=== PATIENT | male | born 1955 | race African-American/Black ===

== ENCOUNTER 2019-03-25 01:07 | Emergency (ER) | payer MEDICAID ==
[~2019-03-25] VITALS: Ht 172.7 cm; Wt 77.4 kg
[2019-03-25] MEDS ORDERED: VANCOMYCIN HCL 1 GM/D5% WATER 200 ML IV ONE (01:30)
[2019-03-25] MEDS ORDERED: SODIUM CHLORIDE 0.9% 1,000 ML IV ONE (01:30)
[2019-03-25 02:33] LABS: APPEARANCE,URINE CLEAR (CLEAR); BILIRUBIN,URINE NEGATIVE (NEGATIVE); GLUCOSE, URINE (UA) >=1000 mg/dL (NEGATIVE); KETONES,URINE NEGATIVE (NEGATIVE); LEUKOCYTE ESTERASE ,URINE NEGATIVE (NEGATIVE); NITRATE,URINE NEGATIVE (NEGATIVE); OCCULT BLOOD,URINE NEGATIVE (NEGATIVE); PROTEIN,URINE NEGATIVE (NEGATIVE); UROBILINOGEN,URINE 0.2 mg/dL (<=1.0)
[2019-03-25 02:40] LABS: AMPHET/METH SCREEN,URINE NEGATIVE (NEGATIVE); BARBITURATE SCREEN, URINE NEGATIVE (NEGATIVE); BENZODIAZEPINES SCREEN,URINE NEGATIVE (NEGATIVE); CANNABINOID SCREEN,URINE NEGATIVE (NEGATIVE); COCAINE SCREEN,URINE NEGATIVE (NEGATIVE); METHADONE SCREEN, URINE NEGATIVE (NEGATIVE); OPIATE SCREEN,URINE NEGATIVE (NEGATIVE)
[2019-03-25 02:41] LABS: BACTERIA,URINE None Seen /HPF (None Seen); RBC,URINE None Seen /HPF (0-2); SQUAMOUS EPITHELIAL CELL,UR Rare /LPF (None Seen); WBC,URINE 0-2 /HPF (0-5)
[2019-03-25 02:43] LABS: PHENCYCLIDINE SCREEN,URINE NEGATIVE (NEGATIVE)
[2019-03-25 03:01] LABS: BASOPHILS % (AUTO) 1.4 % (0.0-2.0); EOSINOPHILS % (AUTO) 0.2 % (1.0-6.0); HEMATOCRIT 36.4 % (41-53); LYMPHOCYTES # (AUTO) 2.4 K/uL (1.0-4.8); LYMPHOCYTES % (AUTO) 24.4 % (22.0-44.0); MEAN CORPUSCULAR HEMOGLOBIN 30.2 pg (26.0-34.0); MEAN CORPUSCULAR VOLUME 91 fL (80-100); MONOCYTES # (AUTO) 0.9 K/uL (0.1-1.0); MONOCYTES % (AUTO) 8.7 % (2.0-9.0); NEUTROPHILS # (AUTO) 6.4 K/uL (1.8-7.7); NEUTROPHILS % (AUTO) 65.3 % (40.0-70.0); PLATELET COUNT (AUTO) 352 K/uL (150-450); RED BLOOD CELL COUNT(AUTO) 3.98 MIL/uL (4.50-5.90); RED CELL DISTRIBUTION WIDTH 14.7 % (11.5-14.5)
[2019-03-25 03:18] LABS: LACTIC ACID 1.7 mmol/L (0.4-2.0)
[2019-03-25 03:24] LABS: ALANINE AMINOTRANSFERASE 22 U/L (12-78); ALBUMIN 3.1 g/dL (3.4-5.0); ALKALINE PHOSPHATASE 121 U/L (46-116); ANION GAP 7 mmol/L (8-16); ASPARTATE AMINOTRANSFERASE 15 U/L (15-37); BILIRUBIN,TOTAL 0.7 mg/dL (0.1-1.0); CALCIUM, TOTAL 9.7 mg/dL (8.8-10.5); CARBON DIOXIDE 28 mmol/L (22-29); CHLORIDE 90 mmol/L (98-107); CREATININE 1.23 mg/dL (0.60-1.30); GLOMERULAR FILTR. RATE CALC > 60 mL/min (>60); POTASSIUM 4.3 mmol/L (3.5-5.1); SODIUM SERUM 125 mmol/L (136-145); TOTAL PROTEIN, SERUM 8.2 g/dL (6.4-8.2)
[2019-03-25 03:27] LABS: GLUCOSE,RANDOM 595 mg/dL (70-110)
[2019-03-25 03:32] LABS: UREA NITROGEN, BLOOD 11 mg/dL (7-18)
[2019-03-25 03:45] LABS: GLUCOSE,POINT OF CARE 542 MG/DL (70-110)
[2019-03-25] MEDS ORDERED: INSULIN REGULAR, HUMAN 100 UNITS/ML SQ ONE (03:45)
[2019-03-25] MEDS ORDERED: PIPERACILLIN/TAZO 3.375 GM/D5W 50 ML IV ONE (04:30)
[2019-03-25] MEDS ORDERED: CEFEPIME HCL 2 GM in DEXTROSE 5%-WATER 50 ML IV ONE (04:45)
[2019-03-25 05:23] VITALS: BP 134/71
[2019-03-25 05:31] LABS: GLUCOSE,POINT OF CARE 401 MG/DL (70-110)
== END 2019-03-25 06:16 | disposition short-term general hospital (02) ==
LOC: EMS 01:07
DX: T81.40XA Infection following a procedure, unspecified, initial encounter (principal); L03.031 Cellulitis of right toe; I10 Essential (primary) hypertension; E11.9 Type 2 diabetes mellitus without complications
CPT/HCPCS: 36415; 70450; 71045; 73630; 80053; 80307; 81001; 82550; 82962; 83605; 83880; 84484; 85025; 87040; 93005; 96365; 96366; 96372; 96375; 99285; G0480; J0692; J1815; J3370; J7060

== ENCOUNTER 2019-03-28 17:30 | Emergency (ER) | payer MEDICAID ==
[2019-03-28 19:16] LABS: GLUCOSE,POINT OF CARE 341 MG/DL (70-110)
== END 2019-03-28 20:30 | disposition left against medical advice (07) ==
LOC: EMS 17:31
DX: R45.851 Suicidal ideations (principal); Z53.21 Procedure and treatment not carried out due to patient leaving prior to being seen by health care provider

== ENCOUNTER 2019-09-22 18:42 | Emergency (ER) | payer MEDICAID ==
[~2019-09-22] VITALS: Ht 170.2 cm; Wt 81.8 kg
[2019-09-22 20:04] LABS: GLUCOSE,POINT OF CARE 435 MG/DL (70-110)
[2019-09-22] MEDS ORDERED: LISI-660 PO (20:04)
[2019-09-22] MEDS ORDERED: LORA-999 PO (20:04)
[2019-09-22 20:44] VITALS: BP 138/73
== END 2019-09-22 22:35 | disposition home or self-care (01) ==
LOC: EMS 18:43
DX: E11.65 Type 2 diabetes mellitus with hyperglycemia (principal); E78.00 Pure hypercholesterolemia, unspecified; I10 Essential (primary) hypertension; F20.9 Schizophrenia, unspecified; Z98.890 Other specified postprocedural states; Z89.431 Acquired absence of right foot; Z88.8 Allergy status to other drugs, medicaments and biological substances

== ENCOUNTER 2019-09-27 17:40 | Inpatient (IN) | payer MEDICAID ==
[~2019-09-27] VITALS: Ht 170.2 cm; Wt 83.6 kg
[~2019-09-27 17:40] MED LIST: LISI-660 PO; LORA-999 PO
[2019-09-27] MEDS ORDERED: INSU100V SQ (17:46)
[2019-09-27] MEDS ORDERED: INSULIN REGULAR, HUMAN 100 UNITS/ML IVP ONE (18:00)
[2019-09-27] MEDS ORDERED: SODIUM CHLORIDE 0.9% 1,000 ML IV ONE (18:00)
[2019-09-27] MEDS ORDERED: ACETAMINOPHEN 500 MG TABLET PO ONE (18:00)
[2019-09-27] MEDS ORDERED: BENZONATATE 100 MG CAPSULE PO ONE (18:00)
[2019-09-27 18:25] LABS: AMPHET/METH SCREEN,URINE NEGATIVE (NEGATIVE); BARBITURATE SCREEN, URINE NEGATIVE (NEGATIVE); BENZODIAZEPINES SCREEN,URINE NEGATIVE (NEGATIVE); CANNABINOID SCREEN,URINE POSITIVE (NEGATIVE); COCAINE SCREEN,URINE NEGATIVE (NEGATIVE); METHADONE SCREEN, URINE NEGATIVE (NEGATIVE); OPIATE SCREEN,URINE NEGATIVE (NEGATIVE)
[2019-09-27 18:33] LABS: PHENCYCLIDINE SCREEN,URINE NEGATIVE (NEGATIVE)
[2019-09-27 18:46] LABS: BASOPHILS % (AUTO) 1.8 % (0.0-2.0); EOSINOPHILS % (AUTO) 1.5 % (1.0-6.0); HEMOGLOBIN 12.7 g/dL (13.5-17.5); LYMPHOCYTES # (AUTO) 2.9 K/uL (1.0-4.8); LYMPHOCYTES % (AUTO) 29.1 % (22.0-44.0); MEAN CORPUSCULAR HEMOGLOBIN 30.1 pg (26.0-34.0); MEAN CORPUSCULAR HGB CONC 33.5 G/dL (31.0-37.0); MEAN CORPUSCULAR VOLUME 90 fL (80-100); MONOCYTES # (AUTO) 0.9 K/uL (0.1-1.0); MONOCYTES % (AUTO) 8.7 % (2.0-9.0); NEUTROPHILS # (AUTO) 5.8 K/uL (1.8-7.7); NEUTROPHILS % (AUTO) 58.9 % (40.0-70.0); PLATELET COUNT (AUTO) 286 K/uL (150-450); RED BLOOD CELL COUNT(AUTO) 4.22 MIL/uL (4.50-5.90); RED CELL DISTRIBUTION WIDTH 14.3 % (11.5-14.5)
[2019-09-27 19:11] LABS: ALANINE AMINOTRANSFERASE 38 U/L (12-78); ALBUMIN 3.2 g/dL (3.4-5.0); ALKALINE PHOSPHATASE 168 U/L (46-116); ANION GAP 6 mmol/L (8-16); ASPARTATE AMINOTRANSFERASE 21 U/L (15-37); BILIRUBIN,TOTAL 0.4 mg/dL (0.1-1.0); CALCIUM, TOTAL 9.7 mg/dL (8.8-10.5); CARBON DIOXIDE 27 mmol/L (22-29); CHLORIDE 95 mmol/L (98-107); CREATININE 0.88 mg/dL (0.60-1.30); GLOMERULAR FILTR. RATE CALC > 60 mL/min (>60); POTASSIUM 5.2 mmol/L (3.5-5.1); SODIUM SERUM 128 mmol/L (136-145); TOTAL PROTEIN, SERUM 7.7 g/dL (6.4-8.2); UREA NITROGEN, BLOOD 14 mg/dL (7-18)
[2019-09-27 19:20] LABS: GLUCOSE,RANDOM 492 mg/dL (70-110)
[2019-09-27] MEDS ORDERED: LORazepam 2 MG/ML VIAL IVP ONE (19:30)
[2019-09-27 21:02] LABS: GLUCOSE,POINT OF CARE 118 MG/DL (70-110)
[2019-09-27] MEDS ORDERED: ZOLPIDEM TARTRATE 10 MG TABLET PO PRN (21:45)
[2019-09-27] MEDS ORDERED: HALOPERIDOL 5 MG TABLET PO PRN (21:45)
[2019-09-28 01:04] VITALS: BP 136/85
[2019-09-28] MEDS ORDERED: DEXTROSE 50%-WATER 25 GM/50 ML SYRINGE IVP PRN (06:45)
[2019-09-28] MEDS: MetFORMIN HCL 500 MG TABLET PO SCH ×3 (07:19→16:48)
[2019-09-28] MEDS: INSULIN LISPRO 100 UNITS/ML SQ PRN ×3 (07:20→20:22)
[2019-09-28 07:25] LABS: GLUCOMETER DEV NAME(LOC) 3E.I 2; GLUCOSE,POINT OF CARE 309 MG/DL (70-110)
[2019-09-28] MEDS ORDERED: ONDANSETRON HCL 4 MG TABLET PO PRN (08:00)
[2019-09-28] MEDS ORDERED: OMEPRAZOLE 20 MG CAPSULE PO PRN (08:00)
[2019-09-28] MEDS ORDERED: MAGNESIUM HYDROXIDE SUSPENSION 30 ML UDCUP PO PRN (08:00)
[2019-09-28] MEDS ORDERED: ALBUTEROL SULFATE HFA 90 MCG/PUFF 8 GM INHALER IH PRN (08:00)
[2019-09-28] MEDS ORDERED: CloNIDine HCL 0.1 MG TABLET PO PRN (08:00)
[2019-09-28] MEDS ORDERED: MAG HYDROX/AL HYDROX/SIMETH ES 30 ML SUSPENSION UDCUP PO PRN (08:00)
[2019-09-28] MEDS ORDERED: DOCUSATE SODIUM 100 MG CAPSULE PO PRN (08:00)
[2019-09-28] MEDS ORDERED: ACETAMINOPHEN 325 MG TABLET PO PRN (08:00)
[2019-09-28] MEDS ORDERED: BACITRACIN 28.4 GM OINTMENT TP PRN (08:00)
[2019-09-28] MEDS ORDERED: IBUPROFEN 600 MG TABLET PO PRN (08:00)
[2019-09-28] MEDS ORDERED: LOPERAMIDE HCL 2 MG CAPSULE PO PRN (08:00)
[2019-09-28] MEDS ORDERED: PETROLATUM,WHITE 28 GM JELLY TP PRN (08:00)
[2019-09-28] MEDS ORDERED: HALOPERIDOL 5 MG TABLET PO PRN (08:30)
[2019-09-28] MEDS: LISINOPRIL 10 MG TABLET PO SCH ×2 (08:53→08:57)
[2019-09-28 09:43] VITALS: BP 138/77
[2019-09-28] MEDS: LORazepam 2 MG TABLET PO PRN ×2 (12:20→19:45)
[2019-09-28 13:09] LABS: GLUCOMETER DEV NAME(LOC) 3EX.; GLUCOSE,POINT OF CARE 358 MG/DL (70-110)
[2019-09-28 17:12] LABS: GLUCOMETER DEV NAME(LOC) 3E.I 2; GLUCOSE,POINT OF CARE 547 MG/DL (70-110)
[2019-09-28] MEDS ORDERED: INSULIN LISPRO 100 UNITS/ML SQ ONE (18:00)
[2019-09-28 19:04] VITALS: BP 135/81
[2019-09-28] MEDS ORDERED: OLANZapine 10 MG TABLET PO SCH (21:00)
[2019-09-29 06:03] LABS: GLUCOMETER DEV NAME(LOC) 3E.I 2; GLUCOSE,POINT OF CARE 339 MG/DL (70-110)
[2019-09-29] MEDS: MetFORMIN HCL 500 MG TABLET PO SCH ×2 (06:47→16:46)
[2019-09-29] MEDS: INSULIN LISPRO 100 UNITS/ML SQ PRN ×3 (06:51→21:18)
[2019-09-29] MEDS: LORazepam 2 MG TABLET PO PRN ×3 (06:51→19:14)
[2019-09-29 08:07] LABS: CHOL/HDL RATIO 2.7 (4.2-7.3)
[2019-09-29 08:14] VITALS: BP 122/83
[2019-09-29] MEDS: LISINOPRIL 10 MG TABLET PO SCH (09:00)
[2019-09-29] MEDS: RisperiDONE 1 MG TABLET PO SCH (09:13)
[2019-09-29] MEDS: BENZOCAINE/MENTHOL LOZENGE MM PRN ×2 (10:50→19:17)
[2019-09-29 11:35] LABS: GLUCOMETER DEV NAME(LOC) 3E.I 2; GLUCOSE,POINT OF CARE 400 MG/DL (70-110)
[2019-09-29 16:25] VITALS: BP 139/90
[2019-09-29 17:24] LABS: GLUCOMETER DEV NAME(LOC) 3E.C; GLUCOSE,POINT OF CARE 580 MG/DL (70-110)
[2019-09-29] MEDS ORDERED: DEXTROSE 50%-WATER 25 GM/50 ML SYRINGE IVP PRN (17:30)
[2019-09-29] MEDS ORDERED: INSULIN LISPRO 100 UNITS/ML SQ ONE (17:45)
[2019-09-29 19:26] LABS: GLUCOMETER DEV NAME(LOC) 3E.C; GLUCOSE,POINT OF CARE 276 MG/DL (70-110)
[2019-09-29] MEDS ORDERED: INSULIN GLARGINE,HUM.REC.ANLOG 100 UNITS/ML SQ SCH (21:00)
[2019-09-29 21:15] LABS: GLUCOMETER DEV NAME(LOC) 3E.C; GLUCOSE,POINT OF CARE 288 MG/DL (70-110)
[2019-09-30] MEDS: LORazepam 2 MG TABLET PO PRN ×2 (03:40→16:14)
[2019-09-30 06:35] LABS: GLUCOMETER DEV NAME(LOC) 3E.C; GLUCOSE,POINT OF CARE 256 MG/DL (70-110)
[2019-09-30] MEDS: MetFORMIN HCL 500 MG TABLET PO SCH ×2 (07:00→17:30)
[2019-09-30] MEDS: INSULIN LISPRO 100 UNITS/ML SQ PRN ×4 (07:02→21:07)
[2019-09-30] MEDS: RisperiDONE 1 MG TABLET PO SCH (07:52)
[2019-09-30] MEDS: LISINOPRIL 10 MG TABLET PO SCH (08:03)
[2019-09-30 08:33] VITALS: BP 140/73
[2019-09-30 11:16] LABS: GLUCOMETER DEV NAME(LOC) 3E.C; GLUCOSE,POINT OF CARE 390 MG/DL (70-110)
[2019-09-30] MEDS: BENZOCAINE/MENTHOL LOZENGE MM PRN (15:19)
[2019-09-30 17:37] LABS: GLUCOMETER DEV NAME(LOC) 3E.C; GLUCOSE,POINT OF CARE 239 MG/DL (70-110)
[2019-09-30] MEDS: INSULIN GLARGINE,HUM.REC.ANLOG 100 UNITS/ML SQ SCH (21:07)
[2019-09-30 21:13] LABS: GLUCOMETER DEV NAME(LOC) 3E.C; GLUCOSE,POINT OF CARE 369 MG/DL (70-110)
[2019-10-01 01:20] VITALS: BP 104/64
[2019-10-01 01:41] LABS: GLUCOMETER DEV NAME(LOC) 3E.C; GLUCOSE,POINT OF CARE 82 MG/DL (70-110)
[2019-10-01] MEDS: LORazepam 2 MG TABLET PO PRN ×3 (02:07→17:12)
[2019-10-01] MEDS: BENZOCAINE/MENTHOL LOZENGE MM PRN ×3 (03:45→17:12)
[2019-10-01 06:51] LABS: GLUCOMETER DEV NAME(LOC) 3E.C; GLUCOSE,POINT OF CARE 258 MG/DL (70-110)
[2019-10-01] MEDS: MetFORMIN HCL 500 MG TABLET PO SCH ×2 (06:53→17:04)
[2019-10-01] MEDS: INSULIN LISPRO 100 UNITS/ML SQ PRN ×4 (06:56→21:08)
[2019-10-01] MEDS: RisperiDONE 1 MG TABLET PO SCH (08:11)
[2019-10-01] MEDS: LISINOPRIL 10 MG TABLET PO SCH (08:17)
[2019-10-01 08:29] VITALS: BP 138/78
[2019-10-01 11:33] LABS: GLUCOMETER DEV NAME(LOC) 3E.I 2; GLUCOSE,POINT OF CARE 366 MG/DL (70-110)
[2019-10-01 17:00] VITALS: BP 127/77
[2019-10-01 17:19] LABS: GLUCOMETER DEV NAME(LOC) 3E.C; GLUCOSE,POINT OF CARE 408 MG/DL (70-110)
[2019-10-01 20:35] LABS: GLUCOMETER DEV NAME(LOC) 3E.C; GLUCOSE,POINT OF CARE 159 MG/DL (70-110)
[2019-10-01] MEDS: INSULIN GLARGINE,HUM.REC.ANLOG 100 UNITS/ML SQ SCH (21:07)
[2019-10-01] MEDS ORDERED: RISP1 PO (21:12)
[2019-10-02 06:44] LABS: GLUCOMETER DEV NAME(LOC) 3E.C; GLUCOSE,POINT OF CARE 255 MG/DL (70-110)
[2019-10-02] MEDS: MetFORMIN HCL 500 MG TABLET PO SCH (06:49)
[2019-10-02] MEDS: INSULIN LISPRO 100 UNITS/ML SQ PRN (06:49)
[2019-10-02] MEDS: LORazepam 2 MG TABLET PO PRN (06:54)
[2019-10-02] MEDS: RisperiDONE 1 MG TABLET PO SCH (07:38)
[2019-10-02] MEDS: LISINOPRIL 10 MG TABLET PO SCH (07:38)
[2019-10-02] MEDS: BENZOCAINE/MENTHOL LOZENGE MM PRN (08:38)
[2019-10-02] MEDS ORDERED: INSULIN GLARGINE,HUM.REC.ANLOG 100 UNITS/ML SQ SCH (09:00)
[2019-10-02 09:11] VITALS: BP 123/76
[2019-10-02] MEDS ORDERED: LISI-661 PO (09:36)
[2019-10-02] MEDS ORDERED: METF-960 PO (09:37)
[2019-10-02] MEDS ORDERED: INSLAN SQ (09:38)
== END 2019-10-02 11:00 | disposition home or self-care (01) | DRG 885 ==
LOC: EMS 17:42 → 3EI 22:00 → 3EC 09-29 14:58
PROVIDERS: ADMIT Psychiatry & Neurology Psychiatry; ATTEND Psychiatry & Neurology Psychiatry
DX: F20.0 Paranoid schizophrenia (principal); E11.65 Type 2 diabetes mellitus with hyperglycemia; R45.851 Suicidal ideations; E78.00 Pure hypercholesterolemia, unspecified; F32.9 Major depressive disorder, single episode, unspecified; G47.00 Insomnia, unspecified; G89.29 Other chronic pain; I10 Essential (primary) hypertension; K59.00 Constipation, unspecified; Z79.4 Long term (current) use of insulin; Z91.14 Patient's other noncompliance with medication regimen; Z88.1 Allergy status to other antibiotic agents; Z88.8 Allergy status to other drugs, medicaments and biological substances; Z56.0 Unemployment, unspecified
CPT/HCPCS: 82948; G0480; J1815; J2060; J7030

== ENCOUNTER 2019-10-19 01:28 | Emergency (ER) | payer MEDICAID ==
[~2019-10-19] VITALS: Ht 170.2 cm; Wt 79.1 kg
[~2019-10-19 01:28] MED LIST changes: +INSLAN SQ; -LISI-660 PO; +LISI-661 PO; -LORA-999 PO; +METF-960 PO; +RISP1 PO
[2019-10-19 01:46] LABS: GLUCOSE,POINT OF CARE 557 MG/DL (70-110)
[2019-10-19] MEDS ORDERED: RisperiDONE 1 MG TABLET PO ONE (03:00)
[2019-10-19] MEDS ORDERED: LISINOPRIL 10 MG TABLET PO ONE (03:00)
[2019-10-19] MEDS ORDERED: MetFORMIN HCL 500 MG TABLET PO ONE (03:00)
[2019-10-19] MEDS ORDERED: SODIUM CHLORIDE 0.9% 1,000 ML IV ONE (03:30)
[2019-10-19 03:31] LABS: GLUCOSE,POINT OF CARE 497 MG/DL (70-110)
[2019-10-19 04:15] LABS: BASOPHILS % (AUTO) 1.8 % (0.0-2.0); EOSINOPHILS % (AUTO) 0.8 % (1.0-6.0); HEMATOCRIT 38.9 % (41-53); HEMOGLOBIN 12.9 g/dL (13.5-17.5); LYMPHOCYTES # (AUTO) 2.8 K/uL (1.0-4.8); LYMPHOCYTES % (AUTO) 30.9 % (22.0-44.0); MEAN CORPUSCULAR HGB CONC 33.3 G/dL (31.0-37.0); MEAN CORPUSCULAR VOLUME 90 fL (80-100); MONOCYTES # (AUTO) 0.7 K/uL (0.1-1.0); MONOCYTES % (AUTO) 7.9 % (2.0-9.0); NEUTROPHILS # (AUTO) 5.3 K/uL (1.8-7.7); NEUTROPHILS % (AUTO) 58.6 % (40.0-70.0); PLATELET COUNT (AUTO) 245 K/uL (150-450); RED BLOOD CELL COUNT(AUTO) 4.32 MIL/uL (4.50-5.90); RED CELL DISTRIBUTION WIDTH 13.8 % (11.5-14.5)
[2019-10-19 04:35] LABS: ALANINE AMINOTRANSFERASE 31 U/L (12-78); ALBUMIN 2.9 g/dL (3.4-5.0); ALKALINE PHOSPHATASE 145 U/L (46-116); ANION GAP 3 mmol/L (8-16); ASPARTATE AMINOTRANSFERASE 14 U/L (15-37); BILIRUBIN,TOTAL 0.3 mg/dL (0.1-1.0); CALCIUM, TOTAL 9.1 mg/dL (8.8-10.5); CARBON DIOXIDE 29 mmol/L (22-29); CHLORIDE 96 mmol/L (98-107); CREATININE 1.01 mg/dL (0.60-1.30); GLOMERULAR FILTR. RATE CALC > 60 mL/min (>60); POTASSIUM 4.9 mmol/L (3.5-5.1); SODIUM SERUM 128 mmol/L (136-145); TOTAL PROTEIN, SERUM 7.1 g/dL (6.4-8.2); UREA NITROGEN, BLOOD 14 mg/dL (7-18)
[2019-10-19 04:37] LABS: GLUCOSE,RANDOM 433 mg/dL (70-110)
[2019-10-19] MEDS ORDERED: INSULIN REGULAR, HUMAN 100 UNITS/ML SQ ONE (04:45)
[2019-10-19] MEDS ORDERED: INSULIN GLARGINE,HUM.REC.ANLOG 100 UNITS/ML SQ ONE (05:45)
[2019-10-19 06:14] VITALS: BP 137/73
== END 2019-10-19 06:16 | disposition home or self-care (01) ==
LOC: EMS 01:29
DX: F22 Delusional disorders (principal); E11.65 Type 2 diabetes mellitus with hyperglycemia; E78.00 Pure hypercholesterolemia, unspecified; I10 Essential (primary) hypertension; Z79.4 Long term (current) use of insulin; Z79.84 Long term (current) use of oral hypoglycemic drugs; Z79.899 Other long term (current) drug therapy; Z88.8 Allergy status to other drugs, medicaments and biological substances
CPT/HCPCS: 36415; 80053; 82948; 82962; 85025; 96372; 99283; J1815 ×2

== ENCOUNTER 2020-05-31 16:39 | Emergency (ER) | payer MEDICAID ==
[~2020-05-31] VITALS: Ht 170.2 cm; Wt 82.7 kg
[~2020-05-31 16:39] MED LIST changes: -RISP1 PO; +RISP1TAB27 PO
[2020-05-31 16:41] VITALS: BP 160/127
== END 2020-05-31 17:48 | disposition left against medical advice (07) ==
LOC: EMS 16:39
DX: E11.65 Type 2 diabetes mellitus with hyperglycemia (principal); I10 Essential (primary) hypertension; F17.210 Nicotine dependence, cigarettes, uncomplicated; Z88.8 Allergy status to other drugs, medicaments and biological substances; Z79.4 Long term (current) use of insulin

== ENCOUNTER 2021-11-12 10:42 | Inpatient (IN) | payer MEDICARE, MEDICAID ==
[~2021-11-12] VITALS: Ht 170.2 cm; Wt 96.2 kg
[~2021-11-12 10:42] MED LIST changes: -LISI-661 PO; +LISI-893 PO; +METF-1211 PO; -METF-960 PO; -RISP1TAB27 PO; +RISP1TAB48 PO
[2021-11-12] MEDS ORDERED: ZOLPIDEM TARTRATE 10 MG TABLET PO PRN (12:00)
[2021-11-12] MEDS ORDERED: PNEUMOCOCCAL VACCINE POLYVALENT 0.5 ML VIAL [PPSV23] IM. ONE (13:15)
[2021-11-12 13:56] LABS: GLUCOMETER DEV NAME(LOC) BV3N.; GLUCOSE,POINT OF CARE 330 MG/DL (70-110)
[2021-11-12] MEDS: LORazepam 2 MG TABLET PO PRN ×2 (14:52→21:15)
[2021-11-12 15:55] VITALS: BP 154/97
[2021-11-12 16:17] VITALS: BP 132/75
[2021-11-12] MEDS ORDERED: MetFORMIN HCL 500 MG TABLET PO SCH (17:00)
[2021-11-12] MEDS ORDERED: GLUCAGON,HUMAN RECOMBINANT 1 MG VIAL IM PRN (17:15)
[2021-11-12] MEDS: QUEtiapine FUMARATE 100 MG TABLET PO PRN (17:20)
[2021-11-12] MEDS: INSULIN GLARGINE,HUM.REC.ANLOG 100 UNITS/ML SQ SCH (17:23)
[2021-11-12] MEDS: INSULIN LISPRO 100 UNITS/ML SQ PRN ×2 (17:23→21:23)
[2021-11-12 17:52] LABS: GLUCOMETER DEV NAME(LOC) BV3N.; GLUCOSE,POINT OF CARE 347 MG/DL (70-110)
[2021-11-12] MEDS: GuaiFENesin [SUGAR-FREE] 200 MG/10 ML SOLUTION UDCUP PO PRN (21:15)
[2021-11-12 21:37] LABS: GLUCOMETER DEV NAME(LOC) BV3N.; GLUCOSE,POINT OF CARE 316 MG/DL (70-110)
[2021-11-13 04:11] VITALS: BP 144/80
[2021-11-13] MEDS: GuaiFENesin [SUGAR-FREE] 200 MG/10 ML SOLUTION UDCUP PO PRN (05:38)
[2021-11-13] MEDS ORDERED: NICOTINE 14 MG/24 HOUR PATCH TD PRN (06:00)
[2021-11-13] MEDS ORDERED: LOPERAMIDE HCL 2 MG CAPSULE PO PRN (06:00)
[2021-11-13] MEDS ORDERED: ALBUTEROL SULFATE HFA 90 MCG/PUFF 8 GM INHALER IH PRN (06:00)
[2021-11-13] MEDS ORDERED: ACETAMINOPHEN 325 MG TABLET PO PRN (06:00)
[2021-11-13] MEDS ORDERED: PETROLATUM,WHITE 28 GM JELLY TP PRN (06:00)
[2021-11-13] MEDS ORDERED: ONDANSETRON HCL 4 MG TABLET PO PRN (06:00)
[2021-11-13] MEDS ORDERED: MAG HYDROX/AL HYDROX/SIMETH ES 30 ML SUSPENSION UDCUP PO PRN (06:00)
[2021-11-13] MEDS ORDERED: MAGNESIUM HYDROXIDE SUSPENSION 30 ML UDCUP PO PRN (06:00)
[2021-11-13] MEDS ORDERED: CloNIDine HCL 0.1 MG TABLET PO PRN (06:00)
[2021-11-13] MEDS ORDERED: IBUPROFEN 400 MG TABLET PO PRN (06:00)
[2021-11-13 06:06] LABS: GLUCOMETER DEV NAME(LOC) BV3N.; GLUCOSE,POINT OF CARE 293 MG/DL (70-110)
[2021-11-13] MEDS: DENTURE ADHESIVE 68 GM CREAM DT PRN (06:27)
[2021-11-13] MEDS: INSULIN LISPRO 100 UNITS/ML SQ PRN ×4 (06:49→21:10)
[2021-11-13 06:57] LABS: BASOPHILS % (AUTO) 1.2 % (0.0-2.0); EOSINOPHILS % (AUTO) 3.5 % (1.0-6.0); HEMATOCRIT 39.8 % (41-53); HEMOGLOBIN 13.8 g/dL (13.5-17.5); LYMPHOCYTES # (AUTO) 2.6 K/uL (1.0-4.8); LYMPHOCYTES % (AUTO) 36.2 % (22.0-44.0); MEAN CORPUSCULAR HEMOGLOBIN 30.3 pg (26.0-34.0); MEAN CORPUSCULAR HGB CONC 34.6 G/dL (31.0-37.0); MEAN CORPUSCULAR VOLUME 88 fL (80-100); MONOCYTES # (AUTO) 0.6 K/uL (0.1-1.0); NEUTROPHILS # (AUTO) 3.6 K/uL (1.8-7.7); NEUTROPHILS % (AUTO) 50.1 % (40.0-70.0); PLATELET COUNT (AUTO) 283 K/uL (150-450); RED BLOOD CELL COUNT(AUTO) 4.54 MIL/uL (4.50-5.90); RED CELL DISTRIBUTION WIDTH 13.9 % (11.5-14.5)
[2021-11-13 07:00] LABS: APPEARANCE,URINE CLEAR (CLEAR); BILIRUBIN,URINE NEGATIVE (NEGATIVE); GLUCOSE, URINE (UA) >=1000 mg/dL (NEGATIVE); KETONES,URINE NEGATIVE (NEGATIVE); LEUKOCYTE ESTERASE ,URINE NEGATIVE (NEGATIVE); NITRATE,URINE NEGATIVE (NEGATIVE); OCCULT BLOOD,URINE NEGATIVE (NEGATIVE); PH,URINE 5.5 (5.0-8.0); PROTEIN,URINE NEGATIVE (NEGATIVE); SPECIFIC GRAVITIY, URINE 1.031 (1.003-1.030); UROBILINOGEN,URINE <=1.0 mg/dL (<=1.0)
[2021-11-13 07:01] LABS: AMPHET/METH SCREEN,URINE NEGATIVE (NEGATIVE); BARBITURATE SCREEN, URINE NEGATIVE (NEGATIVE); BENZODIAZEPINES SCREEN,URINE NEGATIVE (NEGATIVE); CANNABINOID SCREEN,URINE NEGATIVE (NEGATIVE); COCAINE SCREEN,URINE NEGATIVE (NEGATIVE); METHADONE SCREEN, URINE NEGATIVE (NEGATIVE); OPIATE SCREEN,URINE NEGATIVE (NEGATIVE)
[2021-11-13 07:03] LABS: PHENCYCLIDINE SCREEN,URINE NEGATIVE (NEGATIVE)
[2021-11-13 07:16] LABS: BACTERIA,URINE None Seen /HPF (None Seen); RBC,URINE None Seen /HPF (0-2); SQUAMOUS EPITHELIAL CELL,UR Rare /LPF (None Seen); WBC,URINE None Seen /HPF (0-5)
[2021-11-13 07:47] LABS: ALANINE AMINOTRANSFERASE 49 U/L (12-78); ALBUMIN 3.5 g/dL (3.4-5.0); ALKALINE PHOSPHATASE 149 U/L (46-116); ANION GAP 4 mmol/L (8-16); ASPARTATE AMINOTRANSFERASE 53 U/L (15-37); BILIRUBIN,TOTAL 0.3 mg/dL (0.1-1.0); CALCIUM, TOTAL 9.5 mg/dL (8.8-10.5); CARBON DIOXIDE 29 mmol/L (22-29); CHLORIDE 101 mmol/L (98-107); CHOL/HDL RATIO 4.1 (4.2-7.3); CHOLESTEROL 209 mg/dL (131-200); CREATININE 0.85 mg/dL (0.60-1.30); FREE T4 (FREE THYROXINE) 1.34 ng/dL (0.76-1.46); GLOMERULAR FILTR. RATE CALC > 60 mL/min (>60); GLUCOSE,RANDOM 325 mg/dL (70-110); HDL CHOLESTEROL 51 mg/dL (40-60); LDL CHOL (CALC.) 135 mg/dL (0-130); POTASSIUM 4.6 mmol/L (3.5-5.1); SODIUM SERUM 134 mmol/L (136-145); THYROID STIMULATING HORMONE 1.86 uIU/mL (0.36-3.74); TOTAL PROTEIN, SERUM 8.1 g/dL (6.4-8.2); TRIGLYCERIDES 113 mg/dL (15-150); UREA NITROGEN, BLOOD 17 mg/dL (7-18)
[2021-11-13] MEDS: LORazepam 2 MG TABLET PO PRN ×3 (07:56→16:50)
[2021-11-13] MEDS ORDERED: LISINOPRIL 10 MG TABLET PO SCH (09:00)
[2021-11-13 09:07] VITALS: BP 138/79
[2021-11-13] MEDS: AmLODIPine BESYLATE 5 MG TABLET PO SCH (09:07)
[2021-11-13] MEDS: INSULIN GLARGINE,HUM.REC.ANLOG 100 UNITS/ML SQ SCH ×2 (09:12→16:51)
[2021-11-13 11:31] LABS: GLUCOMETER DEV NAME(LOC) BV3N.; GLUCOSE,POINT OF CARE 353 MG/DL (70-110)
[2021-11-13] MEDS: OLANZapine 10 MG TABLET PO SCH ×2 (12:22→21:06)
[2021-11-13 16:11] VITALS: BP 124/64
[2021-11-13] MEDS: RisperiDONE 3 MG TABLET PO SCH (16:50)
[2021-11-13] MEDS: TRIHEXYPHENIDYL HCL 5 MG TABLET PO SCH (16:50)
[2021-11-13] MEDS: QUEtiapine FUMARATE 100 MG TABLET PO PRN (16:50)
[2021-11-13 17:11] LABS: GLUCOMETER DEV NAME(LOC) BV3N.; GLUCOSE,POINT OF CARE 254 MG/DL (70-110)
[2021-11-13] MEDS: QUEtiapine FUMARATE 200 MG TABLET PO SCH (21:06)
[2021-11-13 21:26] LABS: GLUCOMETER DEV NAME(LOC) BV3N.; GLUCOSE,POINT OF CARE 355 MG/DL (70-110)
[2021-11-14] MEDS: INSULIN LISPRO 100 UNITS/ML SQ PRN ×4 (06:25→20:29)
[2021-11-14 06:31] LABS: GLUCOMETER DEV NAME(LOC) BV3N.; GLUCOSE,POINT OF CARE 221 MG/DL (70-110)
[2021-11-14 06:49] VITALS: BP 110/78
[2021-11-14] MEDS: INSULIN GLARGINE,HUM.REC.ANLOG 100 UNITS/ML SQ SCH ×2 (08:09→17:12)
[2021-11-14 08:16] LABS: GLUCOMETER DEV NAME(LOC) BV3N.; GLUCOSE,POINT OF CARE 287 MG/DL (70-110)
[2021-11-14] MEDS: QUEtiapine FUMARATE 100 MG TABLET PO PRN (08:19)
[2021-11-14] MEDS: TRIHEXYPHENIDYL HCL 5 MG TABLET PO SCH ×2 (08:19→16:51)
[2021-11-14] MEDS: RisperiDONE 3 MG TABLET PO SCH ×2 (08:19→16:51)
[2021-11-14] MEDS: OLANZapine 10 MG TABLET PO SCH ×2 (08:20→20:24)
[2021-11-14] MEDS: AmLODIPine BESYLATE 5 MG TABLET PO SCH (08:20)
[2021-11-14 08:36] VITALS: BP 160/84
[2021-11-14 11:31] LABS: GLUCOMETER DEV NAME(LOC) BV3N.; GLUCOSE,POINT OF CARE 362 MG/DL (70-110)
[2021-11-14] MEDS: LORazepam 2 MG TABLET PO PRN ×2 (13:55→20:23)
[2021-11-14 16:16] VITALS: BP 129/68
[2021-11-14 16:51] LABS: GLUCOMETER DEV NAME(LOC) BV3N.; GLUCOSE,POINT OF CARE 244 MG/DL (70-110)
[2021-11-14] MEDS: DOCUSATE SODIUM 100 MG CAPSULE PO PRN (16:51)
[2021-11-14] MEDS: QUEtiapine FUMARATE 200 MG TABLET PO SCH (20:24)
[2021-11-14 20:31] LABS: GLUCOMETER DEV NAME(LOC) BV3N.; GLUCOSE,POINT OF CARE 291 MG/DL (70-110)
[2021-11-15 05:29] VITALS: BP 167/93
[2021-11-15 06:31] LABS: GLUCOMETER DEV NAME(LOC) BV3N.; GLUCOSE,POINT OF CARE 256 MG/DL (70-110)
[2021-11-15] MEDS: INSULIN LISPRO 100 UNITS/ML SQ PRN ×4 (06:33→20:37)
[2021-11-15] MEDS: DENTURE ADHESIVE 68 GM CREAM DT PRN (06:39)
[2021-11-15] MEDS: OLANZapine 10 MG TABLET PO SCH ×2 (08:41→20:32)
[2021-11-15] MEDS: LORazepam 2 MG TABLET PO PRN ×3 (08:41→21:13)
[2021-11-15] MEDS: AmLODIPine BESYLATE 5 MG TABLET PO SCH (08:41)
[2021-11-15] MEDS: TRIHEXYPHENIDYL HCL 5 MG TABLET PO SCH ×2 (08:41→16:50)
[2021-11-15] MEDS: RisperiDONE 3 MG TABLET PO SCH ×2 (08:41→16:50)
[2021-11-15 09:15] VITALS: BP 148/86
[2021-11-15] MEDS: INSULIN GLARGINE,HUM.REC.ANLOG 100 UNITS/ML SQ SCH ×2 (09:21→17:34)
[2021-11-15 12:11] LABS: GLUCOMETER DEV NAME(LOC) BV3N.; GLUCOSE,POINT OF CARE 357 MG/DL (70-110)
[2021-11-15 16:12] VITALS: BP 151/90
[2021-11-15] MEDS: ERYTHROMYCIN 0.5% 3.5 GM TUBE OPHTHALMIC OINTMENT OS SCH (16:50)
[2021-11-15] MEDS: GuaiFENesin/D-METHORPHAN [SUGAR-FREE] 200-20MG/10 ML SYRUP UDCUP PO PRN (16:50)
[2021-11-15 17:22] LABS: GLUCOMETER DEV NAME(LOC) BV3N.; GLUCOSE,POINT OF CARE 314 MG/DL (70-110)
[2021-11-15] MEDS: QUEtiapine FUMARATE 200 MG TABLET PO SCH (20:32)
[2021-11-15 20:46] LABS: GLUCOMETER DEV NAME(LOC) BV3N.; GLUCOSE,POINT OF CARE 250 MG/DL (70-110)
[2021-11-16] MEDS: GuaiFENesin/D-METHORPHAN [SUGAR-FREE] 200-20MG/10 ML SYRUP UDCUP PO PRN ×3 (00:42→16:36)
[2021-11-16] MEDS: DENTURE ADHESIVE 68 GM CREAM DT PRN ×2 (00:43→16:35)
[2021-11-16 05:21] VITALS: BP 155/87
[2021-11-16 06:10] LABS: GLUCOMETER DEV NAME(LOC) BV3N.; GLUCOSE,POINT OF CARE 322 MG/DL (70-110)
[2021-11-16] MEDS: INSULIN LISPRO 100 UNITS/ML SQ PRN ×4 (06:15→21:12)
[2021-11-16 08:22] VITALS: BP 164/84
[2021-11-16] MEDS: ERYTHROMYCIN 0.5% 3.5 GM TUBE OPHTHALMIC OINTMENT OS SCH ×2 (09:07→16:35)
[2021-11-16] MEDS: AmLODIPine BESYLATE 5 MG TABLET PO SCH (09:08)
[2021-11-16] MEDS: RisperiDONE 3 MG TABLET PO SCH ×2 (09:08→16:35)
[2021-11-16] MEDS: TRIHEXYPHENIDYL HCL 5 MG TABLET PO SCH ×2 (09:08→16:35)
[2021-11-16] MEDS: LORazepam 2 MG TABLET PO PRN ×2 (09:08→16:36)
[2021-11-16] MEDS: OLANZapine 10 MG TABLET PO SCH ×2 (09:08→21:10)
[2021-11-16] MEDS: INSULIN GLARGINE,HUM.REC.ANLOG 100 UNITS/ML SQ SCH ×2 (09:12→16:39)
[2021-11-16 11:41] LABS: GLUCOMETER DEV NAME(LOC) BV3N.; GLUCOSE,POINT OF CARE 302 MG/DL (70-110)
[2021-11-16 16:37] VITALS: BP 157/80
[2021-11-16 17:22] LABS: GLUCOMETER DEV NAME(LOC) BV3N.; GLUCOSE,POINT OF CARE 248 MG/DL (70-110)
[2021-11-16] MEDS: QUEtiapine FUMARATE 200 MG TABLET PO SCH (21:10)
[2021-11-16 21:51] LABS: GLUCOMETER DEV NAME(LOC) BV3N.; GLUCOSE,POINT OF CARE 310 MG/DL (70-110)
[2021-11-17] MEDS: GuaiFENesin/D-METHORPHAN [SUGAR-FREE] 200-20MG/10 ML SYRUP UDCUP PO PRN ×2 (04:43→17:02)
[2021-11-17 05:00] VITALS: BP 172/89
[2021-11-17 05:45] VITALS: BP 148/76
[2021-11-17 06:01] LABS: GLUCOMETER DEV NAME(LOC) BV3N.; GLUCOSE,POINT OF CARE 177 MG/DL (70-110)
[2021-11-17] MEDS: INSULIN LISPRO 100 UNITS/ML SQ PRN ×4 (06:39→20:56)
[2021-11-17 08:21] VITALS: BP 158/83
[2021-11-17] MEDS: TRIHEXYPHENIDYL HCL 5 MG TABLET PO SCH ×2 (08:53→17:01)
[2021-11-17] MEDS: OLANZapine 10 MG TABLET PO SCH ×2 (08:53→20:53)
[2021-11-17] MEDS: RisperiDONE 3 MG TABLET PO SCH ×2 (08:53→17:01)
[2021-11-17] MEDS: AmLODIPine BESYLATE 5 MG TABLET PO SCH (08:53)
[2021-11-17] MEDS: LORazepam 2 MG TABLET PO PRN ×2 (08:54→17:02)
[2021-11-17] MEDS: ERYTHROMYCIN 0.5% 3.5 GM TUBE OPHTHALMIC OINTMENT OS SCH ×2 (08:55→17:01)
[2021-11-17] MEDS: INSULIN GLARGINE,HUM.REC.ANLOG 100 UNITS/ML SQ SCH ×2 (09:03→17:03)
[2021-11-17 09:16] LABS: GLUCOMETER DEV NAME(LOC) BV3N.; GLUCOSE,POINT OF CARE 343 MG/DL (70-110)
[2021-11-17 12:02] LABS: GLUCOMETER DEV NAME(LOC) BV3N.; GLUCOSE,POINT OF CARE 320 MG/DL (70-110)
[2021-11-17 16:13] VITALS: BP 140/75
[2021-11-17] MEDS: QUEtiapine FUMARATE 100 MG TABLET PO PRN (17:01)
[2021-11-17 17:51] LABS: GLUCOMETER DEV NAME(LOC) BV3N.; GLUCOSE,POINT OF CARE 301 MG/DL (70-110)
[2021-11-17] MEDS: QUEtiapine FUMARATE 200 MG TABLET PO SCH (20:53)
[2021-11-17 21:16] LABS: GLUCOMETER DEV NAME(LOC) BV3N.; GLUCOSE,POINT OF CARE 181 MG/DL (70-110)
[2021-11-18] MEDS: LORazepam 2 MG TABLET PO PRN ×2 (04:28→12:52)
[2021-11-18] MEDS: GuaiFENesin/D-METHORPHAN [SUGAR-FREE] 200-20MG/10 ML SYRUP UDCUP PO PRN ×2 (04:29→17:06)
[2021-11-18 04:40] VITALS: BP 136/69
[2021-11-18] MEDS: DENTURE ADHESIVE 68 GM CREAM DT PRN (05:19)
[2021-11-18 06:21] LABS: GLUCOMETER DEV NAME(LOC) BV3N.; GLUCOSE,POINT OF CARE 119 MG/DL (70-110)
[2021-11-18 08:21] VITALS: BP 124/70
[2021-11-18] MEDS: ERYTHROMYCIN 0.5% 3.5 GM TUBE OPHTHALMIC OINTMENT OS SCH ×2 (08:30→16:18)
[2021-11-18] MEDS: AmLODIPine BESYLATE 5 MG TABLET PO SCH (08:31)
[2021-11-18] MEDS: TRIHEXYPHENIDYL HCL 5 MG TABLET PO SCH ×2 (08:31→16:17)
[2021-11-18] MEDS: OLANZapine 10 MG TABLET PO SCH ×2 (08:31→20:13)
[2021-11-18] MEDS: RisperiDONE 3 MG TABLET PO SCH ×2 (08:31→16:17)
[2021-11-18] MEDS: INSULIN GLARGINE,HUM.REC.ANLOG 100 UNITS/ML SQ SCH ×2 (09:08→16:53)
[2021-11-18 11:10] LABS: GLUCOMETER DEV NAME(LOC) BV3N.; GLUCOSE,POINT OF CARE 246 MG/DL (70-110)
[2021-11-18] MEDS: INSULIN LISPRO 100 UNITS/ML SQ PRN ×2 (11:22→16:53)
[2021-11-18 16:41] LABS: GLUCOMETER DEV NAME(LOC) BV3N.; GLUCOSE,POINT OF CARE 284 MG/DL (70-110)
[2021-11-18 16:44] VITALS: BP 140/76
[2021-11-18] MEDS: QUEtiapine FUMARATE 200 MG TABLET PO SCH (20:14)
[2021-11-18 21:26] LABS: GLUCOMETER DEV NAME(LOC) BV3N.; GLUCOSE,POINT OF CARE 105 MG/DL (70-110)
[2021-11-18 21:26] LABS: GLUCOMETER DEV NAME(LOC) BV3N.; GLUCOSE,POINT OF CARE 50 MG/DL (70-110)
[2021-11-19 05:49] VITALS: BP 150/79
[2021-11-19 06:45] LABS: GLUCOMETER DEV NAME(LOC) BV3N.; GLUCOSE,POINT OF CARE 86 MG/DL (70-110)
[2021-11-19] MEDS: GuaiFENesin/D-METHORPHAN [SUGAR-FREE] 200-20MG/10 ML SYRUP UDCUP PO PRN ×2 (06:49→16:51)
[2021-11-19] MEDS: DENTURE ADHESIVE 68 GM CREAM DT PRN (06:56)
[2021-11-19 08:11] LABS: GLUCOMETER DEV NAME(LOC) POC.BV
[2021-11-19 08:46] VITALS: BP 144/79
[2021-11-19] MEDS: AmLODIPine BESYLATE 5 MG TABLET PO SCH (08:55)
[2021-11-19] MEDS: TRIHEXYPHENIDYL HCL 5 MG TABLET PO SCH ×2 (08:55→16:51)
[2021-11-19] MEDS: RisperiDONE 3 MG TABLET PO SCH ×2 (08:55→16:51)
[2021-11-19] MEDS: OLANZapine 10 MG TABLET PO SCH ×2 (08:55→21:29)
[2021-11-19] MEDS: DOCUSATE SODIUM 100 MG CAPSULE PO PRN (09:00)
[2021-11-19] MEDS: LORazepam 2 MG TABLET PO PRN ×2 (09:00→13:08)
[2021-11-19] MEDS: ERYTHROMYCIN 0.5% 3.5 GM TUBE OPHTHALMIC OINTMENT OS SCH ×2 (09:07→16:51)
[2021-11-19] MEDS: INSULIN GLARGINE,HUM.REC.ANLOG 100 UNITS/ML SQ SCH ×2 (09:08→17:13)
[2021-11-19 09:21] LABS: GLUCOMETER DEV NAME(LOC) BV3N.; GLUCOSE,POINT OF CARE 316 MG/DL (70-110)
[2021-11-19] MEDS: INSULIN LISPRO 100 UNITS/ML SQ PRN ×3 (11:36→21:33)
[2021-11-19 11:56] LABS: GLUCOMETER DEV NAME(LOC) BV3N.; GLUCOSE,POINT OF CARE 280 MG/DL (70-110)
[2021-11-19 16:16] VITALS: BP 130/90
[2021-11-19] MEDS: QUEtiapine FUMARATE 100 MG TABLET PO PRN (16:51)
[2021-11-19 17:36] LABS: GLUCOMETER DEV NAME(LOC) BV3N.; GLUCOSE,POINT OF CARE 166 MG/DL (70-110)
[2021-11-19] MEDS: QUEtiapine FUMARATE 200 MG TABLET PO SCH (21:29)
[2021-11-19 21:31] LABS: GLUCOMETER DEV NAME(LOC) BV3N.; GLUCOSE,POINT OF CARE 208 MG/DL (70-110)
[2021-11-20] VITALS: BP 149/88
[2021-11-20] MEDS: GuaiFENesin/D-METHORPHAN [SUGAR-FREE] 200-20MG/10 ML SYRUP UDCUP PO PRN ×3 (01:01→16:45)
[2021-11-20] MEDS: LORazepam 2 MG TABLET PO PRN ×4 (01:01→20:50)
[2021-11-20] MEDS: INSULIN LISPRO 100 UNITS/ML SQ PRN ×4 (07:04→20:52)
[2021-11-20 07:15] LABS: GLUCOMETER DEV NAME(LOC) BV3N.; GLUCOSE,POINT OF CARE 174 MG/DL (70-110)
[2021-11-20 08:11] VITALS: BP 151/86
[2021-11-20] MEDS: AmLODIPine BESYLATE 5 MG TABLET PO SCH (08:47)
[2021-11-20] MEDS: OLANZapine 10 MG TABLET PO SCH ×2 (08:47→20:50)
[2021-11-20] MEDS: RisperiDONE 3 MG TABLET PO SCH ×2 (08:47→16:44)
[2021-11-20] MEDS: TRIHEXYPHENIDYL HCL 5 MG TABLET PO SCH ×2 (08:47→16:44)
[2021-11-20] MEDS: ERYTHROMYCIN 0.5% 3.5 GM TUBE OPHTHALMIC OINTMENT OS SCH ×2 (08:48→16:44)
[2021-11-20] MEDS: INSULIN GLARGINE,HUM.REC.ANLOG 100 UNITS/ML SQ SCH ×2 (08:54→16:48)
[2021-11-20 09:56] LABS: GLUCOMETER DEV NAME(LOC) BV3N.; GLUCOSE,POINT OF CARE 173 MG/DL (70-110)
[2021-11-20 11:44] LABS: GLUCOMETER DEV NAME(LOC) BV3N.; GLUCOSE,POINT OF CARE 231 MG/DL (70-110)
[2021-11-20 16:11] VITALS: BP 129/67
[2021-11-20] MEDS: QUEtiapine FUMARATE 100 MG TABLET PO PRN (16:44)
[2021-11-20 17:21] LABS: GLUCOMETER DEV NAME(LOC) BV3N.; GLUCOSE,POINT OF CARE 185 MG/DL (70-110)
[2021-11-20 20:50] LABS: GLUCOMETER DEV NAME(LOC) BV3N.; GLUCOSE,POINT OF CARE 271 MG/DL (70-110)
[2021-11-20] MEDS: QUEtiapine FUMARATE 200 MG TABLET PO SCH (20:50)
[2021-11-21 06:26] LABS: GLUCOMETER DEV NAME(LOC) BV3N.; GLUCOSE,POINT OF CARE 110 MG/DL (70-110)
[2021-11-21] MEDS: RisperiDONE 3 MG TABLET PO SCH ×2 (08:16→16:54)
[2021-11-21] MEDS: AmLODIPine BESYLATE 5 MG TABLET PO SCH (08:16)
[2021-11-21] MEDS: ERYTHROMYCIN 0.5% 3.5 GM TUBE OPHTHALMIC OINTMENT OS SCH ×2 (08:16→16:54)
[2021-11-21] MEDS: OLANZapine 10 MG TABLET PO SCH ×2 (08:16→21:04)
[2021-11-21] MEDS: TRIHEXYPHENIDYL HCL 5 MG TABLET PO SCH ×2 (08:16→16:54)
[2021-11-21 08:23] VITALS: BP 152/76
[2021-11-21] MEDS: GuaiFENesin/D-METHORPHAN [SUGAR-FREE] 200-20MG/10 ML SYRUP UDCUP PO PRN ×2 (08:39→17:01)
[2021-11-21] MEDS: INSULIN GLARGINE,HUM.REC.ANLOG 100 UNITS/ML SQ SCH ×2 (08:52→16:57)
[2021-11-21] MEDS: LORazepam 2 MG TABLET PO PRN ×2 (09:50→16:54)
[2021-11-21] MEDS: DOCUSATE SODIUM 100 MG CAPSULE PO PRN (09:50)
[2021-11-21 12:06] LABS: GLUCOMETER DEV NAME(LOC) BV3N.; GLUCOSE,POINT OF CARE 127 MG/DL (70-110)
[2021-11-21 16:23] VITALS: BP 140/75
[2021-11-21] MEDS: QUEtiapine FUMARATE 100 MG TABLET PO PRN (16:54)
[2021-11-21] MEDS: INSULIN LISPRO 100 UNITS/ML SQ PRN ×2 (16:57→21:15)
[2021-11-21 17:01] LABS: GLUCOMETER DEV NAME(LOC) BV3N.; GLUCOSE,POINT OF CARE 278 MG/DL (70-110)
[2021-11-21] MEDS: QUEtiapine FUMARATE 200 MG TABLET PO SCH (21:04)
[2021-11-21 21:21] LABS: GLUCOMETER DEV NAME(LOC) BV3N.; GLUCOSE,POINT OF CARE 163 MG/DL (70-110)
[2021-11-22 05:04] VITALS: BP 142/83
[2021-11-22] MEDS: DENTURE ADHESIVE 68 GM CREAM DT PRN (05:57)
[2021-11-22] MEDS: DOCUSATE SODIUM 100 MG CAPSULE PO PRN (05:57)
[2021-11-22] MEDS: GuaiFENesin/D-METHORPHAN [SUGAR-FREE] 200-20MG/10 ML SYRUP UDCUP PO PRN ×2 (06:04→22:02)
[2021-11-22 06:11] LABS: GLUCOMETER DEV NAME(LOC) BV3N.; GLUCOSE,POINT OF CARE 147 MG/DL (70-110)
[2021-11-22] MEDS: INSULIN LISPRO 100 UNITS/ML SQ PRN ×4 (06:33→21:38)
[2021-11-22 08:25] VITALS: BP 163/89
[2021-11-22] MEDS: AmLODIPine BESYLATE 5 MG TABLET PO SCH (08:44)
[2021-11-22] MEDS: TRIHEXYPHENIDYL HCL 5 MG TABLET PO SCH ×2 (08:44→16:57)
[2021-11-22] MEDS: OLANZapine 10 MG TABLET PO SCH ×2 (08:44→21:35)
[2021-11-22] MEDS: RisperiDONE 3 MG TABLET PO SCH ×2 (08:44→16:57)
[2021-11-22] MEDS: ERYTHROMYCIN 0.5% 3.5 GM TUBE OPHTHALMIC OINTMENT OS SCH (08:44)
[2021-11-22] MEDS: INSULIN GLARGINE,HUM.REC.ANLOG 100 UNITS/ML SQ SCH ×2 (08:50→17:08)
[2021-11-22 10:17] VITALS: BP 154/77
[2021-11-22 11:26] LABS: GLUCOMETER DEV NAME(LOC) BV3N.; GLUCOSE,POINT OF CARE 180 MG/DL (70-110)
[2021-11-22] MEDS: QUEtiapine FUMARATE 100 MG TABLET PO PRN (13:58)
[2021-11-22 16:14] VITALS: BP 136/80
[2021-11-22 16:21] LABS: GLUCOMETER DEV NAME(LOC) BV3N.; GLUCOSE,POINT OF CARE 200 MG/DL (70-110)
[2021-11-22 20:21] LABS: GLUCOMETER DEV NAME(LOC) BV3N.; GLUCOSE,POINT OF CARE 337 MG/DL (70-110)
[2021-11-22] MEDS: QUEtiapine FUMARATE 200 MG TABLET PO SCH (21:35)
[2021-11-23 01:30] VITALS: BP 132/78
[2021-11-23] MEDS: GuaiFENesin/D-METHORPHAN [SUGAR-FREE] 200-20MG/10 ML SYRUP UDCUP PO PRN ×2 (06:01→18:48)
[2021-11-23 06:21] LABS: GLUCOMETER DEV NAME(LOC) BV3N.; GLUCOSE,POINT OF CARE 116 MG/DL (70-110)
[2021-11-23 08:32] VITALS: BP 148/80
[2021-11-23] MEDS: TRIHEXYPHENIDYL HCL 5 MG TABLET PO SCH ×2 (08:51→16:40)
[2021-11-23] MEDS: AmLODIPine BESYLATE 5 MG TABLET PO SCH (08:51)
[2021-11-23] MEDS: OLANZapine 10 MG TABLET PO SCH ×2 (08:51→20:00)
[2021-11-23] MEDS: RisperiDONE 3 MG TABLET PO SCH ×2 (08:51→16:40)
[2021-11-23] MEDS: INSULIN GLARGINE,HUM.REC.ANLOG 100 UNITS/ML SQ SCH ×2 (10:36→16:44)
[2021-11-23] MEDS: INSULIN LISPRO 100 UNITS/ML SQ PRN ×2 (10:37→19:59)
[2021-11-23 10:46] LABS: GLUCOMETER DEV NAME(LOC) BV3N.; GLUCOSE,POINT OF CARE 267 MG/DL (70-110)
[2021-11-23] MEDS ORDERED: ZOLPIDEM TARTRATE 10 MG TABLET PO PRN (12:15)
[2021-11-23] MEDS: LORazepam 2 MG TABLET PO PRN (15:51)
[2021-11-23 16:15] VITALS: BP 136/79
[2021-11-23 16:56] LABS: GLUCOMETER DEV NAME(LOC) BV3N.; GLUCOSE,POINT OF CARE 142 MG/DL (70-110)
[2021-11-23] MEDS: QUEtiapine FUMARATE 200 MG TABLET PO SCH (20:00)
[2021-11-23 21:01] LABS: GLUCOMETER DEV NAME(LOC) BV3N.; GLUCOSE,POINT OF CARE 289 MG/DL (70-110)
[2021-11-24] MEDS: GuaiFENesin/D-METHORPHAN [SUGAR-FREE] 200-20MG/10 ML SYRUP UDCUP PO PRN ×2 (04:15→10:12)
[2021-11-24 04:38] VITALS: BP 139/74
[2021-11-24] MEDS: DENTURE ADHESIVE 68 GM CREAM DT PRN (05:45)
[2021-11-24] MEDS: INSULIN LISPRO 100 UNITS/ML SQ PRN ×4 (06:35→21:00)
[2021-11-24 06:36] LABS: GLUCOMETER DEV NAME(LOC) BV3N.; GLUCOSE,POINT OF CARE 239 MG/DL (70-110)
[2021-11-24 08:09] VITALS: BP 148/83
[2021-11-24 09:21] LABS: GLUCOMETER DEV NAME(LOC) BV3N.; GLUCOSE,POINT OF CARE 307 MG/DL (70-110)
[2021-11-24] MEDS: OLANZapine 10 MG TABLET PO SCH ×2 (09:34→21:01)
[2021-11-24] MEDS: TRIHEXYPHENIDYL HCL 5 MG TABLET PO SCH ×2 (09:34→16:32)
[2021-11-24] MEDS: AmLODIPine BESYLATE 5 MG TABLET PO SCH (09:34)
[2021-11-24] MEDS: LORazepam 2 MG TABLET PO PRN ×2 (09:34→16:57)
[2021-11-24] MEDS: RisperiDONE 3 MG TABLET PO SCH ×2 (09:34→16:32)
[2021-11-24] MEDS: INSULIN GLARGINE,HUM.REC.ANLOG 100 UNITS/ML SQ SCH ×2 (09:39→16:41)
[2021-11-24 14:11] LABS: GLUCOMETER DEV NAME(LOC) BV3N.; GLUCOSE,POINT OF CARE 301 MG/DL (70-110)
[2021-11-24 16:14] VITALS: BP 127/83
[2021-11-24 16:50] LABS: GLUCOMETER DEV NAME(LOC) BV3N.; GLUCOSE,POINT OF CARE 225 MG/DL (70-110)
[2021-11-24] MEDS ORDERED: DiphenhydrAMINE HCL 50 MG/ML VIAL IM ONE (17:15)
[2021-11-24] MEDS ORDERED: LORazepam 2 MG/ML VIAL IM ONE (17:15)
[2021-11-24] MEDS ORDERED: HALOPERIDOL LACTATE 5 MG/ML VIAL IM ONE (17:15)
[2021-11-24] MEDS: QUEtiapine FUMARATE 200 MG TABLET PO SCH (21:01)
[2021-11-24 21:31] LABS: GLUCOMETER DEV NAME(LOC) BV3N.; GLUCOSE,POINT OF CARE 226 MG/DL (70-110)
[2021-11-25] MEDS: LORazepam 2 MG TABLET PO PRN ×3 (01:05→21:46)
[2021-11-25] MEDS: GuaiFENesin/D-METHORPHAN [SUGAR-FREE] 200-20MG/10 ML SYRUP UDCUP PO PRN ×4 (01:07→20:28)
[2021-11-25 06:21] LABS: GLUCOMETER DEV NAME(LOC) BV3N.; GLUCOSE,POINT OF CARE 110 MG/DL (70-110)
[2021-11-25 07:15] VITALS: BP 126/89
[2021-11-25] MEDS: RisperiDONE 3 MG TABLET PO SCH ×2 (08:07→16:22)
[2021-11-25] MEDS: TRIHEXYPHENIDYL HCL 5 MG TABLET PO SCH ×2 (08:07→16:22)
[2021-11-25] MEDS: AmLODIPine BESYLATE 5 MG TABLET PO SCH (08:08)
[2021-11-25] MEDS: OLANZapine 10 MG TABLET PO SCH ×2 (08:08→20:04)
[2021-11-25 08:14] VITALS: BP 143/81
[2021-11-25] MEDS: INSULIN GLARGINE,HUM.REC.ANLOG 100 UNITS/ML SQ SCH ×2 (09:01→16:31)
[2021-11-25 11:36] LABS: GLUCOMETER DEV NAME(LOC) BV3N.; GLUCOSE,POINT OF CARE 351 MG/DL (70-110)
[2021-11-25 16:12] VITALS: BP 131/70
[2021-11-25] MEDS: ERYTHROMYCIN 0.5% 3.5 GM TUBE OPHTHALMIC OINTMENT OS SCH (16:22)
[2021-11-25 16:46] LABS: GLUCOMETER DEV NAME(LOC) BV3N.; GLUCOSE,POINT OF CARE 135 MG/DL (70-110)
[2021-11-25] MEDS: QUEtiapine FUMARATE 200 MG TABLET PO SCH (20:04)
[2021-11-25] MEDS: INSULIN LISPRO 100 UNITS/ML SQ PRN (20:26)
[2021-11-25 21:26] LABS: GLUCOMETER DEV NAME(LOC) BV3N.; GLUCOSE,POINT OF CARE 387 MG/DL (70-110)
[2021-11-26 04:08] VITALS: BP 158/94
[2021-11-26] MEDS: DENTURE ADHESIVE 68 GM CREAM DT PRN (04:35)
[2021-11-26] MEDS: GuaiFENesin/D-METHORPHAN [SUGAR-FREE] 200-20MG/10 ML SYRUP UDCUP PO PRN ×2 (04:52→11:47)
[2021-11-26 06:32] LABS: GLUCOMETER DEV NAME(LOC) BV3N.; GLUCOSE,POINT OF CARE 255 MG/DL (70-110)
[2021-11-26] MEDS: INSULIN LISPRO 100 UNITS/ML SQ PRN ×4 (06:56→20:57)
[2021-11-26 08:19] VITALS: BP 141/92
[2021-11-26] MEDS: ERYTHROMYCIN 0.5% 3.5 GM TUBE OPHTHALMIC OINTMENT OS SCH ×3 (08:26→17:41)
[2021-11-26] MEDS: RisperiDONE 3 MG TABLET PO SCH ×2 (08:27→17:42)
[2021-11-26] MEDS: OLANZapine 10 MG TABLET PO SCH ×2 (08:27→20:46)
[2021-11-26] MEDS: AmLODIPine BESYLATE 5 MG TABLET PO SCH (08:27)
[2021-11-26] MEDS: TRIHEXYPHENIDYL HCL 5 MG TABLET PO SCH ×2 (08:27→17:42)
[2021-11-26] MEDS: INSULIN GLARGINE,HUM.REC.ANLOG 100 UNITS/ML SQ SCH ×2 (08:33→17:46)
[2021-11-26 11:35] LABS: GLUCOMETER DEV NAME(LOC) BV3N.; GLUCOSE,POINT OF CARE 175 MG/DL (70-110)
[2021-11-26] MEDS: DOCUSATE SODIUM 100 MG CAPSULE PO PRN (14:45)
[2021-11-26 16:17] VITALS: BP 113/72
[2021-11-26] MEDS: QUEtiapine FUMARATE 100 MG TABLET PO PRN (17:42)
[2021-11-26] MEDS: LORazepam 2 MG TABLET PO PRN (17:42)
[2021-11-26 17:46] LABS: GLUCOMETER DEV NAME(LOC) BV3N.; GLUCOSE,POINT OF CARE 350 MG/DL (70-110)
[2021-11-26] MEDS: QUEtiapine FUMARATE 200 MG TABLET PO SCH (20:46)
[2021-11-26 20:56] LABS: GLUCOMETER DEV NAME(LOC) BV3N.; GLUCOSE,POINT OF CARE 341 MG/DL (70-110)
[2021-11-27] MEDS: DENTURE ADHESIVE 68 GM CREAM DT PRN (04:55)
[2021-11-27] MEDS: GuaiFENesin/D-METHORPHAN [SUGAR-FREE] 200-20MG/10 ML SYRUP UDCUP PO PRN (04:55)
[2021-11-27 05:14] VITALS: BP 180/100
[2021-11-27] MEDS: INSULIN LISPRO 100 UNITS/ML SQ PRN ×4 (06:35→20:38)
[2021-11-27 06:41] LABS: GLUCOMETER DEV NAME(LOC) BV3N.; GLUCOSE,POINT OF CARE 182 MG/DL (70-110)
[2021-11-27] MEDS: RisperiDONE 3 MG TABLET PO SCH ×2 (08:21→16:47)
[2021-11-27] MEDS: ERYTHROMYCIN 0.5% 3.5 GM TUBE OPHTHALMIC OINTMENT OS SCH ×3 (08:21→16:47)
[2021-11-27] MEDS: OLANZapine 10 MG TABLET PO SCH ×2 (08:21→20:34)
[2021-11-27] MEDS: AmLODIPine BESYLATE 5 MG TABLET PO SCH (08:21)
[2021-11-27] MEDS: TRIHEXYPHENIDYL HCL 5 MG TABLET PO SCH ×2 (08:21→16:47)
[2021-11-27 08:23] VITALS: BP 148/73
[2021-11-27] MEDS: INSULIN GLARGINE,HUM.REC.ANLOG 100 UNITS/ML SQ SCH ×2 (08:25→16:51)
[2021-11-27 11:36] LABS: GLUCOMETER DEV NAME(LOC) BV3N.; GLUCOSE,POINT OF CARE 155 MG/DL (70-110)
[2021-11-27] MEDS: LORazepam 2 MG TABLET PO PRN (14:52)
[2021-11-27 16:10] VITALS: BP 140/75
[2021-11-27] MEDS: QUEtiapine FUMARATE 100 MG TABLET PO PRN (16:47)
[2021-11-27 17:06] LABS: GLUCOMETER DEV NAME(LOC) BV3N.; GLUCOSE,POINT OF CARE 288 MG/DL (70-110)
[2021-11-27] MEDS: QUEtiapine FUMARATE 200 MG TABLET PO SCH (20:34)
[2021-11-27 21:36] LABS: GLUCOMETER DEV NAME(LOC) BV3N.; GLUCOSE,POINT OF CARE 333 MG/DL (70-110)
[2021-11-28] MEDS: GuaiFENesin/D-METHORPHAN [SUGAR-FREE] 200-20MG/10 ML SYRUP UDCUP PO PRN ×2 (05:28→13:46)
[2021-11-28] MEDS: DENTURE ADHESIVE 68 GM CREAM DT PRN (05:29)
[2021-11-28 05:30] VITALS: BP 136/82
[2021-11-28 06:31] LABS: GLUCOMETER DEV NAME(LOC) BV3N.; GLUCOSE,POINT OF CARE 203 MG/DL (70-110)
[2021-11-28] MEDS: INSULIN LISPRO 100 UNITS/ML SQ PRN ×4 (06:35→20:36)
[2021-11-28] MEDS: AmLODIPine BESYLATE 5 MG TABLET PO SCH (08:11)
[2021-11-28] MEDS: RisperiDONE 3 MG TABLET PO SCH ×2 (08:12→16:21)
[2021-11-28] MEDS: TRIHEXYPHENIDYL HCL 5 MG TABLET PO SCH ×2 (08:12→16:21)
[2021-11-28] MEDS: OLANZapine 10 MG TABLET PO SCH ×2 (08:12→20:33)
[2021-11-28] MEDS: ERYTHROMYCIN 0.5% 3.5 GM TUBE OPHTHALMIC OINTMENT OS SCH ×3 (08:13→16:20)
[2021-11-28 08:14] VITALS: BP 149/83
[2021-11-28] MEDS: INSULIN GLARGINE,HUM.REC.ANLOG 100 UNITS/ML SQ SCH ×2 (09:08→16:37)
[2021-11-28 11:26] LABS: GLUCOMETER DEV NAME(LOC) BV3N.; GLUCOSE,POINT OF CARE 281 MG/DL (70-110)
[2021-11-28 16:00] VITALS: BP 140/75
[2021-11-28 16:31] LABS: GLUCOMETER DEV NAME(LOC) BV3N.; GLUCOSE,POINT OF CARE 187 MG/DL (70-110)
[2021-11-28] MEDS: QUEtiapine FUMARATE 200 MG TABLET PO SCH (20:33)
[2021-11-28 20:46] LABS: GLUCOMETER DEV NAME(LOC) BV3N.; GLUCOSE,POINT OF CARE 370 MG/DL (70-110)
[2021-11-29] MEDS: LORazepam 2 MG TABLET PO PRN ×3 (01:48→17:09)
[2021-11-29 02:53] VITALS: BP 144/85
[2021-11-29 06:47] LABS: GLUCOMETER DEV NAME(LOC) BV3N.; GLUCOSE,POINT OF CARE 81 MG/DL (70-110)
[2021-11-29] MEDS: GuaiFENesin/D-METHORPHAN [SUGAR-FREE] 200-20MG/10 ML SYRUP UDCUP PO PRN ×3 (06:47→20:51)
[2021-11-29] MEDS: DENTURE ADHESIVE 68 GM CREAM DT PRN (07:03)
[2021-11-29 08:03] VITALS: BP 148/84
[2021-11-29] MEDS: RisperiDONE 3 MG TABLET PO SCH ×2 (08:45→17:09)
[2021-11-29] MEDS: OLANZapine 10 MG TABLET PO SCH ×2 (08:45→20:51)
[2021-11-29] MEDS: QUEtiapine FUMARATE 100 MG TABLET PO PRN ×2 (08:45→17:09)
[2021-11-29] MEDS: TRIHEXYPHENIDYL HCL 5 MG TABLET PO SCH ×2 (08:45→17:09)
[2021-11-29] MEDS: AmLODIPine BESYLATE 5 MG TABLET PO SCH (08:45)
[2021-11-29] MEDS: ERYTHROMYCIN 0.5% 3.5 GM TUBE OPHTHALMIC OINTMENT OS SCH ×3 (08:45→17:09)
[2021-11-29] MEDS: INSULIN GLARGINE,HUM.REC.ANLOG 100 UNITS/ML SQ SCH ×2 (09:09→17:21)
[2021-11-29] MEDS: INSULIN LISPRO 100 UNITS/ML SQ PRN ×3 (11:45→20:52)
[2021-11-29 12:31] LABS: GLUCOMETER DEV NAME(LOC) BV3N.; GLUCOSE,POINT OF CARE 337 MG/DL (70-110)
[2021-11-29 16:01] VITALS: BP 134/74
[2021-11-29 17:56] LABS: GLUCOMETER DEV NAME(LOC) BV3N.; GLUCOSE,POINT OF CARE 260 MG/DL (70-110)
[2021-11-29] MEDS: QUEtiapine FUMARATE 200 MG TABLET PO SCH (20:51)
[2021-11-29 21:16] LABS: GLUCOMETER DEV NAME(LOC) BV3N.; GLUCOSE,POINT OF CARE 328 MG/DL (70-110)
[2021-11-30 04:32] VITALS: BP 112/69
[2021-11-30] MEDS: DENTURE ADHESIVE 68 GM CREAM DT PRN (06:27)
[2021-11-30] MEDS: GuaiFENesin/D-METHORPHAN [SUGAR-FREE] 200-20MG/10 ML SYRUP UDCUP PO PRN ×2 (06:28→15:10)
[2021-11-30 06:41] LABS: GLUCOMETER DEV NAME(LOC) BV3N.; GLUCOSE,POINT OF CARE 257 MG/DL (70-110)
[2021-11-30] MEDS: INSULIN LISPRO 100 UNITS/ML SQ PRN ×4 (06:50→20:34)
[2021-11-30 07:55] VITALS: BP 134/76
[2021-11-30] MEDS: INSULIN GLARGINE,HUM.REC.ANLOG 100 UNITS/ML SQ SCH ×2 (08:02→16:49)
[2021-11-30] MEDS: AmLODIPine BESYLATE 5 MG TABLET PO SCH (08:05)
[2021-11-30] MEDS: OLANZapine 10 MG TABLET PO SCH ×2 (08:05→20:15)
[2021-11-30] MEDS: TRIHEXYPHENIDYL HCL 5 MG TABLET PO SCH ×2 (08:05→16:33)
[2021-11-30] MEDS: RisperiDONE 3 MG TABLET PO SCH ×2 (08:05→16:33)
[2021-11-30] MEDS: ERYTHROMYCIN 0.5% 3.5 GM TUBE OPHTHALMIC OINTMENT OS SCH ×3 (08:06→16:34)
[2021-11-30 10:21] LABS: GLUCOMETER DEV NAME(LOC) POC.BV
[2021-11-30 11:31] LABS: GLUCOMETER DEV NAME(LOC) BV3N.; GLUCOSE,POINT OF CARE 266 MG/DL (70-110)
[2021-11-30 16:33] VITALS: BP 146/66
[2021-11-30 17:36] LABS: GLUCOMETER DEV NAME(LOC) BV2S.; GLUCOSE,POINT OF CARE 295 MG/DL (70-110)
[2021-11-30] MEDS: QUEtiapine FUMARATE 200 MG TABLET PO SCH (20:15)
[2021-11-30 22:06] LABS: GLUCOMETER DEV NAME(LOC) BV2S.; GLUCOSE,POINT OF CARE 380 MG/DL (70-110)
[2021-12-01 01:05] VITALS: BP 132/78
[2021-12-01 06:31] LABS: GLUCOMETER DEV NAME(LOC) BV2S.; GLUCOSE,POINT OF CARE 148 MG/DL (70-110)
[2021-12-01] MEDS: GuaiFENesin/D-METHORPHAN [SUGAR-FREE] 200-20MG/10 ML SYRUP UDCUP PO PRN ×2 (06:44→18:05)
[2021-12-01] MEDS: INSULIN LISPRO 100 UNITS/ML SQ PRN ×4 (06:53→20:53)
[2021-12-01 08:19] VITALS: BP 135/65
[2021-12-01] MEDS: ERYTHROMYCIN 0.5% 3.5 GM TUBE OPHTHALMIC OINTMENT OS SCH ×3 (09:00→16:49)
[2021-12-01] MEDS: OLANZapine 10 MG TABLET PO SCH ×2 (09:12→20:33)
[2021-12-01] MEDS: AmLODIPine BESYLATE 5 MG TABLET PO SCH (09:12)
[2021-12-01] MEDS: RisperiDONE 3 MG TABLET PO SCH ×2 (09:12→16:48)
[2021-12-01] MEDS: TRIHEXYPHENIDYL HCL 5 MG TABLET PO SCH ×2 (09:12→16:48)
[2021-12-01] MEDS: INSULIN GLARGINE,HUM.REC.ANLOG 100 UNITS/ML SQ SCH ×2 (09:23→17:07)
[2021-12-01 09:51] LABS: GLUCOMETER DEV NAME(LOC) BV2S.; GLUCOSE,POINT OF CARE 277 MG/DL (70-110)
[2021-12-01 13:31] LABS: GLUCOMETER DEV NAME(LOC) BV2S.; GLUCOSE,POINT OF CARE 379 MG/DL (70-110)
[2021-12-01 16:37] VITALS: BP 145/82
[2021-12-01 16:46] LABS: GLUCOMETER DEV NAME(LOC) BV2S.; GLUCOSE,POINT OF CARE 319 MG/DL (70-110)
[2021-12-01] MEDS: QUEtiapine FUMARATE 200 MG TABLET PO SCH (20:33)
[2021-12-01 20:41] LABS: GLUCOMETER DEV NAME(LOC) BV2S.; GLUCOSE,POINT OF CARE 322 MG/DL (70-110)
[2021-12-02 00:31] VITALS: BP 142/84
[2021-12-02 06:36] LABS: GLUCOMETER DEV NAME(LOC) BV2S.; GLUCOSE,POINT OF CARE 220 MG/DL (70-110)
[2021-12-02] MEDS: INSULIN LISPRO 100 UNITS/ML SQ PRN ×4 (06:59→20:44)
[2021-12-02 08:42] VITALS: BP 154/93
[2021-12-02] MEDS: INSULIN GLARGINE,HUM.REC.ANLOG 100 UNITS/ML SQ SCH ×2 (09:00→16:25)
[2021-12-02] MEDS: OLANZapine 10 MG TABLET PO SCH ×2 (09:04→20:31)
[2021-12-02] MEDS: AmLODIPine BESYLATE 5 MG TABLET PO SCH (09:04)
[2021-12-02] MEDS: TRIHEXYPHENIDYL HCL 5 MG TABLET PO SCH ×2 (09:04→16:42)
[2021-12-02] MEDS: RisperiDONE 3 MG TABLET PO SCH ×2 (09:04→16:42)
[2021-12-02] MEDS: ERYTHROMYCIN 0.5% 3.5 GM TUBE OPHTHALMIC OINTMENT OS SCH ×2 (10:04→14:00)
[2021-12-02 11:36] LABS: GLUCOMETER DEV NAME(LOC) BV2X.2; GLUCOSE,POINT OF CARE 294 MG/DL (70-110)
[2021-12-02 16:29] VITALS: BP 130/74
[2021-12-02] MEDS: GuaiFENesin/D-METHORPHAN [SUGAR-FREE] 200-20MG/10 ML SYRUP UDCUP PO PRN (16:33)
[2021-12-02] MEDS: QUEtiapine FUMARATE 200 MG TABLET PO SCH (20:31)
[2021-12-02 20:36] LABS: GLUCOMETER DEV NAME(LOC) BV2S.; GLUCOSE,POINT OF CARE 265 MG/DL (70-110)
[2021-12-03 00:53] VITALS: BP 131/72
[2021-12-03 06:11] LABS: GLUCOMETER DEV NAME(LOC) BV2S.; GLUCOSE,POINT OF CARE 110 MG/DL (70-110)
[2021-12-03 08:22] VITALS: BP 165/89
[2021-12-03] MEDS: INSULIN GLARGINE,HUM.REC.ANLOG 100 UNITS/ML SQ SCH ×2 (08:51→16:13)
[2021-12-03 08:56] LABS: GLUCOMETER DEV NAME(LOC) BV2S.; GLUCOSE,POINT OF CARE 199 MG/DL (70-110)
[2021-12-03] MEDS: AmLODIPine BESYLATE 5 MG TABLET PO SCH (09:17)
[2021-12-03] MEDS: TRIHEXYPHENIDYL HCL 5 MG TABLET PO SCH ×2 (09:17→16:06)
[2021-12-03] MEDS: RisperiDONE 3 MG TABLET PO SCH ×2 (09:17→16:06)
[2021-12-03] MEDS: OLANZapine 10 MG TABLET PO SCH ×2 (09:17→20:12)
[2021-12-03] MEDS: INSULIN LISPRO 100 UNITS/ML SQ PRN ×3 (11:41→20:23)
[2021-12-03 11:46] LABS: GLUCOMETER DEV NAME(LOC) BV2S.; GLUCOSE,POINT OF CARE 299 MG/DL (70-110)
[2021-12-03 16:07] VITALS: BP 147/77
[2021-12-03 16:26] LABS: GLUCOMETER DEV NAME(LOC) BV2S.; GLUCOSE,POINT OF CARE 328 MG/DL (70-110)
[2021-12-03] MEDS: QUEtiapine FUMARATE 200 MG TABLET PO SCH (20:12)
[2021-12-03 20:36] LABS: GLUCOMETER DEV NAME(LOC) BV2S.; GLUCOSE,POINT OF CARE 301 MG/DL (70-110)
[2021-12-04 00:55] VITALS: BP 138/80
[2021-12-04 06:26] LABS: GLUCOMETER DEV NAME(LOC) BV2S.; GLUCOSE,POINT OF CARE 100 MG/DL (70-110)
[2021-12-04] MEDS: OLANZapine 10 MG TABLET PO SCH ×2 (09:44→20:12)
[2021-12-04] MEDS: RisperiDONE 3 MG TABLET PO SCH ×2 (09:44→16:08)
[2021-12-04] MEDS: AmLODIPine BESYLATE 5 MG TABLET PO SCH (09:44)
[2021-12-04] MEDS: INSULIN GLARGINE,HUM.REC.ANLOG 100 UNITS/ML SQ SCH ×2 (09:46→16:13)
[2021-12-04] MEDS: TRIHEXYPHENIDYL HCL 5 MG TABLET PO SCH ×2 (09:57→16:08)
[2021-12-04 10:28] VITALS: BP 122/68
[2021-12-04 10:57] VITALS: BP 122/68
[2021-12-04] MEDS: INSULIN LISPRO 100 UNITS/ML SQ PRN ×3 (11:28→20:21)
[2021-12-04 11:32] LABS: GLUCOMETER DEV NAME(LOC) BV2S.; GLUCOSE,POINT OF CARE 385 MG/DL (70-110)
[2021-12-04 16:23] VITALS: BP 124/73
[2021-12-04 16:26] LABS: GLUCOMETER DEV NAME(LOC) BV2S.; GLUCOSE,POINT OF CARE 241 MG/DL (70-110)
[2021-12-04] MEDS: GuaiFENesin/D-METHORPHAN [SUGAR-FREE] 200-20MG/10 ML SYRUP UDCUP PO PRN (17:50)
[2021-12-04] MEDS: LORazepam 2 MG TABLET PO PRN (20:11)
[2021-12-04] MEDS: QUEtiapine FUMARATE 200 MG TABLET PO SCH (20:12)
[2021-12-04 20:36] LABS: GLUCOMETER DEV NAME(LOC) BV2S.; GLUCOSE,POINT OF CARE 376 MG/DL (70-110)
[2021-12-05 06:31] LABS: GLUCOMETER DEV NAME(LOC) BV2S.; GLUCOSE,POINT OF CARE 90 MG/DL (70-110)
[2021-12-05] MEDS: OLANZapine 10 MG TABLET PO SCH ×2 (08:32→20:59)
[2021-12-05] MEDS: RisperiDONE 3 MG TABLET PO SCH ×2 (08:32→16:18)
[2021-12-05] MEDS: AmLODIPine BESYLATE 5 MG TABLET PO SCH (08:32)
[2021-12-05] MEDS: TRIHEXYPHENIDYL HCL 5 MG TABLET PO SCH ×2 (08:32→16:18)
[2021-12-05 08:51] LABS: GLUCOMETER DEV NAME(LOC) BV2S.; GLUCOSE,POINT OF CARE 356 MG/DL (70-110)
[2021-12-05] MEDS: INSULIN GLARGINE,HUM.REC.ANLOG 100 UNITS/ML SQ SCH ×2 (08:53→16:33)
[2021-12-05 09:10] VITALS: BP 122/67
[2021-12-05 11:26] LABS: GLUCOMETER DEV NAME(LOC) BV2S.; GLUCOSE,POINT OF CARE 366 MG/DL (70-110)
[2021-12-05] MEDS: GuaiFENesin/D-METHORPHAN [SUGAR-FREE] 200-20MG/10 ML SYRUP UDCUP PO PRN (11:34)
[2021-12-05] MEDS: INSULIN LISPRO 100 UNITS/ML SQ PRN ×3 (11:39→21:06)
[2021-12-05 16:18] VITALS: BP 129/74
[2021-12-05 16:21] LABS: GLUCOMETER DEV NAME(LOC) BV2S.; GLUCOSE,POINT OF CARE 249 MG/DL (70-110)
[2021-12-05 20:26] LABS: GLUCOMETER DEV NAME(LOC) BV2S.; GLUCOSE,POINT OF CARE 311 MG/DL (70-110)
[2021-12-05] MEDS: QUEtiapine FUMARATE 200 MG TABLET PO SCH (20:59)
[2021-12-06 01:24] VITALS: BP 127/69
[2021-12-06 06:40] LABS: GLUCOMETER DEV NAME(LOC) BV2S.; GLUCOSE,POINT OF CARE 85 MG/DL (70-110)
[2021-12-06] MEDS: OLANZapine 10 MG TABLET PO SCH ×2 (08:14→21:11)
[2021-12-06] MEDS: TRIHEXYPHENIDYL HCL 5 MG TABLET PO SCH ×2 (08:14→16:54)
[2021-12-06] MEDS: AmLODIPine BESYLATE 5 MG TABLET PO SCH (08:14)
[2021-12-06] MEDS: RisperiDONE 3 MG TABLET PO SCH ×2 (08:14→16:54)
[2021-12-06 08:20] VITALS: BP 119/70
[2021-12-06] MEDS: INSULIN GLARGINE,HUM.REC.ANLOG 100 UNITS/ML SQ SCH ×2 (08:32→16:59)
[2021-12-06 08:46] LABS: GLUCOMETER DEV NAME(LOC) BV2S.; GLUCOSE,POINT OF CARE 302 MG/DL (70-110)
[2021-12-06] MEDS ORDERED: INSULIN LISPRO 100 UNITS/ML SQ ONE (11:00)
[2021-12-06] MEDS: GuaiFENesin/D-METHORPHAN [SUGAR-FREE] 200-20MG/10 ML SYRUP UDCUP PO PRN (11:05)
[2021-12-06 11:22] LABS: GLUCOMETER DEV NAME(LOC) BV2S.; GLUCOSE,POINT OF CARE 420 MG/DL (70-110)
[2021-12-06 12:01] LABS: GLUCOMETER DEV NAME(LOC) BV2S.; GLUCOSE,POINT OF CARE 375 MG/DL (70-110)
[2021-12-06 16:13] VITALS: BP 128/69
[2021-12-06 17:16] LABS: GLUCOMETER DEV NAME(LOC) BV2S.; GLUCOSE,POINT OF CARE 138 MG/DL (70-110)
[2021-12-06 21:00] LABS: GLUCOMETER DEV NAME(LOC) BV2S.; GLUCOSE,POINT OF CARE 373 MG/DL (70-110)
[2021-12-06] MEDS: QUEtiapine FUMARATE 200 MG TABLET PO SCH (21:11)
[2021-12-06] MEDS: INSULIN LISPRO 100 UNITS/ML SQ PRN (21:13)
[2021-12-07 06:09] VITALS: BP 141/76
[2021-12-07 06:45] LABS: GLUCOMETER DEV NAME(LOC) BV2X.2; GLUCOSE,POINT OF CARE 118 MG/DL (70-110)
[2021-12-07] MEDS: OLANZapine 10 MG TABLET PO SCH ×2 (08:02→20:36)
[2021-12-07] MEDS: RisperiDONE 3 MG TABLET PO SCH ×2 (08:02→16:45)
[2021-12-07] MEDS: TRIHEXYPHENIDYL HCL 5 MG TABLET PO SCH ×2 (08:02→16:45)
[2021-12-07] MEDS: AmLODIPine BESYLATE 5 MG TABLET PO SCH (08:02)
[2021-12-07] MEDS: INSULIN GLARGINE,HUM.REC.ANLOG 100 UNITS/ML SQ SCH ×2 (08:06→16:54)
[2021-12-07 08:12] VITALS: BP 133/79
[2021-12-07 08:15] VITALS: BP 133/79
[2021-12-07 08:36] LABS: GLUCOMETER DEV NAME(LOC) POC.BV
[2021-12-07] MEDS: INSULIN LISPRO 100 UNITS/ML SQ PRN ×2 (11:15→16:54)
[2021-12-07 11:41] LABS: GLUCOMETER DEV NAME(LOC) BV2S.; GLUCOSE,POINT OF CARE 256 MG/DL (70-110)
[2021-12-07 16:15] VITALS: BP 116/63
[2021-12-07 16:51] LABS: GLUCOMETER DEV NAME(LOC) BV2S.; GLUCOSE,POINT OF CARE 277 MG/DL (70-110)
[2021-12-07] MEDS: QUEtiapine FUMARATE 200 MG TABLET PO SCH (20:36)
[2021-12-07] MEDS ORDERED: INSULIN LISPRO 100 UNITS/ML SQ ONE (20:45)
[2021-12-07 21:56] LABS: GLUCOMETER DEV NAME(LOC) BV2S.; GLUCOSE,POINT OF CARE 524 MG/DL (70-110)
[2021-12-07 21:56] LABS: GLUCOMETER DEV NAME(LOC) BV2S.; GLUCOSE,POINT OF CARE 369 MG/DL (70-110)
[2021-12-08 06:18] VITALS: BP 125/68
[2021-12-08 06:36] LABS: GLUCOMETER DEV NAME(LOC) BV2S.; GLUCOSE,POINT OF CARE 81 MG/DL (70-110)
[2021-12-08 08:49] VITALS: BP 137/72
[2021-12-08] MEDS: AmLODIPine BESYLATE 5 MG TABLET PO SCH (08:54)
[2021-12-08] MEDS: RisperiDONE 3 MG TABLET PO SCH ×2 (08:54→16:01)
[2021-12-08] MEDS: OLANZapine 10 MG TABLET PO SCH ×2 (08:54→20:16)
[2021-12-08] MEDS: TRIHEXYPHENIDYL HCL 5 MG TABLET PO SCH ×2 (08:54→16:01)
[2021-12-08] MEDS: INSULIN GLARGINE,HUM.REC.ANLOG 100 UNITS/ML SQ SCH ×2 (08:57→16:19)
[2021-12-08 09:06] LABS: GLUCOMETER DEV NAME(LOC) BV2S.; GLUCOSE,POINT OF CARE 229 MG/DL (70-110)
[2021-12-08 11:31] LABS: GLUCOMETER DEV NAME(LOC) BV2S.; GLUCOSE,POINT OF CARE 209 MG/DL (70-110)
[2021-12-08] MEDS: INSULIN LISPRO 100 UNITS/ML SQ PRN ×3 (11:38→20:38)
[2021-12-08 16:31] LABS: GLUCOMETER DEV NAME(LOC) BV2S.; GLUCOSE,POINT OF CARE 293 MG/DL (70-110)
[2021-12-08 16:40] VITALS: BP 131/70
[2021-12-08] MEDS: QUEtiapine FUMARATE 200 MG TABLET PO SCH (20:16)
[2021-12-08 20:51] LABS: GLUCOMETER DEV NAME(LOC) BV2S.; GLUCOSE,POINT OF CARE 298 MG/DL (70-110)
[2021-12-09 01:40] VITALS: BP 126/78
[2021-12-09 06:17] LABS: GLUCOMETER DEV NAME(LOC) BV2X.2; GLUCOSE,POINT OF CARE 111 MG/DL (70-110)
[2021-12-09] MEDS: RisperiDONE 3 MG TABLET PO SCH ×2 (09:06→16:01)
[2021-12-09] MEDS: OLANZapine 10 MG TABLET PO SCH ×2 (09:06→20:03)
[2021-12-09] MEDS: TRIHEXYPHENIDYL HCL 5 MG TABLET PO SCH ×2 (09:07→16:01)
[2021-12-09] MEDS: AmLODIPine BESYLATE 5 MG TABLET PO SCH (09:07)
[2021-12-09] MEDS: INSULIN GLARGINE,HUM.REC.ANLOG 100 UNITS/ML SQ SCH ×2 (09:08→16:27)
[2021-12-09 09:21] LABS: GLUCOMETER DEV NAME(LOC) BV2S.; GLUCOSE,POINT OF CARE 253 MG/DL (70-110)
[2021-12-09 10:28] VITALS: BP 120/72
[2021-12-09] MEDS: INSULIN LISPRO 100 UNITS/ML SQ PRN ×3 (11:35→20:17)
[2021-12-09 11:46] LABS: GLUCOMETER DEV NAME(LOC) BV2S.; GLUCOSE,POINT OF CARE 257 MG/DL (70-110)
[2021-12-09 16:36] LABS: GLUCOMETER DEV NAME(LOC) BV2S.; GLUCOSE,POINT OF CARE 207 MG/DL (70-110)
[2021-12-09 18:00] VITALS: BP 142/73
[2021-12-09] MEDS: QUEtiapine FUMARATE 200 MG TABLET PO SCH (20:03)
[2021-12-09 20:41] LABS: GLUCOMETER DEV NAME(LOC) BV2S.; GLUCOSE,POINT OF CARE 379 MG/DL (70-110)
[2021-12-10 06:21] LABS: GLUCOMETER DEV NAME(LOC) BV2S.; GLUCOSE,POINT OF CARE 138 MG/DL (70-110)
[2021-12-10 06:27] VITALS: BP 134/77
[2021-12-10] MEDS: INSULIN LISPRO 100 UNITS/ML SQ PRN ×4 (06:33→20:40)
[2021-12-10 08:47] VITALS: BP 140/62
[2021-12-10 08:56] LABS: GLUCOMETER DEV NAME(LOC) BV2S.; GLUCOSE,POINT OF CARE 214 MG/DL (70-110)
[2021-12-10] MEDS: AmLODIPine BESYLATE 5 MG TABLET PO SCH (09:12)
[2021-12-10] MEDS: RisperiDONE 3 MG TABLET PO SCH ×2 (09:12→17:04)
[2021-12-10] MEDS: TRIHEXYPHENIDYL HCL 5 MG TABLET PO SCH ×2 (09:12→17:04)
[2021-12-10] MEDS: OLANZapine 10 MG TABLET PO SCH ×2 (09:12→20:11)
[2021-12-10] MEDS: INSULIN GLARGINE,HUM.REC.ANLOG 100 UNITS/ML SQ SCH ×2 (09:16→16:39)
[2021-12-10 11:47] LABS: GLUCOMETER DEV NAME(LOC) BV2S.; GLUCOSE,POINT OF CARE 264 MG/DL (70-110)
[2021-12-10 16:23] VITALS: BP 128/68
[2021-12-10 16:26] LABS: GLUCOMETER DEV NAME(LOC) BV2S.; GLUCOSE,POINT OF CARE 261 MG/DL (70-110)
[2021-12-10] MEDS: QUEtiapine FUMARATE 200 MG TABLET PO SCH (20:11)
[2021-12-10 20:51] LABS: GLUCOMETER DEV NAME(LOC) BV2S.; GLUCOSE,POINT OF CARE 261 MG/DL (70-110)
[2021-12-11 01:37] VITALS: BP 122/65
[2021-12-11] MEDS: INSULIN LISPRO 100 UNITS/ML SQ PRN ×4 (06:20→20:56)
[2021-12-11 06:26] LABS: GLUCOMETER DEV NAME(LOC) BV2S.; GLUCOSE,POINT OF CARE 142 MG/DL (70-110)
[2021-12-11 08:41] VITALS: BP 143/62
[2021-12-11] MEDS: OLANZapine 10 MG TABLET PO SCH ×2 (09:03→20:34)
[2021-12-11] MEDS: TRIHEXYPHENIDYL HCL 5 MG TABLET PO SCH ×2 (09:03→16:28)
[2021-12-11] MEDS: AmLODIPine BESYLATE 5 MG TABLET PO SCH (09:03)
[2021-12-11] MEDS: RisperiDONE 3 MG TABLET PO SCH ×2 (09:03→16:28)
[2021-12-11] MEDS: INSULIN GLARGINE,HUM.REC.ANLOG 100 UNITS/ML SQ SCH ×2 (10:03→16:41)
[2021-12-11 11:06] LABS: GLUCOMETER DEV NAME(LOC) BV2S.; GLUCOSE,POINT OF CARE 235 MG/DL (70-110)
[2021-12-11 16:41] LABS: GLUCOMETER DEV NAME(LOC) BV2S.; GLUCOSE,POINT OF CARE 266 MG/DL (70-110)
[2021-12-11 16:42] VITALS: BP 118/70
[2021-12-11] MEDS: QUEtiapine FUMARATE 200 MG TABLET PO SCH (20:34)
[2021-12-11 20:41] LABS: GLUCOMETER DEV NAME(LOC) BV2S.; GLUCOSE,POINT OF CARE 294 MG/DL (70-110)
[2021-12-12 06:11] VITALS: BP 126/61
[2021-12-12 06:31] LABS: GLUCOMETER DEV NAME(LOC) BV2S.; GLUCOSE,POINT OF CARE 104 MG/DL (70-110)
[2021-12-12 08:24] VITALS: BP 113/61
[2021-12-12] MEDS: RisperiDONE 3 MG TABLET PO SCH ×2 (08:39→16:47)
[2021-12-12] MEDS: TRIHEXYPHENIDYL HCL 5 MG TABLET PO SCH ×2 (08:39→16:47)
[2021-12-12] MEDS: OLANZapine 10 MG TABLET PO SCH ×2 (08:39→20:09)
[2021-12-12] MEDS: AmLODIPine BESYLATE 5 MG TABLET PO SCH (08:39)
[2021-12-12] MEDS: INSULIN GLARGINE,HUM.REC.ANLOG 100 UNITS/ML SQ SCH ×2 (08:47→16:56)
[2021-12-12] MEDS: INSULIN LISPRO 100 UNITS/ML SQ PRN ×3 (11:16→20:17)
[2021-12-12 11:31] LABS: GLUCOMETER DEV NAME(LOC) BV2S.; GLUCOSE,POINT OF CARE 345 MG/DL (70-110)
[2021-12-12 16:30] VITALS: BP 127/72
[2021-12-12 17:16] LABS: GLUCOMETER DEV NAME(LOC) BV2S.; GLUCOSE,POINT OF CARE 329 MG/DL (70-110)
[2021-12-12] MEDS: QUEtiapine FUMARATE 200 MG TABLET PO SCH (20:09)
[2021-12-12 21:01] LABS: GLUCOMETER DEV NAME(LOC) BV2S.; GLUCOSE,POINT OF CARE 323 MG/DL (70-110)
[2021-12-13 06:16] LABS: GLUCOMETER DEV NAME(LOC) BV2S.; GLUCOSE,POINT OF CARE 114 MG/DL (70-110)
[2021-12-13 06:23] VITALS: BP 110/7
[2021-12-13 08:21] VITALS: BP 101/62
[2021-12-13 08:30] VITALS: BP 118/64
[2021-12-13] MEDS: AmLODIPine BESYLATE 5 MG TABLET PO SCH (08:30)
[2021-12-13] MEDS: RisperiDONE 3 MG TABLET PO SCH ×2 (08:30→16:38)
[2021-12-13] MEDS: TRIHEXYPHENIDYL HCL 5 MG TABLET PO SCH ×2 (08:30→16:38)
[2021-12-13] MEDS: OLANZapine 10 MG TABLET PO SCH ×2 (08:30→20:02)
[2021-12-13] MEDS: INSULIN GLARGINE,HUM.REC.ANLOG 100 UNITS/ML SQ SCH ×2 (08:46→16:47)
[2021-12-13] MEDS: INSULIN LISPRO 100 UNITS/ML SQ PRN ×3 (11:21→20:07)
[2021-12-13 11:51] LABS: GLUCOMETER DEV NAME(LOC) BV2S.; GLUCOSE,POINT OF CARE 317 MG/DL (70-110)
[2021-12-13 16:07] VITALS: BP 144/78
[2021-12-13 17:16] LABS: GLUCOMETER DEV NAME(LOC) BV2S.; GLUCOSE,POINT OF CARE 247 MG/DL (70-110)
[2021-12-13] MEDS: QUEtiapine FUMARATE 200 MG TABLET PO SCH (20:02)
[2021-12-13 20:51] LABS: GLUCOMETER DEV NAME(LOC) BV2S.; GLUCOSE,POINT OF CARE 280 MG/DL (70-110)
[2021-12-14 00:55] VITALS: BP 128/76
[2021-12-14 06:21] LABS: GLUCOMETER DEV NAME(LOC) BV2S.; GLUCOSE,POINT OF CARE 140 MG/DL (70-110)
[2021-12-14] MEDS: INSULIN LISPRO 100 UNITS/ML SQ PRN ×4 (06:23→20:29)
[2021-12-14 08:38] VITALS: BP 146/71
[2021-12-14] MEDS: RisperiDONE 3 MG TABLET PO SCH ×2 (08:39→16:29)
[2021-12-14] MEDS: OLANZapine 10 MG TABLET PO SCH ×2 (08:39→20:19)
[2021-12-14] MEDS: TRIHEXYPHENIDYL HCL 5 MG TABLET PO SCH ×2 (08:39→16:30)
[2021-12-14] MEDS: AmLODIPine BESYLATE 5 MG TABLET PO SCH (08:39)
[2021-12-14] MEDS: INSULIN GLARGINE,HUM.REC.ANLOG 100 UNITS/ML SQ SCH ×2 (08:49→16:38)
[2021-12-14 09:56] LABS: GLUCOMETER DEV NAME(LOC) POC.BV
[2021-12-14 11:31] LABS: GLUCOMETER DEV NAME(LOC) BV2S.; GLUCOSE,POINT OF CARE 311 MG/DL (70-110)
[2021-12-14 16:17] VITALS: BP 132/71
[2021-12-14 16:31] LABS: GLUCOMETER DEV NAME(LOC) POC.BV
[2021-12-14 17:01] LABS: GLUCOMETER DEV NAME(LOC) BV2S.; GLUCOSE,POINT OF CARE 188 MG/DL (70-110)
[2021-12-14] MEDS: QUEtiapine FUMARATE 200 MG TABLET PO SCH (20:19)
[2021-12-14] MEDS: LORazepam 2 MG TABLET PO PRN (21:26)
[2021-12-14 21:46] LABS: GLUCOMETER DEV NAME(LOC) BV2S.; GLUCOSE,POINT OF CARE 335 MG/DL (70-110)
[2021-12-15 00:58] VITALS: BP 130/73
[2021-12-15 06:26] LABS: GLUCOMETER DEV NAME(LOC) BV2S.; GLUCOSE,POINT OF CARE 123 MG/DL (70-110)
[2021-12-15] MEDS: INSULIN LISPRO 100 UNITS/ML SQ PRN ×4 (06:31→20:48)
[2021-12-15 08:16] VITALS: BP 125/68
[2021-12-15 08:46] LABS: GLUCOMETER DEV NAME(LOC) BV2S.; GLUCOSE,POINT OF CARE 254 MG/DL (70-110)
[2021-12-15] MEDS: TRIHEXYPHENIDYL HCL 5 MG TABLET PO SCH ×2 (09:09→16:32)
[2021-12-15] MEDS: RisperiDONE 3 MG TABLET PO SCH ×2 (09:10→16:32)
[2021-12-15] MEDS: OLANZapine 10 MG TABLET PO SCH ×2 (09:10→20:38)
[2021-12-15] MEDS: AmLODIPine BESYLATE 5 MG TABLET PO SCH (09:10)
[2021-12-15] MEDS: INSULIN GLARGINE,HUM.REC.ANLOG 100 UNITS/ML SQ SCH ×2 (09:12→16:38)
[2021-12-15 11:31] LABS: GLUCOMETER DEV NAME(LOC) BV2S.; GLUCOSE,POINT OF CARE 344 MG/DL (70-110)
[2021-12-15] MEDS: LORazepam 2 MG TABLET PO PRN (13:34)
[2021-12-15] MEDS: QUEtiapine FUMARATE 100 MG TABLET PO PRN (13:41)
[2021-12-15 16:31] VITALS: BP 131/74
[2021-12-15 16:31] LABS: GLUCOMETER DEV NAME(LOC) BV2S.; GLUCOSE,POINT OF CARE 267 MG/DL (70-110)
[2021-12-15 20:26] LABS: GLUCOMETER DEV NAME(LOC) BV2S.; GLUCOSE,POINT OF CARE 355 MG/DL (70-110)
[2021-12-15] MEDS: QUEtiapine FUMARATE 200 MG TABLET PO SCH (20:38)
[2021-12-16 00:31] VITALS: BP 128/75
[2021-12-16 06:56] LABS: GLUCOMETER DEV NAME(LOC) BV2S.; GLUCOSE,POINT OF CARE 104 MG/DL (70-110)
[2021-12-16 08:36] VITALS: BP 126/63
[2021-12-16] MEDS: OLANZapine 10 MG TABLET PO SCH ×2 (08:49→20:29)
[2021-12-16] MEDS: RisperiDONE 3 MG TABLET PO SCH ×2 (08:49→16:33)
[2021-12-16] MEDS: TRIHEXYPHENIDYL HCL 5 MG TABLET PO SCH ×2 (08:49→16:33)
[2021-12-16] MEDS: AmLODIPine BESYLATE 5 MG TABLET PO SCH (08:49)
[2021-12-16] MEDS: INSULIN GLARGINE,HUM.REC.ANLOG 100 UNITS/ML SQ SCH ×2 (08:52→16:40)
[2021-12-16 11:01] LABS: GLUCOMETER DEV NAME(LOC) BV2S.; GLUCOSE,POINT OF CARE 237 MG/DL (70-110)
[2021-12-16] MEDS: LORazepam 2 MG TABLET PO PRN (11:45)
[2021-12-16] MEDS: INSULIN LISPRO 100 UNITS/ML SQ PRN ×3 (11:52→20:41)
[2021-12-16 16:31] LABS: GLUCOMETER DEV NAME(LOC) BV2S.; GLUCOSE,POINT OF CARE 336 MG/DL (70-110)
[2021-12-16 16:33] VITALS: BP 145/85
[2021-12-16] MEDS: QUEtiapine FUMARATE 200 MG TABLET PO SCH (20:29)
[2021-12-16 20:31] LABS: GLUCOMETER DEV NAME(LOC) BV2S.; GLUCOSE,POINT OF CARE 311 MG/DL (70-110)
[2021-12-17 06:17] LABS: GLUCOMETER DEV NAME(LOC) BV2S.; GLUCOSE,POINT OF CARE 199 MG/DL (70-110)
[2021-12-17] MEDS: INSULIN LISPRO 100 UNITS/ML SQ PRN ×4 (06:29→20:38)
[2021-12-17 08:14] VITALS: BP 128/76
[2021-12-17] MEDS: TRIHEXYPHENIDYL HCL 5 MG TABLET PO SCH ×2 (08:45→16:30)
[2021-12-17] MEDS: RisperiDONE 3 MG TABLET PO SCH ×2 (08:45→16:30)
[2021-12-17] MEDS: OLANZapine 10 MG TABLET PO SCH ×2 (08:45→20:33)
[2021-12-17] MEDS: AmLODIPine BESYLATE 5 MG TABLET PO SCH (08:45)
[2021-12-17] MEDS: INSULIN GLARGINE,HUM.REC.ANLOG 100 UNITS/ML SQ SCH ×2 (08:47→16:38)
[2021-12-17 11:26] LABS: GLUCOMETER DEV NAME(LOC) BV2S.; GLUCOSE,POINT OF CARE 296 MG/DL (70-110)
[2021-12-17 16:09] VITALS: BP 110/60
[2021-12-17] MEDS: QUEtiapine FUMARATE 200 MG TABLET PO SCH (20:33)
[2021-12-18 00:55] VITALS: BP 112/63
[2021-12-18] MEDS: INSULIN LISPRO 100 UNITS/ML SQ PRN ×4 (06:28→20:04)
[2021-12-18 08:10] VITALS: BP 111/68
[2021-12-18] MEDS: OLANZapine 10 MG TABLET PO SCH ×2 (08:38→20:02)
[2021-12-18] MEDS: TRIHEXYPHENIDYL HCL 5 MG TABLET PO SCH ×2 (08:38→16:20)
[2021-12-18] MEDS: AmLODIPine BESYLATE 5 MG TABLET PO SCH (08:39)
[2021-12-18] MEDS: RisperiDONE 3 MG TABLET PO SCH ×2 (08:39→16:20)
[2021-12-18] MEDS: INSULIN GLARGINE,HUM.REC.ANLOG 100 UNITS/ML SQ SCH ×2 (08:55→16:29)
[2021-12-18 16:19] VITALS: BP 122/77
[2021-12-18 16:32] LABS: GLUCOMETER DEV NAME(LOC) BV2S.; GLUCOSE,POINT OF CARE 300 MG/DL (70-110)
[2021-12-18 16:32] LABS: GLUCOMETER DEV NAME(LOC) BV2S.; GLUCOSE,POINT OF CARE 137 MG/DL (70-110)
[2021-12-18 16:37] LABS: GLUCOMETER DEV NAME(LOC) BV2S.; GLUCOSE,POINT OF CARE 308 MG/DL (70-110)
[2021-12-18 16:38] LABS: GLUCOMETER DEV NAME(LOC) BV2S.; GLUCOSE,POINT OF CARE 377 MG/DL (70-110)
[2021-12-18 16:39] LABS: GLUCOMETER DEV NAME(LOC) BV2S.; GLUCOSE,POINT OF CARE 300 MG/DL (70-110)
[2021-12-18 16:39] LABS: GLUCOMETER DEV NAME(LOC) BV2S.; GLUCOSE,POINT OF CARE 137 MG/DL (70-110)
[2021-12-18 18:46] LABS: GLUCOMETER DEV NAME(LOC) BV2S.; GLUCOSE,POINT OF CARE 237 MG/DL (70-110)
[2021-12-18] MEDS: QUEtiapine FUMARATE 200 MG TABLET PO SCH (20:02)
[2021-12-18 20:21] LABS: GLUCOMETER DEV NAME(LOC) BV2S.; GLUCOSE,POINT OF CARE 353 MG/DL (70-110)
[2021-12-19 00:57] VITALS: BP 115/66
[2021-12-19 06:26] LABS: GLUCOMETER DEV NAME(LOC) BV2S.; GLUCOSE,POINT OF CARE 154 MG/DL (70-110)
[2021-12-19] MEDS: INSULIN LISPRO 100 UNITS/ML SQ PRN ×3 (06:47→20:05)
[2021-12-19 08:12] VITALS: BP 110/68
[2021-12-19] MEDS: AmLODIPine BESYLATE 5 MG TABLET PO SCH (08:44)
[2021-12-19] MEDS: OLANZapine 10 MG TABLET PO SCH ×2 (08:44→20:02)
[2021-12-19] MEDS: RisperiDONE 3 MG TABLET PO SCH ×2 (08:44→16:07)
[2021-12-19] MEDS: TRIHEXYPHENIDYL HCL 5 MG TABLET PO SCH ×2 (08:44→16:07)
[2021-12-19] MEDS: INSULIN GLARGINE,HUM.REC.ANLOG 100 UNITS/ML SQ SCH ×2 (09:00→16:18)
[2021-12-19 09:17] LABS: GLUCOMETER DEV NAME(LOC) BV2S.; GLUCOSE,POINT OF CARE 279 MG/DL (70-110)
[2021-12-19 12:16] LABS: GLUCOMETER DEV NAME(LOC) BV2S.; GLUCOSE,POINT OF CARE 347 MG/DL (70-110)
[2021-12-19 16:13] VITALS: BP 114/70
[2021-12-19] MEDS: QUEtiapine FUMARATE 200 MG TABLET PO SCH (20:02)
[2021-12-19 20:41] LABS: GLUCOMETER DEV NAME(LOC) BV2S.; GLUCOSE,POINT OF CARE 293 MG/DL (70-110)
[2021-12-19 20:41] LABS: GLUCOMETER DEV NAME(LOC) BV2S.; GLUCOSE,POINT OF CARE 204 MG/DL (70-110)
[2021-12-20 01:10] VITALS: BP 117/69
[2021-12-20] MEDS: INSULIN LISPRO 100 UNITS/ML SQ PRN ×4 (06:51→20:28)
[2021-12-20 07:00] LABS: GLUCOMETER DEV NAME(LOC) BV2S.; GLUCOSE,POINT OF CARE 133 MG/DL (70-110)
[2021-12-20 08:19] VITALS: BP 110/66
[2021-12-20] MEDS: OLANZapine 10 MG TABLET PO SCH ×2 (08:38→20:20)
[2021-12-20] MEDS: RisperiDONE 3 MG TABLET PO SCH ×2 (08:38→16:39)
[2021-12-20] MEDS: TRIHEXYPHENIDYL HCL 5 MG TABLET PO SCH ×2 (08:38→16:39)
[2021-12-20] MEDS: AmLODIPine BESYLATE 5 MG TABLET PO SCH (08:38)
[2021-12-20] MEDS: INSULIN GLARGINE,HUM.REC.ANLOG 100 UNITS/ML SQ SCH ×2 (08:56→16:58)
[2021-12-20 11:21] LABS: GLUCOMETER DEV NAME(LOC) BV2S.; GLUCOSE,POINT OF CARE 331 MG/DL (70-110)
[2021-12-20 16:11] VITALS: BP 126/74
[2021-12-20 17:32] LABS: GLUCOMETER DEV NAME(LOC) BV2S.; GLUCOSE,POINT OF CARE 281 MG/DL (70-110)
[2021-12-20] MEDS: QUEtiapine FUMARATE 200 MG TABLET PO SCH (20:20)
[2021-12-20 22:31] LABS: GLUCOMETER DEV NAME(LOC) BV2S.; GLUCOSE,POINT OF CARE 238 MG/DL (70-110)
[2021-12-21 05:57] VITALS: BP 132/77
[2021-12-21 06:31] LABS: GLUCOMETER DEV NAME(LOC) BV2S.; GLUCOSE,POINT OF CARE 79 MG/DL (70-110)
[2021-12-21 08:20] VITALS: BP 118/67
[2021-12-21] MEDS: RisperiDONE 3 MG TABLET PO SCH ×2 (08:24→16:39)
[2021-12-21] MEDS: AmLODIPine BESYLATE 5 MG TABLET PO SCH (08:24)
[2021-12-21] MEDS: TRIHEXYPHENIDYL HCL 5 MG TABLET PO SCH ×2 (08:24→16:39)
[2021-12-21] MEDS: OLANZapine 10 MG TABLET PO SCH ×2 (08:24→20:19)
[2021-12-21] MEDS: INSULIN GLARGINE,HUM.REC.ANLOG 100 UNITS/ML SQ SCH ×2 (08:37→16:45)
[2021-12-21 08:46] LABS: GLUCOMETER DEV NAME(LOC) BV2S.; GLUCOSE,POINT OF CARE 254 MG/DL (70-110)
[2021-12-21] MEDS: INSULIN LISPRO 100 UNITS/ML SQ PRN ×3 (11:04→20:27)
[2021-12-21 11:16] LABS: GLUCOMETER DEV NAME(LOC) BV2S.; GLUCOSE,POINT OF CARE 266 MG/DL (70-110)
[2021-12-21 16:34] VITALS: BP 112/66
[2021-12-21 17:06] LABS: GLUCOMETER DEV NAME(LOC) BV2S.; GLUCOSE,POINT OF CARE 200 MG/DL (70-110)
[2021-12-21] MEDS: QUEtiapine FUMARATE 200 MG TABLET PO SCH (20:19)
[2021-12-21 21:00] LABS: GLUCOMETER DEV NAME(LOC) BV2S.; GLUCOSE,POINT OF CARE 360 MG/DL (70-110)
[2021-12-22 05:56] VITALS: BP 128/69
[2021-12-22 06:26] LABS: GLUCOMETER DEV NAME(LOC) BV2S.; GLUCOSE,POINT OF CARE 118 MG/DL (70-110)
[2021-12-22] MEDS: INSULIN GLARGINE,HUM.REC.ANLOG 100 UNITS/ML SQ SCH ×2 (08:16→16:20)
[2021-12-22] MEDS: OLANZapine 10 MG TABLET PO SCH ×2 (08:17→20:06)
[2021-12-22] MEDS: AmLODIPine BESYLATE 5 MG TABLET PO SCH (08:17)
[2021-12-22] MEDS: RisperiDONE 3 MG TABLET PO SCH ×2 (08:17→16:04)
[2021-12-22] MEDS: TRIHEXYPHENIDYL HCL 5 MG TABLET PO SCH ×2 (08:17→16:04)
[2021-12-22 09:05] VITALS: BP 132/74
[2021-12-22 09:12] LABS: GLUCOMETER DEV NAME(LOC) POC.BV
[2021-12-22 11:31] LABS: GLUCOMETER DEV NAME(LOC) BV2S.; GLUCOSE,POINT OF CARE 241 MG/DL (70-110)
[2021-12-22] MEDS: INSULIN LISPRO 100 UNITS/ML SQ PRN ×3 (12:05→20:17)
[2021-12-22 16:13] VITALS: BP 116/78
[2021-12-22 16:36] LABS: GLUCOMETER DEV NAME(LOC) BV2S.; GLUCOSE,POINT OF CARE 280 MG/DL (70-110)
[2021-12-22] MEDS: QUEtiapine FUMARATE 200 MG TABLET PO SCH (20:06)
[2021-12-22 20:32] LABS: GLUCOMETER DEV NAME(LOC) BV2S.; GLUCOSE,POINT OF CARE 324 MG/DL (70-110)
[2021-12-23 00:37] VITALS: BP 110/72
[2021-12-23] MEDS: INSULIN LISPRO 100 UNITS/ML SQ PRN ×4 (06:15→20:12)
[2021-12-23 06:22] LABS: GLUCOMETER DEV NAME(LOC) BV2S.; GLUCOSE,POINT OF CARE 157 MG/DL (70-110)
[2021-12-23 08:21] VITALS: BP 119/79
[2021-12-23] MEDS: TRIHEXYPHENIDYL HCL 5 MG TABLET PO SCH ×2 (08:35→16:05)
[2021-12-23] MEDS: AmLODIPine BESYLATE 5 MG TABLET PO SCH (08:35)
[2021-12-23] MEDS: OLANZapine 10 MG TABLET PO SCH ×2 (08:35→20:06)
[2021-12-23] MEDS: RisperiDONE 3 MG TABLET PO SCH ×2 (08:35→16:05)
[2021-12-23] MEDS: INSULIN GLARGINE,HUM.REC.ANLOG 100 UNITS/ML SQ SCH ×2 (08:40→16:17)
[2021-12-23 10:56] LABS: GLUCOMETER DEV NAME(LOC) BV2S.; GLUCOSE,POINT OF CARE 238 MG/DL (70-110)
[2021-12-23] MEDS ORDERED: INSULIN LISPRO 100 UNITS/ML SQ ONE (16:15)
[2021-12-23 16:21] VITALS: BP_SYST 115
[2021-12-23 16:36] LABS: GLUCOMETER DEV NAME(LOC) BV2S.; GLUCOSE,POINT OF CARE 473 MG/DL (70-110)
[2021-12-23 17:52] LABS: GLUCOMETER DEV NAME(LOC) BV2S.; GLUCOSE,POINT OF CARE 218 MG/DL (70-110)
[2021-12-23] MEDS: QUEtiapine FUMARATE 200 MG TABLET PO SCH (20:06)
[2021-12-23 20:41] LABS: GLUCOMETER DEV NAME(LOC) BV2S.; GLUCOSE,POINT OF CARE 265 MG/DL (70-110)
[2021-12-24 05:36] VITALS: BP 117/63
[2021-12-24 08:09] VITALS: BP 123/66
[2021-12-24] MEDS: TRIHEXYPHENIDYL HCL 5 MG TABLET PO SCH ×2 (08:53→16:13)
[2021-12-24] MEDS: OLANZapine 10 MG TABLET PO SCH ×2 (08:53→20:13)
[2021-12-24] MEDS: RisperiDONE 3 MG TABLET PO SCH ×2 (08:53→16:13)
[2021-12-24] MEDS: AmLODIPine BESYLATE 5 MG TABLET PO SCH (08:54)
[2021-12-24] MEDS: INSULIN GLARGINE,HUM.REC.ANLOG 100 UNITS/ML SQ SCH ×2 (08:59→16:31)
[2021-12-24] MEDS: INSULIN LISPRO 100 UNITS/ML SQ PRN ×3 (11:20→20:30)
[2021-12-24 11:33] LABS: GLUCOMETER DEV NAME(LOC) BV2S.; GLUCOSE,POINT OF CARE 119 MG/DL (70-110)
[2021-12-24 11:33] LABS: GLUCOMETER DEV NAME(LOC) BV2S.; GLUCOSE,POINT OF CARE 286 MG/DL (70-110)
[2021-12-24 16:36] VITALS: BP 128/75
[2021-12-24 16:47] LABS: GLUCOMETER DEV NAME(LOC) BV2S.; GLUCOSE,POINT OF CARE 339 MG/DL (70-110)
[2021-12-24] MEDS: QUEtiapine FUMARATE 200 MG TABLET PO SCH (20:13)
[2021-12-24 20:51] LABS: GLUCOMETER DEV NAME(LOC) BV2S.; GLUCOSE,POINT OF CARE 342 MG/DL (70-110)
[2021-12-25 00:43] VITALS: BP 121/72
[2021-12-25 06:41] LABS: GLUCOMETER DEV NAME(LOC) BV2S.; GLUCOSE,POINT OF CARE 98 MG/DL (70-110)
[2021-12-25 08:11] VITALS: BP 109/66
[2021-12-25] MEDS: INSULIN GLARGINE,HUM.REC.ANLOG 100 UNITS/ML SQ SCH ×2 (08:27→16:41)
[2021-12-25] MEDS: TRIHEXYPHENIDYL HCL 5 MG TABLET PO SCH ×2 (08:28→16:38)
[2021-12-25] MEDS: AmLODIPine BESYLATE 5 MG TABLET PO SCH (08:29)
[2021-12-25] MEDS: RisperiDONE 3 MG TABLET PO SCH ×2 (08:30→16:38)
[2021-12-25] MEDS: OLANZapine 10 MG TABLET PO SCH ×2 (08:30→20:38)
[2021-12-25] MEDS: INSULIN LISPRO 100 UNITS/ML SQ PRN ×3 (11:25→20:41)
[2021-12-25 11:36] LABS: GLUCOMETER DEV NAME(LOC) BV2S.; GLUCOSE,POINT OF CARE 278 MG/DL (70-110)
[2021-12-25 16:51] LABS: GLUCOMETER DEV NAME(LOC) BV2S.; GLUCOSE,POINT OF CARE 279 MG/DL (70-110)
[2021-12-25 17:28] VITALS: BP 135/72
[2021-12-25 20:26] LABS: GLUCOMETER DEV NAME(LOC) BV2S.; GLUCOSE,POINT OF CARE 384 MG/DL (70-110)
[2021-12-25] MEDS: QUEtiapine FUMARATE 200 MG TABLET PO SCH (20:38)
[2021-12-26 06:10] VITALS: BP 132/75
[2021-12-26 06:21] LABS: GLUCOMETER DEV NAME(LOC) BV2S.; GLUCOSE,POINT OF CARE 113 MG/DL (70-110)
[2021-12-26 08:27] VITALS: BP 112/62
[2021-12-26] MEDS: TRIHEXYPHENIDYL HCL 5 MG TABLET PO SCH ×2 (08:57→16:48)
[2021-12-26] MEDS: OLANZapine 10 MG TABLET PO SCH ×2 (08:57→20:07)
[2021-12-26] MEDS: AmLODIPine BESYLATE 5 MG TABLET PO SCH (08:57)
[2021-12-26] MEDS: RisperiDONE 3 MG TABLET PO SCH ×2 (08:57→16:48)
[2021-12-26] MEDS: INSULIN GLARGINE,HUM.REC.ANLOG 100 UNITS/ML SQ SCH ×2 (09:03→17:02)
[2021-12-26] MEDS: INSULIN LISPRO 100 UNITS/ML SQ PRN ×3 (11:03→20:12)
[2021-12-26 11:57] LABS: GLUCOMETER DEV NAME(LOC) BV2S.; GLUCOSE,POINT OF CARE 243 MG/DL (70-110)
[2021-12-26 17:26] LABS: GLUCOMETER DEV NAME(LOC) BV2S.; GLUCOSE,POINT OF CARE 253 MG/DL (70-110)
[2021-12-26 18:09] VITALS: BP 131/83
[2021-12-26] MEDS: QUEtiapine FUMARATE 200 MG TABLET PO SCH (20:07)
[2021-12-26 20:46] LABS: GLUCOMETER DEV NAME(LOC) BV2S.; GLUCOSE,POINT OF CARE 320 MG/DL (70-110)
[2021-12-27 06:21] LABS: GLUCOMETER DEV NAME(LOC) BV2S.; GLUCOSE,POINT OF CARE 158 MG/DL (70-110)
[2021-12-27] MEDS: INSULIN LISPRO 100 UNITS/ML SQ PRN ×4 (06:37→20:22)
[2021-12-27 06:42] VITALS: BP 121/61
[2021-12-27 08:05] VITALS: BP 110/60
[2021-12-27] MEDS: RisperiDONE 3 MG TABLET PO SCH ×2 (09:07→16:44)
[2021-12-27] MEDS: TRIHEXYPHENIDYL HCL 5 MG TABLET PO SCH ×2 (09:07→16:44)
[2021-12-27] MEDS: OLANZapine 10 MG TABLET PO SCH ×2 (09:07→20:06)
[2021-12-27] MEDS: AmLODIPine BESYLATE 5 MG TABLET PO SCH (09:07)
[2021-12-27] MEDS: INSULIN GLARGINE,HUM.REC.ANLOG 100 UNITS/ML SQ SCH ×2 (09:10→16:55)
[2021-12-27 12:31] LABS: GLUCOMETER DEV NAME(LOC) BV2S.; GLUCOSE,POINT OF CARE 293 MG/DL (70-110)
[2021-12-27 16:22] VITALS: BP 115/53
[2021-12-27 17:21] LABS: GLUCOMETER DEV NAME(LOC) BV2S.; GLUCOSE,POINT OF CARE 221 MG/DL (70-110)
[2021-12-27] MEDS: QUEtiapine FUMARATE 200 MG TABLET PO SCH (20:06)
[2021-12-27 20:46] LABS: GLUCOMETER DEV NAME(LOC) BV2S.; GLUCOSE,POINT OF CARE 356 MG/DL (70-110)
[2021-12-28 00:35] VITALS: BP 112/62
[2021-12-28] MEDS: INSULIN LISPRO 100 UNITS/ML SQ PRN ×4 (06:11→20:21)
[2021-12-28 06:20] LABS: GLUCOMETER DEV NAME(LOC) BV2S.; GLUCOSE,POINT OF CARE 176 MG/DL (70-110)
[2021-12-28 09:00] VITALS: BP 114/70
[2021-12-28] MEDS: OLANZapine 10 MG TABLET PO SCH ×2 (09:24→20:03)
[2021-12-28] MEDS: TRIHEXYPHENIDYL HCL 5 MG TABLET PO SCH ×2 (09:24→16:43)
[2021-12-28] MEDS: RisperiDONE 3 MG TABLET PO SCH ×2 (09:24→16:43)
[2021-12-28] MEDS: AmLODIPine BESYLATE 5 MG TABLET PO SCH (09:24)
[2021-12-28] MEDS: INSULIN GLARGINE,HUM.REC.ANLOG 100 UNITS/ML SQ SCH ×2 (09:30→16:50)
[2021-12-28 10:21] LABS: GLUCOMETER DEV NAME(LOC) POC.BV
[2021-12-28 11:26] LABS: GLUCOMETER DEV NAME(LOC) BV2S.; GLUCOSE,POINT OF CARE 252 MG/DL (70-110)
[2021-12-28 16:11] VITALS: BP 102/60
[2021-12-28 16:56] LABS: GLUCOMETER DEV NAME(LOC) BV2S.; GLUCOSE,POINT OF CARE 234 MG/DL (70-110)
[2021-12-28] MEDS: QUEtiapine FUMARATE 200 MG TABLET PO SCH (20:03)
[2021-12-28 21:26] LABS: GLUCOMETER DEV NAME(LOC) BV2S.; GLUCOSE,POINT OF CARE 313 MG/DL (70-110)
[2021-12-29 01:17] VITALS: BP 104/62
[2021-12-29 06:21] LABS: GLUCOMETER DEV NAME(LOC) BV2S.; GLUCOSE,POINT OF CARE 199 MG/DL (70-110)
[2021-12-29] MEDS: INSULIN LISPRO 100 UNITS/ML SQ PRN ×3 (06:26→16:19)
[2021-12-29 08:13] VITALS: BP 104/66
[2021-12-29] MEDS: INSULIN GLARGINE,HUM.REC.ANLOG 100 UNITS/ML SQ SCH ×2 (08:54→16:14)
[2021-12-29] MEDS: RisperiDONE 3 MG TABLET PO SCH ×2 (08:55→16:09)
[2021-12-29] MEDS: TRIHEXYPHENIDYL HCL 5 MG TABLET PO SCH ×2 (08:55→16:09)
[2021-12-29] MEDS: AmLODIPine BESYLATE 5 MG TABLET PO SCH (08:56)
[2021-12-29] MEDS: OLANZapine 10 MG TABLET PO SCH ×2 (08:56→20:51)
[2021-12-29 11:21] LABS: GLUCOMETER DEV NAME(LOC) BV2S.; GLUCOSE,POINT OF CARE 321 MG/DL (70-110)
[2021-12-29 16:29] VITALS: BP 106/71
[2021-12-29 17:26] LABS: GLUCOMETER DEV NAME(LOC) BV2S.; GLUCOSE,POINT OF CARE 347 MG/DL (70-110)
[2021-12-29] MEDS ORDERED: INSULIN LISPRO 100 UNITS/ML SQ ONE (20:15)
[2021-12-29] MEDS: QUEtiapine FUMARATE 200 MG TABLET PO SCH (20:51)
[2021-12-29 22:16] LABS: GLUCOMETER DEV NAME(LOC) BV2S.; GLUCOSE,POINT OF CARE 425 MG/DL (70-110)
[2021-12-30 00:33] VITALS: BP 133/72
[2021-12-30 06:16] LABS: GLUCOMETER DEV NAME(LOC) BV2S.; GLUCOSE,POINT OF CARE 120 MG/DL (70-110)
[2021-12-30 08:55] VITALS: BP 128/72
[2021-12-30] MEDS: AmLODIPine BESYLATE 5 MG TABLET PO SCH (08:56)
[2021-12-30] MEDS: OLANZapine 10 MG TABLET PO SCH ×2 (08:56→20:36)
[2021-12-30] MEDS: RisperiDONE 3 MG TABLET PO SCH ×2 (08:56→16:35)
[2021-12-30] MEDS: INSULIN GLARGINE,HUM.REC.ANLOG 100 UNITS/ML SQ SCH ×2 (08:56→16:36)
[2021-12-30] MEDS: TRIHEXYPHENIDYL HCL 5 MG TABLET PO SCH ×2 (08:56→16:35)
[2021-12-30 11:01] LABS: GLUCOMETER DEV NAME(LOC) BV2S.; GLUCOSE,POINT OF CARE 263 MG/DL (70-110)
[2021-12-30] MEDS: INSULIN LISPRO 100 UNITS/ML SQ PRN ×3 (12:08→20:37)
[2021-12-30 16:16] VITALS: BP 114/69
[2021-12-30 16:26] LABS: GLUCOMETER DEV NAME(LOC) BV2S.; GLUCOSE,POINT OF CARE 277 MG/DL (70-110)
[2021-12-30 20:30] LABS: GLUCOMETER DEV NAME(LOC) BV2S.; GLUCOSE,POINT OF CARE 233 MG/DL (70-110)
[2021-12-30] MEDS: QUEtiapine FUMARATE 200 MG TABLET PO SCH (20:36)
[2021-12-31 00:35] VITALS: BP 109/71
[2021-12-31] MEDS: INSULIN LISPRO 100 UNITS/ML SQ PRN ×4 (06:28→20:38)
[2021-12-31 06:31] LABS: GLUCOMETER DEV NAME(LOC) BV2S.; GLUCOSE,POINT OF CARE 145 MG/DL (70-110)
[2021-12-31 08:16] VITALS: BP 119/62
[2021-12-31] MEDS: AmLODIPine BESYLATE 5 MG TABLET PO SCH (08:35)
[2021-12-31] MEDS: RisperiDONE 3 MG TABLET PO SCH ×2 (08:35→16:37)
[2021-12-31] MEDS: TRIHEXYPHENIDYL HCL 5 MG TABLET PO SCH ×2 (08:35→16:36)
[2021-12-31] MEDS: OLANZapine 10 MG TABLET PO SCH ×2 (08:35→20:30)
[2021-12-31] MEDS: INSULIN GLARGINE,HUM.REC.ANLOG 100 UNITS/ML SQ SCH ×2 (08:37→16:45)
[2021-12-31 11:21] LABS: GLUCOMETER DEV NAME(LOC) BV2S.; GLUCOSE,POINT OF CARE 236 MG/DL (70-110)
[2021-12-31 16:21] LABS: GLUCOMETER DEV NAME(LOC) BV2S.; GLUCOSE,POINT OF CARE 272 MG/DL (70-110)
[2021-12-31 16:26] VITALS: BP 114/68
[2021-12-31 16:47] LABS: GLUCOMETER DEV NAME(LOC) POC.BV
[2021-12-31] MEDS: QUEtiapine FUMARATE 200 MG TABLET PO SCH (20:30)
[2021-12-31 20:31] LABS: GLUCOMETER DEV NAME(LOC) BV2S.; GLUCOSE,POINT OF CARE 323 MG/DL (70-110)
[2022-01-01 00:52] VITALS: BP 116/75
[2022-01-01 06:31] LABS: GLUCOMETER DEV NAME(LOC) BV2S.; GLUCOSE,POINT OF CARE 94 MG/DL (70-110)
[2022-01-01 08:22] VITALS: BP 124/77
[2022-01-01] MEDS: AmLODIPine BESYLATE 5 MG TABLET PO SCH (08:53)
[2022-01-01] MEDS: TRIHEXYPHENIDYL HCL 5 MG TABLET PO SCH ×2 (08:53→16:18)
[2022-01-01] MEDS: OLANZapine 10 MG TABLET PO SCH ×2 (08:53→20:20)
[2022-01-01] MEDS: RisperiDONE 3 MG TABLET PO SCH ×2 (08:53→16:18)
[2022-01-01] MEDS: INSULIN GLARGINE,HUM.REC.ANLOG 100 UNITS/ML SQ SCH ×2 (08:56→16:32)
[2022-01-01 11:26] LABS: GLUCOMETER DEV NAME(LOC) BV2S.; GLUCOSE,POINT OF CARE 243 MG/DL (70-110)
[2022-01-01] MEDS: INSULIN LISPRO 100 UNITS/ML SQ PRN ×3 (11:55→20:58)
[2022-01-01 16:16] VITALS: BP 129/73
[2022-01-01 16:16] LABS: GLUCOMETER DEV NAME(LOC) BV2S.; GLUCOSE,POINT OF CARE 233 MG/DL (70-110)
[2022-01-01] MEDS: QUEtiapine FUMARATE 200 MG TABLET PO SCH (20:20)
[2022-01-01 20:41] LABS: GLUCOMETER DEV NAME(LOC) BV2S.; GLUCOSE,POINT OF CARE 319 MG/DL (70-110)
[2022-01-02 00:38] VITALS: BP 119/69
[2022-01-02 06:30] LABS: GLUCOMETER DEV NAME(LOC) BV2S.; GLUCOSE,POINT OF CARE 110 MG/DL (70-110)
[2022-01-02 08:23] VITALS: BP 115/62
[2022-01-02] MEDS: OLANZapine 10 MG TABLET PO SCH ×2 (08:36→20:17)
[2022-01-02] MEDS: RisperiDONE 3 MG TABLET PO SCH ×2 (08:36→16:35)
[2022-01-02] MEDS: AmLODIPine BESYLATE 5 MG TABLET PO SCH (08:37)
[2022-01-02] MEDS: TRIHEXYPHENIDYL HCL 5 MG TABLET PO SCH ×2 (08:37→16:35)
[2022-01-02] MEDS: INSULIN GLARGINE,HUM.REC.ANLOG 100 UNITS/ML SQ SCH ×2 (08:45→16:46)
[2022-01-02] MEDS: INSULIN LISPRO 100 UNITS/ML SQ PRN ×3 (11:09→20:22)
[2022-01-02 11:56] LABS: GLUCOMETER DEV NAME(LOC) BV2S.; GLUCOSE,POINT OF CARE 290 MG/DL (70-110)
[2022-01-02 16:16] VITALS: BP 130/82
[2022-01-02 16:50] LABS: GLUCOMETER DEV NAME(LOC) BV2S.; GLUCOSE,POINT OF CARE 249 MG/DL (70-110)
[2022-01-02] MEDS: QUEtiapine FUMARATE 200 MG TABLET PO SCH (20:17)
[2022-01-02 21:01] LABS: GLUCOMETER DEV NAME(LOC) BV2S.; GLUCOSE,POINT OF CARE 369 MG/DL (70-110)
[2022-01-03 00:15] VITALS: BP 126/80
[2022-01-03 06:21] LABS: GLUCOMETER DEV NAME(LOC) BV2S.; GLUCOSE,POINT OF CARE 119 MG/DL (70-110)
[2022-01-03] MEDS: AmLODIPine BESYLATE 5 MG TABLET PO SCH (08:06)
[2022-01-03] MEDS: TRIHEXYPHENIDYL HCL 5 MG TABLET PO SCH ×2 (08:06→16:40)
[2022-01-03] MEDS: OLANZapine 10 MG TABLET PO SCH ×2 (08:06→20:14)
[2022-01-03] MEDS: RisperiDONE 3 MG TABLET PO SCH ×2 (08:06→16:40)
[2022-01-03] MEDS: INSULIN GLARGINE,HUM.REC.ANLOG 100 UNITS/ML SQ SCH ×2 (08:09→16:52)
[2022-01-03 08:20] VITALS: BP 123/64
[2022-01-03] MEDS: INSULIN LISPRO 100 UNITS/ML SQ PRN ×3 (10:58→20:16)
[2022-01-03 11:16] LABS: GLUCOMETER DEV NAME(LOC) BV2S.; GLUCOSE,POINT OF CARE 361 MG/DL (70-110)
[2022-01-03 16:15] VITALS: BP 135/71
[2022-01-03 16:52] LABS: GLUCOMETER DEV NAME(LOC) BV2S.; GLUCOSE,POINT OF CARE 156 MG/DL (70-110)
[2022-01-03] MEDS: QUEtiapine FUMARATE 200 MG TABLET PO SCH (20:14)
[2022-01-03 20:46] LABS: GLUCOMETER DEV NAME(LOC) BV2S.; GLUCOSE,POINT OF CARE 303 MG/DL (70-110)
[2022-01-04 00:41] VITALS: BP 134/67
[2022-01-04 06:36] LABS: GLUCOMETER DEV NAME(LOC) BV2S.; GLUCOSE,POINT OF CARE 151 MG/DL (70-110)
[2022-01-04] MEDS: INSULIN LISPRO 100 UNITS/ML SQ PRN ×4 (06:44→20:30)
[2022-01-04] MEDS: TRIHEXYPHENIDYL HCL 5 MG TABLET PO SCH ×2 (08:03→16:30)
[2022-01-04] MEDS: AmLODIPine BESYLATE 5 MG TABLET PO SCH (08:03)
[2022-01-04] MEDS: RisperiDONE 3 MG TABLET PO SCH ×2 (08:03→16:30)
[2022-01-04] MEDS: OLANZapine 10 MG TABLET PO SCH ×2 (08:03→20:36)
[2022-01-04] MEDS: INSULIN GLARGINE,HUM.REC.ANLOG 100 UNITS/ML SQ SCH ×2 (08:05→16:42)
[2022-01-04 08:10] VITALS: BP 122/73
[2022-01-04 11:16] LABS: GLUCOMETER DEV NAME(LOC) BV2S.; GLUCOSE,POINT OF CARE 290 MG/DL (70-110)
[2022-01-04 16:19] VITALS: BP 129/79
[2022-01-04 16:45] LABS: GLUCOMETER DEV NAME(LOC) BV2S.; GLUCOSE,POINT OF CARE 267 MG/DL (70-110)
[2022-01-04 20:25] LABS: GLUCOMETER DEV NAME(LOC) BV2S.; GLUCOSE,POINT OF CARE 340 MG/DL (70-110)
[2022-01-04] MEDS: QUEtiapine FUMARATE 200 MG TABLET PO SCH (20:36)
[2022-01-05 00:35] VITALS: BP 121/79
[2022-01-05 06:26] LABS: GLUCOMETER DEV NAME(LOC) BV2S.; GLUCOSE,POINT OF CARE 111 MG/DL (70-110)
[2022-01-05 08:45] VITALS: BP 154/71
[2022-01-05] MEDS: OLANZapine 10 MG TABLET PO SCH ×2 (08:47→20:29)
[2022-01-05] MEDS: TRIHEXYPHENIDYL HCL 5 MG TABLET PO SCH ×2 (08:47→16:06)
[2022-01-05] MEDS: AmLODIPine BESYLATE 5 MG TABLET PO SCH (08:47)
[2022-01-05] MEDS: RisperiDONE 3 MG TABLET PO SCH ×2 (08:47→16:06)
[2022-01-05] MEDS: INSULIN GLARGINE,HUM.REC.ANLOG 100 UNITS/ML SQ SCH ×2 (08:51→16:28)
[2022-01-05] MEDS: INSULIN LISPRO 100 UNITS/ML SQ PRN ×3 (11:30→20:59)
[2022-01-05 11:41] LABS: GLUCOMETER DEV NAME(LOC) BV2S.; GLUCOSE,POINT OF CARE 234 MG/DL (70-110)
[2022-01-05 16:13] VITALS: BP 138/70
[2022-01-05 16:16] LABS: GLUCOMETER DEV NAME(LOC) BV2S.; GLUCOSE,POINT OF CARE 262 MG/DL (70-110)
[2022-01-05] MEDS: QUEtiapine FUMARATE 200 MG TABLET PO SCH (20:29)
[2022-01-05 21:06] LABS: GLUCOMETER DEV NAME(LOC) BV2S.; GLUCOSE,POINT OF CARE 275 MG/DL (70-110)
[2022-01-06 06:24] VITALS: BP 132/68
[2022-01-06 06:26] LABS: GLUCOMETER DEV NAME(LOC) BV2S.; GLUCOSE,POINT OF CARE 74 MG/DL (70-110)
[2022-01-06] MEDS: TRIHEXYPHENIDYL HCL 5 MG TABLET PO SCH (09:14)
[2022-01-06] MEDS: AmLODIPine BESYLATE 5 MG TABLET PO SCH (09:14)
[2022-01-06] MEDS: OLANZapine 10 MG TABLET PO SCH (09:14)
[2022-01-06] MEDS: RisperiDONE 3 MG TABLET PO SCH (09:14)
[2022-01-06] MEDS: INSULIN GLARGINE,HUM.REC.ANLOG 100 UNITS/ML SQ SCH (09:21)
[2022-01-06 09:41] LABS: GLUCOMETER DEV NAME(LOC) BV2X.2; GLUCOSE,POINT OF CARE 330 MG/DL (70-110)
[2022-01-06] MEDS: INSULIN LISPRO 100 UNITS/ML SQ PRN (11:05)
[2022-01-06 11:16] LABS: GLUCOMETER DEV NAME(LOC) BV2S.; GLUCOSE,POINT OF CARE 339 MG/DL (70-110)
[2022-01-06] MEDS ORDERED: RISP3TAB63 PO (11:17)
[2022-01-06] MEDS ORDERED: QUET200T30 PO (11:17)
[2022-01-06] MEDS ORDERED: OLAN10 PO (11:17)
[2022-01-06] MEDS ORDERED: TRIH5TAB3 PO (11:17)
[2022-01-06] MEDS ORDERED: INSLAN SQ (11:42)
[2022-01-06] MEDS ORDERED: AMLO-257 PO (12:12)
[2022-01-06] MEDS ORDERED: INSU100V SQ (12:59)
[2022-01-06] MEDS ORDERED: BLOO-4 IH (13:03)
[2022-01-06] MEDS ORDERED: SYRI-590 SQ (13:05)
[2022-01-06] MEDS ORDERED: LANC-893 TP (13:05)
[2022-01-06] MEDS ORDERED: LANC-493 TP (13:21)
[2022-01-06] MEDS ORDERED: BLOO-140 (13:25)
== END 2022-01-06 13:15 | disposition home or self-care (01) | DRG 750 ==
LOC: B3A 12:14 → B2S 11-30 12:47
PROVIDERS: ADMIT Psychiatry & Neurology Child & Adolescent Psychiatry; ATTEND Psychiatry & Neurology Child & Adolescent Psychiatry
DX: F25.0 Schizoaffective disorder, bipolar type (principal); E87.1 Hypo-osmolality and hyponatremia; E11.9 Type 2 diabetes mellitus without complications; F22 Delusional disorders; E66.3 Overweight; F10.10 Alcohol abuse, uncomplicated; F41.9 Anxiety disorder, unspecified; Z20.822 Contact with and (suspected) exposure to COVID-19; I10 Essential (primary) hypertension; M19.90 Unspecified osteoarthritis, unspecified site; Z59.00 Homelessness unspecified; Z79.899 Other long term (current) drug therapy; Z88.8 Allergy status to other drugs, medicaments and biological substances
CPT/HCPCS: 80053; 80061; 80307; 81001; 82962; 84439; 84443; 85025; 87081; 90732; J1200; J1630; J1815; J2060

== ENCOUNTER 2022-09-07 22:08 | Emergency (ER) | payer MEDICARE, MEDICAID ==
[~2022-09-07] VITALS: Ht 167.6 cm; Wt 84.1 kg
[~2022-09-07 22:08] MED LIST changes: +AMLO-257 PO; +BLOO-140; +BLOO-4 IH; +INSU100V SQ; +LANC-493 TP; +LANC-893 TP; -LISI-893 PO; -METF-1211 PO; +OLAN10 PO; +QUET200T30 PO; -RISP1TAB48 PO; +RISP3TAB63 PO; +SYRI-590 SQ; +TRIH5TAB3 PO
[2022-09-08 08:00] VITALS: BP 132/72
== END 2022-09-08 08:30 | disposition home or self-care (01) ==
LOC: EMS 22:11
DX: F41.9 Anxiety disorder, unspecified (principal); F25.9 Schizoaffective disorder, unspecified; E11.9 Type 2 diabetes mellitus without complications; E78.00 Pure hypercholesterolemia, unspecified; I10 Essential (primary) hypertension; F17.210 Nicotine dependence, cigarettes, uncomplicated; Z89.421 Acquired absence of other right toe(s); Z88.8 Allergy status to other drugs, medicaments and biological substances
CPT/HCPCS: 82962; 99285

== ENCOUNTER 2022-10-29 02:38 | Emergency (ER) | payer MEDICARE, MEDICAID ==
[~2022-10-29] VITALS: Ht 170.2 cm; Wt 100.0 kg
[2022-10-29 03:18] LABS: APPEARANCE,URINE CLEAR (CLEAR); BILIRUBIN,URINE NEGATIVE (NEGATIVE); GLUCOSE, URINE (UA) >=1000 mg/dL (NEGATIVE); KETONES,URINE NEGATIVE (NEGATIVE); LEUKOCYTE ESTERASE ,URINE NEGATIVE (NEGATIVE); NITRATE,URINE NEGATIVE (NEGATIVE); OCCULT BLOOD,URINE NEGATIVE (NEGATIVE); PROTEIN,URINE NEGATIVE (NEGATIVE); SPECIFIC GRAVITIY, URINE 1.027 (1.003-1.030); UROBILINOGEN,URINE <=1.0 mg/dL (<=1.0)
[2022-10-29 03:20] LABS: BASOPHILS % (AUTO) 1.1 % (0.0-2.0); EOSINOPHILS % (AUTO) 1.3 % (1.0-6.0); HEMATOCRIT 37.7 % (41-53); HEMOGLOBIN 12.8 g/dL (13.5-17.5); LYMPHOCYTES % (AUTO) 38.9 % (22.0-44.0); MEAN CORPUSCULAR HEMOGLOBIN 30.1 pg (26.0-34.0); MEAN CORPUSCULAR HGB CONC 33.9 G/dL (31.0-37.0); MEAN CORPUSCULAR VOLUME 89 fL (80-100); MONOCYTES # (AUTO) 0.7 K/uL (0.1-1.0); MONOCYTES % (AUTO) 9.1 % (2.0-9.0); NEUTROPHILS # (AUTO) 3.8 K/uL (1.8-7.7); NEUTROPHILS % (AUTO) 49.6 % (40.0-70.0); PLATELET COUNT (AUTO) 295 K/uL (150-450); RED BLOOD CELL COUNT(AUTO) 4.25 MIL/uL (4.50-5.90); RED CELL DISTRIBUTION WIDTH 14.6 % (11.5-14.5)
[2022-10-29 03:27] LABS: BACTERIA,URINE None Seen /HPF (None Seen); RBC,URINE None Seen /HPF (0-2); SQUAMOUS EPITHELIAL CELL,UR None Seen /LPF (None Seen); WBC,URINE None Seen /HPF (0-5)
[2022-10-29 03:28] LABS: ANION GAP 6 mmol/L (8-16); CALCIUM, TOTAL 9.4 mg/dL (8.8-10.5); CARBON DIOXIDE 30 mmol/L (22-29); CHLORIDE 100 mmol/L (98-107); GLOMERULAR FILTR. RATE CALC > 60 mL/min (>60); GLUCOSE,RANDOM 314 mg/dL (70-110); POTASSIUM 4.1 mmol/L (3.5-5.1); SODIUM SERUM 136 mmol/L (136-145); UREA NITROGEN, BLOOD 15 mg/dL (7-18)
[2022-10-29 03:35] LABS: ALANINE AMINOTRANSFERASE 38 U/L (12-78); ALBUMIN 3.3 g/dL (3.4-5.0); ALKALINE PHOSPHATASE 134 U/L (46-116); ASPARTATE AMINOTRANSFERASE 21 U/L (15-37); BILIRUBIN,TOTAL 0.3 mg/dL (0.1-1.0); LIPASE 84 U/L (73-393); TOTAL PROTEIN, SERUM 7.6 g/dL (6.4-8.2)
[2022-10-29 07:54] VITALS: BP 105/72
[2022-10-29 08:11] LABS: GLUCOSE,POINT OF CARE 221 MG/DL (70-110)
== END 2022-10-29 07:55 | disposition home or self-care (01) ==
LOC: EMS 02:39
DX: K29.70 Gastritis, unspecified, without bleeding (principal); E11.9 Type 2 diabetes mellitus without complications; I10 Essential (primary) hypertension; F17.210 Nicotine dependence, cigarettes, uncomplicated; Z89.431 Acquired absence of right foot; Z89.421 Acquired absence of other right toe(s); Z88.8 Allergy status to other drugs, medicaments and biological substances
CPT/HCPCS: 80053; 81001; 82962; 83690; 84484; 85025; 93005; 99284

== ENCOUNTER 2023-03-04 00:48 | Inpatient (IN) | payer MEDICARE, MEDICAID ==
[~2023-03-04] VITALS: Ht 172.7 cm; Wt 94.9 kg
[~2023-03-04 00:48] MED LIST changes: -BLOO-4 IH; +BLOO-4 MISC
[2023-03-04 12:30] VITALS: BP 140/63; PULSE 62; RESP 18; TEMP 98.2; O2SAT 98
[2023-03-04] MEDS: RisperiDONE 1 MG TABLET PO SCH (16:47)
[2023-03-04] MEDS ORDERED: INSULIN LISPRO 100 UNITS/ML SQ PRN (17:15)
[2023-03-04] MEDS ORDERED: GLUCAGON,HUMAN RECOMBINANT 1 MG VIAL IM PRN (17:15)
[2023-03-04] MEDS ORDERED: DEXTROSE 50%-WATER 25 GM/50 ML SYRINGE IVP PRN (17:15)
[2023-03-04] MEDS: INSULIN LISPRO 100 UNITS/ML SQ PRN ×3 (17:42→21:08)
[2023-03-04] MEDS ORDERED: DEXTROSE 50%-WATER 25 GM/50 ML SYG IVP PRN (17:45)
[2023-03-04] MEDS: ATORVASTATIN CALCIUM 10 MG TABLET PO SCH ×2 (18:00→18:30)
[2023-03-04 18:02] LABS: GLUCOMETER DEV NAME(LOC) 3EX.2; GLUCOSE,POINT OF CARE 411 MG/DL (70-110)
[2023-03-04] MEDS ORDERED: BACITRACIN 28 GM OINTMENT TP PRN (18:15)
[2023-03-04] MEDS ORDERED: LOPERAMIDE HCL 2 MG CAPSULE PO PRN (18:15)
[2023-03-04] MEDS ORDERED: OMEPRAZOLE 20 MG CAPSULE PO PRN (18:15)
[2023-03-04] MEDS ORDERED: MAGNESIUM HYDROXIDE SUSPENSION 30 ML UDCUP PO PRN (18:15)
[2023-03-04] MEDS ORDERED: ONDANSETRON HCL 4 MG TABLET PO PRN (18:15)
[2023-03-04] MEDS ORDERED: CloNIDine HCL 0.1 MG TABLET PO PRN (18:15)
[2023-03-04] MEDS ORDERED: DOCUSATE SODIUM 100 MG CAPSULE PO PRN (18:15)
[2023-03-04] MEDS ORDERED: MAG HYDROX/ALUMINUM HYD/SIMETH ES 30 ML SUSPENSION UDCUP PO PRN (18:15)
[2023-03-04] MEDS: OMEGA-3/DHA/EPA/FISH OIL 1,000 MG CAPSULE PO SCH (18:31)
[2023-03-04 20:46] LABS: GLUCOMETER DEV NAME(LOC) 3EX.2; GLUCOSE,POINT OF CARE 338 MG/DL (70-110)
[2023-03-04] MEDS: -LIDODERM PATCH NOTE- MISC SCH (21:00)
[2023-03-04] MEDS: INSULIN GLARGINE,HUM.REC.ANLOG 100 UNITS/ML SQ SCH (21:04)
[2023-03-05 05:01] LABS: GLUCOMETER DEV NAME(LOC) 3EX.2; GLUCOSE,POINT OF CARE 123 MG/DL (70-110)
[2023-03-05] MEDS: ALBUTEROL SULFATE HFA 90 MCG/PUFF 8 GM INHALER IH PRN (05:15)
[2023-03-05] MEDS: GlipiZIDE 10 MG TABLET PO SCH (06:39)
[2023-03-05] MEDS: INSULIN LISPRO 100 UNITS/ML SQ PRN ×4 (06:42→21:06)
[2023-03-05 06:45] VITALS: BP 108/63; PULSE 99; RESP 17; TEMP 97.4; O2SAT 98
[2023-03-05] MEDS: IBUPROFEN 600 MG TABLET PO PRN (06:50)
[2023-03-05 08:13] VITALS: BP 121/60; PULSE 79; RESP 17; TEMP 98; O2SAT 98
[2023-03-05] MEDS: EMPAGLIFLOZIN 10 MG TABLET PO SCH ×2 (08:26→09:00)
[2023-03-05] MEDS: MULTIVITAMINS, THERAPEUTIC TABLET PO SCH (08:26)
[2023-03-05] MEDS: OMEGA-3/DHA/EPA/FISH OIL 1,000 MG CAPSULE PO SCH (08:26)
[2023-03-05] MEDS: ATENOLOL 25 MG TABLET PO SCH ×2 (08:28→09:00)
[2023-03-05] MEDS: ATORVASTATIN CALCIUM 10 MG TABLET PO SCH (08:28)
[2023-03-05] MEDS: RisperiDONE 1 MG TABLET PO SCH ×2 (08:28→17:13)
[2023-03-05] MEDS: LIDOCAINE 5% TRANSDERMAL PATCH TD SCH (08:37)
[2023-03-05] MEDS ORDERED: ATORVASTATIN CALCIUM 10 MG TABLET PO SCH (09:00)
[2023-03-05] MEDS ORDERED: OMEGA-3/DHA/EPA/FISH OIL 1,000 MG CAPSULE PO SCH (09:00)
[2023-03-05 09:19] LABS: BASOPHILS % (AUTO) 1.1 % (0.0-2.0); EOSINOPHILS % (AUTO) 1.2 % (1.0-6.0); HEMATOCRIT 38.8 % (41-53); LYMPHOCYTES # (AUTO) 2.2 K/uL (1.0-4.8); LYMPHOCYTES % (AUTO) 36.8 % (22.0-44.0); MEAN CORPUSCULAR HEMOGLOBIN 30.3 pg (26.0-34.0); MEAN CORPUSCULAR HGB CONC 33.5 G/dL (31.0-37.0); MEAN CORPUSCULAR VOLUME 91 fL (80-100); MONOCYTES # (AUTO) 0.6 K/uL (0.1-1.0); MONOCYTES % (AUTO) 9.4 % (2.0-9.0); NEUTROPHILS # (AUTO) 3.1 K/uL (1.8-7.7); NEUTROPHILS % (AUTO) 51.5 % (40.0-70.0); PLATELET COUNT (AUTO) 232 K/uL (150-450); RED BLOOD CELL COUNT(AUTO) 4.29 MIL/uL (4.50-5.90); RED CELL DISTRIBUTION WIDTH 14.9 % (11.5-14.5)
[2023-03-05] MEDS: BENZOCAINE/MENTHOL LOZENGE PO PRN ×3 (09:25→18:34)
[2023-03-05 09:43] LABS: ALANINE AMINOTRANSFERASE 46 U/L (12-78); ALBUMIN 3.1 g/dL (3.4-5.0); ALKALINE PHOSPHATASE 133 U/L (46-116); ANION GAP 9 mmol/L (8-16); ASPARTATE AMINOTRANSFERASE 16 U/L (15-37); BILIRUBIN,TOTAL 0.4 mg/dL (0.1-1.0); CARBON DIOXIDE 28 mmol/L (22-29); CHLORIDE 98 mmol/L (98-107); CREATININE 0.84 mg/dL (0.60-1.30); GLOMERULAR FILTR. RATE CALC > 60 mL/min (>60); GLUCOSE,RANDOM 241 mg/dL (70-110); PHOSPHORUS 3.8 mg/dL (2.5-4.9); POTASSIUM 4.7 mmol/L (3.5-5.1); SODIUM SERUM 135 mmol/L (136-145); THYROID STIMULATING HORMONE 2.26 uIU/mL (0.36-3.74); TOTAL PROTEIN, SERUM 7.2 g/dL (6.4-8.2); UREA NITROGEN, BLOOD 23 mg/dL (7-18)
[2023-03-05 09:45] LABS: HEMOGLOBIN A1C 9.3 % (3.8-5.6)
[2023-03-05 11:41] LABS: GLUCOMETER DEV NAME(LOC) 3EX.2; GLUCOSE,POINT OF CARE 212 MG/DL (70-110)
[2023-03-05 17:05] LABS: GLUCOMETER DEV NAME(LOC) 3EX.2; GLUCOSE,POINT OF CARE 304 MG/DL (70-110)
[2023-03-05] MEDS: -LIDODERM PATCH NOTE- MISC SCH (20:15)
[2023-03-05 20:31] LABS: GLUCOMETER DEV NAME(LOC) 3EX.2; GLUCOSE,POINT OF CARE 288 MG/DL (70-110)
[2023-03-05] MEDS: INSULIN GLARGINE,HUM.REC.ANLOG 100 UNITS/ML SQ SCH (21:05)
[2023-03-05 22:07] VITALS: BP 118/62; PULSE 76; RESP 16; TEMP 97.6
[2023-03-06 05:47] LABS: APPEARANCE,URINE CLEAR (CLEAR); BILIRUBIN,URINE NEGATIVE (NEGATIVE); COLOR,URINE LIGHT YELLOW (YELLOW); GLUCOSE, URINE (UA) NEGATIVE (NEGATIVE); KETONES,URINE NEGATIVE (NEGATIVE); LEUKOCYTE ESTERASE ,URINE NEGATIVE (NEGATIVE); NITRATE,URINE NEGATIVE (NEGATIVE); OCCULT BLOOD,URINE NEGATIVE (NEGATIVE); PH,URINE 5.5 (5.0-8.0); PH,URINE DRUG SCREEN 5.5 (5.0-8.0); PROTEIN,URINE NEGATIVE (NEGATIVE); SPECIFIC GRAVITIY, URINE 1.011 (1.003-1.030); UROBILINOGEN,URINE <=1.0 mg/dL (<=1.0)
[2023-03-06 05:54] LABS: AMPHET/METH SCREEN,URINE NEGATIVE (NEGATIVE); BARBITURATE SCREEN, URINE NEGATIVE (NEGATIVE); BENZODIAZEPINES SCREEN,URINE NEGATIVE (NEGATIVE); CANNABINOID SCREEN,URINE NEGATIVE (NEGATIVE); COCAINE SCREEN,URINE NEGATIVE (NEGATIVE); METHADONE SCREEN, URINE NEGATIVE (NEGATIVE); OPIATE SCREEN,URINE NEGATIVE (NEGATIVE); PHENCYCLIDINE SCREEN,URINE NEGATIVE (NEGATIVE)
[2023-03-06 05:55] LABS: ALCOHOL, URINE DRUG SCREEN NEGATIVE (NEGATIVE)
[2023-03-06] MEDS: GlipiZIDE 10 MG TABLET PO SCH (06:23)
[2023-03-06 06:31] LABS: GLUCOMETER DEV NAME(LOC) 3EX.2; GLUCOSE,POINT OF CARE 174 MG/DL (70-110)
[2023-03-06] MEDS: INSULIN LISPRO 100 UNITS/ML SQ PRN ×4 (06:46→21:11)
[2023-03-06 08:40] LABS: CHOL/HDL RATIO 2.7 (4.2-7.3)
[2023-03-06 09:00] VITALS: BP 133/55; PULSE 70; RESP 18; TEMP 97.9
[2023-03-06] MEDS: ATENOLOL 25 MG TABLET PO SCH (09:00)
[2023-03-06] MEDS: LIDOCAINE 5% TRANSDERMAL PATCH TD SCH (09:00)
[2023-03-06] MEDS: EMPAGLIFLOZIN 10 MG TABLET PO SCH (09:00)
[2023-03-06] MEDS: RisperiDONE 1 MG TABLET PO SCH ×2 (09:34→17:53)
[2023-03-06] MEDS: MULTIVITAMINS, THERAPEUTIC TABLET PO SCH (09:34)
[2023-03-06] MEDS: OMEGA-3/DHA/EPA/FISH OIL 1,000 MG CAPSULE PO SCH (09:34)
[2023-03-06] MEDS: ATORVASTATIN CALCIUM 10 MG TABLET PO SCH (09:35)
[2023-03-06] MEDS: BENZOCAINE/MENTHOL LOZENGE PO PRN ×2 (09:35→18:01)
[2023-03-06 12:01] LABS: GLUCOMETER DEV NAME(LOC) 3EX.2; GLUCOSE,POINT OF CARE 243 MG/DL (70-110)
[2023-03-06 17:06] LABS: GLUCOMETER DEV NAME(LOC) 3EX.2; GLUCOSE,POINT OF CARE 181 MG/DL (70-110)
[2023-03-06 20:30] VITALS: BP 131/66; PULSE 74; RESP 18; TEMP 97.7; O2SAT 97
[2023-03-06] MEDS: -LIDODERM PATCH NOTE- MISC SCH (20:45)
[2023-03-06] MEDS: INSULIN GLARGINE,HUM.REC.ANLOG 100 UNITS/ML SQ SCH (21:10)
[2023-03-06 21:21] LABS: GLUCOMETER DEV NAME(LOC) 3EX.2; GLUCOSE,POINT OF CARE 256 MG/DL (70-110)
[2023-03-07 04:41] LABS: GLUCOMETER DEV NAME(LOC) 3EX.2; GLUCOSE,POINT OF CARE 150 MG/DL (70-110)
[2023-03-07] MEDS: GlipiZIDE 10 MG TABLET PO SCH (06:39)
[2023-03-07] MEDS: OMEGA-3/DHA/EPA/FISH OIL 1,000 MG CAPSULE PO SCH (08:59)
[2023-03-07] MEDS: RisperiDONE 1 MG TABLET PO SCH ×2 (08:59→17:18)
[2023-03-07] MEDS: MULTIVITAMINS, THERAPEUTIC TABLET PO SCH (09:00)
[2023-03-07] MEDS: ATENOLOL 25 MG TABLET PO SCH (09:00)
[2023-03-07] MEDS: ATORVASTATIN CALCIUM 10 MG TABLET PO SCH (09:00)
[2023-03-07] MEDS: EMPAGLIFLOZIN 10 MG TABLET PO SCH (09:00)
[2023-03-07] MEDS: LIDOCAINE 5% TRANSDERMAL PATCH TD SCH (09:00)
[2023-03-07] MEDS: BENZOCAINE/MENTHOL LOZENGE PO PRN ×2 (09:04→13:31)
[2023-03-07 10:14] VITALS: BP 138/54; PULSE 80; RESP 18; TEMP 97.2; O2SAT 97
[2023-03-07] MEDS: INSULIN LISPRO 100 UNITS/ML SQ PRN ×3 (12:17→21:08)
[2023-03-07 12:26] LABS: GLUCOMETER DEV NAME(LOC) 3EX.2; GLUCOSE,POINT OF CARE 244 MG/DL (70-110)
[2023-03-07 17:41] LABS: GLUCOMETER DEV NAME(LOC) 3EX.2; GLUCOSE,POINT OF CARE 299 MG/DL (70-110)
[2023-03-07] MEDS: -LIDODERM PATCH NOTE- MISC SCH (20:20)
[2023-03-07 20:26] LABS: GLUCOMETER DEV NAME(LOC) 3EX.2; GLUCOSE,POINT OF CARE 224 MG/DL (70-110)
[2023-03-07 20:43] VITALS: RESP 18
[2023-03-07] MEDS: INSULIN GLARGINE,HUM.REC.ANLOG 100 UNITS/ML SQ SCH (21:08)
[2023-03-08] MEDS: BENZOCAINE/MENTHOL LOZENGE PO PRN ×3 (02:28→16:34)
[2023-03-08 06:26] LABS: GLUCOMETER DEV NAME(LOC) 3EX.2; GLUCOSE,POINT OF CARE 165 MG/DL (70-110)
[2023-03-08] MEDS: GlipiZIDE 10 MG TABLET PO SCH (06:35)
[2023-03-08] MEDS: INSULIN LISPRO 100 UNITS/ML SQ PRN ×4 (06:35→20:41)
[2023-03-08 08:15] VITALS: BP 99/61; PULSE 80; RESP 18; TEMP 98; O2SAT 97
[2023-03-08] MEDS: RisperiDONE 1 MG TABLET PO SCH ×2 (08:32→16:34)
[2023-03-08] MEDS: OMEGA-3/DHA/EPA/FISH OIL 1,000 MG CAPSULE PO SCH (08:32)
[2023-03-08] MEDS: MULTIVITAMINS, THERAPEUTIC TABLET PO SCH (09:00)
[2023-03-08] MEDS: ATORVASTATIN CALCIUM 10 MG TABLET PO SCH (09:00)
[2023-03-08] MEDS: ATENOLOL 25 MG TABLET PO SCH (09:00)
[2023-03-08] MEDS: LIDOCAINE 5% TRANSDERMAL PATCH TD SCH (09:00)
[2023-03-08] MEDS: EMPAGLIFLOZIN 10 MG TABLET PO SCH (09:00)
[2023-03-08 16:21] LABS: GLUCOMETER DEV NAME(LOC) 3EX.2; GLUCOSE,POINT OF CARE 331 MG/DL (70-110)
[2023-03-08 16:37] LABS: GLUCOMETER DEV NAME(LOC) 3EX.2; GLUCOSE,POINT OF CARE 191 MG/DL (70-110)
[2023-03-08 20:11] VITALS: BP 121/77; PULSE 85; RESP 18; TEMP 97.3; O2SAT 98
[2023-03-08] MEDS: -LIDODERM PATCH NOTE- MISC SCH (20:20)
[2023-03-08 20:21] LABS: GLUCOMETER DEV NAME(LOC) 3EX.2; GLUCOSE,POINT OF CARE 391 MG/DL (70-110)
[2023-03-08] MEDS: INSULIN GLARGINE,HUM.REC.ANLOG 100 UNITS/ML SQ SCH (20:42)
[2023-03-09] MEDS: BENZOCAINE/MENTHOL LOZENGE PO PRN ×3 (05:29→17:18)
[2023-03-09 06:01] LABS: GLUCOMETER DEV NAME(LOC) 3EX.2; GLUCOSE,POINT OF CARE 77 MG/DL (70-110)
[2023-03-09] MEDS: GlipiZIDE 10 MG TABLET PO SCH (06:22)
[2023-03-09 08:24] VITALS: BP 121/60; PULSE 72; RESP 18; TEMP 97.6; O2SAT 98
[2023-03-09] MEDS: ATENOLOL 25 MG TABLET PO SCH (09:00)
[2023-03-09] MEDS: LIDOCAINE 5% TRANSDERMAL PATCH TD SCH (09:00)
[2023-03-09] MEDS: ATORVASTATIN CALCIUM 10 MG TABLET PO SCH (09:00)
[2023-03-09] MEDS: EMPAGLIFLOZIN 10 MG TABLET PO SCH (09:00)
[2023-03-09] MEDS: MULTIVITAMINS, THERAPEUTIC TABLET PO SCH (09:00)
[2023-03-09] MEDS: RisperiDONE 2 MG TABLET PO SCH ×2 (10:05→16:59)
[2023-03-09] MEDS: OMEGA-3/DHA/EPA/FISH OIL 1,000 MG CAPSULE PO SCH (10:06)
[2023-03-09 11:26] LABS: GLUCOMETER DEV NAME(LOC) 3EX.2; GLUCOSE,POINT OF CARE 184 MG/DL (70-110)
[2023-03-09] MEDS: INSULIN LISPRO 100 UNITS/ML SQ PRN ×3 (11:58→21:19)
[2023-03-09 16:37] LABS: GLUCOMETER DEV NAME(LOC) 3EX.2; GLUCOSE,POINT OF CARE 299 MG/DL (70-110)
[2023-03-09 20:26] LABS: GLUCOMETER DEV NAME(LOC) 3EX.2; GLUCOSE,POINT OF CARE 325 MG/DL (70-110)
[2023-03-09] MEDS: -LIDODERM PATCH NOTE- MISC SCH (20:34)
[2023-03-09 20:36] VITALS: BP 118/64; PULSE 89; RESP 18; TEMP 97.8; O2SAT 97
[2023-03-09] MEDS: INSULIN GLARGINE,HUM.REC.ANLOG 100 UNITS/ML SQ SCH (21:19)
[2023-03-10] MEDS: BENZOCAINE/MENTHOL LOZENGE PO PRN ×2 (03:04→08:09)
[2023-03-10 06:21] LABS: GLUCOMETER DEV NAME(LOC) 3EX.2; GLUCOSE,POINT OF CARE 196 MG/DL (70-110)
[2023-03-10] MEDS: GlipiZIDE 10 MG TABLET PO SCH (06:36)
[2023-03-10] MEDS: INSULIN LISPRO 100 UNITS/ML SQ PRN ×4 (06:42→21:01)
[2023-03-10] MEDS: ATORVASTATIN CALCIUM 10 MG TABLET PO SCH (08:02)
[2023-03-10] MEDS: OMEGA-3/DHA/EPA/FISH OIL 1,000 MG CAPSULE PO SCH (08:03)
[2023-03-10] MEDS: MULTIVITAMINS, THERAPEUTIC TABLET PO SCH (08:03)
[2023-03-10] MEDS: RisperiDONE 2 MG TABLET PO SCH ×2 (08:03→16:10)
[2023-03-10] MEDS: EMPAGLIFLOZIN 10 MG TABLET PO SCH (08:04)
[2023-03-10] MEDS: ATENOLOL 25 MG TABLET PO SCH (08:04)
[2023-03-10] MEDS: LIDOCAINE 5% TRANSDERMAL PATCH TD SCH (08:05)
[2023-03-10 08:10] VITALS: BP 128/51; PULSE 67; RESP 18; TEMP 97.2; O2SAT 98
[2023-03-10 16:36] LABS: GLUCOMETER DEV NAME(LOC) 3EX.2; GLUCOSE,POINT OF CARE 311 MG/DL (70-110)
[2023-03-10 16:41] LABS: GLUCOMETER DEV NAME(LOC) 3EX.2; GLUCOSE,POINT OF CARE 208 MG/DL (70-110)
[2023-03-10 20:31] LABS: GLUCOMETER DEV NAME(LOC) 3EX.2; GLUCOSE,POINT OF CARE 341 MG/DL (70-110)
[2023-03-10] MEDS: -LIDODERM PATCH NOTE- MISC SCH (20:34)
[2023-03-10] MEDS: INSULIN GLARGINE,HUM.REC.ANLOG 100 UNITS/ML SQ SCH (21:00)
[2023-03-10 21:06] VITALS: BP 141/60; PULSE 73; RESP 18; TEMP 98.6; O2SAT 98
[2023-03-11] MEDS: ALBUTEROL SULFATE HFA 90 MCG/PUFF 8 GM INHALER IH PRN (05:04)
[2023-03-11] MEDS: BENZOCAINE/MENTHOL LOZENGE PO PRN ×2 (05:04→11:38)
[2023-03-11 06:16] LABS: GLUCOMETER DEV NAME(LOC) 3EX.2; GLUCOSE,POINT OF CARE 154 MG/DL (70-110)
[2023-03-11] MEDS: GlipiZIDE 10 MG TABLET PO SCH (06:34)
[2023-03-11] MEDS: INSULIN LISPRO 100 UNITS/ML SQ PRN ×4 (06:36→21:01)
[2023-03-11] MEDS: LIDOCAINE 5% TRANSDERMAL PATCH TD SCH (08:11)
[2023-03-11] MEDS: ATORVASTATIN CALCIUM 10 MG TABLET PO SCH (08:12)
[2023-03-11] MEDS: OMEGA-3/DHA/EPA/FISH OIL 1,000 MG CAPSULE PO SCH (08:12)
[2023-03-11] MEDS: RisperiDONE 2 MG TABLET PO SCH ×2 (08:12→16:18)
[2023-03-11] MEDS: ATENOLOL 25 MG TABLET PO SCH (08:12)
[2023-03-11] MEDS: MULTIVITAMINS, THERAPEUTIC TABLET PO SCH (08:13)
[2023-03-11] MEDS: EMPAGLIFLOZIN 10 MG TABLET PO SCH (08:16)
[2023-03-11 08:42] VITALS: BP 123/60; PULSE 93; RESP 18; TEMP 97.6; O2SAT 98
[2023-03-11 11:41] LABS: GLUCOMETER DEV NAME(LOC) 3EX.2; GLUCOSE,POINT OF CARE 269 MG/DL (70-110)
[2023-03-11 17:06] LABS: GLUCOMETER DEV NAME(LOC) 3EX.2; GLUCOSE,POINT OF CARE 267 MG/DL (70-110)
[2023-03-11 20:01] LABS: GLUCOMETER DEV NAME(LOC) 3EX.2; GLUCOSE,POINT OF CARE 297 MG/DL (70-110)
[2023-03-11 20:30] VITALS: BP 131/64; PULSE 89; RESP 18; TEMP 97.7; O2SAT 97
[2023-03-11] MEDS: INSULIN GLARGINE,HUM.REC.ANLOG 100 UNITS/ML SQ SCH (21:01)
[2023-03-11] MEDS: -LIDODERM PATCH NOTE- MISC SCH (21:01)
[2023-03-12 05:41] LABS: GLUCOMETER DEV NAME(LOC) 3EX.2; GLUCOSE,POINT OF CARE 198 MG/DL (70-110)
[2023-03-12] MEDS: GlipiZIDE 10 MG TABLET PO SCH (06:37)
[2023-03-12] MEDS: RisperiDONE 2 MG TABLET PO SCH ×2 (08:23→16:18)
[2023-03-12] MEDS: OMEGA-3/DHA/EPA/FISH OIL 1,000 MG CAPSULE PO SCH (08:23)
[2023-03-12] MEDS: ATORVASTATIN CALCIUM 10 MG TABLET PO SCH (08:23)
[2023-03-12] MEDS: MULTIVITAMINS, THERAPEUTIC TABLET PO SCH (08:24)
[2023-03-12 08:30] VITALS: BP 117/60; PULSE 71; RESP 18; TEMP 97.6; O2SAT 98
[2023-03-12] MEDS: EMPAGLIFLOZIN 10 MG TABLET PO SCH (08:41)
[2023-03-12] MEDS: LIDOCAINE 5% TRANSDERMAL PATCH TD SCH (08:41)
[2023-03-12] MEDS: ATENOLOL 25 MG TABLET PO SCH (08:41)
[2023-03-12] MEDS: BENZOCAINE/MENTHOL LOZENGE PO PRN (10:12)
[2023-03-12 11:46] LABS: GLUCOMETER DEV NAME(LOC) 3EX.2; GLUCOSE,POINT OF CARE 261 MG/DL (70-110)
[2023-03-12] MEDS: INSULIN LISPRO 100 UNITS/ML SQ PRN ×3 (12:10→21:09)
[2023-03-12 16:31] LABS: GLUCOMETER DEV NAME(LOC) 3EX.2; GLUCOSE,POINT OF CARE 352 MG/DL (70-110)
[2023-03-12] MEDS: -LIDODERM PATCH NOTE- MISC SCH (20:30)
[2023-03-12] MEDS: INSULIN GLARGINE,HUM.REC.ANLOG 100 UNITS/ML SQ SCH (20:30)
[2023-03-12 20:33] VITALS: BP 112/61; PULSE 84; RESP 18; TEMP 97.6; O2SAT 96
[2023-03-12 20:56] LABS: GLUCOMETER DEV NAME(LOC) 3EX.2; GLUCOSE,POINT OF CARE 265 MG/DL (70-110)
[2023-03-13 05:16] LABS: GLUCOMETER DEV NAME(LOC) 3EX.2; GLUCOSE,POINT OF CARE 87 MG/DL (70-110)
[2023-03-13] MEDS: BENZOCAINE/MENTHOL LOZENGE PO PRN ×2 (05:20→09:23)
[2023-03-13] MEDS: GlipiZIDE 10 MG TABLET PO SCH (06:38)
[2023-03-13] MEDS: OMEGA-3/DHA/EPA/FISH OIL 1,000 MG CAPSULE PO SCH (08:58)
[2023-03-13] MEDS: LIDOCAINE 5% TRANSDERMAL PATCH TD SCH (08:58)
[2023-03-13] MEDS: EMPAGLIFLOZIN 10 MG TABLET PO SCH (08:59)
[2023-03-13] MEDS: ATORVASTATIN CALCIUM 10 MG TABLET PO SCH (08:59)
[2023-03-13] MEDS: MULTIVITAMINS, THERAPEUTIC TABLET PO SCH (09:00)
[2023-03-13] MEDS: RisperiDONE 2 MG TABLET PO SCH ×2 (09:00→17:13)
[2023-03-13] MEDS: ATENOLOL 25 MG TABLET PO SCH (09:00)
[2023-03-13 09:53] VITALS: BP 118/69; PULSE 75; RESP 18; TEMP 98.1; O2SAT 97
[2023-03-13] MEDS: ALBUTEROL SULFATE HFA 90 MCG/PUFF 8 GM INHALER IH PRN (11:19)
[2023-03-13 11:56] LABS: GLUCOMETER DEV NAME(LOC) 3EX.2; GLUCOSE,POINT OF CARE 279 MG/DL (70-110)
[2023-03-13] MEDS: INSULIN LISPRO 100 UNITS/ML SQ PRN ×3 (12:24→21:13)
[2023-03-13 16:41] LABS: GLUCOMETER DEV NAME(LOC) 3EX.2; GLUCOSE,POINT OF CARE 340 MG/DL (70-110)
[2023-03-13 21:00] VITALS: RESP 20
[2023-03-13] MEDS: -LIDODERM PATCH NOTE- MISC SCH (21:00)
[2023-03-13] MEDS: INSULIN GLARGINE,HUM.REC.ANLOG 100 UNITS/ML SQ SCH (21:11)
[2023-03-13 21:40] LABS: GLUCOMETER DEV NAME(LOC) 3EX.2; GLUCOSE,POINT OF CARE 316 MG/DL (70-110)
[2023-03-14 06:16] LABS: GLUCOMETER DEV NAME(LOC) 3EX.2; GLUCOSE,POINT OF CARE 138 MG/DL (70-110)
[2023-03-14] MEDS: GlipiZIDE 10 MG TABLET PO SCH (06:46)
[2023-03-14] MEDS: INSULIN LISPRO 100 UNITS/ML SQ PRN ×4 (06:49→21:21)
[2023-03-14] MEDS: EMPAGLIFLOZIN 10 MG TABLET PO SCH (09:00)
[2023-03-14] MEDS: ATORVASTATIN CALCIUM 10 MG TABLET PO SCH (09:00)
[2023-03-14] MEDS: ATENOLOL 25 MG TABLET PO SCH (09:00)
[2023-03-14] MEDS: LIDOCAINE 5% TRANSDERMAL PATCH TD SCH (09:00)
[2023-03-14] MEDS: OMEGA-3/DHA/EPA/FISH OIL 1,000 MG CAPSULE PO SCH (09:17)
[2023-03-14] MEDS: RisperiDONE 2 MG TABLET PO SCH ×2 (09:17→17:13)
[2023-03-14] MEDS: MULTIVITAMINS, THERAPEUTIC TABLET PO SCH (09:23)
[2023-03-14 09:30] VITALS: BP 119/60; PULSE 78; RESP 18; TEMP 97.8; O2SAT 98
[2023-03-14] MEDS: BENZOCAINE/MENTHOL LOZENGE PO PRN ×2 (09:35→17:13)
[2023-03-14 11:32] LABS: GLUCOMETER DEV NAME(LOC) 3EX.2; GLUCOSE,POINT OF CARE 229 MG/DL (70-110)
[2023-03-14 17:06] LABS: GLUCOMETER DEV NAME(LOC) 3EX.2; GLUCOSE,POINT OF CARE 206 MG/DL (70-110)
[2023-03-14 21:18] VITALS: RESP 18
[2023-03-14] MEDS: INSULIN GLARGINE,HUM.REC.ANLOG 100 UNITS/ML SQ SCH (21:19)
[2023-03-14] MEDS: -LIDODERM PATCH NOTE- MISC SCH (21:30)
[2023-03-14 21:46] LABS: GLUCOMETER DEV NAME(LOC) 3EX.2; GLUCOSE,POINT OF CARE 354 MG/DL (70-110)
[2023-03-15] MEDS: GlipiZIDE 10 MG TABLET PO SCH (06:12)
[2023-03-15] MEDS: INSULIN LISPRO 100 UNITS/ML SQ PRN ×4 (06:43→20:54)
[2023-03-15 07:06] LABS: GLUCOMETER DEV NAME(LOC) 3EX.2; GLUCOSE,POINT OF CARE 163 MG/DL (70-110)
[2023-03-15 08:59] VITALS: BP 120/57; PULSE 79; RESP 18; TEMP 97.8; O2SAT 98
[2023-03-15] MEDS: ATENOLOL 25 MG TABLET PO SCH (09:00)
[2023-03-15] MEDS: ATORVASTATIN CALCIUM 10 MG TABLET PO SCH (09:00)
[2023-03-15] MEDS: LIDOCAINE 5% TRANSDERMAL PATCH TD SCH (09:00)
[2023-03-15] MEDS: EMPAGLIFLOZIN 10 MG TABLET PO SCH (09:00)
[2023-03-15] MEDS: RisperiDONE 2 MG TABLET PO SCH ×2 (09:20→17:14)
[2023-03-15] MEDS: OMEGA-3/DHA/EPA/FISH OIL 1,000 MG CAPSULE PO SCH (09:20)
[2023-03-15] MEDS: MULTIVITAMINS, THERAPEUTIC TABLET PO SCH (10:22)
[2023-03-15 11:46] LABS: GLUCOMETER DEV NAME(LOC) 3EX.2; GLUCOSE,POINT OF CARE 273 MG/DL (70-110)
[2023-03-15] MEDS: BENZOCAINE/MENTHOL LOZENGE PO PRN (15:56)
[2023-03-15 16:36] LABS: GLUCOMETER DEV NAME(LOC) 3EX.2; GLUCOSE,POINT OF CARE 292 MG/DL (70-110)
[2023-03-15 20:36] VITALS: BP 132/86; PULSE 78; RESP 18; TEMP 98.1; O2SAT 98
[2023-03-15] MEDS: -LIDODERM PATCH NOTE- MISC SCH (20:50)
[2023-03-15] MEDS: INSULIN GLARGINE,HUM.REC.ANLOG 100 UNITS/ML SQ SCH (20:53)
[2023-03-15 21:31] LABS: GLUCOMETER DEV NAME(LOC) 3EX.2; GLUCOSE,POINT OF CARE 337 MG/DL (70-110)
[2023-03-16] MEDS: GlipiZIDE 10 MG TABLET PO SCH (06:29)
[2023-03-16] MEDS: INSULIN LISPRO 100 UNITS/ML SQ PRN ×4 (06:34→21:13)
[2023-03-16 07:21] LABS: GLUCOMETER DEV NAME(LOC) 3EX.2; GLUCOSE,POINT OF CARE 136 MG/DL (70-110)
[2023-03-16 08:00] VITALS: BP 101/70; PULSE 81; RESP 17; TEMP 97.7; O2SAT 97
[2023-03-16] MEDS: ATENOLOL 25 MG TABLET PO SCH (09:00)
[2023-03-16] MEDS: ATORVASTATIN CALCIUM 10 MG TABLET PO SCH (09:00)
[2023-03-16] MEDS: LIDOCAINE 5% TRANSDERMAL PATCH TD SCH (09:00)
[2023-03-16] MEDS: EMPAGLIFLOZIN 10 MG TABLET PO SCH (09:00)
[2023-03-16] MEDS: OMEGA-3/DHA/EPA/FISH OIL 1,000 MG CAPSULE PO SCH (09:18)
[2023-03-16] MEDS: RisperiDONE 2 MG TABLET PO SCH ×2 (09:18→17:35)
[2023-03-16] MEDS: BENZOCAINE/MENTHOL LOZENGE PO PRN (09:19)
[2023-03-16] MEDS: MULTIVITAMINS, THERAPEUTIC TABLET PO SCH (09:19)
[2023-03-16 11:16] LABS: GLUCOMETER DEV NAME(LOC) 3EX.2; GLUCOSE,POINT OF CARE 299 MG/DL (70-110)
[2023-03-16 16:41] LABS: GLUCOMETER DEV NAME(LOC) 3EX.2; GLUCOSE,POINT OF CARE 260 MG/DL (70-110)
[2023-03-16 20:56] LABS: GLUCOMETER DEV NAME(LOC) 3EX.2; GLUCOSE,POINT OF CARE 243 MG/DL (70-110)
[2023-03-16] MEDS: -LIDODERM PATCH NOTE- MISC SCH (21:00)
[2023-03-16] MEDS: INSULIN GLARGINE,HUM.REC.ANLOG 100 UNITS/ML SQ SCH (21:12)
[2023-03-16 21:23] VITALS: BP 119/60; PULSE 82; PULSE 92; RESP 17; RESP 18; TEMP 97.4; O2SAT 98
[2023-03-17 06:21] LABS: GLUCOMETER DEV NAME(LOC) 3EX.2; GLUCOSE,POINT OF CARE 134 MG/DL (70-110)
[2023-03-17] MEDS: GlipiZIDE 10 MG TABLET PO SCH (07:00)
[2023-03-17] MEDS: INSULIN LISPRO 100 UNITS/ML SQ PRN ×4 (07:07→21:05)
[2023-03-17 08:37] VITALS: BP 117/59; PULSE 80; RESP 18; TEMP 97.6; O2SAT 99
[2023-03-17] MEDS: EMPAGLIFLOZIN 10 MG TABLET PO SCH ×2 (08:41→09:00)
[2023-03-17] MEDS: MULTIVITAMINS, THERAPEUTIC TABLET PO SCH (08:41)
[2023-03-17] MEDS: RisperiDONE 2 MG TABLET PO SCH ×2 (08:41→16:28)
[2023-03-17] MEDS: ATORVASTATIN CALCIUM 10 MG TABLET PO SCH (08:41)
[2023-03-17] MEDS: OMEGA-3/DHA/EPA/FISH OIL 1,000 MG CAPSULE PO SCH (08:41)
[2023-03-17] MEDS: ATENOLOL 25 MG TABLET PO SCH (08:42)
[2023-03-17] MEDS: LIDOCAINE 5% TRANSDERMAL PATCH TD SCH (08:42)
[2023-03-17] MEDS: BENZOCAINE/MENTHOL LOZENGE PO PRN (09:25)
[2023-03-17 12:01] LABS: GLUCOMETER DEV NAME(LOC) 3EX.2; GLUCOSE,POINT OF CARE 345 MG/DL (70-110)
[2023-03-17 17:11] LABS: GLUCOMETER DEV NAME(LOC) 3EX.2; GLUCOSE,POINT OF CARE 254 MG/DL (70-110)
[2023-03-17 20:51] LABS: GLUCOMETER DEV NAME(LOC) 3EX.2; GLUCOSE,POINT OF CARE 216 MG/DL (70-110)
[2023-03-17 20:53] VITALS: BP 112/46; PULSE 80; RESP 18; TEMP 98.2; O2SAT 98
[2023-03-17] MEDS: -LIDODERM PATCH NOTE- MISC SCH (21:00)
[2023-03-17] MEDS: INSULIN GLARGINE,HUM.REC.ANLOG 100 UNITS/ML SQ SCH (21:04)
[2023-03-18] MEDS: GlipiZIDE 10 MG TABLET PO SCH (06:56)
[2023-03-18 07:01] LABS: GLUCOMETER DEV NAME(LOC) 3EX.2; GLUCOSE,POINT OF CARE 126 MG/DL (70-110)
[2023-03-18] MEDS: INSULIN LISPRO 100 UNITS/ML SQ PRN ×4 (07:32→21:02)
[2023-03-18] MEDS: ATORVASTATIN CALCIUM 10 MG TABLET PO SCH (08:33)
[2023-03-18] MEDS: RisperiDONE 2 MG TABLET PO SCH ×2 (08:34→16:11)
[2023-03-18] MEDS: ATENOLOL 25 MG TABLET PO SCH (08:34)
[2023-03-18] MEDS: MULTIVITAMINS, THERAPEUTIC TABLET PO SCH (08:34)
[2023-03-18] MEDS: LIDOCAINE 5% TRANSDERMAL PATCH TD SCH (08:34)
[2023-03-18] MEDS: EMPAGLIFLOZIN 10 MG TABLET PO SCH (08:35)
[2023-03-18] MEDS: OMEGA-3/DHA/EPA/FISH OIL 1,000 MG CAPSULE PO SCH (08:35)
[2023-03-18 08:52] VITALS: BP 105/53; PULSE 69; RESP 17; TEMP 97.9; O2SAT 98
[2023-03-18 11:31] LABS: GLUCOMETER DEV NAME(LOC) 3EX.2; GLUCOSE,POINT OF CARE 207 MG/DL (70-110)
[2023-03-18 16:36] LABS: GLUCOMETER DEV NAME(LOC) 3EX.2; GLUCOSE,POINT OF CARE 254 MG/DL (70-110)
[2023-03-18] MEDS: BENZOCAINE/MENTHOL LOZENGE PO PRN (18:11)
[2023-03-18 20:31] LABS: GLUCOMETER DEV NAME(LOC) 3EX.2; GLUCOSE,POINT OF CARE 309 MG/DL (70-110)
[2023-03-18] MEDS: -LIDODERM PATCH NOTE- MISC SCH (20:50)
[2023-03-18] MEDS: INSULIN GLARGINE,HUM.REC.ANLOG 100 UNITS/ML SQ SCH (21:01)
[2023-03-19 06:16] LABS: GLUCOMETER DEV NAME(LOC) 3EX.2; GLUCOSE,POINT OF CARE 144 MG/DL (70-110)
[2023-03-19] MEDS: GlipiZIDE 10 MG TABLET PO SCH (06:26)
[2023-03-19] MEDS: INSULIN LISPRO 100 UNITS/ML SQ PRN ×5 (06:41→21:14)
[2023-03-19] MEDS: MULTIVITAMINS, THERAPEUTIC TABLET PO SCH (08:46)
[2023-03-19] MEDS: ATENOLOL 25 MG TABLET PO SCH (08:46)
[2023-03-19] MEDS: RisperiDONE 2 MG TABLET PO SCH ×2 (08:46→16:35)
[2023-03-19] MEDS: ATORVASTATIN CALCIUM 10 MG TABLET PO SCH (08:47)
[2023-03-19] MEDS: EMPAGLIFLOZIN 10 MG TABLET PO SCH (08:50)
[2023-03-19] MEDS: OMEGA-3/DHA/EPA/FISH OIL 1,000 MG CAPSULE PO SCH (08:50)
[2023-03-19] MEDS: BENZOCAINE/MENTHOL LOZENGE PO PRN (08:54)
[2023-03-19] MEDS: LIDOCAINE 5% TRANSDERMAL PATCH TD SCH (08:55)
[2023-03-19 09:04] VITALS: BP 150/62; PULSE 81; RESP 17; TEMP 98.1; O2SAT 97
[2023-03-19 11:12] LABS: GLUCOMETER DEV NAME(LOC) 3EX.2; GLUCOSE,POINT OF CARE 215 MG/DL (70-110)
[2023-03-19 16:41] LABS: GLUCOMETER DEV NAME(LOC) 3EX.2; GLUCOSE,POINT OF CARE 254 MG/DL (70-110)
[2023-03-19 20:51] LABS: GLUCOMETER DEV NAME(LOC) 3EX.2; GLUCOSE,POINT OF CARE 394 MG/DL (70-110)
[2023-03-19] MEDS: -LIDODERM PATCH NOTE- MISC SCH (21:00)
[2023-03-19] MEDS: INSULIN GLARGINE,HUM.REC.ANLOG 100 UNITS/ML SQ SCH (21:09)
[2023-03-19 21:53] VITALS: RESP 18
[2023-03-20 06:16] LABS: GLUCOMETER DEV NAME(LOC) 3EX.2; GLUCOSE,POINT OF CARE 144 MG/DL (70-110)
[2023-03-20] MEDS: GlipiZIDE 10 MG TABLET PO SCH (07:00)
[2023-03-20] MEDS: INSULIN LISPRO 100 UNITS/ML SQ PRN ×4 (07:18→20:52)
[2023-03-20 08:29] VITALS: BP 138/74; PULSE 69; RESP 18; TEMP 97.3; O2SAT 98
[2023-03-20] MEDS: ATORVASTATIN CALCIUM 10 MG TABLET PO SCH (08:33)
[2023-03-20] MEDS: EMPAGLIFLOZIN 10 MG TABLET PO SCH (08:33)
[2023-03-20] MEDS: LIDOCAINE 5% TRANSDERMAL PATCH TD SCH (08:34)
[2023-03-20] MEDS: MULTIVITAMINS, THERAPEUTIC TABLET PO SCH (08:35)
[2023-03-20] MEDS: RisperiDONE 2 MG TABLET PO SCH ×2 (08:35→16:13)
[2023-03-20] MEDS: OMEGA-3/DHA/EPA/FISH OIL 1,000 MG CAPSULE PO SCH (08:35)
[2023-03-20] MEDS: ATENOLOL 25 MG TABLET PO SCH (08:39)
[2023-03-20 11:26] LABS: GLUCOMETER DEV NAME(LOC) 3EX.2; GLUCOSE,POINT OF CARE 208 MG/DL (70-110)
[2023-03-20 16:11] LABS: GLUCOMETER DEV NAME(LOC) 3EX.2; GLUCOSE,POINT OF CARE 310 MG/DL (70-110)
[2023-03-20] MEDS: -LIDODERM PATCH NOTE- MISC SCH (20:48)
[2023-03-20] MEDS: INSULIN GLARGINE,HUM.REC.ANLOG 100 UNITS/ML SQ SCH (20:51)
[2023-03-20 21:11] LABS: GLUCOMETER DEV NAME(LOC) 3EX.2; GLUCOSE,POINT OF CARE 243 MG/DL (70-110)
[2023-03-20 21:19] VITALS: BP 118/64; PULSE 70; RESP 18; TEMP 97.7; O2SAT 95
[2023-03-21] MEDS: INSULIN LISPRO 100 UNITS/ML SQ PRN ×4 (06:32→21:11)
[2023-03-21] MEDS: GlipiZIDE 10 MG TABLET PO SCH (06:42)
[2023-03-21 07:16] LABS: GLUCOMETER DEV NAME(LOC) 3EX.2; GLUCOSE,POINT OF CARE 168 MG/DL (70-110)
[2023-03-21] MEDS: EMPAGLIFLOZIN 10 MG TABLET PO SCH (08:33)
[2023-03-21] MEDS: ATENOLOL 25 MG TABLET PO SCH (08:35)
[2023-03-21] MEDS: RisperiDONE 2 MG TABLET PO SCH ×2 (08:35→16:21)
[2023-03-21] MEDS: ATORVASTATIN CALCIUM 10 MG TABLET PO SCH (08:35)
[2023-03-21] MEDS: OMEGA-3/DHA/EPA/FISH OIL 1,000 MG CAPSULE PO SCH (08:35)
[2023-03-21] MEDS: LIDOCAINE 5% TRANSDERMAL PATCH TD SCH (08:35)
[2023-03-21] MEDS: MULTIVITAMINS, THERAPEUTIC TABLET PO SCH (08:35)
[2023-03-21 08:41] VITALS: BP 112/56; PULSE 69; RESP 18; TEMP 97.5; O2SAT 98
[2023-03-21 11:26] LABS: GLUCOMETER DEV NAME(LOC) 3EX.2; GLUCOSE,POINT OF CARE 324 MG/DL (70-110)
[2023-03-21 16:36] LABS: GLUCOMETER DEV NAME(LOC) 3EX.2; GLUCOSE,POINT OF CARE 255 MG/DL (70-110)
[2023-03-21] MEDS: -LIDODERM PATCH NOTE- MISC SCH (20:21)
[2023-03-21 20:26] LABS: GLUCOMETER DEV NAME(LOC) 3EX.2; GLUCOSE,POINT OF CARE 316 MG/DL (70-110)
[2023-03-21] MEDS: INSULIN GLARGINE,HUM.REC.ANLOG 100 UNITS/ML SQ SCH (21:12)
[2023-03-21 22:24] VITALS: BP 121/57; PULSE 79; RESP 18; TEMP 97.8
[2023-03-22] MEDS: GlipiZIDE 10 MG TABLET PO SCH (06:31)
[2023-03-22] MEDS: INSULIN LISPRO 100 UNITS/ML SQ PRN ×4 (06:35→21:24)
[2023-03-22 06:36] LABS: GLUCOMETER DEV NAME(LOC) 3EX.2; GLUCOSE,POINT OF CARE 171 MG/DL (70-110)
[2023-03-22 08:42] VITALS: BP 118/57; PULSE 68; RESP 18; TEMP 97.6; O2SAT 97
[2023-03-22] MEDS: MULTIVITAMINS, THERAPEUTIC TABLET PO SCH (08:45)
[2023-03-22] MEDS: OMEGA-3/DHA/EPA/FISH OIL 1,000 MG CAPSULE PO SCH (08:45)
[2023-03-22] MEDS: RisperiDONE 2 MG TABLET PO SCH ×2 (08:45→17:27)
[2023-03-22] MEDS: ATENOLOL 25 MG TABLET PO SCH ×2 (08:45→09:00)
[2023-03-22] MEDS: ATORVASTATIN CALCIUM 10 MG TABLET PO SCH (08:47)
[2023-03-22] MEDS: LIDOCAINE 5% TRANSDERMAL PATCH TD SCH (09:00)
[2023-03-22] MEDS: EMPAGLIFLOZIN 10 MG TABLET PO SCH (09:00)
[2023-03-22 11:51] LABS: GLUCOMETER DEV NAME(LOC) 3EX.2; GLUCOSE,POINT OF CARE 184 MG/DL (70-110)
[2023-03-22] MEDS ORDERED: TUBERCULIN, PURIFIED PROTEIN DERIVATIVE 5 TU/0.1 ML SYRINGE ID ONE (16:15)
[2023-03-22 17:11] LABS: GLUCOMETER DEV NAME(LOC) 3EX.2; GLUCOSE,POINT OF CARE 406 MG/DL (70-110)
[2023-03-22 20:31] LABS: GLUCOMETER DEV NAME(LOC) 3EX.2; GLUCOSE,POINT OF CARE 218 MG/DL (70-110)
[2023-03-22] MEDS: -LIDODERM PATCH NOTE- MISC SCH (20:47)
[2023-03-22] MEDS: BENZOCAINE/MENTHOL LOZENGE PO PRN (20:47)
[2023-03-22] MEDS: INSULIN GLARGINE,HUM.REC.ANLOG 100 UNITS/ML SQ SCH (21:25)
[2023-03-22 22:14] VITALS: BP 120/60; PULSE 69; RESP 18; TEMP 97.8; O2SAT 98
[2023-03-23 06:31] LABS: GLUCOMETER DEV NAME(LOC) 3EX.2; GLUCOSE,POINT OF CARE 121 MG/DL (70-110)
[2023-03-23] MEDS: GlipiZIDE 10 MG TABLET PO SCH (06:31)
[2023-03-23] MEDS: INSULIN LISPRO 100 UNITS/ML SQ PRN ×4 (06:38→20:52)
[2023-03-23] MEDS: ATORVASTATIN CALCIUM 10 MG TABLET PO SCH (08:34)
[2023-03-23] MEDS: EMPAGLIFLOZIN 10 MG TABLET PO SCH (08:35)
[2023-03-23] MEDS: MULTIVITAMINS, THERAPEUTIC TABLET PO SCH (08:36)
[2023-03-23] MEDS: RisperiDONE 2 MG TABLET PO SCH ×2 (08:37→17:00)
[2023-03-23] MEDS: OMEGA-3/DHA/EPA/FISH OIL 1,000 MG CAPSULE PO SCH (08:37)
[2023-03-23] MEDS: LIDOCAINE 5% TRANSDERMAL PATCH TD SCH (08:42)
[2023-03-23] MEDS: ATENOLOL 25 MG TABLET PO SCH (08:42)
[2023-03-23 08:49] VITALS: BP 116/67; PULSE 98; RESP 16; TEMP 98.1; O2SAT 97
[2023-03-23 12:17] LABS: GLUCOMETER DEV NAME(LOC) 3EX.2; GLUCOSE,POINT OF CARE 334 MG/DL (70-110)
[2023-03-23 17:26] LABS: GLUCOMETER DEV NAME(LOC) 3EX.2; GLUCOSE,POINT OF CARE 299 MG/DL (70-110)
[2023-03-23] MEDS: -LIDODERM PATCH NOTE- MISC SCH (20:33)
[2023-03-23 20:36] LABS: GLUCOMETER DEV NAME(LOC) 3EX.2; GLUCOSE,POINT OF CARE 338 MG/DL (70-110)
[2023-03-23] MEDS: INSULIN GLARGINE,HUM.REC.ANLOG 100 UNITS/ML SQ SCH (20:51)
[2023-03-23 21:49] VITALS: BP 114/58; PULSE 68; RESP 18; TEMP 97.8
[2023-03-24 06:31] LABS: GLUCOMETER DEV NAME(LOC) 3EX.2; GLUCOSE,POINT OF CARE 119 MG/DL (70-110)
[2023-03-24] MEDS: GlipiZIDE 10 MG TABLET PO SCH (06:33)
[2023-03-24] MEDS: ATENOLOL 25 MG TABLET PO SCH (09:00)
[2023-03-24] MEDS: EMPAGLIFLOZIN 10 MG TABLET PO SCH (09:00)
[2023-03-24] MEDS: LIDOCAINE 5% TRANSDERMAL PATCH TD SCH (09:00)
[2023-03-24] MEDS: OMEGA-3/DHA/EPA/FISH OIL 1,000 MG CAPSULE PO SCH (09:35)
[2023-03-24] MEDS: RisperiDONE 2 MG TABLET PO SCH ×2 (09:35→17:00)
[2023-03-24] MEDS: MULTIVITAMINS, THERAPEUTIC TABLET PO SCH (09:35)
[2023-03-24] MEDS: ATORVASTATIN CALCIUM 10 MG TABLET PO SCH (09:36)
[2023-03-24 10:42] VITALS: BP 124/67; PULSE 70; RESP 18; TEMP 97.2
[2023-03-24 11:56] LABS: GLUCOMETER DEV NAME(LOC) 3EX.2; GLUCOSE,POINT OF CARE 293 MG/DL (70-110)
[2023-03-24] MEDS: INSULIN LISPRO 100 UNITS/ML SQ PRN ×3 (12:09→21:38)
[2023-03-24 17:00] VITALS: BP 126/68; PULSE 74; RESP 18; TEMP 97.5
[2023-03-24] MEDS: IBUPROFEN 600 MG TABLET PO PRN (17:00)
[2023-03-24] MEDS: BENZOCAINE/MENTHOL LOZENGE PO PRN (17:03)
[2023-03-24 17:21] LABS: GLUCOMETER DEV NAME(LOC) 3EX.2; GLUCOSE,POINT OF CARE 253 MG/DL (70-110)
[2023-03-24 18:00] VITALS: BP 118/72; PULSE 70; RESP 18; TEMP 97.3
[2023-03-24 20:13] VITALS: BP 135/72; PULSE 87; RESP 18; TEMP 98.1; O2SAT 98
[2023-03-24] MEDS: -LIDODERM PATCH NOTE- MISC SCH (20:40)
[2023-03-24 20:51] LABS: GLUCOMETER DEV NAME(LOC) 3EX.2; GLUCOSE,POINT OF CARE 329 MG/DL (70-110)
[2023-03-24] MEDS: INSULIN GLARGINE,HUM.REC.ANLOG 100 UNITS/ML SQ SCH (21:37)
[2023-03-25] MEDS: GlipiZIDE 10 MG TABLET PO SCH (06:31)
[2023-03-25] MEDS: INSULIN LISPRO 100 UNITS/ML SQ PRN ×4 (06:31→21:03)
[2023-03-25 06:41] LABS: GLUCOMETER DEV NAME(LOC) 3EX.2; GLUCOSE,POINT OF CARE 88 MG/DL (70-110)
[2023-03-25] MEDS: ATORVASTATIN CALCIUM 10 MG TABLET PO SCH (08:45)
[2023-03-25] MEDS: OMEGA-3/DHA/EPA/FISH OIL 1,000 MG CAPSULE PO SCH (08:45)
[2023-03-25] MEDS: EMPAGLIFLOZIN 10 MG TABLET PO SCH (08:46)
[2023-03-25] MEDS: ATENOLOL 25 MG TABLET PO SCH (08:46)
[2023-03-25] MEDS: MULTIVITAMINS, THERAPEUTIC TABLET PO SCH (08:46)
[2023-03-25] MEDS: RisperiDONE 2 MG TABLET PO SCH ×2 (08:46→17:15)
[2023-03-25 08:47] VITALS: BP 111/70; PULSE 81; RESP 18; TEMP 97.7; O2SAT 95
[2023-03-25] MEDS: IBUPROFEN 600 MG TABLET PO PRN (08:47)
[2023-03-25] MEDS: LIDOCAINE 5% TRANSDERMAL PATCH TD SCH (08:53)
[2023-03-25 09:47] VITALS: BP 116/72; PULSE 78; RESP 18; TEMP 97.4
[2023-03-25 11:36] LABS: GLUCOMETER DEV NAME(LOC) 3EX.2; GLUCOSE,POINT OF CARE 317 MG/DL (70-110)
[2023-03-25] MEDS: BENZOCAINE/MENTHOL LOZENGE PO PRN (17:16)
[2023-03-25 17:26] LABS: GLUCOMETER DEV NAME(LOC) 3EX.2; GLUCOSE,POINT OF CARE 227 MG/DL (70-110)
[2023-03-25] MEDS: -LIDODERM PATCH NOTE- MISC SCH (20:30)
[2023-03-25 20:40] LABS: GLUCOMETER DEV NAME(LOC) 3EX.2; GLUCOSE,POINT OF CARE 435 MG/DL (70-110)
[2023-03-25] MEDS: INSULIN GLARGINE,HUM.REC.ANLOG 100 UNITS/ML SQ SCH (21:02)
[2023-03-25 22:57] VITALS: BP 118/70; PULSE 82; RESP 18; TEMP 97.6
[2023-03-26 06:01] LABS: GLUCOMETER DEV NAME(LOC) 3EX.2; GLUCOSE,POINT OF CARE 95 MG/DL (70-110)
[2023-03-26] MEDS: INSULIN LISPRO 100 UNITS/ML SQ PRN ×4 (06:36→21:03)
[2023-03-26] MEDS: GlipiZIDE 10 MG TABLET PO SCH (06:37)
[2023-03-26] MEDS: ATORVASTATIN CALCIUM 10 MG TABLET PO SCH (08:38)
[2023-03-26] MEDS: ATENOLOL 25 MG TABLET PO SCH (08:39)
[2023-03-26] MEDS: LIDOCAINE 5% TRANSDERMAL PATCH TD SCH (08:39)
[2023-03-26] MEDS: EMPAGLIFLOZIN 10 MG TABLET PO SCH (08:40)
[2023-03-26] MEDS: RisperiDONE 2 MG TABLET PO SCH ×2 (08:43→16:55)
[2023-03-26] MEDS: MULTIVITAMINS, THERAPEUTIC TABLET PO SCH (08:43)
[2023-03-26] MEDS: OMEGA-3/DHA/EPA/FISH OIL 1,000 MG CAPSULE PO SCH (08:43)
[2023-03-26 10:12] VITALS: BP 103/56; PULSE 72; RESP 18; TEMP 97.8; O2SAT 98
[2023-03-26 11:16] LABS: GLUCOMETER DEV NAME(LOC) 3EX.2; GLUCOSE,POINT OF CARE 207 MG/DL (70-110)
[2023-03-26 16:41] LABS: GLUCOMETER DEV NAME(LOC) 3EX.2; GLUCOSE,POINT OF CARE 341 MG/DL (70-110)
[2023-03-26 21:01] LABS: GLUCOMETER DEV NAME(LOC) 3EX.2; GLUCOSE,POINT OF CARE 324 MG/DL (70-110)
[2023-03-26] MEDS: INSULIN GLARGINE,HUM.REC.ANLOG 100 UNITS/ML SQ SCH (21:01)
[2023-03-26] MEDS: -LIDODERM PATCH NOTE- MISC SCH (21:05)
[2023-03-26 22:02] VITALS: RESP 18
[2023-03-27 06:07] LABS: GLUCOMETER DEV NAME(LOC) 3EX.2; GLUCOSE,POINT OF CARE 73 MG/DL (70-110)
[2023-03-27] MEDS: GlipiZIDE 10 MG TABLET PO SCH (06:41)
[2023-03-27] MEDS: RisperiDONE 2 MG TABLET PO SCH ×2 (08:49→17:05)
[2023-03-27] MEDS: MULTIVITAMINS, THERAPEUTIC TABLET PO SCH (08:49)
[2023-03-27] MEDS: OMEGA-3/DHA/EPA/FISH OIL 1,000 MG CAPSULE PO SCH (08:49)
[2023-03-27] MEDS: LIDOCAINE 5% TRANSDERMAL PATCH TD SCH (09:00)
[2023-03-27] MEDS: ATENOLOL 25 MG TABLET PO SCH (09:00)
[2023-03-27] MEDS: EMPAGLIFLOZIN 10 MG TABLET PO SCH (09:00)
[2023-03-27] MEDS: ATORVASTATIN CALCIUM 10 MG TABLET PO SCH (09:10)
[2023-03-27 11:51] LABS: GLUCOMETER DEV NAME(LOC) 3EX.2; GLUCOSE,POINT OF CARE 175 MG/DL (70-110)
[2023-03-27] MEDS: INSULIN LISPRO 100 UNITS/ML SQ PRN ×3 (12:20→21:09)
[2023-03-27 13:09] VITALS: BP 105/55; PULSE 73; RESP 18; TEMP 97.7; O2SAT 97
[2023-03-27 16:40] LABS: GLUCOMETER DEV NAME(LOC) 3EX.2; GLUCOSE,POINT OF CARE 144 MG/DL (70-110)
[2023-03-27] MEDS: -LIDODERM PATCH NOTE- MISC SCH (20:45)
[2023-03-27 20:56] LABS: GLUCOMETER DEV NAME(LOC) 3EX.2; GLUCOSE,POINT OF CARE 356 MG/DL (70-110)
[2023-03-27] MEDS: INSULIN GLARGINE,HUM.REC.ANLOG 100 UNITS/ML SQ SCH (21:09)
[2023-03-28 04:31] LABS: GLUCOMETER DEV NAME(LOC) 3EX.2; GLUCOSE,POINT OF CARE 197 MG/DL (70-110)
[2023-03-28] MEDS: GlipiZIDE 10 MG TABLET PO SCH (06:38)
[2023-03-28] MEDS: INSULIN LISPRO 100 UNITS/ML SQ PRN ×4 (06:39→21:14)
[2023-03-28 08:30] VITALS: BP 121/60; PULSE 71; RESP 18; TEMP 97.9; O2SAT 98
[2023-03-28] MEDS: RisperiDONE 2 MG TABLET PO SCH ×2 (08:56→17:08)
[2023-03-28] MEDS: MULTIVITAMINS, THERAPEUTIC TABLET PO SCH (08:56)
[2023-03-28] MEDS: OMEGA-3/DHA/EPA/FISH OIL 1,000 MG CAPSULE PO SCH (08:56)
[2023-03-28] MEDS: ATENOLOL 25 MG TABLET PO SCH (08:58)
[2023-03-28] MEDS: EMPAGLIFLOZIN 10 MG TABLET PO SCH (08:58)
[2023-03-28] MEDS: LIDOCAINE 5% TRANSDERMAL PATCH TD SCH (09:00)
[2023-03-28] MEDS: ATORVASTATIN CALCIUM 10 MG TABLET PO SCH (09:01)
[2023-03-28] MEDS: BENZOCAINE/MENTHOL LOZENGE PO PRN (11:37)
[2023-03-28] MEDS: ALBUTEROL SULFATE HFA 90 MCG/PUFF 8 GM INHALER IH PRN (11:38)
[2023-03-28 11:51] LABS: GLUCOMETER DEV NAME(LOC) 3EX.2; GLUCOSE,POINT OF CARE 273 MG/DL (70-110)
[2023-03-28 17:01] LABS: GLUCOMETER DEV NAME(LOC) 3EX.2; GLUCOSE,POINT OF CARE 301 MG/DL (70-110)
[2023-03-28 20:31] LABS: GLUCOMETER DEV NAME(LOC) 3EX.2; GLUCOSE,POINT OF CARE 276 MG/DL (70-110)
[2023-03-28] MEDS: -LIDODERM PATCH NOTE- MISC SCH (20:31)
[2023-03-28] MEDS: INSULIN GLARGINE,HUM.REC.ANLOG 100 UNITS/ML SQ SCH (21:15)
[2023-03-29 06:27] LABS: GLUCOMETER DEV NAME(LOC) 3EX.2; GLUCOSE,POINT OF CARE 135 MG/DL (70-110)
[2023-03-29] MEDS: INSULIN LISPRO 100 UNITS/ML SQ PRN ×4 (06:39→20:52)
[2023-03-29] MEDS: GlipiZIDE 10 MG TABLET PO SCH (06:40)
[2023-03-29 08:14] VITALS: BP 96/57; PULSE 79; RESP 18; TEMP 97.7; O2SAT 98
[2023-03-29] MEDS: ATORVASTATIN CALCIUM 10 MG TABLET PO SCH (09:00)
[2023-03-29] MEDS: ATENOLOL 25 MG TABLET PO SCH (09:00)
[2023-03-29] MEDS: EMPAGLIFLOZIN 10 MG TABLET PO SCH (09:00)
[2023-03-29] MEDS: LIDOCAINE 5% TRANSDERMAL PATCH TD SCH (09:00)
[2023-03-29] MEDS: OMEGA-3/DHA/EPA/FISH OIL 1,000 MG CAPSULE PO SCH (10:48)
[2023-03-29] MEDS: MULTIVITAMINS, THERAPEUTIC TABLET PO SCH (10:48)
[2023-03-29] MEDS: RisperiDONE 2 MG TABLET PO SCH ×2 (10:48→16:16)
[2023-03-29 16:20] LABS: GLUCOMETER DEV NAME(LOC) 3EX.2; GLUCOSE,POINT OF CARE 300 MG/DL (70-110)
[2023-03-29 19:51] LABS: GLUCOMETER DEV NAME(LOC) 3EX.2; GLUCOSE,POINT OF CARE 221 MG/DL (70-110)
[2023-03-29] MEDS: INSULIN GLARGINE,HUM.REC.ANLOG 100 UNITS/ML SQ SCH (20:51)
[2023-03-29] MEDS: -LIDODERM PATCH NOTE- MISC SCH (21:00)
[2023-03-29 21:35] VITALS: BP 107/60; PULSE 96; RESP 18; TEMP 97.1; O2SAT 95
[2023-03-30] MEDS: GlipiZIDE 10 MG TABLET PO SCH (06:15)
[2023-03-30 06:46] LABS: GLUCOMETER DEV NAME(LOC) 3EX.2; GLUCOSE,POINT OF CARE 114 MG/DL (70-110)
[2023-03-30 08:17] VITALS: BP 125/55; PULSE 71; RESP 18; TEMP 97.6; O2SAT 98
[2023-03-30] MEDS: ATORVASTATIN CALCIUM 10 MG TABLET PO SCH (08:43)
[2023-03-30] MEDS: OMEGA-3/DHA/EPA/FISH OIL 1,000 MG CAPSULE PO SCH (08:43)
[2023-03-30] MEDS: MULTIVITAMINS, THERAPEUTIC TABLET PO SCH (08:43)
[2023-03-30] MEDS: RisperiDONE 2 MG TABLET PO SCH ×2 (08:44→16:31)
[2023-03-30] MEDS: EMPAGLIFLOZIN 10 MG TABLET PO SCH (08:44)
[2023-03-30] MEDS: ATENOLOL 25 MG TABLET PO SCH (08:44)
[2023-03-30] MEDS: LIDOCAINE 5% TRANSDERMAL PATCH TD SCH (08:47)
[2023-03-30 11:11] LABS: GLUCOMETER DEV NAME(LOC) 3EX.2; GLUCOSE,POINT OF CARE 270 MG/DL (70-110)
[2023-03-30] MEDS: INSULIN LISPRO 100 UNITS/ML SQ PRN ×3 (11:57→21:37)
[2023-03-30] MEDS: ALBUTEROL SULFATE HFA 90 MCG/PUFF 8 GM INHALER IH PRN (16:33)
[2023-03-30] MEDS: BENZOCAINE/MENTHOL LOZENGE PO PRN (16:34)
[2023-03-30 16:56] LABS: GLUCOMETER DEV NAME(LOC) 3EX.2; GLUCOSE,POINT OF CARE 295 MG/DL (70-110)
[2023-03-30 20:31] LABS: GLUCOMETER DEV NAME(LOC) 3EX.2; GLUCOSE,POINT OF CARE 288 MG/DL (70-110)
[2023-03-30] MEDS: -LIDODERM PATCH NOTE- MISC SCH (20:45)
[2023-03-30 21:19] VITALS: BP 112/54; PULSE 67; RESP 19; TEMP 97.9; O2SAT 99
[2023-03-30] MEDS: INSULIN GLARGINE,HUM.REC.ANLOG 100 UNITS/ML SQ SCH (21:38)
[2023-03-31] MEDS: GlipiZIDE 10 MG TABLET PO SCH (06:35)
[2023-03-31] MEDS: INSULIN LISPRO 100 UNITS/ML SQ PRN ×4 (06:36→21:04)
[2023-03-31 06:41] LABS: GLUCOMETER DEV NAME(LOC) 3EX.2; GLUCOSE,POINT OF CARE 130 MG/DL (70-110)
[2023-03-31] MEDS: LIDOCAINE 5% TRANSDERMAL PATCH TD SCH (09:00)
[2023-03-31] MEDS: EMPAGLIFLOZIN 10 MG TABLET PO SCH (09:35)
[2023-03-31] MEDS: ATORVASTATIN CALCIUM 10 MG TABLET PO SCH (09:36)
[2023-03-31] MEDS: RisperiDONE 2 MG TABLET PO SCH ×2 (09:37→16:55)
[2023-03-31] MEDS: ATENOLOL 25 MG TABLET PO SCH (09:37)
[2023-03-31] MEDS: MULTIVITAMINS, THERAPEUTIC TABLET PO SCH (09:38)
[2023-03-31] MEDS: OMEGA-3/DHA/EPA/FISH OIL 1,000 MG CAPSULE PO SCH (09:38)
[2023-03-31 09:50] VITALS: BP 112/58; PULSE 68; RESP 18; TEMP 97.1; O2SAT 96
[2023-03-31 11:21] LABS: GLUCOMETER DEV NAME(LOC) 3EX.2; GLUCOSE,POINT OF CARE 190 MG/DL (70-110)
[2023-03-31 16:51] LABS: GLUCOMETER DEV NAME(LOC) 3EX.2; GLUCOSE,POINT OF CARE 336 MG/DL (70-110)
[2023-03-31 20:07] VITALS: BP 115/60; PULSE 75; RESP 18; TEMP 97.6; O2SAT 98
[2023-03-31] MEDS: -LIDODERM PATCH NOTE- MISC SCH (20:10)
[2023-03-31] MEDS: INSULIN GLARGINE,HUM.REC.ANLOG 100 UNITS/ML SQ SCH (21:11)
[2023-03-31 21:21] LABS: GLUCOMETER DEV NAME(LOC) 3EX.2; GLUCOSE,POINT OF CARE 216 MG/DL (70-110)
[2023-04-01 05:26] LABS: GLUCOMETER DEV NAME(LOC) 3EX.2; GLUCOSE,POINT OF CARE 135 MG/DL (70-110)
[2023-04-01] MEDS: GlipiZIDE 10 MG TABLET PO SCH (06:13)
[2023-04-01] MEDS: MULTIVITAMINS, THERAPEUTIC TABLET PO SCH (07:49)
[2023-04-01] MEDS: OMEGA-3/DHA/EPA/FISH OIL 1,000 MG CAPSULE PO SCH (07:49)
[2023-04-01] MEDS: ATENOLOL 25 MG TABLET PO SCH ×2 (07:49→08:00)
[2023-04-01] MEDS: RisperiDONE 2 MG TABLET PO SCH ×2 (07:49→17:18)
[2023-04-01] MEDS: EMPAGLIFLOZIN 10 MG TABLET PO SCH ×2 (07:50→07:58)
[2023-04-01] MEDS: ATORVASTATIN CALCIUM 10 MG TABLET PO SCH ×2 (07:52→07:58)
[2023-04-01] MEDS: LIDOCAINE 5% TRANSDERMAL PATCH TD SCH (07:52)
[2023-04-01 09:16] VITALS: BP 120/55; PULSE 62; RESP 18; TEMP 98.4; O2SAT 94
[2023-04-01 11:11] LABS: GLUCOMETER DEV NAME(LOC) 3EX.2; GLUCOSE,POINT OF CARE 254 MG/DL (70-110)
[2023-04-01] MEDS: INSULIN LISPRO 100 UNITS/ML SQ PRN ×3 (12:36→21:10)
[2023-04-01 17:11] LABS: GLUCOMETER DEV NAME(LOC) 3EX.2; GLUCOSE,POINT OF CARE 247 MG/DL (70-110)
[2023-04-01] MEDS: -LIDODERM PATCH NOTE- MISC SCH (21:00)
[2023-04-01] MEDS: INSULIN GLARGINE,HUM.REC.ANLOG 100 UNITS/ML SQ SCH (21:00)
[2023-04-01 21:02] VITALS: BP 118/60; PULSE 70; RESP 18; TEMP 98; O2SAT 97
[2023-04-01 21:11] LABS: GLUCOMETER DEV NAME(LOC) 3EX.2; GLUCOSE,POINT OF CARE 276 MG/DL (70-110)
[2023-04-02 05:56] LABS: GLUCOMETER DEV NAME(LOC) 3EX.2; GLUCOSE,POINT OF CARE 104 MG/DL (70-110)
[2023-04-02] MEDS: GlipiZIDE 10 MG TABLET PO SCH (06:27)
[2023-04-02] MEDS: ATORVASTATIN CALCIUM 10 MG TABLET PO SCH (08:49)
[2023-04-02] MEDS: EMPAGLIFLOZIN 10 MG TABLET PO SCH (08:50)
[2023-04-02] MEDS: MULTIVITAMINS, THERAPEUTIC TABLET PO SCH (08:52)
[2023-04-02] MEDS: OMEGA-3/DHA/EPA/FISH OIL 1,000 MG CAPSULE PO SCH (08:52)
[2023-04-02] MEDS: RisperiDONE 2 MG TABLET PO SCH ×2 (08:52→16:32)
[2023-04-02] MEDS: LIDOCAINE 5% TRANSDERMAL PATCH TD SCH (08:55)
[2023-04-02] MEDS: ATENOLOL 25 MG TABLET PO SCH (08:55)
[2023-04-02 09:12] VITALS: TEMP 97.5
[2023-04-02] MEDS: INSULIN LISPRO 100 UNITS/ML SQ PRN ×3 (11:27→21:26)
[2023-04-02 11:36] LABS: GLUCOMETER DEV NAME(LOC) 3EX.2; GLUCOSE,POINT OF CARE 263 MG/DL (70-110)
[2023-04-02 16:56] LABS: GLUCOMETER DEV NAME(LOC) 3EX.2; GLUCOSE,POINT OF CARE 368 MG/DL (70-110)
[2023-04-02 20:46] LABS: GLUCOMETER DEV NAME(LOC) 3EX.2; GLUCOSE,POINT OF CARE 344 MG/DL (70-110)
[2023-04-02] MEDS: -LIDODERM PATCH NOTE- MISC SCH (21:00)
[2023-04-02] MEDS: INSULIN GLARGINE,HUM.REC.ANLOG 100 UNITS/ML SQ SCH (21:06)
[2023-04-02 21:39] VITALS: RESP 18
[2023-04-03] MEDS: ALBUTEROL SULFATE HFA 90 MCG/PUFF 8 GM INHALER IH PRN (06:07)
[2023-04-03 06:16] LABS: GLUCOMETER DEV NAME(LOC) 3EX.2; GLUCOSE,POINT OF CARE 170 MG/DL (70-110)
[2023-04-03] MEDS: GlipiZIDE 10 MG TABLET PO SCH (06:37)
[2023-04-03] MEDS: INSULIN LISPRO 100 UNITS/ML SQ PRN ×4 (06:54→21:10)
[2023-04-03] MEDS: EMPAGLIFLOZIN 10 MG TABLET PO SCH (08:11)
[2023-04-03] MEDS: LIDOCAINE 5% TRANSDERMAL PATCH TD SCH (08:11)
[2023-04-03] MEDS: ATORVASTATIN CALCIUM 10 MG TABLET PO SCH (08:11)
[2023-04-03] MEDS: ATENOLOL 25 MG TABLET PO SCH (08:11)
[2023-04-03] MEDS: RisperiDONE 2 MG TABLET PO SCH ×2 (08:13→16:52)
[2023-04-03] MEDS: IBUPROFEN 600 MG TABLET PO PRN (08:13)
[2023-04-03] MEDS: MULTIVITAMINS, THERAPEUTIC TABLET PO SCH (08:13)
[2023-04-03] MEDS: OMEGA-3/DHA/EPA/FISH OIL 1,000 MG CAPSULE PO SCH (08:13)
[2023-04-03 08:21] VITALS: BP 119/64; PULSE 76; RESP 18; TEMP 97.1
[2023-04-03 11:26] LABS: GLUCOMETER DEV NAME(LOC) 3EX.2; GLUCOSE,POINT OF CARE 260 MG/DL (70-110)
[2023-04-03 16:56] LABS: GLUCOMETER DEV NAME(LOC) 3EX.2; GLUCOSE,POINT OF CARE 141 MG/DL (70-110)
[2023-04-03 20:25] LABS: GLUCOMETER DEV NAME(LOC) 3EX.2; GLUCOSE,POINT OF CARE 387 MG/DL (70-110)
[2023-04-03] MEDS: -LIDODERM PATCH NOTE- MISC SCH (20:33)
[2023-04-03 20:47] VITALS: BP 121/67; PULSE 71; RESP 18; TEMP 97.2
[2023-04-03] MEDS: INSULIN GLARGINE,HUM.REC.ANLOG 100 UNITS/ML SQ SCH (21:09)
[2023-04-04] MEDS: GlipiZIDE 10 MG TABLET PO SCH (06:35)
[2023-04-04 06:36] LABS: GLUCOMETER DEV NAME(LOC) 3EX.2; GLUCOSE,POINT OF CARE 85 MG/DL (70-110)
[2023-04-04] MEDS: MULTIVITAMINS, THERAPEUTIC TABLET PO SCH (08:44)
[2023-04-04] MEDS: OMEGA-3/DHA/EPA/FISH OIL 1,000 MG CAPSULE PO SCH (08:44)
[2023-04-04] MEDS: RisperiDONE 2 MG TABLET PO SCH ×2 (08:44→16:42)
[2023-04-04] MEDS: ATENOLOL 25 MG TABLET PO SCH ×2 (08:45→09:00)
[2023-04-04] MEDS: ATORVASTATIN CALCIUM 10 MG TABLET PO SCH (08:45)
[2023-04-04] MEDS: EMPAGLIFLOZIN 10 MG TABLET PO SCH ×2 (08:45→09:00)
[2023-04-04] MEDS: LIDOCAINE 5% TRANSDERMAL PATCH TD SCH (08:46)
[2023-04-04 09:00] VITALS: RESP 18; TEMP 97.9
[2023-04-04] MEDS: ALBUTEROL SULFATE HFA 90 MCG/PUFF 8 GM INHALER IH PRN (11:41)
[2023-04-04 11:46] LABS: GLUCOMETER DEV NAME(LOC) 3EX.2; GLUCOSE,POINT OF CARE 221 MG/DL (70-110)
[2023-04-04] MEDS: INSULIN LISPRO 100 UNITS/ML SQ PRN ×3 (12:32→21:04)
[2023-04-04 17:26] LABS: GLUCOMETER DEV NAME(LOC) 3EX.2; GLUCOSE,POINT OF CARE 164 MG/DL (70-110)
[2023-04-04] MEDS: -LIDODERM PATCH NOTE- MISC SCH (20:23)
[2023-04-04 20:29] VITALS: BP 120/80; PULSE 90; RESP 17; TEMP 97.8; O2SAT 98
[2023-04-04] MEDS: INSULIN GLARGINE,HUM.REC.ANLOG 100 UNITS/ML SQ SCH (21:03)
[2023-04-04 21:26] LABS: GLUCOMETER DEV NAME(LOC) 3EX.2; GLUCOSE,POINT OF CARE 284 MG/DL (70-110)
[2023-04-05] MEDS: GlipiZIDE 10 MG TABLET PO SCH (06:37)
[2023-04-05] MEDS: INSULIN LISPRO 100 UNITS/ML SQ PRN ×4 (06:38→21:04)
[2023-04-05 07:31] LABS: GLUCOMETER DEV NAME(LOC) 3EX.2; GLUCOSE,POINT OF CARE 105 MG/DL (70-110)
[2023-04-05 07:31] LABS: GLUCOMETER DEV NAME(LOC) 3EX.2; GLUCOSE,POINT OF CARE 132 MG/DL (70-110)
[2023-04-05 08:05] VITALS: BP 142/79; PULSE 77; RESP 18; TEMP 97.5; O2SAT 98
[2023-04-05] MEDS: OMEGA-3/DHA/EPA/FISH OIL 1,000 MG CAPSULE PO SCH (08:22)
[2023-04-05] MEDS: RisperiDONE 2 MG TABLET PO SCH ×2 (08:22→17:02)
[2023-04-05] MEDS: ATORVASTATIN CALCIUM 10 MG TABLET PO SCH (08:23)
[2023-04-05] MEDS: EMPAGLIFLOZIN 10 MG TABLET PO SCH (08:27)
[2023-04-05] MEDS: ATENOLOL 25 MG TABLET PO SCH (08:27)
[2023-04-05] MEDS: LIDOCAINE 5% TRANSDERMAL PATCH TD SCH (08:49)
[2023-04-05] MEDS: MULTIVITAMINS, THERAPEUTIC TABLET PO SCH (08:49)
[2023-04-05] MEDS: ALBUTEROL SULFATE HFA 90 MCG/PUFF 8 GM INHALER IH PRN (11:07)
[2023-04-05 11:16] LABS: GLUCOMETER DEV NAME(LOC) 3EX.2; GLUCOSE,POINT OF CARE 198 MG/DL (70-110)
[2023-04-05 17:41] LABS: GLUCOMETER DEV NAME(LOC) 3EX.2; GLUCOSE,POINT OF CARE 333 MG/DL (70-110)
[2023-04-05 20:08] VITALS: BP 139/85; PULSE 87; RESP 18; TEMP 97.9; O2SAT 97
[2023-04-05] MEDS: -LIDODERM PATCH NOTE- MISC SCH (20:41)
[2023-04-05] MEDS: INSULIN GLARGINE,HUM.REC.ANLOG 100 UNITS/ML SQ SCH (21:03)
[2023-04-05 21:40] LABS: GLUCOMETER DEV NAME(LOC) 3EX.2; GLUCOSE,POINT OF CARE 291 MG/DL (70-110)
[2023-04-06] MEDS: GlipiZIDE 10 MG TABLET PO SCH (06:21)
[2023-04-06] MEDS: INSULIN LISPRO 100 UNITS/ML SQ PRN ×4 (06:42→21:03)
[2023-04-06 07:11] LABS: GLUCOMETER DEV NAME(LOC) 3EX.2; GLUCOSE,POINT OF CARE 185 MG/DL (70-110)
[2023-04-06 08:40] VITALS: BP 116/60; PULSE 84; RESP 17; TEMP 97.7; O2SAT 98
[2023-04-06] MEDS: OMEGA-3/DHA/EPA/FISH OIL 1,000 MG CAPSULE PO SCH (08:42)
[2023-04-06] MEDS: ATORVASTATIN CALCIUM 10 MG TABLET PO SCH (08:42)
[2023-04-06] MEDS: RisperiDONE 2 MG TABLET PO SCH ×2 (08:42→16:19)
[2023-04-06] MEDS: ATENOLOL 25 MG TABLET PO SCH (08:42)
[2023-04-06] MEDS: MULTIVITAMINS, THERAPEUTIC TABLET PO SCH (08:43)
[2023-04-06] MEDS: EMPAGLIFLOZIN 10 MG TABLET PO SCH (08:49)
[2023-04-06] MEDS: LIDOCAINE 5% TRANSDERMAL PATCH TD SCH (08:49)
[2023-04-06 11:21] LABS: GLUCOMETER DEV NAME(LOC) 3EX.2; GLUCOSE,POINT OF CARE 242 MG/DL (70-110)
[2023-04-06] MEDS: ALBUTEROL SULFATE HFA 90 MCG/PUFF 8 GM INHALER IH PRN (16:19)
[2023-04-06 17:16] LABS: GLUCOMETER DEV NAME(LOC) 3EX.2; GLUCOSE,POINT OF CARE 228 MG/DL (70-110)
[2023-04-06 20:05] VITALS: BP 120/70; PULSE 80; RESP 18; TEMP 98; O2SAT 97
[2023-04-06 20:46] LABS: GLUCOMETER DEV NAME(LOC) 3EX.2; GLUCOSE,POINT OF CARE 246 MG/DL (70-110)
[2023-04-06] MEDS: -LIDODERM PATCH NOTE- MISC SCH (21:00)
[2023-04-06] MEDS: INSULIN GLARGINE,HUM.REC.ANLOG 100 UNITS/ML SQ SCH (21:02)
[2023-04-07 06:46] LABS: GLUCOMETER DEV NAME(LOC) 3EX.2; GLUCOSE,POINT OF CARE 95 MG/DL (70-110)
[2023-04-07] MEDS: GlipiZIDE 10 MG TABLET PO SCH (06:54)
[2023-04-07] MEDS: INSULIN LISPRO 100 UNITS/ML SQ PRN ×4 (07:02→21:12)
[2023-04-07] MEDS: MULTIVITAMINS, THERAPEUTIC TABLET PO SCH (08:30)
[2023-04-07] MEDS: OMEGA-3/DHA/EPA/FISH OIL 1,000 MG CAPSULE PO SCH (08:30)
[2023-04-07] MEDS: RisperiDONE 2 MG TABLET PO SCH ×2 (08:32→16:42)
[2023-04-07] MEDS: ATORVASTATIN CALCIUM 10 MG TABLET PO SCH (08:32)
[2023-04-07 08:39] VITALS: BP 132/60; PULSE 90; RESP 18; TEMP 97.9; O2SAT 99
[2023-04-07] MEDS: IBUPROFEN 600 MG TABLET PO PRN (08:39)
[2023-04-07] MEDS: LIDOCAINE 5% TRANSDERMAL PATCH TD SCH (08:40)
[2023-04-07] MEDS: EMPAGLIFLOZIN 10 MG TABLET PO SCH (08:40)
[2023-04-07] MEDS: ATENOLOL 25 MG TABLET PO SCH (08:40)
[2023-04-07 09:00] VITALS: BP 132/60; PULSE 90; RESP 18; TEMP 97.8; O2SAT 99
[2023-04-07 11:21] LABS: GLUCOMETER DEV NAME(LOC) 3EX.2; GLUCOSE,POINT OF CARE 211 MG/DL (70-110)
[2023-04-07 16:46] LABS: GLUCOMETER DEV NAME(LOC) 3EX.2; GLUCOSE,POINT OF CARE 275 MG/DL (70-110)
[2023-04-07] MEDS: -LIDODERM PATCH NOTE- MISC SCH (21:00)
[2023-04-07] MEDS: INSULIN GLARGINE,HUM.REC.ANLOG 100 UNITS/ML SQ SCH (21:11)
[2023-04-07 21:36] VITALS: RESP 18
[2023-04-07 21:36] LABS: GLUCOMETER DEV NAME(LOC) 3EX.2; GLUCOSE,POINT OF CARE 300 MG/DL (70-110)
[2023-04-08 06:01] LABS: GLUCOMETER DEV NAME(LOC) 3EX.2; GLUCOSE,POINT OF CARE 81 MG/DL (70-110)
[2023-04-08] MEDS: GlipiZIDE 10 MG TABLET PO SCH (06:52)
[2023-04-08] MEDS: INSULIN LISPRO 100 UNITS/ML SQ PRN ×4 (07:00→21:15)
[2023-04-08] MEDS: RisperiDONE 2 MG TABLET PO SCH ×2 (08:20→16:14)
[2023-04-08] MEDS: ATORVASTATIN CALCIUM 10 MG TABLET PO SCH (08:20)
[2023-04-08] MEDS: OMEGA-3/DHA/EPA/FISH OIL 1,000 MG CAPSULE PO SCH (08:20)
[2023-04-08] MEDS: EMPAGLIFLOZIN 10 MG TABLET PO SCH (08:21)
[2023-04-08] MEDS: MULTIVITAMINS, THERAPEUTIC TABLET PO SCH (08:21)
[2023-04-08] MEDS: ATENOLOL 25 MG TABLET PO SCH (08:21)
[2023-04-08] MEDS: LIDOCAINE 5% TRANSDERMAL PATCH TD SCH (08:21)
[2023-04-08 09:00] VITALS: BP 121/65; PULSE 79; RESP 19; TEMP 97; O2SAT 96
[2023-04-08 11:27] LABS: GLUCOMETER DEV NAME(LOC) 3EX.2; GLUCOSE,POINT OF CARE 209 MG/DL (70-110)
[2023-04-08 17:41] LABS: GLUCOMETER DEV NAME(LOC) 3EX.2; GLUCOSE,POINT OF CARE 285 MG/DL (70-110)
[2023-04-08 20:11] LABS: GLUCOMETER DEV NAME(LOC) 3EX.2; GLUCOSE,POINT OF CARE 153 MG/DL (70-110)
[2023-04-08] MEDS: -LIDODERM PATCH NOTE- MISC SCH (20:47)
[2023-04-08 21:03] VITALS: BP 127/73; PULSE 83; RESP 20; TEMP 97.9; O2SAT 98
[2023-04-08] MEDS: INSULIN GLARGINE,HUM.REC.ANLOG 100 UNITS/ML SQ SCH (21:14)
[2023-04-09] MEDS: GlipiZIDE 10 MG TABLET PO SCH (06:25)
[2023-04-09 06:32] LABS: GLUCOMETER DEV NAME(LOC) 3EX.2; GLUCOSE,POINT OF CARE 169 MG/DL (70-110)
[2023-04-09] MEDS: INSULIN LISPRO 100 UNITS/ML SQ PRN ×4 (06:38→21:20)
[2023-04-09] MEDS: RisperiDONE 2 MG TABLET PO SCH ×2 (08:07→16:20)
[2023-04-09] MEDS: OMEGA-3/DHA/EPA/FISH OIL 1,000 MG CAPSULE PO SCH (08:07)
[2023-04-09] MEDS: MULTIVITAMINS, THERAPEUTIC TABLET PO SCH (08:07)
[2023-04-09] MEDS: ATORVASTATIN CALCIUM 10 MG TABLET PO SCH (08:07)
[2023-04-09] MEDS: EMPAGLIFLOZIN 10 MG TABLET PO SCH (08:09)
[2023-04-09] MEDS: LIDOCAINE 5% TRANSDERMAL PATCH TD SCH (08:10)
[2023-04-09] MEDS: ATENOLOL 25 MG TABLET PO SCH (08:10)
[2023-04-09 08:12] VITALS: BP 109/81; PULSE 73; RESP 17; TEMP 97.8; O2SAT 99
[2023-04-09 11:41] LABS: GLUCOMETER DEV NAME(LOC) 3EX.2; GLUCOSE,POINT OF CARE 226 MG/DL (70-110)
[2023-04-09 16:46] LABS: GLUCOMETER DEV NAME(LOC) 3EX.2; GLUCOSE,POINT OF CARE 284 MG/DL (70-110)
[2023-04-09 20:50] LABS: GLUCOMETER DEV NAME(LOC) 3EX.2; GLUCOSE,POINT OF CARE 359 MG/DL (70-110)
[2023-04-09] MEDS: -LIDODERM PATCH NOTE- MISC SCH (21:00)
[2023-04-09] MEDS: INSULIN GLARGINE,HUM.REC.ANLOG 100 UNITS/ML SQ SCH (21:18)
[2023-04-09 21:31] VITALS: BP 120/70; PULSE 80; RESP 18; TEMP 97.6; O2SAT 99
[2023-04-10 06:26] LABS: GLUCOMETER DEV NAME(LOC) 3EX.2; GLUCOSE,POINT OF CARE 89 MG/DL (70-110)
[2023-04-10] MEDS: GlipiZIDE 10 MG TABLET PO SCH (07:00)
[2023-04-10] MEDS: INSULIN LISPRO 100 UNITS/ML SQ PRN ×4 (07:03→21:27)
[2023-04-10 08:24] VITALS: BP 98/56; PULSE 77; RESP 18; TEMP 98.1; O2SAT 97
[2023-04-10] MEDS: MULTIVITAMINS, THERAPEUTIC TABLET PO SCH (08:38)
[2023-04-10] MEDS: RisperiDONE 2 MG TABLET PO SCH ×2 (08:38→16:07)
[2023-04-10] MEDS: OMEGA-3/DHA/EPA/FISH OIL 1,000 MG CAPSULE PO SCH (08:38)
[2023-04-10] MEDS: ATENOLOL 25 MG TABLET PO SCH (08:39)
[2023-04-10] MEDS: LIDOCAINE 5% TRANSDERMAL PATCH TD SCH (08:39)
[2023-04-10] MEDS: ATORVASTATIN CALCIUM 10 MG TABLET PO SCH (08:39)
[2023-04-10] MEDS: EMPAGLIFLOZIN 10 MG TABLET PO SCH (08:40)
[2023-04-10 11:31] LABS: GLUCOMETER DEV NAME(LOC) 3EX.2; GLUCOSE,POINT OF CARE 236 MG/DL (70-110)
[2023-04-10 16:51] LABS: GLUCOMETER DEV NAME(LOC) 3EX.2; GLUCOSE,POINT OF CARE 237 MG/DL (70-110)
[2023-04-10 20:01] LABS: GLUCOMETER DEV NAME(LOC) 3EX.2; GLUCOSE,POINT OF CARE 311 MG/DL (70-110)
[2023-04-10 20:25] VITALS: BP 118/78; PULSE 81; RESP 19; TEMP 97.9; O2SAT 97
[2023-04-10] MEDS: -LIDODERM PATCH NOTE- MISC SCH (20:43)
[2023-04-10] MEDS: INSULIN GLARGINE,HUM.REC.ANLOG 100 UNITS/ML SQ SCH (21:26)
[2023-04-11 06:36] LABS: GLUCOMETER DEV NAME(LOC) 3EX.2; GLUCOSE,POINT OF CARE 164 MG/DL (70-110)
[2023-04-11] MEDS: INSULIN LISPRO 100 UNITS/ML SQ PRN ×4 (06:39→21:03)
[2023-04-11] MEDS: GlipiZIDE 10 MG TABLET PO SCH (06:52)
[2023-04-11] MEDS: RisperiDONE 2 MG TABLET PO SCH ×2 (08:47→16:30)
[2023-04-11] MEDS: MULTIVITAMINS, THERAPEUTIC TABLET PO SCH (08:47)
[2023-04-11] MEDS: ATORVASTATIN CALCIUM 10 MG TABLET PO SCH (08:47)
[2023-04-11] MEDS: ATENOLOL 25 MG TABLET PO SCH ×2 (08:47→09:00)
[2023-04-11] MEDS: OMEGA-3/DHA/EPA/FISH OIL 1,000 MG CAPSULE PO SCH (08:47)
[2023-04-11] MEDS: LIDOCAINE 5% TRANSDERMAL PATCH TD SCH (09:00)
[2023-04-11] MEDS: EMPAGLIFLOZIN 10 MG TABLET PO SCH (09:00)
[2023-04-11 11:52] LABS: GLUCOMETER DEV NAME(LOC) 3EX.2; GLUCOSE,POINT OF CARE 214 MG/DL (70-110)
[2023-04-11 13:27] VITALS: RESP 17
[2023-04-11 16:31] LABS: GLUCOMETER DEV NAME(LOC) 3EX.2; GLUCOSE,POINT OF CARE 282 MG/DL (70-110)
[2023-04-11] MEDS: -LIDODERM PATCH NOTE- MISC SCH (20:20)
[2023-04-11 20:26] LABS: GLUCOMETER DEV NAME(LOC) 3EX.2; GLUCOSE,POINT OF CARE 276 MG/DL (70-110)
[2023-04-11 20:32] VITALS: BP 121/81; PULSE 78; RESP 18; TEMP 97.7
[2023-04-11] MEDS: INSULIN GLARGINE,HUM.REC.ANLOG 100 UNITS/ML SQ SCH (21:04)
[2023-04-12] MEDS: GlipiZIDE 10 MG TABLET PO SCH (06:33)
[2023-04-12 06:36] LABS: GLUCOMETER DEV NAME(LOC) 3EX.2; GLUCOSE,POINT OF CARE 92 MG/DL (70-110)
[2023-04-12] MEDS: ATENOLOL 25 MG TABLET PO SCH ×2 (09:00→09:30)
[2023-04-12] MEDS: EMPAGLIFLOZIN 10 MG TABLET PO SCH ×2 (09:00→09:30)
[2023-04-12] MEDS: LIDOCAINE 5% TRANSDERMAL PATCH TD SCH (09:00)
[2023-04-12 09:16] VITALS: BP 116/52; PULSE 73; RESP 19; TEMP 97.8; O2SAT 98
[2023-04-12] MEDS: MULTIVITAMINS, THERAPEUTIC TABLET PO SCH (09:30)
[2023-04-12] MEDS: RisperiDONE 2 MG TABLET PO SCH ×2 (09:30→16:23)
[2023-04-12] MEDS: OMEGA-3/DHA/EPA/FISH OIL 1,000 MG CAPSULE PO SCH (09:30)
[2023-04-12] MEDS: ATORVASTATIN CALCIUM 10 MG TABLET PO SCH (09:30)
[2023-04-12 11:06] LABS: GLUCOMETER DEV NAME(LOC) 3EX.2; GLUCOSE,POINT OF CARE 229 MG/DL (70-110)
[2023-04-12] MEDS: INSULIN LISPRO 100 UNITS/ML SQ PRN ×3 (11:44→21:05)
[2023-04-12 17:21] LABS: GLUCOMETER DEV NAME(LOC) 3EX.2; GLUCOSE,POINT OF CARE 271 MG/DL (70-110)
[2023-04-12 20:01] LABS: GLUCOMETER DEV NAME(LOC) 3EX.2; GLUCOSE,POINT OF CARE 301 MG/DL (70-110)
[2023-04-12] MEDS: -LIDODERM PATCH NOTE- MISC SCH (21:00)
[2023-04-12] MEDS: INSULIN GLARGINE,HUM.REC.ANLOG 100 UNITS/ML SQ SCH (21:04)
[2023-04-12 21:11] VITALS: BP 118/60; PULSE 95; RESP 17; TEMP 97.6; O2SAT 97
[2023-04-13 06:20] LABS: GLUCOMETER DEV NAME(LOC) 3EX.2; GLUCOSE,POINT OF CARE 77 MG/DL (70-110)
[2023-04-13] MEDS: INSULIN LISPRO 100 UNITS/ML SQ PRN ×4 (06:35→21:07)
[2023-04-13] MEDS: GlipiZIDE 10 MG TABLET PO SCH (07:00)
[2023-04-13 08:31] VITALS: BP 111/55; PULSE 77; RESP 18; TEMP 97.5
[2023-04-13] MEDS: ATORVASTATIN CALCIUM 10 MG TABLET PO SCH (08:34)
[2023-04-13] MEDS: MULTIVITAMINS, THERAPEUTIC TABLET PO SCH (08:34)
[2023-04-13] MEDS: LIDOCAINE 5% TRANSDERMAL PATCH TD SCH (08:34)
[2023-04-13] MEDS: EMPAGLIFLOZIN 10 MG TABLET PO SCH (08:34)
[2023-04-13] MEDS: OMEGA-3/DHA/EPA/FISH OIL 1,000 MG CAPSULE PO SCH (08:34)
[2023-04-13] MEDS: RisperiDONE 2 MG TABLET PO SCH ×2 (08:34→16:29)
[2023-04-13] MEDS: ATENOLOL 25 MG TABLET PO SCH (08:34)
[2023-04-13 11:51] LABS: GLUCOMETER DEV NAME(LOC) 3EX.2; GLUCOSE,POINT OF CARE 233 MG/DL (70-110)
[2023-04-13] MEDS: ALBUTEROL SULFATE HFA 90 MCG/PUFF 8 GM INHALER IH PRN (12:13)
[2023-04-13 16:56] LABS: GLUCOMETER DEV NAME(LOC) 3EX.2; GLUCOSE,POINT OF CARE 266 MG/DL (70-110)
[2023-04-13 20:06] LABS: GLUCOMETER DEV NAME(LOC) 3EX.2; GLUCOSE,POINT OF CARE 192 MG/DL (70-110)
[2023-04-13 20:21] VITALS: BP 108/69; PULSE 70; RESP 18; TEMP 98; O2SAT 98
[2023-04-13] MEDS: -LIDODERM PATCH NOTE- MISC SCH (20:51)
[2023-04-13] MEDS: INSULIN GLARGINE,HUM.REC.ANLOG 100 UNITS/ML SQ SCH (21:06)
[2023-04-14 06:07] LABS: GLUCOMETER DEV NAME(LOC) 3EX.2; GLUCOSE,POINT OF CARE 135 MG/DL (70-110)
[2023-04-14] MEDS: INSULIN LISPRO 100 UNITS/ML SQ PRN ×4 (06:32→21:02)
[2023-04-14] MEDS: GlipiZIDE 10 MG TABLET PO SCH (07:00)
[2023-04-14 08:24] VITALS: BP 99/62; PULSE 76; RESP 18; TEMP 97.7; O2SAT 96
[2023-04-14] MEDS: OMEGA-3/DHA/EPA/FISH OIL 1,000 MG CAPSULE PO SCH (08:49)
[2023-04-14] MEDS: MULTIVITAMINS, THERAPEUTIC TABLET PO SCH (08:49)
[2023-04-14] MEDS: ATORVASTATIN CALCIUM 10 MG TABLET PO SCH (08:49)
[2023-04-14] MEDS: RisperiDONE 2 MG TABLET PO SCH ×2 (08:49→16:17)
[2023-04-14] MEDS: EMPAGLIFLOZIN 10 MG TABLET PO SCH (08:50)
[2023-04-14] MEDS: LIDOCAINE 5% TRANSDERMAL PATCH TD SCH (08:50)
[2023-04-14] MEDS: ATENOLOL 25 MG TABLET PO SCH (08:50)
[2023-04-14 11:31] LABS: GLUCOMETER DEV NAME(LOC) 3EX.2; GLUCOSE,POINT OF CARE 221 MG/DL (70-110)
[2023-04-14 12:26] VITALS: BP 118/78; PULSE 88; RESP 18; TEMP 97.2
[2023-04-14] MEDS: IBUPROFEN 600 MG TABLET PO PRN (12:28)
[2023-04-14 13:28] VITALS: RESP 18
[2023-04-14] MEDS: LORazepam 2 MG TABLET PO PRN ×2 (14:48→20:26)
[2023-04-14] MEDS: BENZOCAINE/MENTHOL LOZENGE PO PRN (16:19)
[2023-04-14 16:51] LABS: GLUCOMETER DEV NAME(LOC) 3EX.2; GLUCOSE,POINT OF CARE 315 MG/DL (70-110)
[2023-04-14 20:06] LABS: GLUCOMETER DEV NAME(LOC) 3EX.2; GLUCOSE,POINT OF CARE 290 MG/DL (70-110)
[2023-04-14] MEDS: -LIDODERM PATCH NOTE- MISC SCH (21:00)
[2023-04-14] MEDS: INSULIN GLARGINE,HUM.REC.ANLOG 100 UNITS/ML SQ SCH (21:02)
[2023-04-14 21:49] VITALS: BP 144/67; PULSE 87; RESP 18; TEMP 97; O2SAT 98
[2023-04-15 06:27] LABS: GLUCOMETER DEV NAME(LOC) 3EX.2; GLUCOSE,POINT OF CARE 116 MG/DL (70-110)
[2023-04-15] MEDS: GlipiZIDE 10 MG TABLET PO SCH (06:27)
[2023-04-15] MEDS: INSULIN LISPRO 100 UNITS/ML SQ PRN ×4 (06:32→21:09)
[2023-04-15] MEDS: OMEGA-3/DHA/EPA/FISH OIL 1,000 MG CAPSULE PO SCH (08:13)
[2023-04-15] MEDS: RisperiDONE 2 MG TABLET PO SCH ×2 (08:14→16:57)
[2023-04-15] MEDS: MULTIVITAMINS, THERAPEUTIC TABLET PO SCH (08:14)
[2023-04-15] MEDS: ALBUTEROL SULFATE HFA 90 MCG/PUFF 8 GM INHALER IH PRN ×2 (08:15→20:23)
[2023-04-15] MEDS: ATORVASTATIN CALCIUM 10 MG TABLET PO SCH (08:15)
[2023-04-15] MEDS: LIDOCAINE 5% TRANSDERMAL PATCH TD SCH (08:19)
[2023-04-15] MEDS: EMPAGLIFLOZIN 10 MG TABLET PO SCH (08:19)
[2023-04-15] MEDS: ATENOLOL 25 MG TABLET PO SCH (08:19)
[2023-04-15 10:28] VITALS: BP 152/67; PULSE 91; RESP 18; TEMP 97.3; O2SAT 96
[2023-04-15 14:26] LABS: GLUCOMETER DEV NAME(LOC) 3EX.2; GLUCOSE,POINT OF CARE 281 MG/DL (70-110)
[2023-04-15] MEDS ORDERED: NICOTINE 21 MG/24 HOUR PATCH TD SCH (16:15)
[2023-04-15 16:36] LABS: GLUCOMETER DEV NAME(LOC) 3EX.2; GLUCOSE,POINT OF CARE 202 MG/DL (70-110)
[2023-04-15] MEDS: NICOTINE POLACRILEX 4 MG LOZENGE PO PRN (20:20)
[2023-04-15] MEDS: MELATONIN 5 MG TABLET PO SCH (20:20)
[2023-04-15] MEDS: LORazepam 2 MG TABLET PO PRN (20:20)
[2023-04-15 20:46] LABS: GLUCOMETER DEV NAME(LOC) 3EX.2; GLUCOSE,POINT OF CARE 219 MG/DL (70-110)
[2023-04-15] MEDS: -LIDODERM PATCH NOTE- MISC SCH (20:54)
[2023-04-15] MEDS: INSULIN GLARGINE,HUM.REC.ANLOG 100 UNITS/ML SQ SCH (21:08)
[2023-04-15 22:42] VITALS: BP 137/71; PULSE 86; RESP 18; TEMP 97.2; O2SAT 97
[2023-04-16 06:26] LABS: GLUCOMETER DEV NAME(LOC) 3EX.2; GLUCOSE,POINT OF CARE 178 MG/DL (70-110)
[2023-04-16] MEDS: GlipiZIDE 10 MG TABLET PO SCH (06:36)
[2023-04-16] MEDS: INSULIN LISPRO 100 UNITS/ML SQ PRN ×4 (06:38→20:47)
[2023-04-16] MEDS: LIDOCAINE 5% TRANSDERMAL PATCH TD SCH (08:14)
[2023-04-16] MEDS: MULTIVITAMINS, THERAPEUTIC TABLET PO SCH (08:14)
[2023-04-16] MEDS: ATENOLOL 25 MG TABLET PO SCH (08:14)
[2023-04-16] MEDS: RisperiDONE 2 MG TABLET PO SCH ×2 (08:14→16:47)
[2023-04-16] MEDS: OMEGA-3/DHA/EPA/FISH OIL 1,000 MG CAPSULE PO SCH (08:14)
[2023-04-16] MEDS: EMPAGLIFLOZIN 10 MG TABLET PO SCH (08:14)
[2023-04-16] MEDS: ALBUTEROL SULFATE HFA 90 MCG/PUFF 8 GM INHALER IH PRN (08:15)
[2023-04-16] MEDS: BENZOCAINE/MENTHOL LOZENGE PO PRN ×3 (08:15→20:23)
[2023-04-16] MEDS: ATORVASTATIN CALCIUM 10 MG TABLET PO SCH (08:15)
[2023-04-16] MEDS: NICOTINE POLACRILEX 4 MG LOZENGE PO PRN ×3 (08:16→20:23)
[2023-04-16 08:44] VITALS: BP 149/77; PULSE 94; RESP 18; TEMP 97.8; O2SAT 100
[2023-04-16] MEDS ORDERED: OLAN10TA74 PO (11:24)
[2023-04-16 12:01] LABS: GLUCOMETER DEV NAME(LOC) 3EX.2; GLUCOSE,POINT OF CARE 187 MG/DL (70-110)
[2023-04-16 17:01] LABS: GLUCOMETER DEV NAME(LOC) 3EX.2; GLUCOSE,POINT OF CARE 220 MG/DL (70-110)
[2023-04-16] MEDS: LORazepam 2 MG TABLET PO PRN (20:23)
[2023-04-16 20:31] LABS: GLUCOMETER DEV NAME(LOC) 3EX.2; GLUCOSE,POINT OF CARE 264 MG/DL (70-110)
[2023-04-16] MEDS: MELATONIN 5 MG TABLET PO SCH (20:45)
[2023-04-16] MEDS: INSULIN GLARGINE,HUM.REC.ANLOG 100 UNITS/ML SQ SCH (20:46)
[2023-04-16] MEDS: -LIDODERM PATCH NOTE- MISC SCH (20:56)
[2023-04-16 21:52] VITALS: BP 143/62; PULSE 87; RESP 18; TEMP 97.5
[2023-04-17] MEDS: GlipiZIDE 10 MG TABLET PO SCH (06:49)
[2023-04-17] MEDS: INSULIN LISPRO 100 UNITS/ML SQ PRN ×3 (06:49→21:08)
[2023-04-17 07:01] LABS: GLUCOMETER DEV NAME(LOC) 3EX.2; GLUCOSE,POINT OF CARE 101 MG/DL (70-110)
[2023-04-17 08:08] VITALS: BP 145/58; PULSE 100; RESP 18; TEMP 97.6; O2SAT 98
[2023-04-17] MEDS: ATENOLOL 25 MG TABLET PO SCH (09:00)
[2023-04-17] MEDS: LIDOCAINE 5% TRANSDERMAL PATCH TD SCH (09:00)
[2023-04-17] MEDS: MULTIVITAMINS, THERAPEUTIC TABLET PO SCH (09:02)
[2023-04-17] MEDS: OMEGA-3/DHA/EPA/FISH OIL 1,000 MG CAPSULE PO SCH (09:02)
[2023-04-17] MEDS: RisperiDONE 2 MG TABLET PO SCH ×2 (09:02→16:40)
[2023-04-17] MEDS: ATORVASTATIN CALCIUM 10 MG TABLET PO SCH (09:02)
[2023-04-17] MEDS: NICOTINE POLACRILEX 4 MG LOZENGE PO PRN ×3 (09:17→18:03)
[2023-04-17] MEDS: BENZOCAINE/MENTHOL LOZENGE PO PRN ×2 (09:18→14:42)
[2023-04-17 10:36] VITALS: BP 134/62; PULSE 99; RESP 18; TEMP 97.9; O2SAT 99
[2023-04-17] MEDS: IBUPROFEN 600 MG TABLET PO PRN (10:36)
[2023-04-17 11:30] LABS: GLUCOMETER DEV NAME(LOC) 3EX.2; GLUCOSE,POINT OF CARE 193 MG/DL (70-110)
[2023-04-17] MEDS: ALBUTEROL SULFATE HFA 90 MCG/PUFF 8 GM INHALER IH PRN (14:43)
[2023-04-17 16:35] LABS: GLUCOMETER DEV NAME(LOC) 3EX.2; GLUCOSE,POINT OF CARE 115 MG/DL (70-110)
[2023-04-17 20:31] LABS: GLUCOMETER DEV NAME(LOC) 3EX.2; GLUCOSE,POINT OF CARE 280 MG/DL (70-110)
[2023-04-17] MEDS: -LIDODERM PATCH NOTE- MISC SCH (21:00)
[2023-04-17] MEDS: INSULIN GLARGINE,HUM.REC.ANLOG 100 UNITS/ML SQ SCH (21:07)
[2023-04-17] MEDS: MELATONIN 5 MG TABLET PO SCH (21:17)
[2023-04-17] MEDS: LORazepam 2 MG TABLET PO PRN (21:17)
[2023-04-17 21:36] VITALS: BP 129/65; PULSE 94; RESP 19; TEMP 97.2; O2SAT 98
[2023-04-18] MEDS: NICOTINE POLACRILEX 4 MG LOZENGE PO PRN ×4 (06:23→20:01)
[2023-04-18] MEDS: BENZOCAINE/MENTHOL LOZENGE PO PRN ×4 (06:24→20:00)
[2023-04-18 06:31] LABS: GLUCOMETER DEV NAME(LOC) 3EX.2; GLUCOSE,POINT OF CARE 87 MG/DL (70-110)
[2023-04-18] MEDS: INSULIN LISPRO 100 UNITS/ML SQ PRN ×4 (06:41→21:18)
[2023-04-18] MEDS: GlipiZIDE 10 MG TABLET PO SCH (06:53)
[2023-04-18 07:46] LABS: BASOPHILS % (AUTO) 1.6 % (0.0-2.0); EOSINOPHILS % (AUTO) 2.9 % (1.0-6.0); HEMATOCRIT 42.3 % (41-53); HEMOGLOBIN 14.3 g/dL (13.5-17.5); LYMPHOCYTES # (AUTO) 2.3 K/uL (1.0-4.8); LYMPHOCYTES % (AUTO) 40.3 % (22.0-44.0); MEAN CORPUSCULAR HEMOGLOBIN 30.8 pg (26.0-34.0); MEAN CORPUSCULAR HGB CONC 33.9 G/dL (31.0-37.0); MEAN CORPUSCULAR VOLUME 91 fL (80-100); MONOCYTES # (AUTO) 0.6 K/uL (0.1-1.0); MONOCYTES % (AUTO) 11.1 % (2.0-9.0); NEUTROPHILS # (AUTO) 2.5 K/uL (1.8-7.7); NEUTROPHILS % (AUTO) 44.1 % (40.0-70.0); PLATELET COUNT (AUTO) 224 K/uL (150-450); RED BLOOD CELL COUNT(AUTO) 4.66 MIL/uL (4.50-5.90); RED CELL DISTRIBUTION WIDTH 13.6 % (11.5-14.5); WHITE BLOOD COUNT (AUTO) 5.7 K/uL (4.5-11.0)
[2023-04-18 08:00] LABS: HEMOGLOBIN A1C 9.7 % (3.8-5.6)
[2023-04-18 08:09] LABS: ALANINE AMINOTRANSFERASE 29 U/L (12-78); ALBUMIN 3.8 g/dL (3.4-5.0); ALKALINE PHOSPHATASE 121 U/L (46-116); ANION GAP 9 mmol/L (8-16); ASPARTATE AMINOTRANSFERASE 35 U/L (15-37); BILIRUBIN,TOTAL 0.8 mg/dL (0.1-1.0); CALCIUM, TOTAL 9.9 mg/dL (8.8-10.5); CARBON DIOXIDE 28 mmol/L (22-29); CHLORIDE 99 mmol/L (98-107); CHOL/HDL RATIO 2.3 (4.2-7.3); CHOLESTEROL 185 mg/dL (131-200); CREATININE 0.66 mg/dL (0.60-1.30); GLOMERULAR FILTR. RATE CALC > 60 mL/min (>60); GLUCOSE,RANDOM 133 mg/dL (70-110); HDL CHOLESTEROL 79 mg/dL (40-60); LDL CHOL (CALC.) 97 mg/dL (0-130); PHOSPHORUS 4.1 mg/dL (2.5-4.9); POTASSIUM 4.1 mmol/L (3.5-5.1); SODIUM SERUM 136 mmol/L (136-145); THYROID STIMULATING HORMONE 3.02 uIU/mL (0.36-3.74); TOTAL PROTEIN, SERUM 8.1 g/dL (6.4-8.2); TRIGLYCERIDES 44 mg/dL (15-150); UREA NITROGEN, BLOOD 10 mg/dL (7-18)
[2023-04-18 08:30] VITALS: BP 143/78; PULSE 79; RESP 18; TEMP 98; O2SAT 97
[2023-04-18] MEDS: LIDOCAINE 5% TRANSDERMAL PATCH TD SCH (09:00)
[2023-04-18] MEDS: OMEGA-3/DHA/EPA/FISH OIL 1,000 MG CAPSULE PO SCH (09:12)
[2023-04-18] MEDS: MULTIVITAMINS, THERAPEUTIC TABLET PO SCH (09:12)
[2023-04-18] MEDS: ATORVASTATIN CALCIUM 10 MG TABLET PO SCH (09:13)
[2023-04-18] MEDS: RisperiDONE 2 MG TABLET PO SCH ×2 (09:13→16:39)
[2023-04-18 11:26] LABS: GLUCOMETER DEV NAME(LOC) 3EX.2; GLUCOSE,POINT OF CARE 335 MG/DL (70-110)
[2023-04-18] MEDS: IBUPROFEN 600 MG TABLET PO PRN ×2 (15:31→21:47)
[2023-04-18 16:42] LABS: GLUCOMETER DEV NAME(LOC) 3EX.2; GLUCOSE,POINT OF CARE 80 MG/DL (70-110)
[2023-04-18] MEDS: ACETAMINOPHEN 325 MG TABLET PO PRN ×2 (16:44→23:23)
[2023-04-18] MEDS: LORazepam 2 MG TABLET PO PRN (20:00)
[2023-04-18] MEDS: MELATONIN 5 MG TABLET PO SCH (20:37)
[2023-04-18 20:51] LABS: GLUCOMETER DEV NAME(LOC) 3EX.2; GLUCOSE,POINT OF CARE 178 MG/DL (70-110)
[2023-04-18] MEDS: -LIDODERM PATCH NOTE- MISC SCH (21:00)
[2023-04-18] MEDS: INSULIN GLARGINE,HUM.REC.ANLOG 100 UNITS/ML SQ SCH (21:19)
[2023-04-18 21:45] VITALS: BP 138/79; PULSE 89; RESP 18; TEMP 98.1
[2023-04-18 22:02] VITALS: BP_SYST 138; PULSE 89; TEMP 98.1
[2023-04-18 23:23] VITALS: RESP 18
[2023-04-19] VITALS (9 sets, daily range): BP systolic 131–152; BP diastolic 61–79; PULSE 78–109; RESP 16–18; TEMP 97.6–99; O2SAT 97–98
[2023-04-19 06:21] LABS: GLUCOMETER DEV NAME(LOC) 3EX.2; GLUCOSE,POINT OF CARE 112 MG/DL (70-110)
[2023-04-19] MEDS: GlipiZIDE 10 MG TABLET PO SCH (06:34)
[2023-04-19] MEDS: BENZOCAINE/MENTHOL LOZENGE PO PRN ×3 (07:47→20:23)
[2023-04-19] MEDS: OMEGA-3/DHA/EPA/FISH OIL 1,000 MG CAPSULE PO SCH (07:47)
[2023-04-19] MEDS: NICOTINE POLACRILEX 4 MG LOZENGE PO PRN ×3 (07:47→20:24)
[2023-04-19] MEDS: MULTIVITAMINS, THERAPEUTIC TABLET PO SCH (07:47)
[2023-04-19] MEDS: RisperiDONE 2 MG TABLET PO SCH ×2 (07:47→16:25)
[2023-04-19] MEDS: ATORVASTATIN CALCIUM 10 MG TABLET PO SCH (07:49)
[2023-04-19] MEDS: INSULIN GLARGINE,HUM.REC.ANLOG 100 UNITS/ML SQ SCH ×2 (07:50→20:27)
[2023-04-19] MEDS: ALBUTEROL SULFATE HFA 90 MCG/PUFF 8 GM INHALER IH PRN (07:55)
[2023-04-19] MEDS: LIDOCAINE 5% TRANSDERMAL PATCH TD SCH (07:58)
[2023-04-19 11:27] LABS: COVID AG,FIA SOURCE NASAL SWAB
[2023-04-19] MEDS: IBUPROFEN 600 MG TABLET PO PRN (11:50)
[2023-04-19] MEDS: INSULIN LISPRO 100 UNITS/ML SQ PRN ×4 (12:01→20:27)
[2023-04-19 12:06] LABS: GLUCOMETER DEV NAME(LOC) 3EX.2; GLUCOSE,POINT OF CARE 161 MG/DL (70-110)
[2023-04-19 12:23] LABS: SARS-COV2 (COVID) ANTIGEN,FIA Negative (Negative)
[2023-04-19] MEDS: ACETAMINOPHEN 325 MG TABLET PO PRN (14:21)
[2023-04-19 17:31] LABS: GLUCOMETER DEV NAME(LOC) 3EX.2; GLUCOSE,POINT OF CARE 209 MG/DL (70-110)
[2023-04-19] MEDS: LORazepam 2 MG TABLET PO PRN (20:24)
[2023-04-19] MEDS: MELATONIN 5 MG TABLET PO SCH (20:25)
[2023-04-19 20:26] LABS: GLUCOMETER DEV NAME(LOC) 3EX.2; GLUCOSE,POINT OF CARE 230 MG/DL (70-110)
[2023-04-19] MEDS: -LIDODERM PATCH NOTE- MISC SCH (21:00)
[2023-04-20] VITALS (10 sets, daily range): BP systolic 128–148; BP diastolic 61–87; PULSE 68–98; RESP 17–18; TEMP 97.7–98.6; O2SAT 98
[2023-04-20 06:11] LABS: GLUCOMETER DEV NAME(LOC) 3EX.2; GLUCOSE,POINT OF CARE 173 MG/DL (70-110)
[2023-04-20] MEDS: BENZOCAINE/MENTHOL LOZENGE PO PRN ×4 (06:24→20:47)
[2023-04-20] MEDS: NICOTINE POLACRILEX 4 MG LOZENGE PO PRN ×4 (06:24→20:47)
[2023-04-20] MEDS: GlipiZIDE 10 MG TABLET PO SCH (06:32)
[2023-04-20] MEDS: INSULIN LISPRO 100 UNITS/ML SQ PRN ×3 (06:34→21:24)
[2023-04-20] MEDS: IBUPROFEN 600 MG TABLET PO PRN (06:47)
[2023-04-20] MEDS: LIDOCAINE 5% TRANSDERMAL PATCH TD SCH (09:00)
[2023-04-20] MEDS: OMEGA-3/DHA/EPA/FISH OIL 1,000 MG CAPSULE PO SCH (09:30)
[2023-04-20] MEDS: ATORVASTATIN CALCIUM 10 MG TABLET PO SCH (09:30)
[2023-04-20] MEDS: RisperiDONE 2 MG TABLET PO SCH ×2 (09:33→17:20)
[2023-04-20] MEDS: MULTIVITAMINS, THERAPEUTIC TABLET PO SCH (09:33)
[2023-04-20] MEDS: ACETAMINOPHEN 325 MG TABLET PO PRN (09:35)
[2023-04-20] MEDS: ALBUTEROL SULFATE HFA 90 MCG/PUFF 8 GM INHALER IH PRN (09:39)
[2023-04-20 11:51] LABS: GLUCOMETER DEV NAME(LOC) 3EX.2; GLUCOSE,POINT OF CARE 140 MG/DL (70-110)
[2023-04-20 17:26] LABS: GLUCOMETER DEV NAME(LOC) 3EX.2; GLUCOSE,POINT OF CARE 102 MG/DL (70-110)
[2023-04-20 20:06] LABS: GLUCOMETER DEV NAME(LOC) 3EX.2; GLUCOSE,POINT OF CARE 312 MG/DL (70-110)
[2023-04-20] MEDS: MELATONIN 5 MG TABLET PO SCH (20:48)
[2023-04-20] MEDS: -LIDODERM PATCH NOTE- MISC SCH (21:00)
[2023-04-20] MEDS: INSULIN GLARGINE,HUM.REC.ANLOG 100 UNITS/ML SQ SCH (21:23)
[2023-04-21 00:09] VITALS: RESP 18
[2023-04-21] MEDS: NICOTINE POLACRILEX 4 MG LOZENGE PO PRN ×5 (02:55→22:05)
[2023-04-21] MEDS: BENZOCAINE/MENTHOL LOZENGE PO PRN ×5 (02:57→22:05)
[2023-04-21 05:09] VITALS: RESP 18
[2023-04-21 06:16] LABS: GLUCOMETER DEV NAME(LOC) 3EX.2; GLUCOSE,POINT OF CARE 129 MG/DL (70-110)
[2023-04-21] MEDS: INSULIN LISPRO 100 UNITS/ML SQ PRN ×3 (06:43→17:49)
[2023-04-21] MEDS: GlipiZIDE 10 MG TABLET PO SCH (06:49)
[2023-04-21 08:09] VITALS: BP 139/55; PULSE 88; RESP 18; TEMP 97.6; O2SAT 97
[2023-04-21] MEDS: MULTIVITAMINS, THERAPEUTIC TABLET PO SCH (08:09)
[2023-04-21] MEDS: OMEGA-3/DHA/EPA/FISH OIL 1,000 MG CAPSULE PO SCH (08:09)
[2023-04-21] MEDS: RisperiDONE 2 MG TABLET PO SCH ×2 (08:10→16:18)
[2023-04-21] MEDS: ATORVASTATIN CALCIUM 10 MG TABLET PO SCH (08:10)
[2023-04-21] MEDS: LIDOCAINE 5% TRANSDERMAL PATCH TD SCH (08:11)
[2023-04-21] MEDS: ALBUTEROL SULFATE HFA 90 MCG/PUFF 8 GM INHALER IH PRN (11:25)
[2023-04-21 11:57] LABS: GLUCOMETER DEV NAME(LOC) 3EX.2; GLUCOSE,POINT OF CARE 217 MG/DL (70-110)
[2023-04-21 12:34] VITALS: TEMP 97.9
[2023-04-21 16:08] VITALS: RESP 18; TEMP 98
[2023-04-21 16:51] LABS: GLUCOMETER DEV NAME(LOC) 3EX.2; GLUCOSE,POINT OF CARE 179 MG/DL (70-110)
[2023-04-21 20:26] LABS: GLUCOMETER DEV NAME(LOC) 3EX.2; GLUCOSE,POINT OF CARE 206 MG/DL (70-110)
[2023-04-21] MEDS: -LIDODERM PATCH NOTE- MISC SCH (21:00)
[2023-04-21] MEDS: MELATONIN 5 MG TABLET PO SCH (22:05)
[2023-04-21] MEDS: INSULIN GLARGINE,HUM.REC.ANLOG 100 UNITS/ML SQ SCH (22:42)
[2023-04-21] MEDS: LORazepam 2 MG TABLET PO PRN (22:47)
[2023-04-21 22:52] VITALS: BP 141/69; PULSE 98; RESP 20; TEMP 97.9
[2023-04-21] MEDS: ZOLPIDEM TARTRATE 10 MG TABLET PO PRN (23:32)
[2023-04-22] MEDS: ALBUTEROL SULFATE HFA 90 MCG/PUFF 8 GM INHALER IH PRN ×3 (03:52→17:02)
[2023-04-22] MEDS: NICOTINE POLACRILEX 4 MG LOZENGE PO PRN ×4 (03:52→18:21)
[2023-04-22] MEDS: BENZOCAINE/MENTHOL LOZENGE PO PRN ×5 (03:52→22:36)
[2023-04-22] MEDS: LORazepam 2 MG TABLET PO PRN (04:02)
[2023-04-22 04:04] VITALS: RESP 20
[2023-04-22 05:56] LABS: GLUCOMETER DEV NAME(LOC) 3EX.2; GLUCOSE,POINT OF CARE 147 MG/DL (70-110)
[2023-04-22] MEDS: INSULIN LISPRO 100 UNITS/ML SQ PRN ×3 (06:33→21:04)
[2023-04-22] MEDS: GlipiZIDE 10 MG TABLET PO SCH (06:40)
[2023-04-22] MEDS: RisperiDONE 2 MG TABLET PO SCH ×2 (07:56→17:00)
[2023-04-22] MEDS: ATORVASTATIN CALCIUM 10 MG TABLET PO SCH (07:56)
[2023-04-22] MEDS: OMEGA-3/DHA/EPA/FISH OIL 1,000 MG CAPSULE PO SCH (07:56)
[2023-04-22] MEDS: MULTIVITAMINS, THERAPEUTIC TABLET PO SCH (07:56)
[2023-04-22] MEDS: LIDOCAINE 5% TRANSDERMAL PATCH TD SCH (07:57)
[2023-04-22 09:05] VITALS: BP 149/63; PULSE 107; RESP 18; TEMP 97.2; O2SAT 98
[2023-04-22 12:00] VITALS: TEMP 97.9
[2023-04-22 12:26] LABS: GLUCOMETER DEV NAME(LOC) 3EX.2; GLUCOSE,POINT OF CARE 255 MG/DL (70-110)
[2023-04-22 16:20] VITALS: TEMP 98
[2023-04-22 17:11] LABS: GLUCOMETER DEV NAME(LOC) 3EX.2; GLUCOSE,POINT OF CARE 91 MG/DL (70-110)
[2023-04-22 19:06] LABS: COVID AG,FIA SOURCE NASAL SWAB
[2023-04-22 19:21] LABS: SARS-COV2 (COVID) ANTIGEN,FIA Negative (Negative)
[2023-04-22] MEDS: MELATONIN 5 MG TABLET PO SCH (20:14)
[2023-04-22 20:15] VITALS: BP 138/75; PULSE 86; RESP 19; TEMP 97.5; O2SAT 97
[2023-04-22 20:21] LABS: GLUCOMETER DEV NAME(LOC) 3EX.2; GLUCOSE,POINT OF CARE 285 MG/DL (70-110)
[2023-04-22] MEDS: -LIDODERM PATCH NOTE- MISC SCH (21:00)
[2023-04-22] MEDS: INSULIN GLARGINE,HUM.REC.ANLOG 100 UNITS/ML SQ SCH (21:06)
[2023-04-23] VITALS (7 sets, daily range): BP systolic 138–148; BP diastolic 70–80; PULSE 75–94; RESP 17–20; TEMP 97–98.4; O2SAT 97–99
[2023-04-23] MEDS: NICOTINE POLACRILEX 4 MG LOZENGE PO PRN ×5 (00:53→23:00)
[2023-04-23 01:25] LABS: GLUCOMETER DEV NAME(LOC) 3EX.2; GLUCOSE,POINT OF CARE 59 MG/DL (70-110)
[2023-04-23] MEDS: BENZOCAINE/MENTHOL LOZENGE PO PRN ×4 (03:21→22:46)
[2023-04-23 04:11] LABS: GLUCOMETER DEV NAME(LOC) 3EX.2; GLUCOSE,POINT OF CARE 196 MG/DL (70-110)
[2023-04-23] MEDS: GlipiZIDE 10 MG TABLET PO SCH (06:03)
[2023-04-23 06:15] LABS: GLUCOMETER DEV NAME(LOC) 3EX.2; GLUCOSE,POINT OF CARE 130 MG/DL (70-110)
[2023-04-23] MEDS: INSULIN LISPRO 100 UNITS/ML SQ PRN ×4 (06:40→21:35)
[2023-04-23 08:15] LABS: APPEARANCE,URINE CLEAR (CLEAR); BILIRUBIN,URINE NEGATIVE (NEGATIVE); COLOR,URINE COLORLESS (YELLOW); GLUCOSE, URINE (UA) NEGATIVE (NEGATIVE); KETONES,URINE NEGATIVE (NEGATIVE); LEUKOCYTE ESTERASE ,URINE NEGATIVE (NEGATIVE); NITRATE,URINE NEGATIVE (NEGATIVE); OCCULT BLOOD,URINE NEGATIVE (NEGATIVE); PROTEIN,URINE NEGATIVE (NEGATIVE); SPECIFIC GRAVITIY, URINE 1.008 (1.003-1.030); UROBILINOGEN,URINE <=1.0 mg/dL (<=1.0)
[2023-04-23] MEDS: MULTIVITAMINS, THERAPEUTIC TABLET PO SCH (08:38)
[2023-04-23] MEDS: OMEGA-3/DHA/EPA/FISH OIL 1,000 MG CAPSULE PO SCH (08:38)
[2023-04-23] MEDS: LIDOCAINE 5% TRANSDERMAL PATCH TD SCH (08:39)
[2023-04-23] MEDS: ATORVASTATIN CALCIUM 10 MG TABLET PO SCH (08:39)
[2023-04-23] MEDS: RisperiDONE 2 MG TABLET PO SCH ×2 (08:39→16:52)
[2023-04-23 09:11] LABS: BASOPHILS % (AUTO) 1.5 % (0.0-2.0); EOSINOPHILS % (AUTO) 1.8 % (1.0-6.0); HEMATOCRIT 38.9 % (41-53); HEMOGLOBIN 13.1 g/dL (13.5-17.5); LYMPHOCYTES # (AUTO) 2.9 K/uL (1.0-4.8); LYMPHOCYTES % (AUTO) 36.4 % (22.0-44.0); MEAN CORPUSCULAR HEMOGLOBIN 30.5 pg (26.0-34.0); MEAN CORPUSCULAR HGB CONC 33.7 G/dL (31.0-37.0); MEAN CORPUSCULAR VOLUME 90 fL (80-100); NEUTROPHILS # (AUTO) 3.9 K/uL (1.8-7.7); NEUTROPHILS % (AUTO) 48.3 % (40.0-70.0); PLATELET COUNT (AUTO) 252 K/uL (150-450); RED CELL DISTRIBUTION WIDTH 13.6 % (11.5-14.5); WHITE BLOOD COUNT (AUTO) 8.1 K/uL (4.5-11.0)
[2023-04-23 09:33] LABS: HEMOGLOBIN A1C 9.3 % (3.8-5.6)
[2023-04-23 09:43] LABS: ALANINE AMINOTRANSFERASE 43 U/L (12-78); ALBUMIN 3.8 g/dL (3.4-5.0); ALKALINE PHOSPHATASE 110 U/L (46-116); ANION GAP 8 mmol/L (8-16); ASPARTATE AMINOTRANSFERASE 43 U/L (15-37); BILIRUBIN,TOTAL 0.6 mg/dL (0.1-1.0); CALCIUM, TOTAL 10.1 mg/dL (8.8-10.5); CARBON DIOXIDE 29 mmol/L (22-29); CHLORIDE 98 mmol/L (98-107); CHOL/HDL RATIO 1.9 (4.2-7.3); CHOLESTEROL 159 mg/dL (131-200); GLOMERULAR FILTR. RATE CALC > 60 mL/min (>60); GLUCOSE,RANDOM 84 mg/dL (70-110); HDL CHOLESTEROL 82 mg/dL (40-60); LDL CHOL (CALC.) 70 mg/dL (0-130); POTASSIUM 4.2 mmol/L (3.5-5.1); SODIUM SERUM 135 mmol/L (136-145); THYROID STIMULATING HORMONE 2.03 uIU/mL (0.36-3.74); TOTAL PROTEIN, SERUM 8.1 g/dL (6.4-8.2); TRIGLYCERIDES 35 mg/dL (15-150); UREA NITROGEN, BLOOD 12 mg/dL (7-18)
[2023-04-23 11:31] LABS: GLUCOMETER DEV NAME(LOC) 3EX.2; GLUCOSE,POINT OF CARE 273 MG/DL (70-110)
[2023-04-23] MEDS: ALBUTEROL SULFATE HFA 90 MCG/PUFF 8 GM INHALER IH PRN (12:50)
[2023-04-23] MEDS: LORazepam 2 MG TABLET PO PRN (15:30)
[2023-04-23 16:56] LABS: GLUCOMETER DEV NAME(LOC) 3EX.2; GLUCOSE,POINT OF CARE 144 MG/DL (70-110)
[2023-04-23] MEDS: -LIDODERM PATCH NOTE- MISC SCH (21:00)
[2023-04-23 21:21] LABS: GLUCOMETER DEV NAME(LOC) 3EX.2; GLUCOSE,POINT OF CARE 232 MG/DL (70-110)
[2023-04-23] MEDS: MELATONIN 5 MG TABLET PO SCH (21:24)
[2023-04-23] MEDS: INSULIN GLARGINE,HUM.REC.ANLOG 100 UNITS/ML SQ SCH (21:34)
[2023-04-24] VITALS: RESP 18; TEMP 97
[2023-04-24 04:15] VITALS: RESP 16; TEMP 97.6
[2023-04-24] MEDS: BENZOCAINE/MENTHOL LOZENGE PO PRN ×3 (05:01→21:18)
[2023-04-24 06:06] LABS: GLUCOMETER DEV NAME(LOC) 3EX.2; GLUCOSE,POINT OF CARE 87 MG/DL (70-110)
[2023-04-24] MEDS: GlipiZIDE 10 MG TABLET PO SCH (06:30)
[2023-04-24] MEDS: OMEGA-3/DHA/EPA/FISH OIL 1,000 MG CAPSULE PO SCH (08:25)
[2023-04-24] MEDS: MULTIVITAMINS, THERAPEUTIC TABLET PO SCH (08:25)
[2023-04-24] MEDS: ATORVASTATIN CALCIUM 10 MG TABLET PO SCH (08:25)
[2023-04-24] MEDS: RisperiDONE 2 MG TABLET PO SCH ×2 (08:25→16:45)
[2023-04-24] MEDS: ALBUTEROL SULFATE HFA 90 MCG/PUFF 8 GM INHALER IH PRN ×2 (08:29→15:56)
[2023-04-24] MEDS: LIDOCAINE 5% TRANSDERMAL PATCH TD SCH (08:30)
[2023-04-24 09:18] VITALS: BP 143/85; PULSE 75; RESP 18; TEMP 98; O2SAT 97
[2023-04-24 11:26] LABS: GLUCOMETER DEV NAME(LOC) 3EX.2; GLUCOSE,POINT OF CARE 248 MG/DL (70-110)
[2023-04-24] MEDS: INSULIN LISPRO 100 UNITS/ML SQ PRN ×2 (11:45→20:25)
[2023-04-24 12:56] VITALS: TEMP 97.8
[2023-04-24 17:06] LABS: GLUCOMETER DEV NAME(LOC) 3EX.2; GLUCOSE,POINT OF CARE 88 MG/DL (70-110)
[2023-04-24 17:34] VITALS: TEMP 98.8
[2023-04-24] MEDS: -LIDODERM PATCH NOTE- MISC SCH (20:20)
[2023-04-24] MEDS: MELATONIN 5 MG TABLET PO SCH (20:21)
[2023-04-24] MEDS: INSULIN GLARGINE,HUM.REC.ANLOG 100 UNITS/ML SQ SCH (20:24)
[2023-04-24 20:37] VITALS: BP 119/60; PULSE 97; RESP 19; TEMP 97.6; O2SAT 97
[2023-04-24 20:51] LABS: GLUCOMETER DEV NAME(LOC) 3EX.2; GLUCOSE,POINT OF CARE 334 MG/DL (70-110)
[2023-04-25] MEDS: BENZOCAINE/MENTHOL LOZENGE PO PRN ×3 (02:50→21:00)
[2023-04-25] MEDS: LORazepam 2 MG TABLET PO PRN (02:50)
[2023-04-25] MEDS: ALBUTEROL SULFATE HFA 90 MCG/PUFF 8 GM INHALER IH PRN (02:53)
[2023-04-25 06:06] LABS: GLUCOMETER DEV NAME(LOC) 3EX.2; GLUCOSE,POINT OF CARE 142 MG/DL (70-110)
[2023-04-25] MEDS: GlipiZIDE 10 MG TABLET PO SCH (06:43)
[2023-04-25] MEDS: INSULIN LISPRO 100 UNITS/ML SQ PRN ×2 (07:04→21:12)
[2023-04-25] MEDS: ATORVASTATIN CALCIUM 10 MG TABLET PO SCH (08:18)
[2023-04-25] MEDS: OMEGA-3/DHA/EPA/FISH OIL 1,000 MG CAPSULE PO SCH (08:19)
[2023-04-25] MEDS: RisperiDONE 2 MG TABLET PO SCH ×2 (08:19→17:59)
[2023-04-25] MEDS: MULTIVITAMINS, THERAPEUTIC TABLET PO SCH (08:20)
[2023-04-25] MEDS: LIDOCAINE 5% TRANSDERMAL PATCH TD SCH (08:23)
[2023-04-25 08:39] VITALS: BP 121/80; PULSE 79; RESP 18; TEMP 97.8; O2SAT 98
[2023-04-25 12:06] LABS: GLUCOMETER DEV NAME(LOC) 3EX.2; GLUCOSE,POINT OF CARE 104 MG/DL (70-110)
[2023-04-25 12:29] VITALS: RESP 18; TEMP 98.2
[2023-04-25 16:21] VITALS: RESP 18; TEMP 97.7
[2023-04-25 18:17] LABS: GLUCOMETER DEV NAME(LOC) 3EX.2; GLUCOSE,POINT OF CARE 104 MG/DL (70-110)
[2023-04-25] MEDS: MELATONIN 5 MG TABLET PO SCH (20:52)
[2023-04-25] MEDS: -LIDODERM PATCH NOTE- MISC SCH (20:59)
[2023-04-25] MEDS: INSULIN GLARGINE,HUM.REC.ANLOG 100 UNITS/ML SQ SCH (21:12)
[2023-04-25 21:31] LABS: GLUCOMETER DEV NAME(LOC) 3EX.2; GLUCOSE,POINT OF CARE 205 MG/DL (70-110)
[2023-04-25 21:57] VITALS: BP 124/62; PULSE 102; RESP 17; TEMP 98.7; O2SAT 96
[2023-04-26 01:27] VITALS: RESP 18; TEMP 98.9
[2023-04-26] MEDS: BENZOCAINE/MENTHOL LOZENGE PO PRN ×3 (01:32→12:25)
[2023-04-26 05:04] VITALS: RESP 18; TEMP 98.5
[2023-04-26] MEDS: GlipiZIDE 10 MG TABLET PO SCH (06:21)
[2023-04-26 06:31] LABS: GLUCOMETER DEV NAME(LOC) 3EX.2; GLUCOSE,POINT OF CARE 75 MG/DL (70-110)
[2023-04-26] MEDS: INSULIN LISPRO 100 UNITS/ML SQ PRN ×3 (06:32→21:09)
[2023-04-26] MEDS: MULTIVITAMINS, THERAPEUTIC TABLET PO SCH (08:11)
[2023-04-26] MEDS: RisperiDONE 2 MG TABLET PO SCH ×2 (08:11→16:35)
[2023-04-26] MEDS: ATORVASTATIN CALCIUM 10 MG TABLET PO SCH (08:12)
[2023-04-26] MEDS: OMEGA-3/DHA/EPA/FISH OIL 1,000 MG CAPSULE PO SCH (08:13)
[2023-04-26] MEDS: LIDOCAINE 5% TRANSDERMAL PATCH TD SCH (08:13)
[2023-04-26 08:42] VITALS: BP 133/60; PULSE 97; RESP 18; TEMP 98.3; O2SAT 98
[2023-04-26] MEDS: LORazepam 2 MG TABLET PO PRN (08:50)
[2023-04-26 11:22] LABS: GLUCOMETER DEV NAME(LOC) 3EX.2; GLUCOSE,POINT OF CARE 209 MG/DL (70-110)
[2023-04-26 12:21] VITALS: RESP 18; TEMP 97.9
[2023-04-26 16:21] VITALS: RESP 18; TEMP 98
[2023-04-26 16:36] LABS: GLUCOMETER DEV NAME(LOC) 3EX.2; GLUCOSE,POINT OF CARE 67 MG/DL (70-110)
[2023-04-26] MEDS ORDERED: LIDOCAINE 5% TRANSDERMAL PATCH TD PRN (18:45)
[2023-04-26 20:21] LABS: GLUCOMETER DEV NAME(LOC) 3EX.2; GLUCOSE,POINT OF CARE 208 MG/DL (70-110)
[2023-04-26 20:23] VITALS: BP 129/75; PULSE 92; RESP 19; TEMP 97.8; O2SAT 97
[2023-04-26] MEDS: MELATONIN 5 MG TABLET PO SCH (20:51)
[2023-04-26] MEDS: -LIDODERM PATCH NOTE- MISC SCH (21:00)
[2023-04-26] MEDS: INSULIN GLARGINE,HUM.REC.ANLOG 100 UNITS/ML SQ SCH (21:10)
[2023-04-27] MEDS: BENZOCAINE/MENTHOL LOZENGE PO PRN ×4 (00:43→21:12)
[2023-04-27 05:34] VITALS: RESP 18; TEMP 98
[2023-04-27 06:11] LABS: GLUCOMETER DEV NAME(LOC) 3EX.2; GLUCOSE,POINT OF CARE 52 MG/DL (70-110)
[2023-04-27 06:26] LABS: GLUCOMETER DEV NAME(LOC) 3EX.2; GLUCOSE,POINT OF CARE 116 MG/DL (70-110)
[2023-04-27] MEDS: GlipiZIDE 10 MG TABLET PO SCH (06:57)
[2023-04-27] MEDS: INSULIN LISPRO 100 UNITS/ML SQ PRN ×3 (07:09→21:17)
[2023-04-27] MEDS: MULTIVITAMINS, THERAPEUTIC TABLET PO SCH (08:07)
[2023-04-27] MEDS: RisperiDONE 2 MG TABLET PO SCH ×2 (08:07→16:17)
[2023-04-27] MEDS: ATORVASTATIN CALCIUM 10 MG TABLET PO SCH (08:07)
[2023-04-27] MEDS: OMEGA-3/DHA/EPA/FISH OIL 1,000 MG CAPSULE PO SCH (08:07)
[2023-04-27 08:41] VITALS: BP 153/73; PULSE 100; RESP 18; TEMP 98.3; O2SAT 96
[2023-04-27 11:11] LABS: GLUCOMETER DEV NAME(LOC) 3EX.2; GLUCOSE,POINT OF CARE 128 MG/DL (70-110)
[2023-04-27 13:07] VITALS: RESP 18; TEMP 98.1
[2023-04-27] MEDS: HYDROCORTISONE 1% 30 GM OINTMENT TP PRN (13:32)
[2023-04-27 16:33] VITALS: RESP 18; TEMP 98.2
[2023-04-27 17:06] LABS: GLUCOMETER DEV NAME(LOC) 3EX.2; GLUCOSE,POINT OF CARE 95 MG/DL (70-110)
[2023-04-27 20:17] VITALS: BP 142/67; PULSE 78; RESP 18; TEMP 98.8
[2023-04-27 20:21] LABS: GLUCOMETER DEV NAME(LOC) 3EX.2; GLUCOSE,POINT OF CARE 316 MG/DL (70-110)
[2023-04-27] MEDS: -LIDODERM PATCH NOTE- MISC SCH (21:00)
[2023-04-27] MEDS: MELATONIN 5 MG TABLET PO SCH (21:12)
[2023-04-27] MEDS: ALBUTEROL SULFATE HFA 90 MCG/PUFF 8 GM INHALER IH PRN (21:13)
[2023-04-27] MEDS: INSULIN GLARGINE,HUM.REC.ANLOG 100 UNITS/ML SQ SCH (21:16)
[2023-04-27] MEDS: DiphenhydrAMINE HCL 25 MG CAPSULE PO PRN (21:42)
[2023-04-28 00:13] VITALS: RESP 18; TEMP 98.1
[2023-04-28] MEDS: ZOLPIDEM TARTRATE 10 MG TABLET PO PRN (00:45)
[2023-04-28] MEDS: LORazepam 2 MG TABLET PO PRN ×2 (00:45→23:17)
[2023-04-28 01:11] LABS: GLUCOMETER DEV NAME(LOC) 3EX.2; GLUCOSE,POINT OF CARE 81 MG/DL (70-110)
[2023-04-28 05:10] VITALS: RESP 17; TEMP 98
[2023-04-28 06:46] LABS: GLUCOMETER DEV NAME(LOC) 3EX.2; GLUCOSE,POINT OF CARE 90 MG/DL (70-110)
[2023-04-28] MEDS: GlipiZIDE 10 MG TABLET PO SCH (07:04)
[2023-04-28 08:24] VITALS: BP 162/70; PULSE 99; RESP 18; TEMP 98.2; O2SAT 98
[2023-04-28] MEDS: DiphenhydrAMINE HCL 25 MG CAPSULE PO PRN ×2 (08:27→15:42)
[2023-04-28] MEDS: HYDROCORTISONE 1% 30 GM OINTMENT TP PRN (08:28)
[2023-04-28] MEDS: ATORVASTATIN CALCIUM 10 MG TABLET PO SCH (08:29)
[2023-04-28] MEDS: RisperiDONE 2 MG TABLET PO SCH ×2 (08:29→16:07)
[2023-04-28] MEDS: MULTIVITAMINS, THERAPEUTIC TABLET PO SCH (08:29)
[2023-04-28] MEDS: OMEGA-3/DHA/EPA/FISH OIL 1,000 MG CAPSULE PO SCH (08:29)
[2023-04-28 09:32] LABS: COVID AG,FIA SOURCE NASAL SWAB
[2023-04-28 10:24] LABS: SARS-COV2 (COVID) ANTIGEN,FIA Negative (Negative)
[2023-04-28] MEDS: BENZOCAINE/MENTHOL LOZENGE PO PRN ×3 (11:32→20:34)
[2023-04-28] MEDS: ALBUTEROL SULFATE HFA 90 MCG/PUFF 8 GM INHALER IH PRN (11:33)
[2023-04-28] MEDS: INSULIN LISPRO 100 UNITS/ML SQ PRN ×2 (11:42→20:32)
[2023-04-28 11:46] LABS: GLUCOMETER DEV NAME(LOC) 3EX.2; GLUCOSE,POINT OF CARE 220 MG/DL (70-110)
[2023-04-28 12:10] VITALS: RESP 18; TEMP 98.6
[2023-04-28 17:11] LABS: GLUCOMETER DEV NAME(LOC) 3EX.2; GLUCOSE,POINT OF CARE 101 MG/DL (70-110)
[2023-04-28 17:14] VITALS: RESP 18; TEMP 98.5
[2023-04-28] MEDS: -LIDODERM PATCH NOTE- MISC SCH (20:21)
[2023-04-28] MEDS: MELATONIN 5 MG TABLET PO SCH (20:25)
[2023-04-28] MEDS: INSULIN GLARGINE,HUM.REC.ANLOG 100 UNITS/ML SQ SCH (20:39)
[2023-04-28 21:36] LABS: GLUCOMETER DEV NAME(LOC) 3EX.2; GLUCOSE,POINT OF CARE 212 MG/DL (70-110)
[2023-04-28 23:00] VITALS: BP 117/68; PULSE 100; RESP 19; TEMP 98.3
[2023-04-28] MEDS: IBUPROFEN 600 MG TABLET PO PRN (23:17)
[2023-04-29] VITALS: RESP 18
[2023-04-29] MEDS: BENZOCAINE/MENTHOL LOZENGE PO PRN ×3 (01:19→14:50)
[2023-04-29 04:07] VITALS: RESP 18
[2023-04-29] MEDS: DiphenhydrAMINE HCL 25 MG CAPSULE PO PRN (05:18)
[2023-04-29] MEDS: LORazepam 2 MG TABLET PO PRN (05:18)
[2023-04-29 05:21] LABS: GLUCOMETER DEV NAME(LOC) 3EX.2; GLUCOSE,POINT OF CARE 88 MG/DL (70-110)
[2023-04-29] MEDS: GlipiZIDE 10 MG TABLET PO SCH (07:00)
[2023-04-29] MEDS: INSULIN LISPRO 100 UNITS/ML SQ PRN ×4 (07:04→21:29)
[2023-04-29] MEDS: MULTIVITAMINS, THERAPEUTIC TABLET PO SCH (08:16)
[2023-04-29] MEDS: OMEGA-3/DHA/EPA/FISH OIL 1,000 MG CAPSULE PO SCH (08:16)
[2023-04-29] MEDS: RisperiDONE 2 MG TABLET PO SCH ×2 (08:16→16:34)
[2023-04-29] MEDS: ATORVASTATIN CALCIUM 10 MG TABLET PO SCH (08:16)
[2023-04-29] MEDS: HYDROCORTISONE 1% 30 GM OINTMENT TP PRN (08:20)
[2023-04-29] MEDS: ALBUTEROL SULFATE HFA 90 MCG/PUFF 8 GM INHALER IH PRN (08:22)
[2023-04-29] MEDS: ACETAMINOPHEN 325 MG TABLET PO PRN (09:23)
[2023-04-29 09:24] VITALS: BP 110/99; PULSE 76; RESP 18; TEMP 97.8; O2SAT 98
[2023-04-29 11:56] LABS: GLUCOMETER DEV NAME(LOC) 3EX.2; GLUCOSE,POINT OF CARE 183 MG/DL (70-110)
[2023-04-29 12:31] VITALS: TEMP 98.6
[2023-04-29 17:26] LABS: GLUCOMETER DEV NAME(LOC) 3EX.2; GLUCOSE,POINT OF CARE 133 MG/DL (70-110)
[2023-04-29 18:43] VITALS: BP 112/79; PULSE 75; RESP 17; TEMP 97.8; O2SAT 0
[2023-04-29] MEDS: MELATONIN 5 MG TABLET PO SCH (20:52)
[2023-04-29 20:59] VITALS: BP 114/76; PULSE 77; RESP 18; TEMP 97.7
[2023-04-29] MEDS: -LIDODERM PATCH NOTE- MISC SCH (21:00)
[2023-04-29 21:06] LABS: GLUCOMETER DEV NAME(LOC) 3EX.2; GLUCOSE,POINT OF CARE 143 MG/DL (70-110)
[2023-04-29] MEDS: INSULIN GLARGINE,HUM.REC.ANLOG 100 UNITS/ML SQ SCH (21:28)
[2023-04-30 00:16] VITALS: RESP 18
[2023-04-30] MEDS: BENZOCAINE/MENTHOL LOZENGE PO PRN ×4 (00:33→20:54)
[2023-04-30] MEDS: DiphenhydrAMINE HCL 25 MG CAPSULE PO PRN (02:30)
[2023-04-30 04:30] VITALS: RESP 18
[2023-04-30] MEDS: GlipiZIDE 10 MG TABLET PO SCH (06:02)
[2023-04-30] MEDS: INSULIN LISPRO 100 UNITS/ML SQ PRN ×3 (06:07→21:44)
[2023-04-30 06:11] LABS: GLUCOMETER DEV NAME(LOC) 3EX.2; GLUCOSE,POINT OF CARE 148 MG/DL (70-110)
[2023-04-30] MEDS: ATORVASTATIN CALCIUM 10 MG TABLET PO SCH (08:05)
[2023-04-30] MEDS: AmLODIPine BESYLATE 5 MG TABLET PO SCH (08:05)
[2023-04-30] MEDS: RisperiDONE 2 MG TABLET PO SCH ×2 (08:05→16:33)
[2023-04-30] MEDS: OMEGA-3/DHA/EPA/FISH OIL 1,000 MG CAPSULE PO SCH (08:05)
[2023-04-30] MEDS: MULTIVITAMINS, THERAPEUTIC TABLET PO SCH (08:05)
[2023-04-30] MEDS: ALBUTEROL SULFATE HFA 90 MCG/PUFF 8 GM INHALER IH PRN (08:16)
[2023-04-30 08:46] VITALS: BP 144/61; PULSE 102; RESP 17; TEMP 98; O2SAT 99
[2023-04-30 11:41] LABS: GLUCOMETER DEV NAME(LOC) 3EX.2; GLUCOSE,POINT OF CARE 368 MG/DL (70-110)
[2023-04-30] MEDS ORDERED: HALOPERIDOL LACTATE 5 MG/ML VIAL ONE (12:02)
[2023-04-30] MEDS ORDERED: LORazepam 2 MG/ML VIAL ONE (12:02)
[2023-04-30] MEDS ORDERED: DiphenhydrAMINE HCL 50 MG/ML VIAL ONE (12:02)
[2023-04-30] MEDS ORDERED: LORazepam 2 MG/ML VIAL IM ONE (12:15)
[2023-04-30] MEDS ORDERED: HALOPERIDOL LACTATE 5 MG/ML VIAL IM ONE (12:15)
[2023-04-30] MEDS ORDERED: DiphenhydrAMINE HCL 50 MG/ML VIAL IM ONE (12:15)
[2023-04-30 12:29] VITALS: RESP 18; TEMP 97.8
[2023-04-30 17:06] LABS: GLUCOMETER DEV NAME(LOC) 3EX.2; GLUCOSE,POINT OF CARE 89 MG/DL (70-110)
[2023-04-30 17:11] VITALS: RESP 18; TEMP 98.1
[2023-04-30] MEDS: -LIDODERM PATCH NOTE- MISC SCH (20:48)
[2023-04-30] MEDS: MELATONIN 5 MG TABLET PO SCH (20:54)
[2023-04-30 20:56] VITALS: BP 133/64; PULSE 98; RESP 18; TEMP 98.9; O2SAT 95
[2023-04-30] MEDS: INSULIN GLARGINE,HUM.REC.ANLOG 100 UNITS/ML SQ SCH (21:43)
[2023-05-01 00:08] VITALS: RESP 16
[2023-05-01 04:48] VITALS: RESP 16
[2023-05-01] MEDS: GlipiZIDE 10 MG TABLET PO SCH (06:01)
[2023-05-01 06:16] LABS: GLUCOMETER DEV NAME(LOC) 3EX.2; GLUCOSE,POINT OF CARE 112 MG/DL (70-110)
[2023-05-01] MEDS: BENZOCAINE/MENTHOL LOZENGE PO PRN (06:28)
[2023-05-01 07:50] VITALS: BP 157/75; PULSE 98; RESP 20; TEMP 97.8
[2023-05-01] MEDS: OMEGA-3/DHA/EPA/FISH OIL 1,000 MG CAPSULE PO SCH (08:04)
[2023-05-01] MEDS: AmLODIPine BESYLATE 5 MG TABLET PO SCH ×2 (08:04→09:00)
[2023-05-01] MEDS: MULTIVITAMINS, THERAPEUTIC TABLET PO SCH (08:04)
[2023-05-01] MEDS: RisperiDONE 2 MG TABLET PO SCH ×2 (08:05→16:42)
[2023-05-01] MEDS: ATORVASTATIN CALCIUM 10 MG TABLET PO SCH (08:05)
[2023-05-01 11:31] LABS: GLUCOMETER DEV NAME(LOC) 3EX.2; GLUCOSE,POINT OF CARE 157 MG/DL (70-110)
[2023-05-01] MEDS: INSULIN LISPRO 100 UNITS/ML SQ PRN (11:35)
[2023-05-01] MEDS: HYDROCORTISONE 1% 30 GM OINTMENT TP PRN (11:54)
[2023-05-01 12:05] VITALS: RESP 18; TEMP 98.1
[2023-05-01 17:10] LABS: GLUCOMETER DEV NAME(LOC) 3EX.2; GLUCOSE,POINT OF CARE 106 MG/DL (70-110)
[2023-05-01 17:40] VITALS: RESP 20; TEMP 97.7
[2023-05-01 20:21] LABS: GLUCOMETER DEV NAME(LOC) 3EX.2; GLUCOSE,POINT OF CARE 424 MG/DL (70-110)
[2023-05-01] MEDS: MELATONIN 5 MG TABLET PO SCH (20:29)
[2023-05-01] MEDS ORDERED: INSULIN LISPRO 100 UNITS/ML SQ ONE (20:45)
[2023-05-01 20:46] VITALS: BP 150/65; PULSE 74; RESP 19; TEMP 98.4; O2SAT 100
[2023-05-01] MEDS: INSULIN GLARGINE,HUM.REC.ANLOG 100 UNITS/ML SQ SCH (20:50)
[2023-05-01] MEDS: -LIDODERM PATCH NOTE- MISC SCH (20:55)
[2023-05-01] MEDS: DiphenhydrAMINE HCL 25 MG CAPSULE PO PRN (22:44)
[2023-05-02 00:04] VITALS: RESP 18
[2023-05-02 06:01] LABS: GLUCOMETER DEV NAME(LOC) 3EX.2; GLUCOSE,POINT OF CARE 88 MG/DL (70-110)
[2023-05-02] MEDS: GlipiZIDE 10 MG TABLET PO SCH (06:33)
[2023-05-02] MEDS: OMEGA-3/DHA/EPA/FISH OIL 1,000 MG CAPSULE PO SCH (08:01)
[2023-05-02] MEDS: RisperiDONE 2 MG TABLET PO SCH ×2 (08:01→16:18)
[2023-05-02] MEDS: ATORVASTATIN CALCIUM 10 MG TABLET PO SCH (08:01)
[2023-05-02] MEDS: BENZOCAINE/MENTHOL LOZENGE PO PRN ×2 (08:01→14:14)
[2023-05-02] MEDS: MULTIVITAMINS, THERAPEUTIC TABLET PO SCH (08:01)
[2023-05-02] MEDS: DiphenhydrAMINE HCL 25 MG CAPSULE PO PRN (08:03)
[2023-05-02] MEDS: AmLODIPine BESYLATE 5 MG TABLET PO SCH (08:05)
[2023-05-02 08:30] VITALS: BP 125/61; PULSE 84; RESP 18; TEMP 98.4; O2SAT 98
[2023-05-02] MEDS: INSULIN LISPRO 100 UNITS/ML SQ PRN ×3 (11:20→21:19)
[2023-05-02 11:30] LABS: GLUCOMETER DEV NAME(LOC) 3EX.2; GLUCOSE,POINT OF CARE 285 MG/DL (70-110)
[2023-05-02 12:08] VITALS: TEMP 97.9
[2023-05-02] MEDS: ALBUTEROL SULFATE HFA 90 MCG/PUFF 8 GM INHALER IH PRN (16:19)
[2023-05-02 16:38] VITALS: TEMP 97.7
[2023-05-02 17:01] LABS: GLUCOMETER DEV NAME(LOC) 3EX.2; GLUCOSE,POINT OF CARE 158 MG/DL (70-110)
[2023-05-02 20:05] VITALS: BP 120/69; PULSE 79; RESP 18; TEMP 97.9; O2SAT 97
[2023-05-02 20:16] LABS: GLUCOMETER DEV NAME(LOC) 3EX.2; GLUCOSE,POINT OF CARE 190 MG/DL (70-110)
[2023-05-02] MEDS: -LIDODERM PATCH NOTE- MISC SCH (21:00)
[2023-05-02] MEDS: MELATONIN 5 MG TABLET PO SCH (21:03)
[2023-05-02] MEDS: INSULIN GLARGINE,HUM.REC.ANLOG 100 UNITS/ML SQ SCH (21:17)
[2023-05-03 00:40] VITALS: RESP 17; TEMP 97.8
[2023-05-03] MEDS: BENZOCAINE/MENTHOL LOZENGE PO PRN ×2 (03:16→19:52)
[2023-05-03] MEDS: ALBUTEROL SULFATE HFA 90 MCG/PUFF 8 GM INHALER IH PRN (03:16)
[2023-05-03 04:06] VITALS: TEMP 97.8
[2023-05-03 06:26] LABS: GLUCOMETER DEV NAME(LOC) 3EX.2; GLUCOSE,POINT OF CARE 166 MG/DL (70-110)
[2023-05-03] MEDS: INSULIN LISPRO 100 UNITS/ML SQ PRN ×3 (06:40→21:06)
[2023-05-03] MEDS: GlipiZIDE 10 MG TABLET PO SCH (07:00)
[2023-05-03] MEDS: MULTIVITAMINS, THERAPEUTIC TABLET PO SCH (08:25)
[2023-05-03] MEDS: RisperiDONE 2 MG TABLET PO SCH ×2 (08:25→16:48)
[2023-05-03] MEDS: OMEGA-3/DHA/EPA/FISH OIL 1,000 MG CAPSULE PO SCH (08:25)
[2023-05-03] MEDS: ATORVASTATIN CALCIUM 10 MG TABLET PO SCH (08:26)
[2023-05-03] MEDS: AmLODIPine BESYLATE 5 MG TABLET PO SCH (09:00)
[2023-05-03 09:38] VITALS: BP 129/69; PULSE 76; RESP 18; TEMP 98; O2SAT 98
[2023-05-03 11:41] LABS: GLUCOMETER DEV NAME(LOC) 3EX.2; GLUCOSE,POINT OF CARE 200 MG/DL (70-110)
[2023-05-03 12:46] VITALS: RESP 18; TEMP 98
[2023-05-03 13:17] LABS: COVID AG,FIA SOURCE NASAL SWAB
[2023-05-03 13:50] LABS: SARS-COV2 (COVID) ANTIGEN,FIA Negative (Negative)
[2023-05-03 16:18] VITALS: RESP 18; TEMP 97.9
[2023-05-03 17:27] LABS: GLUCOMETER DEV NAME(LOC) 3EX.2; GLUCOSE,POINT OF CARE 279 MG/DL (70-110)
[2023-05-03] MEDS: MELATONIN 5 MG TABLET PO SCH (20:16)
[2023-05-03] MEDS: -LIDODERM PATCH NOTE- MISC SCH (20:18)
[2023-05-03 20:58] VITALS: BP 141/65; PULSE 81; RESP 20; TEMP 97.6; O2SAT 99
[2023-05-03] MEDS: INSULIN GLARGINE,HUM.REC.ANLOG 100 UNITS/ML SQ SCH (21:06)
[2023-05-03 21:20] LABS: GLUCOMETER DEV NAME(LOC) 3EX.2; GLUCOSE,POINT OF CARE 223 MG/DL (70-110)
[2023-05-04] MEDS: BENZOCAINE/MENTHOL LOZENGE PO PRN ×4 (01:12→22:09)
[2023-05-04] MEDS: GlipiZIDE 10 MG TABLET PO SCH (06:27)
[2023-05-04] MEDS: INSULIN LISPRO 100 UNITS/ML SQ PRN ×3 (06:39→21:26)
[2023-05-04 06:41] LABS: GLUCOMETER DEV NAME(LOC) 3EX.2; GLUCOSE,POINT OF CARE 169 MG/DL (70-110)
[2023-05-04] MEDS: OMEGA-3/DHA/EPA/FISH OIL 1,000 MG CAPSULE PO SCH (08:18)
[2023-05-04] MEDS: ATORVASTATIN CALCIUM 10 MG TABLET PO SCH (08:19)
[2023-05-04] MEDS: MULTIVITAMINS, THERAPEUTIC TABLET PO SCH (08:19)
[2023-05-04] MEDS: ASPIRIN 81 MG CHEWABLE TABLET PO SCH (08:19)
[2023-05-04] MEDS: RisperiDONE 2 MG TABLET PO SCH ×2 (08:19→16:42)
[2023-05-04 08:43] VITALS: BP 133/57; PULSE 97; RESP 16; TEMP 97.6; O2SAT 97
[2023-05-04 11:51] LABS: GLUCOMETER DEV NAME(LOC) 3EX.2; GLUCOSE,POINT OF CARE 96 MG/DL (70-110)
[2023-05-04 13:17] VITALS: RESP 18; TEMP 98.3
[2023-05-04 16:12] VITALS: RESP 18; TEMP 98
[2023-05-04 17:01] LABS: GLUCOMETER DEV NAME(LOC) 3EX.2; GLUCOSE,POINT OF CARE 301 MG/DL (70-110)
[2023-05-04 20:06] LABS: GLUCOMETER DEV NAME(LOC) 3EX.2; GLUCOSE,POINT OF CARE 194 MG/DL (70-110)
[2023-05-04] MEDS: MELATONIN 5 MG TABLET PO SCH (20:48)
[2023-05-04] MEDS: -LIDODERM PATCH NOTE- MISC SCH (21:00)
[2023-05-04] MEDS: INSULIN GLARGINE,HUM.REC.ANLOG 100 UNITS/ML SQ SCH (21:26)
[2023-05-05] MEDS: BENZOCAINE/MENTHOL LOZENGE PO PRN ×2 (04:22→17:14)
[2023-05-05 05:40] VITALS: RESP 17; TEMP 97.6
[2023-05-05 06:06] LABS: GLUCOMETER DEV NAME(LOC) 3EX.2; GLUCOSE,POINT OF CARE 135 MG/DL (70-110)
[2023-05-05] MEDS: GlipiZIDE 10 MG TABLET PO SCH (06:29)
[2023-05-05] MEDS: INSULIN LISPRO 100 UNITS/ML SQ PRN ×4 (06:38→21:05)
[2023-05-05 08:03] VITALS: BP 134/56; PULSE 74; RESP 18; TEMP 97.6; O2SAT 98
[2023-05-05] MEDS: ATORVASTATIN CALCIUM 10 MG TABLET PO SCH (08:32)
[2023-05-05] MEDS: ASPIRIN 81 MG CHEWABLE TABLET PO SCH (08:32)
[2023-05-05] MEDS: MULTIVITAMINS, THERAPEUTIC TABLET PO SCH (08:32)
[2023-05-05] MEDS: RisperiDONE 2 MG TABLET PO SCH ×2 (08:32→16:40)
[2023-05-05] MEDS: OMEGA-3/DHA/EPA/FISH OIL 1,000 MG CAPSULE PO SCH (08:32)
[2023-05-05 11:56] LABS: GLUCOMETER DEV NAME(LOC) 3EX.2; GLUCOSE,POINT OF CARE 188 MG/DL (70-110)
[2023-05-05 12:10] VITALS: RESP 18; TEMP 98.2
[2023-05-05 16:16] VITALS: RESP 18; TEMP 97.8
[2023-05-05 17:01] LABS: GLUCOMETER DEV NAME(LOC) 3EX.2; GLUCOSE,POINT OF CARE 367 MG/DL (70-110)
[2023-05-05 20:02] VITALS: BP 130/80; PULSE 71; RESP 18; TEMP 97.8; O2SAT 97
[2023-05-05] MEDS: -LIDODERM PATCH NOTE- MISC SCH (20:37)
[2023-05-05 21:00] LABS: GLUCOMETER DEV NAME(LOC) 3EX.2; GLUCOSE,POINT OF CARE 170 MG/DL (70-110)
[2023-05-05] MEDS: MELATONIN 5 MG TABLET PO SCH (21:02)
[2023-05-05] MEDS: INSULIN GLARGINE,HUM.REC.ANLOG 100 UNITS/ML SQ SCH (21:05)
[2023-05-06 00:44] VITALS: RESP 18; TEMP 97.9
[2023-05-06] MEDS: BENZOCAINE/MENTHOL LOZENGE PO PRN ×2 (02:24→20:18)
[2023-05-06 05:20] VITALS: RESP 17; TEMP 97.8
[2023-05-06 06:11] LABS: GLUCOMETER DEV NAME(LOC) 3EX.2; GLUCOSE,POINT OF CARE 86 MG/DL (70-110)
[2023-05-06] MEDS: GlipiZIDE 10 MG TABLET PO SCH (06:32)
[2023-05-06] MEDS: INSULIN LISPRO 100 UNITS/ML SQ PRN ×4 (06:32→20:44)
[2023-05-06] MEDS: RisperiDONE 2 MG TABLET PO SCH ×2 (08:35→17:01)
[2023-05-06] MEDS: ASPIRIN 81 MG CHEWABLE TABLET PO SCH (08:35)
[2023-05-06] MEDS: OMEGA-3/DHA/EPA/FISH OIL 1,000 MG CAPSULE PO SCH (08:35)
[2023-05-06] MEDS: ATORVASTATIN CALCIUM 10 MG TABLET PO SCH (08:36)
[2023-05-06] MEDS: MULTIVITAMINS, THERAPEUTIC TABLET PO SCH (08:36)
[2023-05-06 09:26] VITALS: BP 121/51; PULSE 88; RESP 18; TEMP 98; O2SAT 98
[2023-05-06 11:31] LABS: GLUCOMETER DEV NAME(LOC) 3EX.2; GLUCOSE,POINT OF CARE 247 MG/DL (70-110)
[2023-05-06 12:42] VITALS: RESP 17; TEMP 97.6; O2SAT 98
[2023-05-06 17:07] VITALS: TEMP 97.9
[2023-05-06] MEDS: PETROLATUM,WHITE 28 GM JELLY TP PRN (17:32)
[2023-05-06 17:41] LABS: GLUCOMETER DEV NAME(LOC) 3EX.2; GLUCOSE,POINT OF CARE 227 MG/DL (70-110)
[2023-05-06 20:21] VITALS: BP 114/61; PULSE 76; RESP 18; TEMP 98.9
[2023-05-06 20:26] LABS: GLUCOMETER DEV NAME(LOC) 3EX.2; GLUCOSE,POINT OF CARE 273 MG/DL (70-110)
[2023-05-06] MEDS: -LIDODERM PATCH NOTE- MISC SCH (20:41)
[2023-05-06] MEDS: MELATONIN 5 MG TABLET PO SCH (20:41)
[2023-05-06] MEDS: INSULIN GLARGINE,HUM.REC.ANLOG 100 UNITS/ML SQ SCH (20:43)
[2023-05-07 00:40] VITALS: RESP 19; TEMP 97.3
[2023-05-07] MEDS: BENZOCAINE/MENTHOL LOZENGE PO PRN ×2 (03:25→14:46)
[2023-05-07 04:21] VITALS: RESP 16
[2023-05-07 06:16] LABS: GLUCOMETER DEV NAME(LOC) 3EX.2; GLUCOSE,POINT OF CARE 84 MG/DL (70-110)
[2023-05-07] MEDS: GlipiZIDE 10 MG TABLET PO SCH (06:30)
[2023-05-07] MEDS: INSULIN LISPRO 100 UNITS/ML SQ PRN ×4 (06:31→21:19)
[2023-05-07] MEDS: ASPIRIN 81 MG CHEWABLE TABLET PO SCH (07:45)
[2023-05-07] MEDS: RisperiDONE 2 MG TABLET PO SCH ×2 (07:45→16:31)
[2023-05-07] MEDS: OMEGA-3/DHA/EPA/FISH OIL 1,000 MG CAPSULE PO SCH (07:45)
[2023-05-07] MEDS: MULTIVITAMINS, THERAPEUTIC TABLET PO SCH (07:45)
[2023-05-07] MEDS: ATORVASTATIN CALCIUM 10 MG TABLET PO SCH (07:46)
[2023-05-07 08:25] VITALS: BP 116/55; PULSE 88; RESP 18; TEMP 97.6; O2SAT 97
[2023-05-07 11:42] LABS: GLUCOMETER DEV NAME(LOC) 3EX.2; GLUCOSE,POINT OF CARE 213 MG/DL (70-110)
[2023-05-07 12:28] LABS: COVID AG,FIA SOURCE NASAL SWAB
[2023-05-07 12:48] VITALS: TEMP 97.8
[2023-05-07 13:00] LABS: SARS-COV2 (COVID) ANTIGEN,FIA Negative (Negative)
[2023-05-07 16:12] VITALS: TEMP 97.5
[2023-05-07 17:26] LABS: GLUCOMETER DEV NAME(LOC) 3EX.2; GLUCOSE,POINT OF CARE 317 MG/DL (70-110)
[2023-05-07] MEDS: LORazepam 2 MG TABLET PO PRN (20:24)
[2023-05-07] MEDS: MELATONIN 5 MG TABLET PO SCH (20:25)
[2023-05-07] MEDS: -LIDODERM PATCH NOTE- MISC SCH (20:27)
[2023-05-07 20:31] LABS: GLUCOMETER DEV NAME(LOC) 3EX.2; GLUCOSE,POINT OF CARE 287 MG/DL (70-110)
[2023-05-07 20:32] VITALS: BP 120/60; PULSE 78; RESP 18; TEMP 97.6
[2023-05-07] MEDS: INSULIN GLARGINE,HUM.REC.ANLOG 100 UNITS/ML SQ SCH (21:18)
[2023-05-08 00:10] VITALS: RESP 16; TEMP 97
[2023-05-08 05:00] VITALS: RESP 18; TEMP 97.8
[2023-05-08 06:01] LABS: GLUCOMETER DEV NAME(LOC) 3EX.2; GLUCOSE,POINT OF CARE 109 MG/DL (70-110)
[2023-05-08] MEDS: INSULIN LISPRO 100 UNITS/ML SQ PRN ×4 (06:38→21:09)
[2023-05-08] MEDS: GlipiZIDE 10 MG TABLET PO SCH (06:38)
[2023-05-08] MEDS: RisperiDONE 2 MG TABLET PO SCH ×2 (07:44→16:18)
[2023-05-08] MEDS: ASPIRIN 81 MG CHEWABLE TABLET PO SCH (07:44)
[2023-05-08] MEDS: OMEGA-3/DHA/EPA/FISH OIL 1,000 MG CAPSULE PO SCH (07:44)
[2023-05-08] MEDS: ATORVASTATIN CALCIUM 10 MG TABLET PO SCH (07:44)
[2023-05-08] MEDS: MULTIVITAMINS, THERAPEUTIC TABLET PO SCH (07:45)
[2023-05-08 08:12] VITALS: BP 134/70; PULSE 81; RESP 18; TEMP 97.8; O2SAT 97
[2023-05-08] MEDS: BENZOCAINE/MENTHOL LOZENGE PO PRN (09:42)
[2023-05-08 11:37] LABS: GLUCOMETER DEV NAME(LOC) 3EX.2; GLUCOSE,POINT OF CARE 226 MG/DL (70-110)
[2023-05-08 12:15] VITALS: TEMP 97.5
[2023-05-08] MEDS: DiphenhydrAMINE HCL 25 MG CAPSULE PO PRN (15:55)
[2023-05-08 16:30] VITALS: TEMP 98.2
[2023-05-08 17:12] LABS: GLUCOMETER DEV NAME(LOC) 3EX.2; GLUCOSE,POINT OF CARE 164 MG/DL (70-110)
[2023-05-08 19:56] LABS: GLUCOMETER DEV NAME(LOC) 3EX.2; GLUCOSE,POINT OF CARE 270 MG/DL (70-110)
[2023-05-08] MEDS: INSULIN GLARGINE,HUM.REC.ANLOG 100 UNITS/ML SQ SCH (21:08)
[2023-05-08] MEDS: MELATONIN 5 MG TABLET PO SCH (21:10)
[2023-05-09] MEDS: GlipiZIDE 10 MG TABLET PO SCH (06:36)
[2023-05-09 06:46] LABS: GLUCOMETER DEV NAME(LOC) 3EX.2; GLUCOSE,POINT OF CARE 133 MG/DL (70-110)
[2023-05-09] MEDS: INSULIN LISPRO 100 UNITS/ML SQ PRN ×3 (06:47→21:16)
[2023-05-09] MEDS: RisperiDONE 2 MG TABLET PO SCH ×2 (08:10→16:31)
[2023-05-09] MEDS: ASPIRIN 81 MG CHEWABLE TABLET PO SCH (08:10)
[2023-05-09] MEDS: ATORVASTATIN CALCIUM 10 MG TABLET PO SCH (08:10)
[2023-05-09] MEDS: OMEGA-3/DHA/EPA/FISH OIL 1,000 MG CAPSULE PO SCH (08:10)
[2023-05-09] MEDS: MULTIVITAMINS, THERAPEUTIC TABLET PO SCH (08:11)
[2023-05-09] MEDS: BENZOCAINE/MENTHOL LOZENGE PO PRN ×3 (08:20→22:36)
[2023-05-09] MEDS: DiphenhydrAMINE HCL 25 MG CAPSULE PO PRN ×2 (08:22→18:19)
[2023-05-09 08:46] VITALS: BP 144/84; PULSE 90; RESP 18; TEMP 97.7; O2SAT 99
[2023-05-09 11:52] LABS: GLUCOMETER DEV NAME(LOC) 3EX.2; GLUCOSE,POINT OF CARE 142 MG/DL (70-110)
[2023-05-09 12:40] VITALS: TEMP 98.8
[2023-05-09 16:16] VITALS: RESP 19; TEMP 98.6; O2SAT 98
[2023-05-09 17:06] LABS: GLUCOMETER DEV NAME(LOC) 3EX.2; GLUCOSE,POINT OF CARE 69 MG/DL (70-110)
[2023-05-09 17:37] LABS: GLUCOMETER DEV NAME(LOC) 3EX.2; GLUCOSE,POINT OF CARE 172 MG/DL (70-110)
[2023-05-09] MEDS: ALBUTEROL SULFATE HFA 90 MCG/PUFF 8 GM INHALER IH PRN (18:18)
[2023-05-09] MEDS: MELATONIN 5 MG TABLET PO SCH (20:12)
[2023-05-09 20:17] LABS: GLUCOMETER DEV NAME(LOC) 3EX.2; GLUCOSE,POINT OF CARE 264 MG/DL (70-110)
[2023-05-09 20:34] VITALS: BP 154/91; PULSE 98; RESP 18; TEMP 98.7; O2SAT 98
[2023-05-09] MEDS: INSULIN GLARGINE,HUM.REC.ANLOG 100 UNITS/ML SQ SCH (21:15)
[2023-05-10 00:07] VITALS: RESP 18; TEMP 98.2
[2023-05-10 04:56] VITALS: RESP 18
[2023-05-10] MEDS: DiphenhydrAMINE HCL 25 MG CAPSULE PO PRN ×2 (06:03→20:00)
[2023-05-10] MEDS: BENZOCAINE/MENTHOL LOZENGE PO PRN ×3 (06:03→20:00)
[2023-05-10] MEDS: ALBUTEROL SULFATE HFA 90 MCG/PUFF 8 GM INHALER IH PRN ×2 (06:03→20:07)
[2023-05-10 06:28] LABS: GLUCOMETER DEV NAME(LOC) 3EX.2; GLUCOSE,POINT OF CARE 88 MG/DL (70-110)
[2023-05-10] MEDS: GlipiZIDE 10 MG TABLET PO SCH (06:46)
[2023-05-10] MEDS: MULTIVITAMINS, THERAPEUTIC TABLET PO SCH (08:03)
[2023-05-10] MEDS: OMEGA-3/DHA/EPA/FISH OIL 1,000 MG CAPSULE PO SCH (08:03)
[2023-05-10] MEDS: ASPIRIN 81 MG CHEWABLE TABLET PO SCH (08:03)
[2023-05-10] MEDS: RisperiDONE 2 MG TABLET PO SCH ×2 (08:03→16:07)
[2023-05-10] MEDS: ATORVASTATIN CALCIUM 10 MG TABLET PO SCH (08:04)
[2023-05-10 08:21] VITALS: BP 142/77; PULSE 103; RESP 18; TEMP 98.1; O2SAT 98
[2023-05-10] MEDS: INSULIN LISPRO 100 UNITS/ML SQ PRN ×3 (11:36→21:18)
[2023-05-10 11:43] LABS: GLUCOMETER DEV NAME(LOC) 3EX.2; GLUCOSE,POINT OF CARE 203 MG/DL (70-110)
[2023-05-10 14:01] VITALS: RESP 18; TEMP 97.8
[2023-05-10 16:11] VITALS: RESP 18; TEMP 97.8
[2023-05-10 17:06] LABS: GLUCOMETER DEV NAME(LOC) 3EX.2; GLUCOSE,POINT OF CARE 127 MG/DL (70-110)
[2023-05-10 20:11] LABS: GLUCOMETER DEV NAME(LOC) 3EX.2; GLUCOSE,POINT OF CARE 306 MG/DL (70-110)
[2023-05-10] MEDS: MELATONIN 5 MG TABLET PO SCH (20:13)
[2023-05-10 20:29] VITALS: BP 129/76; PULSE 95; RESP 18; TEMP 97.8
[2023-05-10] MEDS: INSULIN GLARGINE,HUM.REC.ANLOG 100 UNITS/ML SQ SCH (21:18)
[2023-05-11] MEDS: GlipiZIDE 10 MG TABLET PO SCH (06:12)
[2023-05-11] MEDS: DiphenhydrAMINE HCL 25 MG CAPSULE PO PRN ×2 (06:12→16:00)
[2023-05-11 06:21] LABS: GLUCOMETER DEV NAME(LOC) 3EX.2; GLUCOSE,POINT OF CARE 132 MG/DL (70-110)
[2023-05-11] MEDS: INSULIN LISPRO 100 UNITS/ML SQ PRN ×4 (06:39→21:20)
[2023-05-11] MEDS: RisperiDONE 2 MG TABLET PO SCH ×2 (08:19→16:00)
[2023-05-11] MEDS: OMEGA-3/DHA/EPA/FISH OIL 1,000 MG CAPSULE PO SCH (08:19)
[2023-05-11] MEDS: ATORVASTATIN CALCIUM 10 MG TABLET PO SCH (08:19)
[2023-05-11] MEDS: MULTIVITAMINS, THERAPEUTIC TABLET PO SCH (08:20)
[2023-05-11] MEDS: ASPIRIN 81 MG CHEWABLE TABLET PO SCH (08:20)
[2023-05-11 09:03] VITALS: BP 137/66; PULSE 78; RESP 16; TEMP 97.1; O2SAT 100
[2023-05-11 12:06] LABS: GLUCOMETER DEV NAME(LOC) 3EX.2; GLUCOSE,POINT OF CARE 160 MG/DL (70-110)
[2023-05-11] MEDS: LORazepam 2 MG TABLET PO PRN (16:00)
[2023-05-11] MEDS: ALBUTEROL SULFATE HFA 90 MCG/PUFF 8 GM INHALER IH PRN (16:00)
[2023-05-11] MEDS ORDERED: DiphenhydrAMINE HCL 50 MG/ML VIAL IM ONE (17:30)
[2023-05-11] MEDS ORDERED: LORazepam 2 MG/ML VIAL IM ONE (17:30)
[2023-05-11] MEDS ORDERED: HALOPERIDOL LACTATE 5 MG/ML VIAL IM ONE (17:30)
[2023-05-11 17:31] LABS: GLUCOMETER DEV NAME(LOC) 3EX.2; GLUCOSE,POINT OF CARE 231 MG/DL (70-110)
[2023-05-11] MEDS: MELATONIN 5 MG TABLET PO SCH (21:00)
[2023-05-11] MEDS: INSULIN GLARGINE,HUM.REC.ANLOG 100 UNITS/ML SQ SCH (21:19)
[2023-05-11 21:26] VITALS: RESP 18
[2023-05-11 21:31] LABS: GLUCOMETER DEV NAME(LOC) 3EX.2; GLUCOSE,POINT OF CARE 304 MG/DL (70-110)
[2023-05-12] MEDS: DiphenhydrAMINE HCL 25 MG CAPSULE PO PRN ×2 (06:07→23:29)
[2023-05-12 06:11] LABS: GLUCOMETER DEV NAME(LOC) 3EX.2; GLUCOSE,POINT OF CARE 102 MG/DL (70-110)
[2023-05-12] MEDS: GlipiZIDE 10 MG TABLET PO SCH (07:04)
[2023-05-12] MEDS: INSULIN LISPRO 100 UNITS/ML SQ PRN ×3 (07:11→21:10)
[2023-05-12] MEDS: OMEGA-3/DHA/EPA/FISH OIL 1,000 MG CAPSULE PO SCH (08:07)
[2023-05-12] MEDS: ALBUTEROL SULFATE HFA 90 MCG/PUFF 8 GM INHALER IH PRN (08:07)
[2023-05-12] MEDS: RisperiDONE 2 MG TABLET PO SCH ×2 (08:07→16:36)
[2023-05-12] MEDS: ATORVASTATIN CALCIUM 10 MG TABLET PO SCH (08:08)
[2023-05-12] MEDS: ASPIRIN 81 MG CHEWABLE TABLET PO SCH (08:08)
[2023-05-12] MEDS: MULTIVITAMINS, THERAPEUTIC TABLET PO SCH (08:09)
[2023-05-12 09:21] VITALS: BP 140/70; PULSE 79; RESP 18; TEMP 98; O2SAT 97
[2023-05-12 11:46] LABS: GLUCOMETER DEV NAME(LOC) 3EX.2; GLUCOSE,POINT OF CARE 207 MG/DL (70-110)
[2023-05-12] MEDS: ASCORBIC ACID 500 MG TABLET PO SCH (13:14)
[2023-05-12 18:02] LABS: GLUCOMETER DEV NAME(LOC) 3EX.2; GLUCOSE,POINT OF CARE 98 MG/DL (70-110)
[2023-05-12 18:02] LABS: GLUCOMETER DEV NAME(LOC) 3EX.2; GLUCOSE,POINT OF CARE 62 MG/DL (70-110)
[2023-05-12 20:31] VITALS: BP 128/71; PULSE 97; RESP 18; TEMP 98.3; O2SAT 99
[2023-05-12 21:02] LABS: GLUCOMETER DEV NAME(LOC) 3EX.2; GLUCOSE,POINT OF CARE 255 MG/DL (70-110)
[2023-05-12] MEDS: INSULIN GLARGINE,HUM.REC.ANLOG 100 UNITS/ML SQ SCH (21:10)
[2023-05-12] MEDS: MELATONIN 5 MG TABLET PO SCH (21:12)
[2023-05-12] MEDS: BENZOCAINE/MENTHOL LOZENGE PO PRN (23:33)
[2023-05-13] MEDS: BENZOCAINE/MENTHOL LOZENGE PO PRN ×3 (03:40→19:55)
[2023-05-13 05:31] LABS: GLUCOMETER DEV NAME(LOC) 3EX.2; GLUCOSE,POINT OF CARE 172 MG/DL (70-110)
[2023-05-13] MEDS: PETROLATUM,WHITE 28 GM JELLY TP PRN (05:41)
[2023-05-13] MEDS: GlipiZIDE 10 MG TABLET PO SCH (06:33)
[2023-05-13] MEDS: INSULIN LISPRO 100 UNITS/ML SQ PRN ×4 (06:37→21:05)
[2023-05-13] MEDS: ATORVASTATIN CALCIUM 10 MG TABLET PO SCH (08:01)
[2023-05-13] MEDS: ASPIRIN 81 MG CHEWABLE TABLET PO SCH (08:02)
[2023-05-13] MEDS: ASCORBIC ACID 500 MG TABLET PO SCH (08:03)
[2023-05-13] MEDS: RisperiDONE 2 MG TABLET PO SCH ×2 (08:03→16:55)
[2023-05-13] MEDS: OMEGA-3/DHA/EPA/FISH OIL 1,000 MG CAPSULE PO SCH (08:03)
[2023-05-13] MEDS: MULTIVITAMINS, THERAPEUTIC TABLET PO SCH (08:03)
[2023-05-13] MEDS: ALBUTEROL SULFATE HFA 90 MCG/PUFF 8 GM INHALER IH PRN (08:06)
[2023-05-13 08:54] VITALS: BP 148/78; PULSE 94; RESP 18; TEMP 97.6; O2SAT 97
[2023-05-13] MEDS: LORazepam 2 MG TABLET PO PRN ×2 (09:59→23:09)
[2023-05-13 11:42] LABS: GLUCOMETER DEV NAME(LOC) 3EX.2; GLUCOSE,POINT OF CARE 239 MG/DL (70-110)
[2023-05-13] MEDS: DiphenhydrAMINE HCL 25 MG CAPSULE PO PRN ×2 (16:57→23:01)
[2023-05-13 17:16] LABS: GLUCOMETER DEV NAME(LOC) 3EX.2; GLUCOSE,POINT OF CARE 333 MG/DL (70-110)
[2023-05-13] MEDS ORDERED: INFLUENZA VIRUS VACCINE QVS 2023-24 (6MO+)/PF 60 MCG/0.5 ML SYRINGE IM. ONE (17:45)
[2023-05-13 20:46] LABS: GLUCOMETER DEV NAME(LOC) 3EX.2; GLUCOSE,POINT OF CARE 211 MG/DL (70-110)
[2023-05-13 20:49] VITALS: BP 140/62; PULSE 98; RESP 18; TEMP 98.1; O2SAT 98
[2023-05-13] MEDS: MELATONIN 5 MG TABLET PO SCH (20:55)
[2023-05-13] MEDS: INSULIN GLARGINE,HUM.REC.ANLOG 100 UNITS/ML SQ SCH (21:04)
[2023-05-14] MEDS: BENZOCAINE/MENTHOL LOZENGE PO PRN ×4 (01:33→22:01)
[2023-05-14 05:36] LABS: GLUCOMETER DEV NAME(LOC) 3EX.2; GLUCOSE,POINT OF CARE 282 MG/DL (70-110)
[2023-05-14] MEDS: INSULIN LISPRO 100 UNITS/ML SQ PRN ×4 (06:34→21:10)
[2023-05-14] MEDS: GlipiZIDE 10 MG TABLET PO SCH (06:34)
[2023-05-14] MEDS: ATORVASTATIN CALCIUM 10 MG TABLET PO SCH (07:54)
[2023-05-14] MEDS: OMEGA-3/DHA/EPA/FISH OIL 1,000 MG CAPSULE PO SCH (07:56)
[2023-05-14] MEDS: ASCORBIC ACID 500 MG TABLET PO SCH (07:56)
[2023-05-14] MEDS: RisperiDONE 2 MG TABLET PO SCH ×2 (07:56→16:53)
[2023-05-14] MEDS: ASPIRIN 81 MG CHEWABLE TABLET PO SCH (07:56)
[2023-05-14] MEDS: MULTIVITAMINS, THERAPEUTIC TABLET PO SCH (07:56)
[2023-05-14 08:00] VITALS: BP 128/65; PULSE 103; RESP 18; TEMP 96.9; O2SAT 97
[2023-05-14] MEDS: ALBUTEROL SULFATE HFA 90 MCG/PUFF 8 GM INHALER IH PRN ×3 (08:02→23:04)
[2023-05-14 11:36] LABS: GLUCOMETER DEV NAME(LOC) 3EX.2; GLUCOSE,POINT OF CARE 309 MG/DL (70-110)
[2023-05-14] MEDS: DiphenhydrAMINE HCL 25 MG CAPSULE PO PRN ×2 (16:53→23:03)
[2023-05-14 17:06] LABS: GLUCOMETER DEV NAME(LOC) 3EX.2; GLUCOSE,POINT OF CARE 197 MG/DL (70-110)
[2023-05-14] MEDS: MELATONIN 5 MG TABLET PO SCH (20:22)
[2023-05-14 20:31] LABS: GLUCOMETER DEV NAME(LOC) 3EX.2; GLUCOSE,POINT OF CARE 328 MG/DL (70-110)
[2023-05-14 20:49] VITALS: BP 141/67; PULSE 99; RESP 18; TEMP 97.1; O2SAT 99
[2023-05-14] MEDS: INSULIN GLARGINE,HUM.REC.ANLOG 100 UNITS/ML SQ SCH (21:11)
[2023-05-15] MEDS: GlipiZIDE 10 MG TABLET PO SCH (06:18)
[2023-05-15] MEDS: DiphenhydrAMINE HCL 25 MG CAPSULE PO PRN ×2 (06:18→21:29)
[2023-05-15] MEDS: ALBUTEROL SULFATE HFA 90 MCG/PUFF 8 GM INHALER IH PRN ×2 (06:20→16:37)
[2023-05-15 06:32] LABS: GLUCOMETER DEV NAME(LOC) 3EX.2; GLUCOSE,POINT OF CARE 178 MG/DL (70-110)
[2023-05-15] MEDS: INSULIN LISPRO 100 UNITS/ML SQ PRN ×3 (06:36→21:05)
[2023-05-15] MEDS: ATORVASTATIN CALCIUM 10 MG TABLET PO SCH (08:22)
[2023-05-15] MEDS: RisperiDONE 2 MG TABLET PO SCH ×2 (08:23→16:37)
[2023-05-15] MEDS: MULTIVITAMINS, THERAPEUTIC TABLET PO SCH (08:23)
[2023-05-15] MEDS: OMEGA-3/DHA/EPA/FISH OIL 1,000 MG CAPSULE PO SCH (08:23)
[2023-05-15] MEDS: ASPIRIN 81 MG CHEWABLE TABLET PO SCH (08:24)
[2023-05-15] MEDS: ASCORBIC ACID 500 MG TABLET PO SCH (08:24)
[2023-05-15 08:35] VITALS: BP 166/80; PULSE 102; RESP 18; TEMP 97.5; O2SAT 97
[2023-05-15 11:56] LABS: GLUCOMETER DEV NAME(LOC) 3EX.2; GLUCOSE,POINT OF CARE 241 MG/DL (70-110)
[2023-05-15 16:51] LABS: GLUCOMETER DEV NAME(LOC) 3EX.2; GLUCOSE,POINT OF CARE 93 MG/DL (70-110)
[2023-05-15] MEDS: LORazepam 2 MG TABLET PO PRN (20:15)
[2023-05-15] MEDS: MELATONIN 5 MG TABLET PO SCH (20:45)
[2023-05-15] MEDS: INSULIN GLARGINE,HUM.REC.ANLOG 100 UNITS/ML SQ SCH (21:05)
[2023-05-15 21:11] LABS: GLUCOMETER DEV NAME(LOC) 3EX.2; GLUCOSE,POINT OF CARE 265 MG/DL (70-110)
[2023-05-15 21:14] VITALS: BP 155/86; PULSE 100; RESP 19; TEMP 97.6; O2SAT 96
[2023-05-16] MEDS: BENZOCAINE/MENTHOL LOZENGE PO PRN ×4 (00:15→21:07)
[2023-05-16 05:41] LABS: GLUCOMETER DEV NAME(LOC) 3EX.2; GLUCOSE,POINT OF CARE 238 MG/DL (70-110)
[2023-05-16] MEDS: GlipiZIDE 10 MG TABLET PO SCH (06:32)
[2023-05-16] MEDS: INSULIN LISPRO 100 UNITS/ML SQ PRN ×4 (06:33→21:27)
[2023-05-16] MEDS: OMEGA-3/DHA/EPA/FISH OIL 1,000 MG CAPSULE PO SCH (08:24)
[2023-05-16] MEDS: ATORVASTATIN CALCIUM 10 MG TABLET PO SCH (08:24)
[2023-05-16] MEDS: ASPIRIN 81 MG CHEWABLE TABLET PO SCH (08:24)
[2023-05-16] MEDS: ASCORBIC ACID 500 MG TABLET PO SCH (08:25)
[2023-05-16] MEDS: MULTIVITAMINS, THERAPEUTIC TABLET PO SCH (08:25)
[2023-05-16] MEDS: RisperiDONE 2 MG TABLET PO SCH ×2 (08:25→16:28)
[2023-05-16] MEDS: DiphenhydrAMINE HCL 25 MG CAPSULE PO PRN ×2 (08:39→16:44)
[2023-05-16 08:43] VITALS: BP 141/74; PULSE 104; RESP 18; TEMP 97.1; O2SAT 99
[2023-05-16] MEDS: LORazepam 2 MG TABLET PO PRN ×2 (08:45→21:06)
[2023-05-16] MEDS: ALBUTEROL SULFATE HFA 90 MCG/PUFF 8 GM INHALER IH PRN ×2 (09:30→16:46)
[2023-05-16 11:11] LABS: GLUCOMETER DEV NAME(LOC) 3EX.2; GLUCOSE,POINT OF CARE 199 MG/DL (70-110)
[2023-05-16 16:52] LABS: GLUCOMETER DEV NAME(LOC) 3EX.2; GLUCOSE,POINT OF CARE 290 MG/DL (70-110)
[2023-05-16 17:30] LABS: GLUCOMETER DEV NAME(LOC) 3EX.2; GLUCOSE,POINT OF CARE 313 MG/DL (70-110)
[2023-05-16 20:10] VITALS: RESP 18
[2023-05-16] MEDS: MELATONIN 5 MG TABLET PO SCH (21:06)
[2023-05-16] MEDS: INSULIN GLARGINE,HUM.REC.ANLOG 100 UNITS/ML SQ SCH (21:25)
[2023-05-16 21:47] LABS: GLUCOMETER DEV NAME(LOC) 3EX.2; GLUCOSE,POINT OF CARE 167 MG/DL (70-110)
[2023-05-17] MEDS: ALBUTEROL SULFATE HFA 90 MCG/PUFF 8 GM INHALER IH PRN ×2 (04:31→17:28)
[2023-05-17] MEDS: BENZOCAINE/MENTHOL LOZENGE PO PRN ×3 (04:31→21:44)
[2023-05-17] MEDS: DiphenhydrAMINE HCL 25 MG CAPSULE PO PRN ×2 (06:06→20:38)
[2023-05-17] MEDS: GlipiZIDE 10 MG TABLET PO SCH (06:10)
[2023-05-17] MEDS: INSULIN LISPRO 100 UNITS/ML SQ PRN ×3 (06:34→21:11)
[2023-05-17 06:46] LABS: GLUCOMETER DEV NAME(LOC) 3EX.2; GLUCOSE,POINT OF CARE 274 MG/DL (70-110)
[2023-05-17] MEDS: MULTIVITAMINS, THERAPEUTIC TABLET PO SCH (07:29)
[2023-05-17] MEDS: RisperiDONE 2 MG TABLET PO SCH ×2 (07:29→16:38)
[2023-05-17] MEDS: ASPIRIN 81 MG CHEWABLE TABLET PO SCH (07:30)
[2023-05-17] MEDS: ASCORBIC ACID 500 MG TABLET PO SCH (07:30)
[2023-05-17] MEDS: OMEGA-3/DHA/EPA/FISH OIL 1,000 MG CAPSULE PO SCH (07:30)
[2023-05-17] MEDS: ATORVASTATIN CALCIUM 10 MG TABLET PO SCH (07:31)
[2023-05-17 15:31] LABS: GLUCOMETER DEV NAME(LOC) 3EX.2; GLUCOSE,POINT OF CARE 152 MG/DL (70-110)
[2023-05-17] MEDS: LORazepam 2 MG TABLET PO PRN (16:38)
[2023-05-17] MEDS: MELATONIN 5 MG TABLET PO SCH (20:36)
[2023-05-17 20:50] VITALS: RESP 19
[2023-05-17] MEDS: INSULIN GLARGINE,HUM.REC.ANLOG 100 UNITS/ML SQ SCH (21:09)
[2023-05-17 21:26] LABS: GLUCOMETER DEV NAME(LOC) 3EX.2; GLUCOSE,POINT OF CARE 250 MG/DL (70-110)
[2023-05-18] MEDS: LORazepam 2 MG TABLET PO PRN ×2 (01:10→14:19)
[2023-05-18] MEDS: BENZOCAINE/MENTHOL LOZENGE PO PRN ×3 (02:12→11:51)
[2023-05-18] MEDS: DiphenhydrAMINE HCL 25 MG CAPSULE PO PRN ×2 (03:15→11:52)
[2023-05-18] MEDS: GlipiZIDE 10 MG TABLET PO SCH (06:18)
[2023-05-18] MEDS: INSULIN LISPRO 100 UNITS/ML SQ PRN ×4 (06:46→21:17)
[2023-05-18 06:51] LABS: GLUCOMETER DEV NAME(LOC) 3EX.2; GLUCOSE,POINT OF CARE 160 MG/DL (70-110)
[2023-05-18] MEDS: RisperiDONE 2 MG TABLET PO SCH ×2 (08:34→16:21)
[2023-05-18] MEDS: ASCORBIC ACID 500 MG TABLET PO SCH (08:34)
[2023-05-18] MEDS: ASPIRIN 81 MG CHEWABLE TABLET PO SCH (08:34)
[2023-05-18] MEDS: MULTIVITAMINS, THERAPEUTIC TABLET PO SCH (08:34)
[2023-05-18] MEDS: OMEGA-3/DHA/EPA/FISH OIL 1,000 MG CAPSULE PO SCH (08:34)
[2023-05-18] MEDS: ATORVASTATIN CALCIUM 10 MG TABLET PO SCH (08:35)
[2023-05-18 08:40] VITALS: RESP 18
[2023-05-18] MEDS: ALBUTEROL SULFATE HFA 90 MCG/PUFF 8 GM INHALER IH PRN (11:51)
[2023-05-18 12:01] LABS: GLUCOMETER DEV NAME(LOC) 3EX.2; GLUCOSE,POINT OF CARE 228 MG/DL (70-110)
[2023-05-18] MEDS ORDERED: HALOPERIDOL LACTATE 5 MG/ML VIAL IM ONE (16:45)
[2023-05-18] MEDS ORDERED: DiphenhydrAMINE HCL 50 MG/ML VIAL IM ONE (16:45)
[2023-05-18] MEDS ORDERED: LORazepam 2 MG/ML VIAL IM ONE (16:45)
[2023-05-18] MEDS ORDERED: LORazepam 2 MG/ML VIAL ONE (16:46)
[2023-05-18] MEDS ORDERED: DiphenhydrAMINE HCL 50 MG/ML VIAL ONE (16:47)
[2023-05-18] MEDS ORDERED: HALOPERIDOL LACTATE 5 MG/ML VIAL ONE (16:47)
[2023-05-18 17:52] LABS: GLUCOMETER DEV NAME(LOC) 3EX.2; GLUCOSE,POINT OF CARE 120 MG/DL (70-110)
[2023-05-18 20:51] LABS: GLUCOMETER DEV NAME(LOC) 3EX.2; GLUCOSE,POINT OF CARE 256 MG/DL (70-110)
[2023-05-18] MEDS: MELATONIN 5 MG TABLET PO SCH (21:00)
[2023-05-18] MEDS: INSULIN GLARGINE,HUM.REC.ANLOG 100 UNITS/ML SQ SCH (21:15)
[2023-05-18 22:23] VITALS: RESP 18
[2023-05-19] MEDS: DiphenhydrAMINE HCL 25 MG CAPSULE PO PRN ×2 (00:08→09:45)
[2023-05-19] MEDS: BENZOCAINE/MENTHOL LOZENGE PO PRN ×2 (00:09→08:39)
[2023-05-19] MEDS: LORazepam 2 MG TABLET PO PRN ×2 (00:09→09:45)
[2023-05-19] MEDS: ALBUTEROL SULFATE HFA 90 MCG/PUFF 8 GM INHALER IH PRN ×2 (01:28→08:39)
[2023-05-19] MEDS: GlipiZIDE 10 MG TABLET PO SCH (06:57)
[2023-05-19] MEDS: INSULIN LISPRO 100 UNITS/ML SQ PRN ×4 (07:00→21:05)
[2023-05-19 07:07] LABS: GLUCOMETER DEV NAME(LOC) 3E.C; GLUCOSE,POINT OF CARE 162 MG/DL (70-110)
[2023-05-19] MEDS: MULTIVITAMINS, THERAPEUTIC TABLET PO SCH (08:36)
[2023-05-19] MEDS: ATORVASTATIN CALCIUM 10 MG TABLET PO SCH (08:37)
[2023-05-19] MEDS: OMEGA-3/DHA/EPA/FISH OIL 1,000 MG CAPSULE PO SCH (08:37)
[2023-05-19] MEDS: RisperiDONE 2 MG TABLET PO SCH ×2 (08:37→16:42)
[2023-05-19] MEDS: ASPIRIN 81 MG CHEWABLE TABLET PO SCH (08:37)
[2023-05-19] MEDS: ASCORBIC ACID 500 MG TABLET PO SCH (08:37)
[2023-05-19 09:00] VITALS: BP 150/66; PULSE 101; RESP 18; TEMP 97.4
[2023-05-19] MEDS ORDERED: HALOPERIDOL LACTATE 5 MG/ML VIAL IM ONE (11:00)
[2023-05-19] MEDS ORDERED: LORazepam 2 MG/ML VIAL IM ONE (11:00)
[2023-05-19] MEDS ORDERED: DiphenhydrAMINE HCL 50 MG/ML VIAL IM ONE (11:00)
[2023-05-19] MEDS ORDERED: DiphenhydrAMINE HCL 50 MG/ML VIAL ONE (11:02)
[2023-05-19] MEDS ORDERED: LORazepam 2 MG/ML VIAL ONE (11:02)
[2023-05-19] MEDS ORDERED: HALOPERIDOL LACTATE 5 MG/ML VIAL ONE (11:02)
[2023-05-19 12:02] LABS: GLUCOMETER DEV NAME(LOC) 3EX.2; GLUCOSE,POINT OF CARE 155 MG/DL (70-110)
[2023-05-19 17:01] LABS: GLUCOMETER DEV NAME(LOC) 3EX.2; GLUCOSE,POINT OF CARE 125 MG/DL (70-110)
[2023-05-19 20:29] VITALS: RESP 19
[2023-05-19 20:36] LABS: GLUCOMETER DEV NAME(LOC) 3EX.2; GLUCOSE,POINT OF CARE 345 MG/DL (70-110)
[2023-05-19] MEDS: MELATONIN 5 MG TABLET PO SCH (20:52)
[2023-05-19] MEDS: INSULIN GLARGINE,HUM.REC.ANLOG 100 UNITS/ML SQ SCH (21:03)
[2023-05-20] MEDS: BENZOCAINE/MENTHOL LOZENGE PO PRN ×3 (03:56→17:14)
[2023-05-20] MEDS: LORazepam 2 MG TABLET PO PRN (03:56)
[2023-05-20] MEDS: DiphenhydrAMINE HCL 25 MG CAPSULE PO PRN ×3 (03:56→21:18)
[2023-05-20 06:46] LABS: GLUCOMETER DEV NAME(LOC) 3E.C; GLUCOSE,POINT OF CARE 111 MG/DL (70-110)
[2023-05-20] MEDS: GlipiZIDE 10 MG TABLET PO SCH (06:52)
[2023-05-20] MEDS: MULTIVITAMINS, THERAPEUTIC TABLET PO SCH (07:45)
[2023-05-20] MEDS: RisperiDONE 2 MG TABLET PO SCH ×2 (07:45→17:12)
[2023-05-20] MEDS: ASCORBIC ACID 500 MG TABLET PO SCH (07:45)
[2023-05-20] MEDS: OMEGA-3/DHA/EPA/FISH OIL 1,000 MG CAPSULE PO SCH (07:45)
[2023-05-20] MEDS: ASPIRIN 81 MG CHEWABLE TABLET PO SCH (07:45)
[2023-05-20] MEDS: ATORVASTATIN CALCIUM 10 MG TABLET PO SCH (07:46)
[2023-05-20 09:23] VITALS: BP 145/67; PULSE 96; RESP 18; TEMP 97.1
[2023-05-20] MEDS: INSULIN LISPRO 100 UNITS/ML SQ PRN ×2 (11:40→21:22)
[2023-05-20 11:46] LABS: GLUCOMETER DEV NAME(LOC) 3EX.2; GLUCOSE,POINT OF CARE 278 MG/DL (70-110)
[2023-05-20] MEDS: ALBUTEROL SULFATE HFA 90 MCG/PUFF 8 GM INHALER IH PRN (11:46)
[2023-05-20 17:17] LABS: GLUCOMETER DEV NAME(LOC) 3EX.2; GLUCOSE,POINT OF CARE 59 MG/DL (70-110)
[2023-05-20 17:26] LABS: GLUCOMETER DEV NAME(LOC) 3EX.2; GLUCOSE,POINT OF CARE 68 MG/DL (70-110)
[2023-05-20 17:46] LABS: GLUCOMETER DEV NAME(LOC) 3EX.2; GLUCOSE,POINT OF CARE 136 MG/DL (70-110)
[2023-05-20 20:15] LABS: GLUCOMETER DEV NAME(LOC) 3EX.2; GLUCOSE,POINT OF CARE 202 MG/DL (70-110)
[2023-05-20 20:31] VITALS: RESP 18
[2023-05-20] MEDS: MELATONIN 5 MG TABLET PO SCH (21:18)
[2023-05-20] MEDS: INSULIN GLARGINE,HUM.REC.ANLOG 100 UNITS/ML SQ SCH (21:21)
[2023-05-21] MEDS: GlipiZIDE 10 MG TABLET PO SCH (06:21)
[2023-05-21 06:36] LABS: GLUCOMETER DEV NAME(LOC) 3EX.2; GLUCOSE,POINT OF CARE 110 MG/DL (70-110)
[2023-05-21] MEDS: INSULIN LISPRO 100 UNITS/ML SQ PRN ×4 (06:44→21:19)
[2023-05-21] MEDS: OMEGA-3/DHA/EPA/FISH OIL 1,000 MG CAPSULE PO SCH (09:00)
[2023-05-21] MEDS: ASCORBIC ACID 500 MG TABLET PO SCH (09:00)
[2023-05-21] MEDS: RisperiDONE 2 MG TABLET PO SCH ×2 (09:00→18:44)
[2023-05-21] MEDS: ASPIRIN 81 MG CHEWABLE TABLET PO SCH (09:01)
[2023-05-21] MEDS: LORazepam 2 MG TABLET PO PRN ×2 (09:01→13:08)
[2023-05-21] MEDS: MULTIVITAMINS, THERAPEUTIC TABLET PO SCH (09:01)
[2023-05-21] MEDS: ATORVASTATIN CALCIUM 10 MG TABLET PO SCH (09:01)
[2023-05-21] MEDS: DiphenhydrAMINE HCL 25 MG CAPSULE PO PRN ×2 (10:38→21:15)
[2023-05-21] MEDS: ALBUTEROL SULFATE HFA 90 MCG/PUFF 8 GM INHALER IH PRN ×2 (10:38→21:15)
[2023-05-21] MEDS: BENZOCAINE/MENTHOL LOZENGE PO PRN ×2 (11:55→21:15)
[2023-05-21 12:01] LABS: GLUCOMETER DEV NAME(LOC) 3EX.2; GLUCOSE,POINT OF CARE 264 MG/DL (70-110)
[2023-05-21 12:44] VITALS: BP 135/67; PULSE 107; RESP 18; TEMP 97.1; O2SAT 96
[2023-05-21 17:11] LABS: GLUCOMETER DEV NAME(LOC) 3EX.2; GLUCOSE,POINT OF CARE 229 MG/DL (70-110)
[2023-05-21 20:42] VITALS: RESP 18
[2023-05-21] MEDS: MELATONIN 5 MG TABLET PO SCH (21:06)
[2023-05-21] MEDS: INSULIN GLARGINE,HUM.REC.ANLOG 100 UNITS/ML SQ SCH (21:18)
[2023-05-21 21:36] LABS: GLUCOMETER DEV NAME(LOC) 3EX.2; GLUCOSE,POINT OF CARE 162 MG/DL (70-110)
[2023-05-22] MEDS: GlipiZIDE 10 MG TABLET PO SCH (07:17)
[2023-05-22] MEDS: INSULIN LISPRO 100 UNITS/ML SQ PRN ×4 (07:18→20:49)
[2023-05-22 07:30] LABS: GLUCOMETER DEV NAME(LOC) 3EX.2; GLUCOSE,POINT OF CARE 103 MG/DL (70-110)
[2023-05-22] MEDS: ASPIRIN 81 MG CHEWABLE TABLET PO SCH (09:20)
[2023-05-22] MEDS: ASCORBIC ACID 500 MG TABLET PO SCH (09:20)
[2023-05-22] MEDS: ATORVASTATIN CALCIUM 10 MG TABLET PO SCH (09:21)
[2023-05-22] MEDS: MULTIVITAMINS, THERAPEUTIC TABLET PO SCH (09:21)
[2023-05-22] MEDS: RisperiDONE 2 MG TABLET PO SCH ×2 (09:21→16:42)
[2023-05-22] MEDS: OMEGA-3/DHA/EPA/FISH OIL 1,000 MG CAPSULE PO SCH (09:22)
[2023-05-22] MEDS: LORazepam 2 MG TABLET PO PRN (09:26)
[2023-05-22] MEDS: DiphenhydrAMINE HCL 25 MG CAPSULE PO PRN ×2 (09:26→17:11)
[2023-05-22] MEDS: BENZOCAINE/MENTHOL LOZENGE PO PRN ×3 (09:26→19:59)
[2023-05-22 09:27] VITALS: BP 134/101; PULSE 102; RESP 18; TEMP 97; O2SAT 95
[2023-05-22 13:00] LABS: GLUCOMETER DEV NAME(LOC) 3EX.2; GLUCOSE,POINT OF CARE 195 MG/DL (70-110)
[2023-05-22] MEDS: ALBUTEROL SULFATE HFA 90 MCG/PUFF 8 GM INHALER IH PRN (17:10)
[2023-05-22 17:26] LABS: GLUCOMETER DEV NAME(LOC) 3EX.2; GLUCOSE,POINT OF CARE 140 MG/DL (70-110)
[2023-05-22] MEDS: MELATONIN 5 MG TABLET PO SCH (20:07)
[2023-05-22 20:16] LABS: GLUCOMETER DEV NAME(LOC) 3EX.2; GLUCOSE,POINT OF CARE 311 MG/DL (70-110)
[2023-05-22 20:38] VITALS: BP 145/68; PULSE 100; RESP 18; TEMP 97.2
[2023-05-22] MEDS: INSULIN GLARGINE,HUM.REC.ANLOG 100 UNITS/ML SQ SCH (20:50)
[2023-05-23] MEDS: BENZOCAINE/MENTHOL LOZENGE PO PRN ×3 (03:29→20:40)
[2023-05-23] MEDS: DiphenhydrAMINE HCL 25 MG CAPSULE PO PRN ×3 (03:29→20:40)
[2023-05-23] MEDS: LORazepam 2 MG TABLET PO PRN ×2 (03:29→12:57)
[2023-05-23] MEDS: GlipiZIDE 10 MG TABLET PO SCH (06:01)
[2023-05-23 06:06] LABS: GLUCOMETER DEV NAME(LOC) 3EX.2; GLUCOSE,POINT OF CARE 125 MG/DL (70-110)
[2023-05-23] MEDS: INSULIN LISPRO 100 UNITS/ML SQ PRN ×3 (06:25→21:16)
[2023-05-23] MEDS: MULTIVITAMINS, THERAPEUTIC TABLET PO SCH (08:06)
[2023-05-23] MEDS: ATORVASTATIN CALCIUM 10 MG TABLET PO SCH (08:06)
[2023-05-23] MEDS: OMEGA-3/DHA/EPA/FISH OIL 1,000 MG CAPSULE PO SCH (08:06)
[2023-05-23] MEDS: ASCORBIC ACID 500 MG TABLET PO SCH (08:06)
[2023-05-23] MEDS: RisperiDONE 2 MG TABLET PO SCH ×2 (08:07→17:17)
[2023-05-23] MEDS: ASPIRIN 81 MG CHEWABLE TABLET PO SCH (08:07)
[2023-05-23] MEDS: ALBUTEROL SULFATE HFA 90 MCG/PUFF 8 GM INHALER IH PRN (08:10)
[2023-05-23 11:11] VITALS: BP 134/79; PULSE 93; RESP 18; TEMP 97.7; O2SAT 97
[2023-05-23 11:56] LABS: GLUCOMETER DEV NAME(LOC) 3EX.2; GLUCOSE,POINT OF CARE 223 MG/DL (70-110)
[2023-05-23 17:47] LABS: GLUCOMETER DEV NAME(LOC) 3EX.2; GLUCOSE,POINT OF CARE 73 MG/DL (70-110)
[2023-05-23 20:01] LABS: GLUCOMETER DEV NAME(LOC) 3EX.2; GLUCOSE,POINT OF CARE 345 MG/DL (70-110)
[2023-05-23 20:30] VITALS: BP 152/75; PULSE 97; RESP 19; TEMP 97.6; O2SAT 98
[2023-05-23] MEDS: MELATONIN 5 MG TABLET PO SCH (20:40)
[2023-05-23] MEDS: INSULIN GLARGINE,HUM.REC.ANLOG 100 UNITS/ML SQ SCH (21:15)
[2023-05-24] MEDS: DiphenhydrAMINE HCL 25 MG CAPSULE PO PRN ×2 (06:39→17:44)
[2023-05-24] MEDS: GlipiZIDE 10 MG TABLET PO SCH (06:39)
[2023-05-24] MEDS: BENZOCAINE/MENTHOL LOZENGE PO PRN ×2 (06:39→14:17)
[2023-05-24] MEDS: INSULIN LISPRO 100 UNITS/ML SQ PRN ×4 (06:42→21:09)
[2023-05-24 06:52] LABS: GLUCOMETER DEV NAME(LOC) 3EX.2; GLUCOSE,POINT OF CARE 138 MG/DL (70-110)
[2023-05-24 07:52] VITALS: BP 147/67; PULSE 94; RESP 18; TEMP 97.9; O2SAT 100
[2023-05-24] MEDS: ASPIRIN 81 MG CHEWABLE TABLET PO SCH (08:04)
[2023-05-24] MEDS: ASCORBIC ACID 500 MG TABLET PO SCH (08:04)
[2023-05-24] MEDS: OMEGA-3/DHA/EPA/FISH OIL 1,000 MG CAPSULE PO SCH (08:04)
[2023-05-24] MEDS: MULTIVITAMINS, THERAPEUTIC TABLET PO SCH (08:04)
[2023-05-24] MEDS: RisperiDONE 2 MG TABLET PO SCH ×2 (08:04→17:12)
[2023-05-24] MEDS: ATORVASTATIN CALCIUM 10 MG TABLET PO SCH (08:06)
[2023-05-24 09:20] VITALS: BP 147/67; PULSE 94; RESP 18; TEMP 97.9; O2SAT 100
[2023-05-24 11:41] LABS: GLUCOMETER DEV NAME(LOC) 3EX.2; GLUCOSE,POINT OF CARE 241 MG/DL (70-110)
[2023-05-24] MEDS: LORazepam 2 MG TABLET PO PRN ×2 (12:08→17:43)
[2023-05-24 17:32] LABS: GLUCOMETER DEV NAME(LOC) 3EX.2; GLUCOSE,POINT OF CARE 261 MG/DL (70-110)
[2023-05-24 20:51] LABS: GLUCOMETER DEV NAME(LOC) 3EX.2; GLUCOSE,POINT OF CARE 294 MG/DL (70-110)
[2023-05-24] MEDS: MELATONIN 5 MG TABLET PO SCH (20:54)
[2023-05-24] MEDS: INSULIN GLARGINE,HUM.REC.ANLOG 100 UNITS/ML SQ SCH (21:07)
[2023-05-25] MEDS: BENZOCAINE/MENTHOL LOZENGE PO PRN ×3 (04:45→21:34)
[2023-05-25] MEDS: DiphenhydrAMINE HCL 25 MG CAPSULE PO PRN ×2 (04:45→17:12)
[2023-05-25] MEDS: GlipiZIDE 10 MG TABLET PO SCH (06:59)
[2023-05-25] MEDS: INSULIN LISPRO 100 UNITS/ML SQ PRN ×3 (07:18→21:07)
[2023-05-25 07:21] LABS: GLUCOMETER DEV NAME(LOC) 3EX.2; GLUCOSE,POINT OF CARE 237 MG/DL (70-110)
[2023-05-25] MEDS: ASPIRIN 81 MG CHEWABLE TABLET PO SCH (08:12)
[2023-05-25] MEDS: ASCORBIC ACID 500 MG TABLET PO SCH (08:12)
[2023-05-25] MEDS: RisperiDONE 2 MG TABLET PO SCH ×2 (08:12→17:12)
[2023-05-25] MEDS: OMEGA-3/DHA/EPA/FISH OIL 1,000 MG CAPSULE PO SCH (08:12)
[2023-05-25] MEDS: MULTIVITAMINS, THERAPEUTIC TABLET PO SCH (08:12)
[2023-05-25] MEDS: LORazepam 2 MG TABLET PO PRN (08:12)
[2023-05-25] MEDS: ATORVASTATIN CALCIUM 10 MG TABLET PO SCH (08:13)
[2023-05-25 08:38] VITALS: BP 156/69; PULSE 94; RESP 18; TEMP 97.7; O2SAT 99
[2023-05-25 11:47] LABS: GLUCOMETER DEV NAME(LOC) 3EX.2; GLUCOSE,POINT OF CARE 53 MG/DL (70-110)
[2023-05-25 12:06] LABS: GLUCOMETER DEV NAME(LOC) 3EX.2; GLUCOSE,POINT OF CARE 106 MG/DL (70-110)
[2023-05-25 17:26] LABS: GLUCOMETER DEV NAME(LOC) 3EX.2; GLUCOSE,POINT OF CARE 161 MG/DL (70-110)
[2023-05-25 20:21] LABS: GLUCOMETER DEV NAME(LOC) 3EX.2; GLUCOSE,POINT OF CARE 193 MG/DL (70-110)
[2023-05-25 20:52] VITALS: BP 149/72; PULSE 92; RESP 19; TEMP 98.1; O2SAT 98
[2023-05-25] MEDS: INSULIN GLARGINE,HUM.REC.ANLOG 100 UNITS/ML SQ SCH (21:08)
[2023-05-25] MEDS: MELATONIN 5 MG TABLET PO SCH (21:33)
[2023-05-26] MEDS: GlipiZIDE 10 MG TABLET PO SCH (06:15)
[2023-05-26] MEDS: DiphenhydrAMINE HCL 25 MG CAPSULE PO PRN ×2 (06:16→17:02)
[2023-05-26 06:22] LABS: GLUCOMETER DEV NAME(LOC) 3EX.2; GLUCOSE,POINT OF CARE 104 MG/DL (70-110)
[2023-05-26] MEDS: INSULIN LISPRO 100 UNITS/ML SQ PRN ×4 (06:41→22:27)
[2023-05-26] MEDS: BENZOCAINE/MENTHOL LOZENGE PO PRN ×2 (07:16→13:12)
[2023-05-26] MEDS: ASPIRIN 81 MG CHEWABLE TABLET PO SCH (08:08)
[2023-05-26] MEDS: RisperiDONE 2 MG TABLET PO SCH ×2 (08:08→16:27)
[2023-05-26] MEDS: OMEGA-3/DHA/EPA/FISH OIL 1,000 MG CAPSULE PO SCH (08:08)
[2023-05-26] MEDS: ATORVASTATIN CALCIUM 10 MG TABLET PO SCH (08:08)
[2023-05-26] MEDS: MULTIVITAMINS, THERAPEUTIC TABLET PO SCH (08:08)
[2023-05-26] MEDS: ASCORBIC ACID 500 MG TABLET PO SCH (08:08)
[2023-05-26 09:12] VITALS: BP 145/73; PULSE 95; RESP 18; TEMP 96.9; O2SAT 98
[2023-05-26 11:37] LABS: GLUCOMETER DEV NAME(LOC) 3EX.2; GLUCOSE,POINT OF CARE 282 MG/DL (70-110)
[2023-05-26 12:00] LABS: GLUCOMETER DEV NAME(LOC) 3EX.2; GLUCOSE,POINT OF CARE 260 MG/DL (70-110)
[2023-05-26 13:02] LABS: GLUCOMETER DEV NAME(LOC) 3EX.2; GLUCOSE,POINT OF CARE 192 MG/DL (70-110)
[2023-05-26 17:16] LABS: GLUCOMETER DEV NAME(LOC) 3EX.2; GLUCOSE,POINT OF CARE 213 MG/DL (70-110)
[2023-05-26] MEDS: MELATONIN 5 MG TABLET PO SCH (20:34)
[2023-05-26 20:41] LABS: GLUCOMETER DEV NAME(LOC) 3EX.2; GLUCOSE,POINT OF CARE 279 MG/DL (70-110)
[2023-05-26 20:55] VITALS: BP 143/75; PULSE 95; RESP 18; TEMP 97.8; O2SAT 98
[2023-05-26] MEDS: BENZTROPINE MESYLATE 2 MG TABLET PO SCH (21:00)
[2023-05-26] MEDS: INSULIN GLARGINE,HUM.REC.ANLOG 100 UNITS/ML SQ SCH (21:00)
[2023-05-26 22:41] LABS: GLUCOMETER DEV NAME(LOC) 3EX.2; GLUCOSE,POINT OF CARE 270 MG/DL (70-110)
[2023-05-27 06:36] LABS: GLUCOMETER DEV NAME(LOC) 3EX.2; GLUCOSE,POINT OF CARE 169 MG/DL (70-110)
[2023-05-27] MEDS: BENZOCAINE/MENTHOL LOZENGE PO PRN (06:42)
[2023-05-27] MEDS: GlipiZIDE 10 MG TABLET PO SCH (06:42)
[2023-05-27] MEDS: INSULIN LISPRO 100 UNITS/ML SQ PRN ×3 (06:44→21:13)
[2023-05-27] MEDS: OMEGA-3/DHA/EPA/FISH OIL 1,000 MG CAPSULE PO SCH (07:41)
[2023-05-27] MEDS: ASCORBIC ACID 500 MG TABLET PO SCH (07:41)
[2023-05-27] MEDS: RisperiDONE 3 MG TABLET PO SCH ×2 (07:41→18:10)
[2023-05-27] MEDS: DiphenhydrAMINE HCL 25 MG CAPSULE PO PRN (07:42)
[2023-05-27] MEDS: ASPIRIN 81 MG CHEWABLE TABLET PO SCH (07:42)
[2023-05-27] MEDS: DIVALPROEX SODIUM 500 MG DR TABLET PO SCH ×2 (07:42→17:00)
[2023-05-27] MEDS: LORazepam 2 MG TABLET PO PRN ×2 (07:43→15:39)
[2023-05-27] MEDS: MULTIVITAMINS, THERAPEUTIC TABLET PO SCH (07:43)
[2023-05-27] MEDS: ATORVASTATIN CALCIUM 10 MG TABLET PO SCH (07:48)
[2023-05-27 10:04] VITALS: BP 146/75; PULSE 93; RESP 19; TEMP 97.6; O2SAT 98
[2023-05-27 11:51] LABS: GLUCOMETER DEV NAME(LOC) 3EX.2; GLUCOSE,POINT OF CARE 141 MG/DL (70-110)
[2023-05-27 17:46] LABS: GLUCOMETER DEV NAME(LOC) 3EX.2; GLUCOSE,POINT OF CARE 267 MG/DL (70-110)
[2023-05-27 20:25] VITALS: RESP 18
[2023-05-27] MEDS: MELATONIN 5 MG TABLET PO SCH (21:03)
[2023-05-27] MEDS: BENZTROPINE MESYLATE 2 MG TABLET PO SCH (21:04)
[2023-05-27] MEDS: INSULIN GLARGINE,HUM.REC.ANLOG 100 UNITS/ML SQ SCH (21:12)
[2023-05-27 21:16] LABS: GLUCOMETER DEV NAME(LOC) 3EX.2; GLUCOSE,POINT OF CARE 217 MG/DL (70-110)
[2023-05-28 06:36] LABS: GLUCOMETER DEV NAME(LOC) 3EX.2; GLUCOSE,POINT OF CARE 210 MG/DL (70-110)
[2023-05-28] MEDS: GlipiZIDE 10 MG TABLET PO SCH (06:41)
[2023-05-28] MEDS: INSULIN LISPRO 100 UNITS/ML SQ PRN ×4 (06:42→21:06)
[2023-05-28] MEDS: DiphenhydrAMINE HCL 25 MG CAPSULE PO PRN ×2 (06:58→17:30)
[2023-05-28] MEDS: BENZOCAINE/MENTHOL LOZENGE PO PRN ×2 (06:58→17:30)
[2023-05-28] MEDS: ASCORBIC ACID 500 MG TABLET PO SCH (07:54)
[2023-05-28] MEDS: LORazepam 2 MG TABLET PO PRN (07:54)
[2023-05-28] MEDS: MULTIVITAMINS, THERAPEUTIC TABLET PO SCH (07:54)
[2023-05-28] MEDS: OMEGA-3/DHA/EPA/FISH OIL 1,000 MG CAPSULE PO SCH (07:54)
[2023-05-28] MEDS: RisperiDONE 3 MG TABLET PO SCH ×2 (07:54→18:06)
[2023-05-28] MEDS: ASPIRIN 81 MG CHEWABLE TABLET PO SCH (07:55)
[2023-05-28] MEDS: DIVALPROEX SODIUM 500 MG DR TABLET PO SCH ×2 (07:55→17:00)
[2023-05-28] MEDS: ATORVASTATIN CALCIUM 10 MG TABLET PO SCH (07:58)
[2023-05-28 08:41] VITALS: BP 169/74; PULSE 91; RESP 18; TEMP 97.9; O2SAT 98
[2023-05-28 11:56] LABS: GLUCOMETER DEV NAME(LOC) 3EX.2; GLUCOSE,POINT OF CARE 170 MG/DL (70-110)
[2023-05-28 17:36] LABS: GLUCOMETER DEV NAME(LOC) 3EX.2; GLUCOSE,POINT OF CARE 365 MG/DL (70-110)
[2023-05-28 20:16] VITALS: BP 140/65; PULSE 99; RESP 18; TEMP 98.6; O2SAT 98
[2023-05-28 20:21] LABS: GLUCOMETER DEV NAME(LOC) 3EX.2; GLUCOSE,POINT OF CARE 288 MG/DL (70-110)
[2023-05-28] MEDS: MELATONIN 5 MG TABLET PO SCH (20:30)
[2023-05-28] MEDS: BENZTROPINE MESYLATE 2 MG TABLET PO SCH (20:31)
[2023-05-28] MEDS: INSULIN GLARGINE,HUM.REC.ANLOG 100 UNITS/ML SQ SCH (21:05)
[2023-05-29] MEDS: DiphenhydrAMINE HCL 25 MG CAPSULE PO PRN (02:20)
[2023-05-29] MEDS: PETROLATUM,WHITE 28 GM JELLY TP PRN (02:20)
[2023-05-29] MEDS: BENZOCAINE/MENTHOL LOZENGE PO PRN ×3 (02:20→20:36)
[2023-05-29 06:31] LABS: GLUCOMETER DEV NAME(LOC) 3EX.2; GLUCOSE,POINT OF CARE 137 MG/DL (70-110)
[2023-05-29] MEDS: GlipiZIDE 10 MG TABLET PO SCH (06:37)
[2023-05-29] MEDS: INSULIN LISPRO 100 UNITS/ML SQ PRN ×4 (06:42→21:28)
[2023-05-29] MEDS: OMEGA-3/DHA/EPA/FISH OIL 1,000 MG CAPSULE PO SCH (07:57)
[2023-05-29] MEDS: ASCORBIC ACID 500 MG TABLET PO SCH (07:57)
[2023-05-29] MEDS: ATORVASTATIN CALCIUM 10 MG TABLET PO SCH (07:57)
[2023-05-29] MEDS: ASPIRIN 81 MG CHEWABLE TABLET PO SCH (07:58)
[2023-05-29] MEDS: RisperiDONE 3 MG TABLET PO SCH ×2 (07:58→17:05)
[2023-05-29] MEDS: MULTIVITAMINS, THERAPEUTIC TABLET PO SCH (07:58)
[2023-05-29] MEDS: DIVALPROEX SODIUM 500 MG DR TABLET PO SCH ×2 (08:00→17:00)
[2023-05-29 08:26] VITALS: BP 153/78; PULSE 81; RESP 18; TEMP 98.1; O2SAT 97
[2023-05-29 11:41] LABS: GLUCOMETER DEV NAME(LOC) 3EX.2; GLUCOSE,POINT OF CARE 277 MG/DL (70-110)
[2023-05-29 17:36] LABS: GLUCOMETER DEV NAME(LOC) 3EX.2; GLUCOSE,POINT OF CARE 300 MG/DL (70-110)
[2023-05-29 20:16] LABS: GLUCOMETER DEV NAME(LOC) 3EX.2; GLUCOSE,POINT OF CARE 381 MG/DL (70-110)
[2023-05-29] MEDS: MELATONIN 5 MG TABLET PO SCH (20:35)
[2023-05-29] MEDS: BENZTROPINE MESYLATE 2 MG TABLET PO SCH (20:35)
[2023-05-29] MEDS: INSULIN GLARGINE,HUM.REC.ANLOG 100 UNITS/ML SQ SCH (21:27)
[2023-05-29 21:53] VITALS: BP 150/77; PULSE 96; RESP 16; TEMP 98.9
[2023-05-30] MEDS: GlipiZIDE 10 MG TABLET PO SCH (06:44)
[2023-05-30] MEDS: BENZOCAINE/MENTHOL LOZENGE PO PRN ×2 (06:44→17:14)
[2023-05-30] MEDS: INSULIN LISPRO 100 UNITS/ML SQ PRN ×4 (06:49→21:04)
[2023-05-30 06:56] LABS: GLUCOMETER DEV NAME(LOC) 3EX.2; GLUCOSE,POINT OF CARE 130 MG/DL (70-110)
[2023-05-30] MEDS: ASPIRIN 81 MG CHEWABLE TABLET PO SCH (08:24)
[2023-05-30] MEDS: OMEGA-3/DHA/EPA/FISH OIL 1,000 MG CAPSULE PO SCH (08:24)
[2023-05-30] MEDS: ASCORBIC ACID 500 MG TABLET PO SCH (08:24)
[2023-05-30] MEDS: RisperiDONE 3 MG TABLET PO SCH ×2 (08:24→17:13)
[2023-05-30] MEDS: MULTIVITAMINS, THERAPEUTIC TABLET PO SCH (08:25)
[2023-05-30] MEDS: ATORVASTATIN CALCIUM 10 MG TABLET PO SCH (08:26)
[2023-05-30 08:45] VITALS: BP 144/65; PULSE 90; RESP 18; TEMP 97.5; O2SAT 98
[2023-05-30] MEDS: DIVALPROEX SODIUM 500 MG DR TABLET PO SCH ×2 (09:00→17:00)
[2023-05-30 11:51] LABS: GLUCOMETER DEV NAME(LOC) 3EX.2; GLUCOSE,POINT OF CARE 166 MG/DL (70-110)
[2023-05-30] MEDS: DiphenhydrAMINE HCL 25 MG CAPSULE PO PRN (17:15)
[2023-05-30 17:26] LABS: GLUCOMETER DEV NAME(LOC) 3EX.2; GLUCOSE,POINT OF CARE 267 MG/DL (70-110)
[2023-05-30] MEDS: MELATONIN 5 MG TABLET PO SCH (20:11)
[2023-05-30] MEDS: BENZTROPINE MESYLATE 2 MG TABLET PO SCH (20:11)
[2023-05-30 20:21] LABS: GLUCOMETER DEV NAME(LOC) 3EX.2; GLUCOSE,POINT OF CARE 251 MG/DL (70-110)
[2023-05-30 20:44] VITALS: BP 141/79; PULSE 85; RESP 18; TEMP 97.6
[2023-05-30] MEDS: INSULIN GLARGINE,HUM.REC.ANLOG 100 UNITS/ML SQ SCH (21:04)
[2023-05-31] MEDS: BENZOCAINE/MENTHOL LOZENGE PO PRN ×3 (01:14→17:15)
[2023-05-31] MEDS: DiphenhydrAMINE HCL 25 MG CAPSULE PO PRN ×2 (01:15→20:09)
[2023-05-31 06:15] LABS: GLUCOMETER DEV NAME(LOC) 3EX.2; GLUCOSE,POINT OF CARE 76 MG/DL (70-110)
[2023-05-31] MEDS: GlipiZIDE 10 MG TABLET PO SCH (06:36)
[2023-05-31] MEDS: ASPIRIN 81 MG CHEWABLE TABLET PO SCH (08:04)
[2023-05-31] MEDS: ASCORBIC ACID 500 MG TABLET PO SCH (08:04)
[2023-05-31] MEDS: RisperiDONE 3 MG TABLET PO SCH ×2 (08:04→16:19)
[2023-05-31] MEDS: OMEGA-3/DHA/EPA/FISH OIL 1,000 MG CAPSULE PO SCH (08:04)
[2023-05-31] MEDS: MULTIVITAMINS, THERAPEUTIC TABLET PO SCH (08:04)
[2023-05-31] MEDS: ATORVASTATIN CALCIUM 10 MG TABLET PO SCH (08:05)
[2023-05-31] MEDS: DIVALPROEX SODIUM 500 MG DR TABLET PO SCH ×3 (08:05→16:20)
[2023-05-31 08:28] VITALS: BP 122/61; PULSE 83; RESP 18; TEMP 98.2; O2SAT 98
[2023-05-31 11:16] LABS: GLUCOMETER DEV NAME(LOC) 3EX.2; GLUCOSE,POINT OF CARE 136 MG/DL (70-110)
[2023-05-31] MEDS: INSULIN LISPRO 100 UNITS/ML SQ PRN ×3 (12:11→21:05)
[2023-05-31] MEDS: ALBUTEROL SULFATE HFA 90 MCG/PUFF 8 GM INHALER IH PRN (17:14)
[2023-05-31 17:27] LABS: GLUCOMETER DEV NAME(LOC) 3EX.2; GLUCOSE,POINT OF CARE 241 MG/DL (70-110)
[2023-05-31] MEDS: BENZTROPINE MESYLATE 2 MG TABLET PO SCH (20:09)
[2023-05-31] MEDS: MELATONIN 5 MG TABLET PO SCH (20:09)
[2023-05-31 20:20] LABS: GLUCOMETER DEV NAME(LOC) 3EX.2; GLUCOSE,POINT OF CARE 370 MG/DL (70-110)
[2023-05-31 20:42] VITALS: BP 131/67; PULSE 85; RESP 18; TEMP 97.8
[2023-05-31] MEDS: INSULIN GLARGINE,HUM.REC.ANLOG 100 UNITS/ML SQ SCH (21:05)
[2023-06-01] MEDS: BENZOCAINE/MENTHOL LOZENGE PO PRN (06:03)
[2023-06-01] MEDS: DiphenhydrAMINE HCL 25 MG CAPSULE PO PRN (06:03)
[2023-06-01] MEDS: GlipiZIDE 10 MG TABLET PO SCH (06:03)
[2023-06-01 06:21] LABS: GLUCOMETER DEV NAME(LOC) 3EX.2; GLUCOSE,POINT OF CARE 118 MG/DL (70-110)
[2023-06-01 08:20] VITALS: BP 120/61; PULSE 90; RESP 19; O2SAT 100
[2023-06-01] MEDS: MULTIVITAMINS, THERAPEUTIC TABLET PO SCH (08:24)
[2023-06-01] MEDS: RisperiDONE 3 MG TABLET PO SCH ×2 (08:24→17:17)
[2023-06-01] MEDS: OMEGA-3/DHA/EPA/FISH OIL 1,000 MG CAPSULE PO SCH (08:24)
[2023-06-01] MEDS: ATORVASTATIN CALCIUM 10 MG TABLET PO SCH (08:25)
[2023-06-01] MEDS: ASCORBIC ACID 500 MG TABLET PO SCH (08:28)
[2023-06-01] MEDS: DIVALPROEX SODIUM 500 MG DR TABLET PO SCH ×2 (08:31→17:00)
[2023-06-01] MEDS: ASPIRIN 81 MG CHEWABLE TABLET PO SCH (08:31)
[2023-06-01 11:41] LABS: GLUCOMETER DEV NAME(LOC) 3EX.2; GLUCOSE,POINT OF CARE 227 MG/DL (70-110)
[2023-06-01] MEDS: INSULIN LISPRO 100 UNITS/ML SQ PRN ×3 (11:47→21:23)
[2023-06-01 17:25] LABS: GLUCOMETER DEV NAME(LOC) 3EX.2; GLUCOSE,POINT OF CARE 194 MG/DL (70-110)
[2023-06-01] MEDS: BENZTROPINE MESYLATE 2 MG TABLET PO SCH (20:09)
[2023-06-01] MEDS: MELATONIN 5 MG TABLET PO SCH (20:09)
[2023-06-01 20:21] LABS: GLUCOMETER DEV NAME(LOC) 3EX.2; GLUCOSE,POINT OF CARE 312 MG/DL (70-110)
[2023-06-01 20:39] VITALS: RESP 18; TEMP 97.5
[2023-06-01] MEDS: INSULIN GLARGINE,HUM.REC.ANLOG 100 UNITS/ML SQ SCH (21:24)
[2023-06-02] MEDS: DiphenhydrAMINE HCL 25 MG CAPSULE PO PRN (06:07)
[2023-06-02] MEDS: GlipiZIDE 10 MG TABLET PO SCH (06:07)
[2023-06-02] MEDS: BENZOCAINE/MENTHOL LOZENGE PO PRN (06:07)
[2023-06-02 06:26] LABS: GLUCOMETER DEV NAME(LOC) 3EX.2; GLUCOSE,POINT OF CARE 211 MG/DL (70-110)
[2023-06-02] MEDS: INSULIN LISPRO 100 UNITS/ML SQ PRN ×4 (06:35→21:15)
[2023-06-02 08:30] VITALS: BP 136/61; PULSE 87; RESP 18; TEMP 97.6; O2SAT 100
[2023-06-02] MEDS: MULTIVITAMINS, THERAPEUTIC TABLET PO SCH (08:57)
[2023-06-02] MEDS: ASCORBIC ACID 500 MG TABLET PO SCH (08:58)
[2023-06-02] MEDS: RisperiDONE 3 MG TABLET PO SCH ×2 (08:58→16:17)
[2023-06-02] MEDS: ASPIRIN 81 MG CHEWABLE TABLET PO SCH (08:58)
[2023-06-02] MEDS: DIVALPROEX SODIUM 500 MG DR TABLET PO SCH ×2 (08:58→16:14)
[2023-06-02] MEDS: OMEGA-3/DHA/EPA/FISH OIL 1,000 MG CAPSULE PO SCH (08:58)
[2023-06-02] MEDS: ATORVASTATIN CALCIUM 10 MG TABLET PO SCH (08:59)
[2023-06-02 12:06] LABS: GLUCOMETER DEV NAME(LOC) 3EX.2; GLUCOSE,POINT OF CARE 139 MG/DL (70-110)
[2023-06-02 16:46] LABS: GLUCOMETER DEV NAME(LOC) 3EX.2; GLUCOSE,POINT OF CARE 286 MG/DL (70-110)
[2023-06-02 20:35] VITALS: BP 133/66; PULSE 88; RESP 18; TEMP 97.7; O2SAT 98
[2023-06-02] MEDS: INSULIN GLARGINE,HUM.REC.ANLOG 100 UNITS/ML SQ SCH (21:15)
[2023-06-02 21:16] LABS: GLUCOMETER DEV NAME(LOC) 3EX.2; GLUCOSE,POINT OF CARE 266 MG/DL (70-110)
[2023-06-02] MEDS: MELATONIN 5 MG TABLET PO SCH (21:49)
[2023-06-02] MEDS: BENZTROPINE MESYLATE 2 MG TABLET PO SCH (21:49)
[2023-06-03 05:31] LABS: GLUCOMETER DEV NAME(LOC) 3EX.2; GLUCOSE,POINT OF CARE 107 MG/DL (70-110)
[2023-06-03] MEDS: GlipiZIDE 10 MG TABLET PO SCH (06:35)
[2023-06-03] MEDS: OMEGA-3/DHA/EPA/FISH OIL 1,000 MG CAPSULE PO SCH (08:08)
[2023-06-03] MEDS: MULTIVITAMINS, THERAPEUTIC TABLET PO SCH (08:08)
[2023-06-03] MEDS: RisperiDONE 3 MG TABLET PO SCH ×2 (08:08→17:13)
[2023-06-03] MEDS: ATORVASTATIN CALCIUM 10 MG TABLET PO SCH (08:08)
[2023-06-03] MEDS: ASPIRIN 81 MG CHEWABLE TABLET PO SCH (08:08)
[2023-06-03] MEDS: ASCORBIC ACID 500 MG TABLET PO SCH (08:09)
[2023-06-03] MEDS: DIVALPROEX SODIUM 500 MG DR TABLET PO SCH ×2 (08:09→16:51)
[2023-06-03 08:16] VITALS: BP 130/56; PULSE 77; RESP 18; TEMP 97.6; O2SAT 99
[2023-06-03] MEDS: BENZOCAINE/MENTHOL LOZENGE PO PRN (11:37)
[2023-06-03] MEDS: INSULIN LISPRO 100 UNITS/ML SQ PRN ×3 (11:37→21:17)
[2023-06-03] MEDS: ALBUTEROL SULFATE HFA 90 MCG/PUFF 8 GM INHALER IH PRN (11:38)
[2023-06-03] MEDS: DiphenhydrAMINE HCL 25 MG CAPSULE PO PRN (11:39)
[2023-06-03 11:46] LABS: GLUCOMETER DEV NAME(LOC) 3EX.2; GLUCOSE,POINT OF CARE 279 MG/DL (70-110)
[2023-06-03 17:25] LABS: GLUCOMETER DEV NAME(LOC) 3EX.2; GLUCOSE,POINT OF CARE 257 MG/DL (70-110)
[2023-06-03 20:22] VITALS: BP 137/81; PULSE 89; RESP 18; TEMP 97.8; O2SAT 97
[2023-06-03] MEDS: BENZTROPINE MESYLATE 2 MG TABLET PO SCH (20:45)
[2023-06-03] MEDS: MELATONIN 5 MG TABLET PO SCH (20:45)
[2023-06-03 20:46] LABS: GLUCOMETER DEV NAME(LOC) 3EX.2; GLUCOSE,POINT OF CARE 240 MG/DL (70-110)
[2023-06-03] MEDS: INSULIN GLARGINE,HUM.REC.ANLOG 100 UNITS/ML SQ SCH (21:15)
[2023-06-04] MEDS: DiphenhydrAMINE HCL 25 MG CAPSULE PO PRN (05:34)
[2023-06-04] MEDS: BENZOCAINE/MENTHOL LOZENGE PO PRN (05:34)
[2023-06-04 05:41] LABS: GLUCOMETER DEV NAME(LOC) 3EX.2; GLUCOSE,POINT OF CARE 179 MG/DL (70-110)
[2023-06-04] MEDS: INSULIN LISPRO 100 UNITS/ML SQ PRN ×4 (06:35→20:51)
[2023-06-04] MEDS: GlipiZIDE 10 MG TABLET PO SCH (06:35)
[2023-06-04] MEDS: ASCORBIC ACID 500 MG TABLET PO SCH (08:39)
[2023-06-04] MEDS: RisperiDONE 3 MG TABLET PO SCH ×2 (08:39→16:13)
[2023-06-04] MEDS: OMEGA-3/DHA/EPA/FISH OIL 1,000 MG CAPSULE PO SCH (08:39)
[2023-06-04] MEDS: ATORVASTATIN CALCIUM 10 MG TABLET PO SCH (08:40)
[2023-06-04] MEDS: ASPIRIN 81 MG CHEWABLE TABLET PO SCH (08:40)
[2023-06-04] MEDS: MULTIVITAMINS, THERAPEUTIC TABLET PO SCH (08:40)
[2023-06-04] MEDS: DIVALPROEX SODIUM 500 MG DR TABLET PO SCH ×2 (08:41→16:12)
[2023-06-04 09:20] VITALS: BP 129/65; PULSE 96; RESP 17; TEMP 97.7; O2SAT 98
[2023-06-04 11:56] LABS: GLUCOMETER DEV NAME(LOC) 3EX.2; GLUCOSE,POINT OF CARE 243 MG/DL (70-110)
[2023-06-04 16:42] LABS: GLUCOMETER DEV NAME(LOC) 3EX.2; GLUCOSE,POINT OF CARE 338 MG/DL (70-110)
[2023-06-04 20:16] LABS: GLUCOMETER DEV NAME(LOC) 3EX.2; GLUCOSE,POINT OF CARE 345 MG/DL (70-110)
[2023-06-04] MEDS: MELATONIN 5 MG TABLET PO SCH (20:27)
[2023-06-04] MEDS: BENZTROPINE MESYLATE 2 MG TABLET PO SCH (20:28)
[2023-06-04 20:42] VITALS: BP 134/68; PULSE 95; RESP 18; TEMP 97.7
[2023-06-04] MEDS: INSULIN GLARGINE,HUM.REC.ANLOG 100 UNITS/ML SQ SCH (20:51)
[2023-06-05] MEDS: BENZOCAINE/MENTHOL LOZENGE PO PRN (06:02)
[2023-06-05] MEDS: DiphenhydrAMINE HCL 25 MG CAPSULE PO PRN (06:02)
[2023-06-05] MEDS: GlipiZIDE 10 MG TABLET PO SCH (06:03)
[2023-06-05 06:31] LABS: GLUCOMETER DEV NAME(LOC) 3EX.2; GLUCOSE,POINT OF CARE 128 MG/DL (70-110)
[2023-06-05] MEDS: INSULIN LISPRO 100 UNITS/ML SQ PRN ×4 (06:39→21:05)
[2023-06-05] MEDS: RisperiDONE 3 MG TABLET PO SCH ×2 (08:39→16:43)
[2023-06-05] MEDS: OMEGA-3/DHA/EPA/FISH OIL 1,000 MG CAPSULE PO SCH (08:39)
[2023-06-05] MEDS: MULTIVITAMINS, THERAPEUTIC TABLET PO SCH (08:39)
[2023-06-05] MEDS: ASCORBIC ACID 500 MG TABLET PO SCH (08:39)
[2023-06-05] MEDS: ATORVASTATIN CALCIUM 10 MG TABLET PO SCH (08:40)
[2023-06-05] MEDS: ASPIRIN 81 MG CHEWABLE TABLET PO SCH (08:40)
[2023-06-05] MEDS: DIVALPROEX SODIUM 500 MG DR TABLET PO SCH ×2 (08:43→17:00)
[2023-06-05 10:57] VITALS: BP 124/60; PULSE 72; RESP 18; TEMP 97.2; O2SAT 98
[2023-06-05 11:41] LABS: GLUCOMETER DEV NAME(LOC) 3EX.2; GLUCOSE,POINT OF CARE 256 MG/DL (70-110)
[2023-06-05 17:01] LABS: GLUCOMETER DEV NAME(LOC) 3EX.2; GLUCOSE,POINT OF CARE 250 MG/DL (70-110)
[2023-06-05 20:46] LABS: GLUCOMETER DEV NAME(LOC) 3EX.2; GLUCOSE,POINT OF CARE 288 MG/DL (70-110)
[2023-06-05] MEDS: MELATONIN 5 MG TABLET PO SCH (20:47)
[2023-06-05] MEDS: BENZTROPINE MESYLATE 2 MG TABLET PO SCH (20:47)
[2023-06-05] MEDS: INSULIN GLARGINE,HUM.REC.ANLOG 100 UNITS/ML SQ SCH (21:04)
[2023-06-06 05:46] LABS: GLUCOMETER DEV NAME(LOC) 3EX.2; GLUCOSE,POINT OF CARE 166 MG/DL (70-110)
[2023-06-06] MEDS: GlipiZIDE 10 MG TABLET PO SCH (06:34)
[2023-06-06] MEDS: INSULIN LISPRO 100 UNITS/ML SQ PRN ×4 (06:34→21:08)
[2023-06-06] MEDS: MULTIVITAMINS, THERAPEUTIC TABLET PO SCH (08:19)
[2023-06-06] MEDS: RisperiDONE 3 MG TABLET PO SCH ×2 (08:19→17:13)
[2023-06-06] MEDS: ASPIRIN 81 MG CHEWABLE TABLET PO SCH (08:20)
[2023-06-06] MEDS: DiphenhydrAMINE HCL 25 MG CAPSULE PO PRN (08:20)
[2023-06-06] MEDS: ASCORBIC ACID 500 MG TABLET PO SCH (08:20)
[2023-06-06] MEDS: OMEGA-3/DHA/EPA/FISH OIL 1,000 MG CAPSULE PO SCH (08:20)
[2023-06-06] MEDS: DIVALPROEX SODIUM 500 MG DR TABLET PO SCH ×2 (08:21→17:00)
[2023-06-06] MEDS: ATORVASTATIN CALCIUM 10 MG TABLET PO SCH (08:21)
[2023-06-06 08:30] VITALS: BP 124/82; PULSE 65; RESP 18; TEMP 96.5; O2SAT 98
[2023-06-06] MEDS: ALBUTEROL SULFATE HFA 90 MCG/PUFF 8 GM INHALER IH PRN (08:53)
[2023-06-06 11:41] LABS: GLUCOMETER DEV NAME(LOC) 3EX.2; GLUCOSE,POINT OF CARE 270 MG/DL (70-110)
[2023-06-06 17:26] LABS: GLUCOMETER DEV NAME(LOC) 3EX.2; GLUCOSE,POINT OF CARE 324 MG/DL (70-110)
[2023-06-06] MEDS: BENZTROPINE MESYLATE 2 MG TABLET PO SCH (21:01)
[2023-06-06] MEDS: MELATONIN 5 MG TABLET PO SCH (21:01)
[2023-06-06] MEDS: INSULIN GLARGINE,HUM.REC.ANLOG 100 UNITS/ML SQ SCH (21:10)
[2023-06-06 21:31] LABS: GLUCOMETER DEV NAME(LOC) 3EX.2; GLUCOSE,POINT OF CARE 226 MG/DL (70-110)
[2023-06-07] MEDS: GlipiZIDE 10 MG TABLET PO SCH (06:25)
[2023-06-07] MEDS: BENZOCAINE/MENTHOL LOZENGE PO PRN (06:25)
[2023-06-07] MEDS: ALBUTEROL SULFATE HFA 90 MCG/PUFF 8 GM INHALER IH PRN (06:27)
[2023-06-07] MEDS: INSULIN LISPRO 100 UNITS/ML SQ PRN ×4 (06:43→21:00)
[2023-06-07 06:51] LABS: GLUCOMETER DEV NAME(LOC) 3EX.2; GLUCOSE,POINT OF CARE 172 MG/DL (70-110)
[2023-06-07] MEDS: ATORVASTATIN CALCIUM 10 MG TABLET PO SCH (08:16)
[2023-06-07] MEDS: ASCORBIC ACID 500 MG TABLET PO SCH (08:16)
[2023-06-07] MEDS: MULTIVITAMINS, THERAPEUTIC TABLET PO SCH (08:16)
[2023-06-07] MEDS: OMEGA-3/DHA/EPA/FISH OIL 1,000 MG CAPSULE PO SCH (08:17)
[2023-06-07] MEDS: ASPIRIN 81 MG CHEWABLE TABLET PO SCH (08:17)
[2023-06-07] MEDS: DIVALPROEX SODIUM 500 MG DR TABLET PO SCH ×2 (08:17→16:51)
[2023-06-07] MEDS: RisperiDONE 3 MG TABLET PO SCH ×2 (08:17→16:50)
[2023-06-07 08:57] VITALS: BP 120/59; PULSE 90; RESP 18; TEMP 98.7; O2SAT 98
[2023-06-07 11:35] LABS: GLUCOMETER DEV NAME(LOC) 3EX.2; GLUCOSE,POINT OF CARE 285 MG/DL (70-110)
[2023-06-07] MEDS: DiphenhydrAMINE HCL 25 MG CAPSULE PO PRN (16:52)
[2023-06-07 17:06] LABS: GLUCOMETER DEV NAME(LOC) 3EX.2; GLUCOSE,POINT OF CARE 344 MG/DL (70-110)
[2023-06-07] MEDS: BENZTROPINE MESYLATE 2 MG TABLET PO SCH (20:48)
[2023-06-07] MEDS: MELATONIN 5 MG TABLET PO SCH (20:48)
[2023-06-07] MEDS: INSULIN GLARGINE,HUM.REC.ANLOG 100 UNITS/ML SQ SCH (20:59)
[2023-06-07 21:16] LABS: GLUCOMETER DEV NAME(LOC) 3EX.2; GLUCOSE,POINT OF CARE 313 MG/DL (70-110)
[2023-06-08] MEDS: GlipiZIDE 10 MG TABLET PO SCH (06:13)
[2023-06-08 06:34] LABS: GLUCOMETER DEV NAME(LOC) 3EX.2; GLUCOSE,POINT OF CARE 133 MG/DL (70-110)
[2023-06-08] MEDS: INSULIN LISPRO 100 UNITS/ML SQ PRN ×3 (06:43→21:07)
[2023-06-08 08:31] VITALS: BP 125/62; PULSE 77; RESP 18; TEMP 98.3; O2SAT 97
[2023-06-08] MEDS: RisperiDONE 3 MG TABLET PO SCH ×2 (08:38→17:26)
[2023-06-08] MEDS: ASCORBIC ACID 500 MG TABLET PO SCH (08:38)
[2023-06-08] MEDS: ATORVASTATIN CALCIUM 10 MG TABLET PO SCH (08:38)
[2023-06-08] MEDS: MULTIVITAMINS, THERAPEUTIC TABLET PO SCH (08:38)
[2023-06-08] MEDS: OMEGA-3/DHA/EPA/FISH OIL 1,000 MG CAPSULE PO SCH (08:38)
[2023-06-08] MEDS: ASPIRIN 81 MG CHEWABLE TABLET PO SCH (08:38)
[2023-06-08] MEDS: DIVALPROEX SODIUM 500 MG DR TABLET PO SCH ×2 (08:43→17:00)
[2023-06-08 11:41] LABS: GLUCOMETER DEV NAME(LOC) 3EX.2; GLUCOSE,POINT OF CARE 96 MG/DL (70-110)
[2023-06-08] MEDS: ALBUTEROL SULFATE HFA 90 MCG/PUFF 8 GM INHALER IH PRN (13:09)
[2023-06-08] MEDS: BENZOCAINE/MENTHOL LOZENGE PO PRN ×2 (13:48→20:40)
[2023-06-08 17:17] LABS: GLUCOMETER DEV NAME(LOC) 3EX.2; GLUCOSE,POINT OF CARE 291 MG/DL (70-110)
[2023-06-08] MEDS: DiphenhydrAMINE HCL 25 MG CAPSULE PO PRN (20:40)
[2023-06-08 20:46] LABS: GLUCOMETER DEV NAME(LOC) 3EX.2; GLUCOSE,POINT OF CARE 143 MG/DL (70-110)
[2023-06-08 20:50] VITALS: BP 117/57; PULSE 73; RESP 18; TEMP 98.5; O2SAT 97
[2023-06-08] MEDS: MELATONIN 5 MG TABLET PO SCH (20:51)
[2023-06-08] MEDS: BENZTROPINE MESYLATE 2 MG TABLET PO SCH (20:51)
[2023-06-08] MEDS: INSULIN GLARGINE,HUM.REC.ANLOG 100 UNITS/ML SQ SCH (21:06)
[2023-06-09] MEDS: DiphenhydrAMINE HCL 25 MG CAPSULE PO PRN (06:07)
[2023-06-09] MEDS: BENZOCAINE/MENTHOL LOZENGE PO PRN (06:07)
[2023-06-09 06:17] LABS: GLUCOMETER DEV NAME(LOC) 3EX.2; GLUCOSE,POINT OF CARE 88 MG/DL (70-110)
[2023-06-09] MEDS: GlipiZIDE 10 MG TABLET PO SCH (06:40)
[2023-06-09] MEDS: MULTIVITAMINS, THERAPEUTIC TABLET PO SCH (08:10)
[2023-06-09] MEDS: OMEGA-3/DHA/EPA/FISH OIL 1,000 MG CAPSULE PO SCH (08:10)
[2023-06-09] MEDS: RisperiDONE 3 MG TABLET PO SCH ×2 (08:11→17:27)
[2023-06-09] MEDS: ASCORBIC ACID 500 MG TABLET PO SCH (08:11)
[2023-06-09] MEDS: ATORVASTATIN CALCIUM 10 MG TABLET PO SCH (08:11)
[2023-06-09] MEDS: ASPIRIN 81 MG CHEWABLE TABLET PO SCH (08:12)
[2023-06-09] MEDS: DIVALPROEX SODIUM 500 MG DR TABLET PO SCH ×2 (08:30→17:00)
[2023-06-09 09:20] VITALS: BP 130/57; PULSE 66; RESP 16; TEMP 98.1; O2SAT 98
[2023-06-09] MEDS: INSULIN LISPRO 100 UNITS/ML SQ PRN ×3 (11:53→21:03)
[2023-06-09 11:56] LABS: GLUCOMETER DEV NAME(LOC) 3EX.2; GLUCOSE,POINT OF CARE 180 MG/DL (70-110)
[2023-06-09 17:11] LABS: GLUCOMETER DEV NAME(LOC) 3EX.2; GLUCOSE,POINT OF CARE 260 MG/DL (70-110)
[2023-06-09 20:41] LABS: GLUCOMETER DEV NAME(LOC) 3EX.2; GLUCOSE,POINT OF CARE 278 MG/DL (70-110)
[2023-06-09] MEDS: MELATONIN 5 MG TABLET PO SCH (20:51)
[2023-06-09] MEDS: BENZTROPINE MESYLATE 2 MG TABLET PO SCH (20:51)
[2023-06-09] MEDS: INSULIN GLARGINE,HUM.REC.ANLOG 100 UNITS/ML SQ SCH (21:01)
[2023-06-09 21:06] VITALS: BP 130/81; PULSE 72; RESP 18; TEMP 97.6; O2SAT 98
[2023-06-10] MEDS: GlipiZIDE 10 MG TABLET PO SCH (06:56)
[2023-06-10 07:02] LABS: GLUCOMETER DEV NAME(LOC) 3EX.2; GLUCOSE,POINT OF CARE 119 MG/DL (70-110)
[2023-06-10 09:00] VITALS: BP 115/55; PULSE 69; RESP 17; TEMP 98.3; O2SAT 99
[2023-06-10] MEDS: DIVALPROEX SODIUM 500 MG DR TABLET PO SCH ×2 (09:00→17:00)
[2023-06-10] MEDS: ASCORBIC ACID 500 MG TABLET PO SCH (09:27)
[2023-06-10] MEDS: OMEGA-3/DHA/EPA/FISH OIL 1,000 MG CAPSULE PO SCH (09:27)
[2023-06-10] MEDS: RisperiDONE 3 MG TABLET PO SCH ×2 (09:27→17:17)
[2023-06-10] MEDS: MULTIVITAMINS, THERAPEUTIC TABLET PO SCH (09:28)
[2023-06-10] MEDS: ASPIRIN 81 MG CHEWABLE TABLET PO SCH (09:28)
[2023-06-10] MEDS: ATORVASTATIN CALCIUM 10 MG TABLET PO SCH (09:29)
[2023-06-10] MEDS: DiphenhydrAMINE HCL 25 MG CAPSULE PO PRN (09:33)
[2023-06-10] MEDS: BENZOCAINE/MENTHOL LOZENGE PO PRN (09:33)
[2023-06-10] MEDS: INSULIN LISPRO 100 UNITS/ML SQ PRN ×3 (11:40→21:16)
[2023-06-10 11:41] LABS: GLUCOMETER DEV NAME(LOC) 3EX.2; GLUCOSE,POINT OF CARE 325 MG/DL (70-110)
[2023-06-10 17:11] LABS: GLUCOMETER DEV NAME(LOC) 3EX.2; GLUCOSE,POINT OF CARE 364 MG/DL (70-110)
[2023-06-10 20:29] VITALS: RESP 18
[2023-06-10 20:46] LABS: GLUCOMETER DEV NAME(LOC) 3EX.2; GLUCOSE,POINT OF CARE 176 MG/DL (70-110)
[2023-06-10] MEDS: INSULIN GLARGINE,HUM.REC.ANLOG 100 UNITS/ML SQ SCH (21:15)
[2023-06-10] MEDS: BENZTROPINE MESYLATE 2 MG TABLET PO SCH (21:16)
[2023-06-10] MEDS: MELATONIN 5 MG TABLET PO SCH (21:16)
[2023-06-11 06:16] LABS: GLUCOMETER DEV NAME(LOC) 3EX.2; GLUCOSE,POINT OF CARE 122 MG/DL (70-110)
[2023-06-11] MEDS: GlipiZIDE 10 MG TABLET PO SCH (06:48)
[2023-06-11] MEDS: INSULIN LISPRO 100 UNITS/ML SQ PRN ×4 (06:53→21:13)
[2023-06-11] MEDS: ASCORBIC ACID 500 MG TABLET PO SCH (08:41)
[2023-06-11] MEDS: ASPIRIN 81 MG CHEWABLE TABLET PO SCH (08:41)
[2023-06-11] MEDS: DIVALPROEX SODIUM 500 MG DR TABLET PO SCH ×3 (08:44→17:00)
[2023-06-11] MEDS: ATORVASTATIN CALCIUM 10 MG TABLET PO SCH (08:44)
[2023-06-11] MEDS: MULTIVITAMINS, THERAPEUTIC TABLET PO SCH (08:44)
[2023-06-11] MEDS: RisperiDONE 3 MG TABLET PO SCH ×2 (08:44→16:22)
[2023-06-11] MEDS: OMEGA-3/DHA/EPA/FISH OIL 1,000 MG CAPSULE PO SCH (08:44)
[2023-06-11 09:49] VITALS: BP 103/51; PULSE 73; RESP 18; TEMP 97.3; O2SAT 99
[2023-06-11] MEDS: DiphenhydrAMINE HCL 25 MG CAPSULE PO PRN (11:34)
[2023-06-11] MEDS: BENZOCAINE/MENTHOL LOZENGE PO PRN (11:34)
[2023-06-11 11:46] LABS: GLUCOMETER DEV NAME(LOC) 3EX.2; GLUCOSE,POINT OF CARE 221 MG/DL (70-110)
[2023-06-11 17:06] LABS: GLUCOMETER DEV NAME(LOC) 3EX.2; GLUCOSE,POINT OF CARE 310 MG/DL (70-110)
[2023-06-11 20:41] LABS: GLUCOMETER DEV NAME(LOC) 3EX.2; GLUCOSE,POINT OF CARE 366 MG/DL (70-110)
[2023-06-11] MEDS: BENZTROPINE MESYLATE 2 MG TABLET PO SCH (21:00)
[2023-06-11] MEDS: MELATONIN 5 MG TABLET PO SCH (21:00)
[2023-06-11] MEDS: INSULIN GLARGINE,HUM.REC.ANLOG 100 UNITS/ML SQ SCH (21:12)
[2023-06-11 21:17] VITALS: RESP 18
[2023-06-12] MEDS: GlipiZIDE 10 MG TABLET PO SCH (06:55)
[2023-06-12 07:01] LABS: GLUCOMETER DEV NAME(LOC) 3E.C; GLUCOSE,POINT OF CARE 133 MG/DL (70-110)
[2023-06-12] MEDS: INSULIN LISPRO 100 UNITS/ML SQ PRN ×3 (07:04→21:12)
[2023-06-12 09:00] VITALS: BP 112/60; PULSE 87; RESP 18; TEMP 97.5; O2SAT 98
[2023-06-12] MEDS: DIVALPROEX SODIUM 500 MG DR TABLET PO SCH ×2 (09:00→16:51)
[2023-06-12] MEDS: MULTIVITAMINS, THERAPEUTIC TABLET PO SCH (09:05)
[2023-06-12] MEDS: RisperiDONE 3 MG TABLET PO SCH ×2 (09:05→16:51)
[2023-06-12] MEDS: OMEGA-3/DHA/EPA/FISH OIL 1,000 MG CAPSULE PO SCH (09:05)
[2023-06-12] MEDS: ASPIRIN 81 MG CHEWABLE TABLET PO SCH (09:05)
[2023-06-12] MEDS: ASCORBIC ACID 500 MG TABLET PO SCH (09:05)
[2023-06-12] MEDS: ATORVASTATIN CALCIUM 10 MG TABLET PO SCH (09:05)
[2023-06-12] MEDS: DiphenhydrAMINE HCL 25 MG CAPSULE PO PRN (09:48)
[2023-06-12] MEDS: BENZOCAINE/MENTHOL LOZENGE PO PRN (09:49)
[2023-06-12] MEDS: ALBUTEROL SULFATE HFA 90 MCG/PUFF 8 GM INHALER IH PRN (09:49)
[2023-06-12 11:51] LABS: GLUCOMETER DEV NAME(LOC) 3EX.2; GLUCOSE,POINT OF CARE 281 MG/DL (70-110)
[2023-06-12 17:01] LABS: GLUCOMETER DEV NAME(LOC) 3EX.2; GLUCOSE,POINT OF CARE 238 MG/DL (70-110)
[2023-06-12 20:26] LABS: GLUCOMETER DEV NAME(LOC) 3EX.2; GLUCOSE,POINT OF CARE 352 MG/DL (70-110)
[2023-06-12] MEDS: MELATONIN 5 MG TABLET PO SCH (21:04)
[2023-06-12] MEDS: BENZTROPINE MESYLATE 2 MG TABLET PO SCH (21:05)
[2023-06-12] MEDS: INSULIN GLARGINE,HUM.REC.ANLOG 100 UNITS/ML SQ SCH (21:11)
[2023-06-12 21:23] VITALS: BP 109/62; PULSE 77; RESP 19; TEMP 96.7; O2SAT 97
[2023-06-13] MEDS: INSULIN LISPRO 100 UNITS/ML SQ PRN ×4 (06:40→21:04)
[2023-06-13] MEDS: GlipiZIDE 10 MG TABLET PO SCH (06:41)
[2023-06-13 06:51] LABS: GLUCOMETER DEV NAME(LOC) 3EX.2; GLUCOSE,POINT OF CARE 104 MG/DL (70-110)
[2023-06-13] MEDS: RisperiDONE 3 MG TABLET PO SCH ×2 (08:43→16:13)
[2023-06-13] MEDS: OMEGA-3/DHA/EPA/FISH OIL 1,000 MG CAPSULE PO SCH (08:43)
[2023-06-13] MEDS: ASCORBIC ACID 500 MG TABLET PO SCH (08:43)
[2023-06-13] MEDS: MULTIVITAMINS, THERAPEUTIC TABLET PO SCH (08:43)
[2023-06-13] MEDS: ASPIRIN 81 MG CHEWABLE TABLET PO SCH (08:43)
[2023-06-13] MEDS: ATORVASTATIN CALCIUM 10 MG TABLET PO SCH (08:44)
[2023-06-13 08:48] VITALS: BP 106/61; PULSE 71; RESP 18; TEMP 97.7; O2SAT 98
[2023-06-13] MEDS: DIVALPROEX SODIUM 500 MG DR TABLET PO SCH ×2 (09:00→17:00)
[2023-06-13 11:51] LABS: GLUCOMETER DEV NAME(LOC) 3EX.2; GLUCOSE,POINT OF CARE 268 MG/DL (70-110)
[2023-06-13 17:47] LABS: GLUCOMETER DEV NAME(LOC) 3EX.2; GLUCOSE,POINT OF CARE 224 MG/DL (70-110)
[2023-06-13 20:41] LABS: GLUCOMETER DEV NAME(LOC) 3EX.2; GLUCOSE,POINT OF CARE 282 MG/DL (70-110)
[2023-06-13] MEDS: BENZTROPINE MESYLATE 2 MG TABLET PO SCH (20:43)
[2023-06-13] MEDS: MELATONIN 5 MG TABLET PO SCH (20:43)
[2023-06-13 20:52] VITALS: BP 125/67; PULSE 77; RESP 18; TEMP 97.2; O2SAT 99
[2023-06-13] MEDS: INSULIN GLARGINE,HUM.REC.ANLOG 100 UNITS/ML SQ SCH (21:03)
[2023-06-14 06:21] LABS: GLUCOMETER DEV NAME(LOC) 3EX.2; GLUCOSE,POINT OF CARE 91 MG/DL (70-110)
[2023-06-14] MEDS: GlipiZIDE 10 MG TABLET PO SCH (06:33)
[2023-06-14] MEDS: INSULIN LISPRO 100 UNITS/ML SQ PRN ×4 (06:33→21:13)
[2023-06-14 08:31] VITALS: BP 105/50; PULSE 81; RESP 18; TEMP 97.8
[2023-06-14] MEDS: DIVALPROEX SODIUM 500 MG DR TABLET PO SCH ×3 (09:00→16:47)
[2023-06-14] MEDS: OMEGA-3/DHA/EPA/FISH OIL 1,000 MG CAPSULE PO SCH (09:40)
[2023-06-14] MEDS: ASCORBIC ACID 500 MG TABLET PO SCH (09:40)
[2023-06-14] MEDS: MULTIVITAMINS, THERAPEUTIC TABLET PO SCH (09:40)
[2023-06-14] MEDS: ASPIRIN 81 MG CHEWABLE TABLET PO SCH (09:41)
[2023-06-14] MEDS: RisperiDONE 3 MG TABLET PO SCH ×2 (09:41→17:50)
[2023-06-14] MEDS: ATORVASTATIN CALCIUM 10 MG TABLET PO SCH (09:44)
[2023-06-14] MEDS: ALBUTEROL SULFATE HFA 90 MCG/PUFF 8 GM INHALER IH PRN (09:44)
[2023-06-14 11:56] LABS: GLUCOMETER DEV NAME(LOC) 3EX.2; GLUCOSE,POINT OF CARE 270 MG/DL (70-110)
[2023-06-14 16:51] LABS: GLUCOMETER DEV NAME(LOC) 3EX.2; GLUCOSE,POINT OF CARE 220 MG/DL (70-110)
[2023-06-14 20:21] LABS: GLUCOMETER DEV NAME(LOC) 3EX.2; GLUCOSE,POINT OF CARE 347 MG/DL (70-110)
[2023-06-14] MEDS: BENZTROPINE MESYLATE 2 MG TABLET PO SCH (20:58)
[2023-06-14] MEDS: MELATONIN 5 MG TABLET PO SCH (20:58)
[2023-06-14] MEDS: INSULIN GLARGINE,HUM.REC.ANLOG 100 UNITS/ML SQ SCH (21:12)
[2023-06-14 21:44] VITALS: RESP 18
[2023-06-15] MEDS: GlipiZIDE 10 MG TABLET PO SCH (06:37)
[2023-06-15 06:51] LABS: GLUCOMETER DEV NAME(LOC) 3EX.2; GLUCOSE,POINT OF CARE 160 MG/DL (70-110)
[2023-06-15 07:11] LABS: GLUCOMETER DEV NAME(LOC) 3EX.2; GLUCOSE,POINT OF CARE 170 MG/DL (70-110)
[2023-06-15] MEDS: INSULIN LISPRO 100 UNITS/ML SQ PRN ×4 (07:23→21:36)
[2023-06-15] MEDS: OMEGA-3/DHA/EPA/FISH OIL 1,000 MG CAPSULE PO SCH (08:27)
[2023-06-15] MEDS: ASCORBIC ACID 500 MG TABLET PO SCH (08:27)
[2023-06-15] MEDS: MULTIVITAMINS, THERAPEUTIC TABLET PO SCH (08:27)
[2023-06-15] MEDS: ASPIRIN 81 MG CHEWABLE TABLET PO SCH (08:27)
[2023-06-15] MEDS: ATORVASTATIN CALCIUM 10 MG TABLET PO SCH (08:27)
[2023-06-15] MEDS: RisperiDONE 3 MG TABLET PO SCH ×2 (08:27→17:09)
[2023-06-15] MEDS: DiphenhydrAMINE HCL 25 MG CAPSULE PO PRN (08:29)
[2023-06-15] MEDS: ALBUTEROL SULFATE HFA 90 MCG/PUFF 8 GM INHALER IH PRN (08:29)
[2023-06-15] MEDS: DIVALPROEX SODIUM 500 MG DR TABLET PO SCH ×2 (08:31→17:00)
[2023-06-15 09:04] VITALS: BP 111/60; PULSE 79; RESP 16; TEMP 97.6; O2SAT 99
[2023-06-15 11:37] LABS: GLUCOMETER DEV NAME(LOC) 3EX.2; GLUCOSE,POINT OF CARE 247 MG/DL (70-110)
[2023-06-15 17:22] LABS: GLUCOMETER DEV NAME(LOC) 3EX.2; GLUCOSE,POINT OF CARE 297 MG/DL (70-110)
[2023-06-15 20:36] LABS: GLUCOMETER DEV NAME(LOC) 3EX.2; GLUCOSE,POINT OF CARE 369 MG/DL (70-110)
[2023-06-15] MEDS: MELATONIN 5 MG TABLET PO SCH (20:48)
[2023-06-15] MEDS: BENZTROPINE MESYLATE 2 MG TABLET PO SCH (20:48)
[2023-06-15] MEDS: INSULIN GLARGINE,HUM.REC.ANLOG 100 UNITS/ML SQ SCH (21:36)
[2023-06-15 22:15] VITALS: BP 115/65; PULSE 80; RESP 17; TEMP 97.8; O2SAT 98
[2023-06-16] MEDS: GlipiZIDE 10 MG TABLET PO SCH (06:30)
[2023-06-16] MEDS: INSULIN LISPRO 100 UNITS/ML SQ PRN ×4 (06:33→21:07)
[2023-06-16 06:36] LABS: GLUCOMETER DEV NAME(LOC) 3EX.2; GLUCOSE,POINT OF CARE 143 MG/DL (70-110)
[2023-06-16] MEDS: OMEGA-3/DHA/EPA/FISH OIL 1,000 MG CAPSULE PO SCH (08:41)
[2023-06-16] MEDS: ASCORBIC ACID 500 MG TABLET PO SCH (08:41)
[2023-06-16] MEDS: ASPIRIN 81 MG CHEWABLE TABLET PO SCH (08:41)
[2023-06-16] MEDS: MULTIVITAMINS, THERAPEUTIC TABLET PO SCH (08:41)
[2023-06-16] MEDS: RisperiDONE 3 MG TABLET PO SCH ×2 (08:42→16:30)
[2023-06-16] MEDS: ATORVASTATIN CALCIUM 10 MG TABLET PO SCH (08:42)
[2023-06-16] MEDS: DIVALPROEX SODIUM 500 MG DR TABLET PO SCH ×2 (08:43→16:30)
[2023-06-16 09:00] VITALS: BP 94/54; PULSE 76; RESP 18; TEMP 97.5; O2SAT 98
[2023-06-16 11:41] LABS: GLUCOMETER DEV NAME(LOC) 3EX.2; GLUCOSE,POINT OF CARE 221 MG/DL (70-110)
[2023-06-16] MEDS: BENZOCAINE/MENTHOL LOZENGE PO PRN (11:49)
[2023-06-16] MEDS: DiphenhydrAMINE HCL 25 MG CAPSULE PO PRN (11:49)
[2023-06-16 17:06] LABS: GLUCOMETER DEV NAME(LOC) 3EX.2; GLUCOSE,POINT OF CARE 285 MG/DL (70-110)
[2023-06-16 20:21] VITALS: BP 122/64; PULSE 84; RESP 18; TEMP 97.6; O2SAT 98
[2023-06-16 20:30] LABS: GLUCOMETER DEV NAME(LOC) 3EX.2; GLUCOSE,POINT OF CARE 301 MG/DL (70-110)
[2023-06-16] MEDS: MELATONIN 5 MG TABLET PO SCH (20:36)
[2023-06-16] MEDS: BENZTROPINE MESYLATE 2 MG TABLET PO SCH (20:36)
[2023-06-16] MEDS: INSULIN GLARGINE,HUM.REC.ANLOG 100 UNITS/ML SQ SCH (21:06)
[2023-06-17] MEDS: GlipiZIDE 10 MG TABLET PO SCH (06:44)
[2023-06-17] MEDS: INSULIN LISPRO 100 UNITS/ML SQ PRN ×4 (06:45→21:01)
[2023-06-17 06:46] LABS: GLUCOMETER DEV NAME(LOC) 3EX.2; GLUCOSE,POINT OF CARE 126 MG/DL (70-110)
[2023-06-17] MEDS: MULTIVITAMINS, THERAPEUTIC TABLET PO SCH (08:05)
[2023-06-17] MEDS: ASCORBIC ACID 500 MG TABLET PO SCH (08:05)
[2023-06-17] MEDS: OMEGA-3/DHA/EPA/FISH OIL 1,000 MG CAPSULE PO SCH (08:05)
[2023-06-17] MEDS: ASPIRIN 81 MG CHEWABLE TABLET PO SCH (08:05)
[2023-06-17] MEDS: ATORVASTATIN CALCIUM 10 MG TABLET PO SCH (08:06)
[2023-06-17] MEDS: RisperiDONE 3 MG TABLET PO SCH ×2 (08:06→16:37)
[2023-06-17] MEDS: DIVALPROEX SODIUM 500 MG DR TABLET PO SCH ×2 (08:09→16:36)
[2023-06-17 09:55] VITALS: BP 107/60; PULSE 77; RESP 18; TEMP 98.2; O2SAT 100
[2023-06-17 11:36] LABS: GLUCOMETER DEV NAME(LOC) 3EX.2; GLUCOSE,POINT OF CARE 207 MG/DL (70-110)
[2023-06-17 17:02] LABS: GLUCOMETER DEV NAME(LOC) 3EX.2; GLUCOSE,POINT OF CARE 303 MG/DL (70-110)
[2023-06-17] MEDS: MELATONIN 5 MG TABLET PO SCH (20:26)
[2023-06-17] MEDS: BENZTROPINE MESYLATE 2 MG TABLET PO SCH (20:27)
[2023-06-17 20:31] LABS: GLUCOMETER DEV NAME(LOC) 3EX.2; GLUCOSE,POINT OF CARE 251 MG/DL (70-110)
[2023-06-17] MEDS: INSULIN GLARGINE,HUM.REC.ANLOG 100 UNITS/ML SQ SCH (20:59)
[2023-06-17 21:36] VITALS: RESP 18
[2023-06-18 06:16] LABS: GLUCOMETER DEV NAME(LOC) 3EX.2; GLUCOSE,POINT OF CARE 145 MG/DL (70-110)
[2023-06-18] MEDS: GlipiZIDE 10 MG TABLET PO SCH (06:34)
[2023-06-18] MEDS: INSULIN LISPRO 100 UNITS/ML SQ PRN ×4 (06:46→21:14)
[2023-06-18] MEDS: ATORVASTATIN CALCIUM 10 MG TABLET PO SCH (08:10)
[2023-06-18] MEDS: RisperiDONE 3 MG TABLET PO SCH ×2 (08:11→16:49)
[2023-06-18] MEDS: OMEGA-3/DHA/EPA/FISH OIL 1,000 MG CAPSULE PO SCH (08:11)
[2023-06-18] MEDS: MULTIVITAMINS, THERAPEUTIC TABLET PO SCH (08:11)
[2023-06-18] MEDS: ASCORBIC ACID 500 MG TABLET PO SCH (08:11)
[2023-06-18] MEDS: ASPIRIN 81 MG CHEWABLE TABLET PO SCH (08:12)
[2023-06-18] MEDS: DIVALPROEX SODIUM 500 MG DR TABLET PO SCH ×2 (08:12→16:15)
[2023-06-18 08:34] VITALS: BP 123/54; PULSE 81; RESP 18; TEMP 97.9; O2SAT 98
[2023-06-18 11:41] LABS: GLUCOMETER DEV NAME(LOC) 3EX.2; GLUCOSE,POINT OF CARE 173 MG/DL (70-110)
[2023-06-18] MEDS: BENZOCAINE/MENTHOL LOZENGE PO PRN (16:50)
[2023-06-18 16:56] LABS: GLUCOMETER DEV NAME(LOC) 3EX.2; GLUCOSE,POINT OF CARE 358 MG/DL (70-110)
[2023-06-18 20:36] LABS: GLUCOMETER DEV NAME(LOC) 3EX.2; GLUCOSE,POINT OF CARE 264 MG/DL (70-110)
[2023-06-18] MEDS: MELATONIN 5 MG TABLET PO SCH (20:43)
[2023-06-18] MEDS: BENZTROPINE MESYLATE 2 MG TABLET PO SCH (20:44)
[2023-06-18 20:55] VITALS: RESP 18
[2023-06-18] MEDS: INSULIN GLARGINE,HUM.REC.ANLOG 100 UNITS/ML SQ SCH (21:14)
[2023-06-19 06:17] LABS: GLUCOMETER DEV NAME(LOC) 3EX.2; GLUCOSE,POINT OF CARE 136 MG/DL (70-110)
[2023-06-19] MEDS: GlipiZIDE 10 MG TABLET PO SCH (06:42)
[2023-06-19] MEDS: INSULIN LISPRO 100 UNITS/ML SQ PRN ×4 (06:43→21:30)
[2023-06-19] MEDS: ATORVASTATIN CALCIUM 10 MG TABLET PO SCH (08:28)
[2023-06-19] MEDS: OMEGA-3/DHA/EPA/FISH OIL 1,000 MG CAPSULE PO SCH (08:31)
[2023-06-19] MEDS: RisperiDONE 3 MG TABLET PO SCH ×2 (08:31→16:26)
[2023-06-19] MEDS: MULTIVITAMINS, THERAPEUTIC TABLET PO SCH (08:31)
[2023-06-19] MEDS: ASCORBIC ACID 500 MG TABLET PO SCH (08:31)
[2023-06-19] MEDS: ASPIRIN 81 MG CHEWABLE TABLET PO SCH (08:32)
[2023-06-19] MEDS: DIVALPROEX SODIUM 500 MG DR TABLET PO SCH ×2 (08:32→16:25)
[2023-06-19 10:21] VITALS: BP 129/78; PULSE 78; RESP 18; TEMP 97.7; O2SAT 97
[2023-06-19 11:31] LABS: GLUCOMETER DEV NAME(LOC) 3EX.2; GLUCOSE,POINT OF CARE 233 MG/DL (70-110)
[2023-06-19 16:47] LABS: GLUCOMETER DEV NAME(LOC) 3EX.2; GLUCOSE,POINT OF CARE 294 MG/DL (70-110)
[2023-06-19 20:16] LABS: GLUCOMETER DEV NAME(LOC) 3EX.2; GLUCOSE,POINT OF CARE 299 MG/DL (70-110)
[2023-06-19 20:31] VITALS: BP 106/57; PULSE 68; RESP 20; TEMP 98.7; O2SAT 96
[2023-06-19] MEDS: BENZTROPINE MESYLATE 2 MG TABLET PO SCH (20:34)
[2023-06-19] MEDS: MELATONIN 5 MG TABLET PO SCH (20:34)
[2023-06-19] MEDS: INSULIN GLARGINE,HUM.REC.ANLOG 100 UNITS/ML SQ SCH (21:28)
[2023-06-20 06:31] LABS: GLUCOMETER DEV NAME(LOC) 3EX.2; GLUCOSE,POINT OF CARE 115 MG/DL (70-110)
[2023-06-20] MEDS: GlipiZIDE 10 MG TABLET PO SCH (06:32)
[2023-06-20] MEDS: INSULIN LISPRO 100 UNITS/ML SQ PRN ×4 (06:34→21:25)
[2023-06-20 08:16] VITALS: BP 108/57; PULSE 88; RESP 18; TEMP 97.4; O2SAT 97
[2023-06-20] MEDS: ASCORBIC ACID 500 MG TABLET PO SCH (08:45)
[2023-06-20] MEDS: OMEGA-3/DHA/EPA/FISH OIL 1,000 MG CAPSULE PO SCH (08:45)
[2023-06-20] MEDS: RisperiDONE 3 MG TABLET PO SCH ×2 (08:45→17:22)
[2023-06-20] MEDS: MULTIVITAMINS, THERAPEUTIC TABLET PO SCH (08:45)
[2023-06-20] MEDS: ATORVASTATIN CALCIUM 10 MG TABLET PO SCH (08:46)
[2023-06-20] MEDS: ASPIRIN 81 MG CHEWABLE TABLET PO SCH (08:46)
[2023-06-20] MEDS: DIVALPROEX SODIUM 500 MG DR TABLET PO SCH ×2 (08:48→17:00)
[2023-06-20 12:41] LABS: GLUCOMETER DEV NAME(LOC) 3EX.2; GLUCOSE,POINT OF CARE 219 MG/DL (70-110)
[2023-06-20 17:22] LABS: GLUCOMETER DEV NAME(LOC) 3EX.2; GLUCOSE,POINT OF CARE 232 MG/DL (70-110)
[2023-06-20] MEDS: DiphenhydrAMINE HCL 25 MG CAPSULE PO PRN (17:53)
[2023-06-20] MEDS: BENZOCAINE/MENTHOL LOZENGE PO PRN (17:53)
[2023-06-20 20:11] LABS: GLUCOMETER DEV NAME(LOC) 3EX.2; GLUCOSE,POINT OF CARE 257 MG/DL (70-110)
[2023-06-20] MEDS: BENZTROPINE MESYLATE 2 MG TABLET PO SCH (20:20)
[2023-06-20] MEDS: MELATONIN 5 MG TABLET PO SCH (20:20)
[2023-06-20 20:23] VITALS: BP 133/54; PULSE 70; RESP 18; TEMP 98.2; O2SAT 99
[2023-06-20] MEDS: INSULIN GLARGINE,HUM.REC.ANLOG 100 UNITS/ML SQ SCH (21:25)
[2023-06-21 06:21] LABS: GLUCOMETER DEV NAME(LOC) 3EX.2; GLUCOSE,POINT OF CARE 212 MG/DL (70-110)
[2023-06-21] MEDS: GlipiZIDE 10 MG TABLET PO SCH (06:37)
[2023-06-21] MEDS: INSULIN LISPRO 100 UNITS/ML SQ PRN ×4 (06:39→21:11)
[2023-06-21] MEDS: DIVALPROEX SODIUM 500 MG DR TABLET PO SCH ×2 (09:00→16:34)
[2023-06-21] MEDS: OMEGA-3/DHA/EPA/FISH OIL 1,000 MG CAPSULE PO SCH (09:21)
[2023-06-21] MEDS: ASCORBIC ACID 500 MG TABLET PO SCH (09:21)
[2023-06-21] MEDS: MULTIVITAMINS, THERAPEUTIC TABLET PO SCH (09:21)
[2023-06-21] MEDS: RisperiDONE 3 MG TABLET PO SCH ×2 (09:21→17:12)
[2023-06-21] MEDS: ASPIRIN 81 MG CHEWABLE TABLET PO SCH (09:22)
[2023-06-21] MEDS: ATORVASTATIN CALCIUM 10 MG TABLET PO SCH (09:23)
[2023-06-21 09:55] VITALS: BP 123/55; PULSE 79; RESP 18; TEMP 98.2
[2023-06-21 11:36] LABS: GLUCOMETER DEV NAME(LOC) 3EX.2; GLUCOSE,POINT OF CARE 273 MG/DL (70-110)
[2023-06-21 17:11] LABS: GLUCOMETER DEV NAME(LOC) 3EX.2; GLUCOSE,POINT OF CARE 269 MG/DL (70-110)
[2023-06-21] MEDS: DiphenhydrAMINE HCL 25 MG CAPSULE PO PRN (19:56)
[2023-06-21] MEDS: BENZOCAINE/MENTHOL LOZENGE PO PRN (19:57)
[2023-06-21 20:16] LABS: GLUCOMETER DEV NAME(LOC) 3EX.2; GLUCOSE,POINT OF CARE 354 MG/DL (70-110)
[2023-06-21 20:20] VITALS: BP 133/65; PULSE 79; RESP 18; O2SAT 97
[2023-06-21] MEDS: BENZTROPINE MESYLATE 2 MG TABLET PO SCH (20:23)
[2023-06-21] MEDS: MELATONIN 5 MG TABLET PO SCH (20:23)
[2023-06-21] MEDS: INSULIN GLARGINE,HUM.REC.ANLOG 100 UNITS/ML SQ SCH (21:11)
[2023-06-22] MEDS: BENZOCAINE/MENTHOL LOZENGE PO PRN ×2 (06:10→17:09)
[2023-06-22 06:21] LABS: GLUCOMETER DEV NAME(LOC) 3EX.2; GLUCOSE,POINT OF CARE 122 MG/DL (70-110)
[2023-06-22] MEDS: INSULIN LISPRO 100 UNITS/ML SQ PRN ×4 (06:38→21:17)
[2023-06-22] MEDS: GlipiZIDE 10 MG TABLET PO SCH (06:39)
[2023-06-22 08:32] VITALS: BP 140/69; PULSE 85; RESP 18; TEMP 97.6; O2SAT 97
[2023-06-22] MEDS: ATORVASTATIN CALCIUM 10 MG TABLET PO SCH (08:39)
[2023-06-22] MEDS: RisperiDONE 3 MG TABLET PO SCH ×2 (08:39→16:55)
[2023-06-22] MEDS: DIVALPROEX SODIUM 500 MG DR TABLET PO SCH ×2 (08:40→16:55)
[2023-06-22] MEDS: OMEGA-3/DHA/EPA/FISH OIL 1,000 MG CAPSULE PO SCH (08:40)
[2023-06-22] MEDS: ASPIRIN 81 MG CHEWABLE TABLET PO SCH (08:40)
[2023-06-22] MEDS: MULTIVITAMINS, THERAPEUTIC TABLET PO SCH (08:40)
[2023-06-22] MEDS: ASCORBIC ACID 500 MG TABLET PO SCH (08:40)
[2023-06-22 12:16] LABS: GLUCOMETER DEV NAME(LOC) 3EX.2; GLUCOSE,POINT OF CARE 310 MG/DL (70-110)
[2023-06-22] MEDS: ALBUTEROL SULFATE HFA 90 MCG/PUFF 8 GM INHALER IH PRN (17:04)
[2023-06-22] MEDS: DiphenhydrAMINE HCL 25 MG CAPSULE PO PRN (17:06)
[2023-06-22 17:51] LABS: GLUCOMETER DEV NAME(LOC) 3EX.2; GLUCOSE,POINT OF CARE 156 MG/DL (70-110)
[2023-06-22] MEDS: MELATONIN 5 MG TABLET PO SCH (21:12)
[2023-06-22] MEDS: BENZTROPINE MESYLATE 2 MG TABLET PO SCH (21:12)
[2023-06-22] MEDS: INSULIN GLARGINE,HUM.REC.ANLOG 100 UNITS/ML SQ SCH (21:15)
[2023-06-22 21:16] LABS: GLUCOMETER DEV NAME(LOC) 3EX.2; GLUCOSE,POINT OF CARE 217 MG/DL (70-110)
[2023-06-22 21:31] VITALS: RESP 18
[2023-06-23] MEDS: BENZOCAINE/MENTHOL LOZENGE PO PRN ×3 (06:36→22:10)
[2023-06-23] MEDS: DiphenhydrAMINE HCL 25 MG CAPSULE PO PRN (06:36)
[2023-06-23 06:51] LABS: GLUCOMETER DEV NAME(LOC) 3EX.2; GLUCOSE,POINT OF CARE 186 MG/DL (70-110)
[2023-06-23] MEDS: GlipiZIDE 10 MG TABLET PO SCH (06:54)
[2023-06-23] MEDS: INSULIN LISPRO 100 UNITS/ML SQ PRN ×4 (07:02→21:18)
[2023-06-23] MEDS: DIVALPROEX SODIUM 500 MG DR TABLET PO SCH ×2 (08:41→16:23)
[2023-06-23] MEDS: ASPIRIN 81 MG CHEWABLE TABLET PO SCH (08:41)
[2023-06-23] MEDS: ASCORBIC ACID 500 MG TABLET PO SCH (08:41)
[2023-06-23] MEDS: OMEGA-3/DHA/EPA/FISH OIL 1,000 MG CAPSULE PO SCH (08:41)
[2023-06-23] MEDS: ATORVASTATIN CALCIUM 10 MG TABLET PO SCH (08:41)
[2023-06-23] MEDS: RisperiDONE 3 MG TABLET PO SCH ×2 (08:41→16:23)
[2023-06-23] MEDS: MULTIVITAMINS, THERAPEUTIC TABLET PO SCH (08:41)
[2023-06-23 08:45] VITALS: BP 141/76; PULSE 80; RESP 18
[2023-06-23 11:56] LABS: GLUCOMETER DEV NAME(LOC) 3EX.2; GLUCOSE,POINT OF CARE 187 MG/DL (70-110)
[2023-06-23] MEDS: ALBUTEROL SULFATE HFA 90 MCG/PUFF 8 GM INHALER IH PRN (17:12)
[2023-06-23 17:31] LABS: GLUCOMETER DEV NAME(LOC) 3EX.2; GLUCOSE,POINT OF CARE 180 MG/DL (70-110)
[2023-06-23 20:46] LABS: GLUCOMETER DEV NAME(LOC) 3EX.2; GLUCOSE,POINT OF CARE 235 MG/DL (70-110)
[2023-06-23] MEDS: INSULIN GLARGINE,HUM.REC.ANLOG 100 UNITS/ML SQ SCH (21:00)
[2023-06-23] MEDS: MELATONIN 5 MG TABLET PO SCH (21:11)
[2023-06-23] MEDS: BENZTROPINE MESYLATE 2 MG TABLET PO SCH (21:11)
[2023-06-24 05:51] LABS: GLUCOMETER DEV NAME(LOC) 3EX.2; GLUCOSE,POINT OF CARE 78 MG/DL (70-110)
[2023-06-24] MEDS: GlipiZIDE 10 MG TABLET PO SCH (06:04)
[2023-06-24] MEDS: OMEGA-3/DHA/EPA/FISH OIL 1,000 MG CAPSULE PO SCH (08:02)
[2023-06-24] MEDS: MULTIVITAMINS, THERAPEUTIC TABLET PO SCH (08:03)
[2023-06-24] MEDS: RisperiDONE 3 MG TABLET PO SCH ×2 (08:03→16:46)
[2023-06-24] MEDS: BENZOCAINE/MENTHOL LOZENGE PO PRN ×2 (08:03→14:03)
[2023-06-24] MEDS: ASCORBIC ACID 500 MG TABLET PO SCH (08:03)
[2023-06-24] MEDS: DiphenhydrAMINE HCL 25 MG CAPSULE PO PRN ×2 (08:03→14:03)
[2023-06-24] MEDS: ASPIRIN 81 MG CHEWABLE TABLET PO SCH (08:03)
[2023-06-24] MEDS: DIVALPROEX SODIUM 500 MG DR TABLET PO SCH ×2 (08:07→17:00)
[2023-06-24 08:23] VITALS: BP 114/58; PULSE 85; RESP 17; O2SAT 97
[2023-06-24] MEDS: ATORVASTATIN CALCIUM 10 MG TABLET PO SCH (09:04)
[2023-06-24 11:21] LABS: GLUCOMETER DEV NAME(LOC) 3EX.2; GLUCOSE,POINT OF CARE 329 MG/DL (70-110)
[2023-06-24] MEDS: INSULIN LISPRO 100 UNITS/ML SQ PRN ×3 (11:24→21:04)
[2023-06-24 17:12] LABS: GLUCOMETER DEV NAME(LOC) 3EX.2; GLUCOSE,POINT OF CARE 217 MG/DL (70-110)
[2023-06-24 20:30] VITALS: BP 126/61; PULSE 79; RESP 19; O2SAT 97
[2023-06-24 20:51] LABS: GLUCOMETER DEV NAME(LOC) 3EX.2; GLUCOSE,POINT OF CARE 289 MG/DL (70-110)
[2023-06-24] MEDS: BENZTROPINE MESYLATE 2 MG TABLET PO SCH (20:52)
[2023-06-24] MEDS: MELATONIN 5 MG TABLET PO SCH (20:52)
[2023-06-24] MEDS: INSULIN GLARGINE,HUM.REC.ANLOG 100 UNITS/ML SQ SCH (21:03)
[2023-06-25 05:26] LABS: GLUCOMETER DEV NAME(LOC) 3EX.2; GLUCOSE,POINT OF CARE 101 MG/DL (70-110)
[2023-06-25] MEDS: GlipiZIDE 10 MG TABLET PO SCH (06:34)
[2023-06-25 08:14] VITALS: BP 137/58; PULSE 71; RESP 18; O2SAT 97
[2023-06-25] MEDS: DIVALPROEX SODIUM 500 MG DR TABLET PO SCH ×3 (09:00→17:00)
[2023-06-25] MEDS: MULTIVITAMINS, THERAPEUTIC TABLET PO SCH (09:58)
[2023-06-25] MEDS: ASCORBIC ACID 500 MG TABLET PO SCH (09:58)
[2023-06-25] MEDS: OMEGA-3/DHA/EPA/FISH OIL 1,000 MG CAPSULE PO SCH (09:58)
[2023-06-25] MEDS: RisperiDONE 3 MG TABLET PO SCH ×2 (09:58→17:14)
[2023-06-25] MEDS: DiphenhydrAMINE HCL 25 MG CAPSULE PO PRN ×2 (09:58→17:21)
[2023-06-25] MEDS: ATORVASTATIN CALCIUM 10 MG TABLET PO SCH (09:59)
[2023-06-25] MEDS: ALBUTEROL SULFATE HFA 90 MCG/PUFF 8 GM INHALER IH PRN ×2 (10:00→17:22)
[2023-06-25] MEDS: ASPIRIN 81 MG CHEWABLE TABLET PO SCH (10:01)
[2023-06-25 11:56] LABS: GLUCOMETER DEV NAME(LOC) 3EX.2; GLUCOSE,POINT OF CARE 94 MG/DL (70-110)
[2023-06-25 17:26] LABS: GLUCOMETER DEV NAME(LOC) 3EX.2; GLUCOSE,POINT OF CARE 228 MG/DL (70-110)
[2023-06-25] MEDS: BENZOCAINE/MENTHOL LOZENGE PO PRN (17:29)
[2023-06-25] MEDS: INSULIN LISPRO 100 UNITS/ML SQ PRN ×2 (17:46→22:10)
[2023-06-25 20:26] LABS: GLUCOMETER DEV NAME(LOC) 3EX.2; GLUCOSE,POINT OF CARE 243 MG/DL (70-110)
[2023-06-25] MEDS: MELATONIN 5 MG TABLET PO SCH (20:31)
[2023-06-25] MEDS: BENZTROPINE MESYLATE 2 MG TABLET PO SCH (20:32)
[2023-06-25 20:36] VITALS: BP 122/68; PULSE 80; RESP 18
[2023-06-25] MEDS: INSULIN GLARGINE,HUM.REC.ANLOG 100 UNITS/ML SQ SCH (22:10)
[2023-06-26 06:27] LABS: GLUCOMETER DEV NAME(LOC) 3EX.2; GLUCOSE,POINT OF CARE 145 MG/DL (70-110)
[2023-06-26] MEDS: GlipiZIDE 10 MG TABLET PO SCH (06:39)
[2023-06-26] MEDS: INSULIN LISPRO 100 UNITS/ML SQ PRN ×4 (06:40→21:02)
[2023-06-26] MEDS: DiphenhydrAMINE HCL 25 MG CAPSULE PO PRN (08:22)
[2023-06-26] MEDS: BENZOCAINE/MENTHOL LOZENGE PO PRN ×2 (08:22→16:17)
[2023-06-26] MEDS: OMEGA-3/DHA/EPA/FISH OIL 1,000 MG CAPSULE PO SCH (08:22)
[2023-06-26] MEDS: RisperiDONE 3 MG TABLET PO SCH ×2 (08:22→16:17)
[2023-06-26] MEDS: ASCORBIC ACID 500 MG TABLET PO SCH (08:23)
[2023-06-26] MEDS: MULTIVITAMINS, THERAPEUTIC TABLET PO SCH (08:23)
[2023-06-26] MEDS: ASPIRIN 81 MG CHEWABLE TABLET PO SCH (08:23)
[2023-06-26] MEDS: ATORVASTATIN CALCIUM 10 MG TABLET PO SCH (08:23)
[2023-06-26] MEDS: DIVALPROEX SODIUM 500 MG DR TABLET PO SCH ×2 (08:29→16:24)
[2023-06-26 08:34] VITALS: BP 140/59; PULSE 79; RESP 19; O2SAT 97
[2023-06-26] MEDS: ALBUTEROL SULFATE HFA 90 MCG/PUFF 8 GM INHALER IH PRN ×2 (11:50→16:21)
[2023-06-26 11:56] LABS: GLUCOMETER DEV NAME(LOC) 3EX.2; GLUCOSE,POINT OF CARE 313 MG/DL (70-110)
[2023-06-26] MEDS: LORazepam 2 MG TABLET PO PRN (15:33)
[2023-06-26 16:51] LABS: GLUCOMETER DEV NAME(LOC) 3EX.2; GLUCOSE,POINT OF CARE 224 MG/DL (70-110)
[2023-06-26 20:30] VITALS: BP 134/62; PULSE 78; RESP 18; TEMP 97.6; O2SAT 97
[2023-06-26 20:31] LABS: GLUCOMETER DEV NAME(LOC) 3EX.2; GLUCOSE,POINT OF CARE 264 MG/DL (70-110)
[2023-06-26] MEDS: BENZTROPINE MESYLATE 2 MG TABLET PO SCH (20:58)
[2023-06-26] MEDS: MELATONIN 5 MG TABLET PO SCH (20:58)
[2023-06-26] MEDS: INSULIN GLARGINE,HUM.REC.ANLOG 100 UNITS/ML SQ SCH (21:01)
[2023-06-27] MEDS: PETROLATUM,WHITE 28 GM JELLY TP PRN (00:15)
[2023-06-27] MEDS: GlipiZIDE 10 MG TABLET PO SCH (06:04)
[2023-06-27] MEDS: DiphenhydrAMINE HCL 25 MG CAPSULE PO PRN ×2 (06:04→16:30)
[2023-06-27] MEDS: BENZOCAINE/MENTHOL LOZENGE PO PRN ×2 (06:06→20:40)
[2023-06-27 06:16] LABS: GLUCOMETER DEV NAME(LOC) 3EX.2; GLUCOSE,POINT OF CARE 78 MG/DL (70-110)
[2023-06-27] MEDS: MULTIVITAMINS, THERAPEUTIC TABLET PO SCH (08:22)
[2023-06-27] MEDS: ASPIRIN 81 MG CHEWABLE TABLET PO SCH (08:23)
[2023-06-27] MEDS: RisperiDONE 3 MG TABLET PO SCH ×2 (08:26→16:30)
[2023-06-27] MEDS: ATORVASTATIN CALCIUM 10 MG TABLET PO SCH (08:26)
[2023-06-27] MEDS: ASCORBIC ACID 500 MG TABLET PO SCH (08:26)
[2023-06-27] MEDS: OMEGA-3/DHA/EPA/FISH OIL 1,000 MG CAPSULE PO SCH (08:26)
[2023-06-27] MEDS: DIVALPROEX SODIUM 500 MG DR TABLET PO SCH ×2 (08:37→17:00)
[2023-06-27 10:37] VITALS: BP 137/59; PULSE 95; RESP 18; TEMP 97.6; O2SAT 98
[2023-06-27 10:46] VITALS: BP 137/89; PULSE 95; RESP 18; TEMP 97.6; O2SAT 98
[2023-06-27 11:36] LABS: GLUCOMETER DEV NAME(LOC) 3EX.2; GLUCOSE,POINT OF CARE 171 MG/DL (70-110)
[2023-06-27] MEDS: INSULIN LISPRO 100 UNITS/ML SQ PRN ×3 (11:53→21:00)
[2023-06-27 17:06] LABS: GLUCOMETER DEV NAME(LOC) 3EX.2; GLUCOSE,POINT OF CARE 227 MG/DL (70-110)
[2023-06-27 20:00] VITALS: BP 137/60; PULSE 109; RESP 20; TEMP 97.9; O2SAT 98
[2023-06-27] MEDS: BENZTROPINE MESYLATE 2 MG TABLET PO SCH (20:40)
[2023-06-27] MEDS: MELATONIN 5 MG TABLET PO SCH (20:40)
[2023-06-27] MEDS: INSULIN GLARGINE,HUM.REC.ANLOG 100 UNITS/ML SQ SCH (20:58)
[2023-06-27 21:26] LABS: GLUCOMETER DEV NAME(LOC) 3EX.2; GLUCOSE,POINT OF CARE 361 MG/DL (70-110)
[2023-06-28] MEDS: DiphenhydrAMINE HCL 25 MG CAPSULE PO PRN (03:34)
[2023-06-28] MEDS: BENZOCAINE/MENTHOL LOZENGE PO PRN (03:34)
[2023-06-28] MEDS: GlipiZIDE 10 MG TABLET PO SCH (06:32)
[2023-06-28] MEDS: INSULIN LISPRO 100 UNITS/ML SQ PRN ×4 (06:51→21:05)
[2023-06-28 07:06] LABS: GLUCOMETER DEV NAME(LOC) 3EX.2; GLUCOSE,POINT OF CARE 125 MG/DL (70-110)
[2023-06-28] MEDS: RisperiDONE 3 MG TABLET PO SCH ×2 (08:13→16:56)
[2023-06-28] MEDS: ASPIRIN 81 MG CHEWABLE TABLET PO SCH (08:13)
[2023-06-28] MEDS: MULTIVITAMINS, THERAPEUTIC TABLET PO SCH (08:13)
[2023-06-28] MEDS: ASCORBIC ACID 500 MG TABLET PO SCH (08:13)
[2023-06-28] MEDS: OMEGA-3/DHA/EPA/FISH OIL 1,000 MG CAPSULE PO SCH (08:13)
[2023-06-28] MEDS: ATORVASTATIN CALCIUM 10 MG TABLET PO SCH (08:14)
[2023-06-28 08:18] VITALS: BP 99/62; PULSE 63; RESP 18; TEMP 97.9; O2SAT 98
[2023-06-28] MEDS: DIVALPROEX SODIUM 500 MG DR TABLET PO SCH ×2 (09:00→17:00)
[2023-06-28 11:27] LABS: GLUCOMETER DEV NAME(LOC) 3EX.2; GLUCOSE,POINT OF CARE 139 MG/DL (70-110)
[2023-06-28 17:11] LABS: GLUCOMETER DEV NAME(LOC) 3EX.2; GLUCOSE,POINT OF CARE 124 MG/DL (70-110)
[2023-06-28 20:12] VITALS: BP 112/74; PULSE 74; RESP 18; TEMP 97.6; O2SAT 98
[2023-06-28] MEDS: BENZTROPINE MESYLATE 2 MG TABLET PO SCH (20:42)
[2023-06-28] MEDS: MELATONIN 5 MG TABLET PO SCH (20:42)
[2023-06-28] MEDS: INSULIN GLARGINE,HUM.REC.ANLOG 100 UNITS/ML SQ SCH (21:03)
[2023-06-28 21:21] LABS: GLUCOMETER DEV NAME(LOC) 3EX.2; GLUCOSE,POINT OF CARE 289 MG/DL (70-110)
[2023-06-29] MEDS: GlipiZIDE 10 MG TABLET PO SCH (06:30)
[2023-06-29] MEDS: INSULIN LISPRO 100 UNITS/ML SQ PRN ×4 (06:32→21:08)
[2023-06-29 06:56] LABS: GLUCOMETER DEV NAME(LOC) 3EX.2; GLUCOSE,POINT OF CARE 184 MG/DL (70-110)
[2023-06-29] MEDS: ASCORBIC ACID 500 MG TABLET PO SCH (07:35)
[2023-06-29] MEDS: MULTIVITAMINS, THERAPEUTIC TABLET PO SCH (07:35)
[2023-06-29] MEDS: RisperiDONE 3 MG TABLET PO SCH ×2 (07:35→16:35)
[2023-06-29] MEDS: ATORVASTATIN CALCIUM 10 MG TABLET PO SCH (07:36)
[2023-06-29] MEDS: DIVALPROEX SODIUM 500 MG DR TABLET PO SCH ×3 (07:36→16:35)
[2023-06-29] MEDS: OMEGA-3/DHA/EPA/FISH OIL 1,000 MG CAPSULE PO SCH (07:36)
[2023-06-29] MEDS: ASPIRIN 81 MG CHEWABLE TABLET PO SCH (07:36)
[2023-06-29] MEDS: ALBUTEROL SULFATE HFA 90 MCG/PUFF 8 GM INHALER IH PRN (07:39)
[2023-06-29 08:18] VITALS: BP 112/56; PULSE 97; RESP 17; TEMP 97.8; O2SAT 98
[2023-06-29 11:46] LABS: GLUCOMETER DEV NAME(LOC) 3EX.2; GLUCOSE,POINT OF CARE 161 MG/DL (70-110)
[2023-06-29 17:16] LABS: GLUCOMETER DEV NAME(LOC) 3EX.2; GLUCOSE,POINT OF CARE 172 MG/DL (70-110)
[2023-06-29] MEDS: BENZTROPINE MESYLATE 2 MG TABLET PO SCH (21:03)
[2023-06-29] MEDS: MELATONIN 5 MG TABLET PO SCH (21:03)
[2023-06-29 21:06] LABS: GLUCOMETER DEV NAME(LOC) 3EX.2; GLUCOSE,POINT OF CARE 302 MG/DL (70-110)
[2023-06-29] MEDS: INSULIN GLARGINE,HUM.REC.ANLOG 100 UNITS/ML SQ SCH (21:07)
[2023-06-29 21:11] VITALS: RESP 18
[2023-06-30] MEDS: DiphenhydrAMINE HCL 25 MG CAPSULE PO PRN ×2 (06:00→14:52)
[2023-06-30] MEDS: BENZOCAINE/MENTHOL LOZENGE PO PRN ×2 (06:00→11:31)
[2023-06-30] MEDS: ALBUTEROL SULFATE HFA 90 MCG/PUFF 8 GM INHALER IH PRN ×2 (06:01→11:32)
[2023-06-30 06:11] LABS: GLUCOMETER DEV NAME(LOC) 3EX.2; GLUCOSE,POINT OF CARE 92 MG/DL (70-110)
[2023-06-30] MEDS: GlipiZIDE 10 MG TABLET PO SCH (06:45)
[2023-06-30] MEDS: INSULIN LISPRO 100 UNITS/ML SQ PRN ×4 (07:12→21:00)
[2023-06-30] MEDS: OMEGA-3/DHA/EPA/FISH OIL 1,000 MG CAPSULE PO SCH (08:15)
[2023-06-30] MEDS: DIVALPROEX SODIUM 500 MG DR TABLET PO SCH ×3 (08:15→16:46)
[2023-06-30] MEDS: RisperiDONE 3 MG TABLET PO SCH ×2 (08:15→16:48)
[2023-06-30] MEDS: MULTIVITAMINS, THERAPEUTIC TABLET PO SCH (08:15)
[2023-06-30] MEDS: ATORVASTATIN CALCIUM 10 MG TABLET PO SCH (08:16)
[2023-06-30] MEDS: ASCORBIC ACID 500 MG TABLET PO SCH (08:16)
[2023-06-30] MEDS: ASPIRIN 81 MG CHEWABLE TABLET PO SCH (08:16)
[2023-06-30 09:00] VITALS: BP 115/63; PULSE 80; RESP 18; TEMP 97.6; O2SAT 99
[2023-06-30 11:51] LABS: GLUCOMETER DEV NAME(LOC) 3EX.2; GLUCOSE,POINT OF CARE 217 MG/DL (70-110)
[2023-06-30 17:17] LABS: GLUCOMETER DEV NAME(LOC) 3EX.2; GLUCOSE,POINT OF CARE 215 MG/DL (70-110)
[2023-06-30 20:05] VITALS: BP 121/78; PULSE 89; RESP 18; TEMP 98; O2SAT 98
[2023-06-30 20:35] LABS: GLUCOMETER DEV NAME(LOC) 3EX.2; GLUCOSE,POINT OF CARE 219 MG/DL (70-110)
[2023-06-30] MEDS: BENZTROPINE MESYLATE 2 MG TABLET PO SCH (20:54)
[2023-06-30] MEDS: MELATONIN 5 MG TABLET PO SCH (20:54)
[2023-06-30] MEDS: INSULIN GLARGINE,HUM.REC.ANLOG 100 UNITS/ML SQ SCH (20:58)
[2023-07-01] MEDS: DiphenhydrAMINE HCL 25 MG CAPSULE PO PRN (05:57)
[2023-07-01] MEDS: BENZOCAINE/MENTHOL LOZENGE PO PRN (05:58)
[2023-07-01] MEDS: ALBUTEROL SULFATE HFA 90 MCG/PUFF 8 GM INHALER IH PRN (05:58)
[2023-07-01 06:11] LABS: GLUCOMETER DEV NAME(LOC) 3EX.2; GLUCOSE,POINT OF CARE 85 MG/DL (70-110)
[2023-07-01] MEDS: GlipiZIDE 10 MG TABLET PO SCH (06:51)
[2023-07-01] MEDS: INSULIN LISPRO 100 UNITS/ML SQ PRN ×4 (07:02→21:13)
[2023-07-01] MEDS: ASCORBIC ACID 500 MG TABLET PO SCH (08:21)
[2023-07-01] MEDS: OMEGA-3/DHA/EPA/FISH OIL 1,000 MG CAPSULE PO SCH (08:21)
[2023-07-01] MEDS: DIVALPROEX SODIUM 500 MG DR TABLET PO SCH ×3 (08:21→17:00)
[2023-07-01] MEDS: MULTIVITAMINS, THERAPEUTIC TABLET PO SCH (08:21)
[2023-07-01] MEDS: ATORVASTATIN CALCIUM 10 MG TABLET PO SCH (08:22)
[2023-07-01] MEDS: RisperiDONE 3 MG TABLET PO SCH ×2 (08:22→16:45)
[2023-07-01] MEDS: ASPIRIN 81 MG CHEWABLE TABLET PO SCH (08:23)
[2023-07-01 09:08] VITALS: BP 138/59; PULSE 69; RESP 18; TEMP 98; O2SAT 98
[2023-07-01 11:46] LABS: GLUCOMETER DEV NAME(LOC) 3EX.2; GLUCOSE,POINT OF CARE 191 MG/DL (70-110)
[2023-07-01 16:56] LABS: GLUCOMETER DEV NAME(LOC) 3EX.2; GLUCOSE,POINT OF CARE 264 MG/DL (70-110)
[2023-07-01 20:26] LABS: GLUCOMETER DEV NAME(LOC) 3EX.2; GLUCOSE,POINT OF CARE 141 MG/DL (70-110)
[2023-07-01] MEDS: MELATONIN 5 MG TABLET PO SCH (20:43)
[2023-07-01] MEDS: BENZTROPINE MESYLATE 2 MG TABLET PO SCH (20:43)
[2023-07-01 20:59] VITALS: BP 132/64; PULSE 72; RESP 18; TEMP 97.8
[2023-07-01] MEDS: INSULIN GLARGINE,HUM.REC.ANLOG 100 UNITS/ML SQ SCH (21:12)
[2023-07-02 06:07] LABS: GLUCOMETER DEV NAME(LOC) 3EX.2; GLUCOSE,POINT OF CARE 167 MG/DL (70-110)
[2023-07-02] MEDS: GlipiZIDE 10 MG TABLET PO SCH (06:37)
[2023-07-02] MEDS: INSULIN LISPRO 100 UNITS/ML SQ PRN ×3 (06:44→21:07)
[2023-07-02] MEDS: OMEGA-3/DHA/EPA/FISH OIL 1,000 MG CAPSULE PO SCH (08:06)
[2023-07-02] MEDS: ASCORBIC ACID 500 MG TABLET PO SCH (08:06)
[2023-07-02] MEDS: ASPIRIN 81 MG CHEWABLE TABLET PO SCH (08:07)
[2023-07-02] MEDS: MULTIVITAMINS, THERAPEUTIC TABLET PO SCH (08:07)
[2023-07-02] MEDS: ATORVASTATIN CALCIUM 10 MG TABLET PO SCH (08:07)
[2023-07-02] MEDS: RisperiDONE 3 MG TABLET PO SCH ×2 (08:07→16:47)
[2023-07-02] MEDS: DIVALPROEX SODIUM 500 MG DR TABLET PO SCH ×2 (09:00→16:51)
[2023-07-02 11:31] LABS: GLUCOMETER DEV NAME(LOC) 3EX.2; GLUCOSE,POINT OF CARE 70 MG/DL (70-110)
[2023-07-02 13:30] VITALS: BP 128/61; PULSE 83; RESP 19; TEMP 97.8; O2SAT 97
[2023-07-02] MEDS: BENZOCAINE/MENTHOL LOZENGE PO PRN (16:47)
[2023-07-02] MEDS: DiphenhydrAMINE HCL 25 MG CAPSULE PO PRN (16:47)
[2023-07-02 17:06] LABS: GLUCOMETER DEV NAME(LOC) 3EX.2; GLUCOSE,POINT OF CARE 363 MG/DL (70-110)
[2023-07-02 20:28] VITALS: BP 136/60; PULSE 77; RESP 20; TEMP 98.9; O2SAT 95
[2023-07-02 20:51] LABS: GLUCOMETER DEV NAME(LOC) 3EX.2; GLUCOSE,POINT OF CARE 213 MG/DL (70-110)
[2023-07-02] MEDS: BENZTROPINE MESYLATE 2 MG TABLET PO SCH (20:59)
[2023-07-02] MEDS: MELATONIN 5 MG TABLET PO SCH (20:59)
[2023-07-02] MEDS: INSULIN GLARGINE,HUM.REC.ANLOG 100 UNITS/ML SQ SCH (21:06)
[2023-07-03] MEDS: BENZOCAINE/MENTHOL LOZENGE PO PRN ×2 (05:38→16:57)
[2023-07-03] MEDS: DiphenhydrAMINE HCL 25 MG CAPSULE PO PRN ×2 (05:38→16:57)
[2023-07-03 05:47] LABS: GLUCOMETER DEV NAME(LOC) 3EX.2; GLUCOSE,POINT OF CARE 227 MG/DL (70-110)
[2023-07-03] MEDS: GlipiZIDE 10 MG TABLET PO SCH (06:46)
[2023-07-03] MEDS: INSULIN LISPRO 100 UNITS/ML SQ PRN ×4 (07:19→21:15)
[2023-07-03] MEDS: DIVALPROEX SODIUM 500 MG DR TABLET PO SCH ×3 (09:00→17:00)
[2023-07-03] MEDS: RisperiDONE 3 MG TABLET PO SCH ×2 (09:07→16:57)
[2023-07-03] MEDS: ASPIRIN 81 MG CHEWABLE TABLET PO SCH (09:07)
[2023-07-03] MEDS: OMEGA-3/DHA/EPA/FISH OIL 1,000 MG CAPSULE PO SCH (09:07)
[2023-07-03] MEDS: MULTIVITAMINS, THERAPEUTIC TABLET PO SCH (09:07)
[2023-07-03] MEDS: ASCORBIC ACID 500 MG TABLET PO SCH (09:07)
[2023-07-03] MEDS: ATORVASTATIN CALCIUM 10 MG TABLET PO SCH (09:13)
[2023-07-03 10:15] VITALS: BP 137/60; PULSE 76; RESP 17; TEMP 97.7; O2SAT 99
[2023-07-03 11:41] LABS: GLUCOMETER DEV NAME(LOC) 3EX.2; GLUCOSE,POINT OF CARE 132 MG/DL (70-110)
[2023-07-03 20:20] LABS: GLUCOMETER DEV NAME(LOC) 3EX.2; GLUCOSE,POINT OF CARE 194 MG/DL (70-110)
[2023-07-03 20:51] LABS: GLUCOMETER DEV NAME(LOC) 3EX.2; GLUCOSE,POINT OF CARE 299 MG/DL (70-110)
[2023-07-03] MEDS: MELATONIN 5 MG TABLET PO SCH (20:55)
[2023-07-03] MEDS: BENZTROPINE MESYLATE 2 MG TABLET PO SCH (20:55)
[2023-07-03] MEDS: INSULIN GLARGINE,HUM.REC.ANLOG 100 UNITS/ML SQ SCH (21:14)
[2023-07-03 22:52] VITALS: TEMP 97.5
[2023-07-04 06:01] LABS: GLUCOMETER DEV NAME(LOC) 3EX.2; GLUCOSE,POINT OF CARE 206 MG/DL (70-110)
[2023-07-04] MEDS: GlipiZIDE 10 MG TABLET PO SCH (06:37)
[2023-07-04] MEDS: INSULIN LISPRO 100 UNITS/ML SQ PRN ×4 (06:51→21:08)
[2023-07-04] MEDS: RisperiDONE 3 MG TABLET PO SCH ×2 (08:01→16:49)
[2023-07-04] MEDS: ASPIRIN 81 MG CHEWABLE TABLET PO SCH (08:01)
[2023-07-04] MEDS: ASCORBIC ACID 500 MG TABLET PO SCH (08:01)
[2023-07-04] MEDS: MULTIVITAMINS, THERAPEUTIC TABLET PO SCH (08:02)
[2023-07-04] MEDS: OMEGA-3/DHA/EPA/FISH OIL 1,000 MG CAPSULE PO SCH (08:02)
[2023-07-04] MEDS: ATORVASTATIN CALCIUM 10 MG TABLET PO SCH (08:04)
[2023-07-04 08:18] VITALS: BP 143/64; PULSE 78; RESP 18; TEMP 97.5; O2SAT 99
[2023-07-04] MEDS: DIVALPROEX SODIUM 500 MG DR TABLET PO SCH ×2 (09:00→17:00)
[2023-07-04 11:56] LABS: GLUCOMETER DEV NAME(LOC) 3EX.2; GLUCOSE,POINT OF CARE 117 MG/DL (70-110)
[2023-07-04 16:26] LABS: GLUCOMETER DEV NAME(LOC) 3EX.2; GLUCOSE,POINT OF CARE 300 MG/DL (70-110)
[2023-07-04] MEDS: MELATONIN 5 MG TABLET PO SCH (20:20)
[2023-07-04] MEDS: BENZTROPINE MESYLATE 2 MG TABLET PO SCH (20:20)
[2023-07-04 20:21] LABS: GLUCOMETER DEV NAME(LOC) 3EX.2; GLUCOSE,POINT OF CARE 254 MG/DL (70-110)
[2023-07-04] MEDS: INSULIN GLARGINE,HUM.REC.ANLOG 100 UNITS/ML SQ SCH (21:07)
[2023-07-05 06:26] LABS: GLUCOMETER DEV NAME(LOC) 3EX.2; GLUCOSE,POINT OF CARE 154 MG/DL (70-110)
[2023-07-05] MEDS: GlipiZIDE 10 MG TABLET PO SCH (06:43)
[2023-07-05] MEDS: INSULIN LISPRO 100 UNITS/ML SQ PRN ×4 (06:44→21:11)
[2023-07-05] MEDS: ASPIRIN 81 MG CHEWABLE TABLET PO SCH (08:20)
[2023-07-05] MEDS: ASCORBIC ACID 500 MG TABLET PO SCH (08:20)
[2023-07-05] MEDS: RisperiDONE 3 MG TABLET PO SCH ×2 (08:20→16:24)
[2023-07-05] MEDS: OMEGA-3/DHA/EPA/FISH OIL 1,000 MG CAPSULE PO SCH (08:21)
[2023-07-05] MEDS: MULTIVITAMINS, THERAPEUTIC TABLET PO SCH (08:21)
[2023-07-05] MEDS: ATORVASTATIN CALCIUM 10 MG TABLET PO SCH (08:22)
[2023-07-05] MEDS: DIVALPROEX SODIUM 500 MG DR TABLET PO SCH ×2 (09:00→17:00)
[2023-07-05 09:13] VITALS: BP 116/62; PULSE 83; RESP 18; TEMP 97.3; O2SAT 96
[2023-07-05 11:31] LABS: GLUCOMETER DEV NAME(LOC) 3EX.2; GLUCOSE,POINT OF CARE 145 MG/DL (70-110)
[2023-07-05] MEDS: ALBUTEROL SULFATE HFA 90 MCG/PUFF 8 GM INHALER IH PRN (16:25)
[2023-07-05 16:51] LABS: GLUCOMETER DEV NAME(LOC) 3EX.2; GLUCOSE,POINT OF CARE 288 MG/DL (70-110)
[2023-07-05 20:21] LABS: GLUCOMETER DEV NAME(LOC) 3EX.2; GLUCOSE,POINT OF CARE 325 MG/DL (70-110)
[2023-07-05] MEDS: MELATONIN 5 MG TABLET PO SCH (21:07)
[2023-07-05] MEDS: BENZTROPINE MESYLATE 2 MG TABLET PO SCH (21:08)
[2023-07-05] MEDS: INSULIN GLARGINE,HUM.REC.ANLOG 100 UNITS/ML SQ SCH (21:10)
[2023-07-05 23:23] VITALS: BP 124/79; PULSE 87; RESP 18; TEMP 97.5; O2SAT 97
[2023-07-06] MEDS: GlipiZIDE 10 MG TABLET PO SCH (06:18)
[2023-07-06 06:31] LABS: GLUCOMETER DEV NAME(LOC) 3EX.2; GLUCOSE,POINT OF CARE 160 MG/DL (70-110)
[2023-07-06] MEDS: ALBUTEROL SULFATE HFA 90 MCG/PUFF 8 GM INHALER IH PRN (06:38)
[2023-07-06] MEDS: INSULIN LISPRO 100 UNITS/ML SQ PRN ×4 (06:46→21:24)
[2023-07-06] MEDS: ASCORBIC ACID 500 MG TABLET PO SCH (08:49)
[2023-07-06] MEDS: OMEGA-3/DHA/EPA/FISH OIL 1,000 MG CAPSULE PO SCH (08:49)
[2023-07-06] MEDS: ASPIRIN 81 MG CHEWABLE TABLET PO SCH (08:49)
[2023-07-06] MEDS: RisperiDONE 3 MG TABLET PO SCH ×2 (08:50→16:39)
[2023-07-06] MEDS: ATORVASTATIN CALCIUM 10 MG TABLET PO SCH (08:50)
[2023-07-06] MEDS: MULTIVITAMINS, THERAPEUTIC TABLET PO SCH (08:51)
[2023-07-06] MEDS: DIVALPROEX SODIUM 500 MG DR TABLET PO SCH ×2 (08:54→17:00)
[2023-07-06 09:00] VITALS: BP 120/58; PULSE 78; RESP 18; TEMP 97.1; O2SAT 99
[2023-07-06 11:41] LABS: GLUCOMETER DEV NAME(LOC) 3EX.2; GLUCOSE,POINT OF CARE 211 MG/DL (70-110)
[2023-07-06 17:06] LABS: GLUCOMETER DEV NAME(LOC) 3EX.2; GLUCOSE,POINT OF CARE 246 MG/DL (70-110)
[2023-07-06 20:07] VITALS: BP 139/84; PULSE 87; RESP 18; TEMP 98; O2SAT 97
[2023-07-06 20:21] LABS: GLUCOMETER DEV NAME(LOC) 3EX.2; GLUCOSE,POINT OF CARE 262 MG/DL (70-110)
[2023-07-06] MEDS: MELATONIN 5 MG TABLET PO SCH (21:06)
[2023-07-06] MEDS: BENZTROPINE MESYLATE 2 MG TABLET PO SCH (21:06)
[2023-07-06] MEDS: INSULIN GLARGINE,HUM.REC.ANLOG 100 UNITS/ML SQ SCH (21:24)
[2023-07-07 06:11] LABS: GLUCOMETER DEV NAME(LOC) 3EX.2; GLUCOSE,POINT OF CARE 181 MG/DL (70-110)
[2023-07-07] MEDS: GlipiZIDE 10 MG TABLET PO SCH (06:50)
[2023-07-07] MEDS: INSULIN LISPRO 100 UNITS/ML SQ PRN ×4 (06:53→21:07)
[2023-07-07 08:10] VITALS: BP 109/58; PULSE 86; RESP 17; TEMP 97.4; O2SAT 98
[2023-07-07] MEDS: OMEGA-3/DHA/EPA/FISH OIL 1,000 MG CAPSULE PO SCH (08:12)
[2023-07-07] MEDS: RisperiDONE 3 MG TABLET PO SCH ×2 (08:13→16:38)
[2023-07-07] MEDS: ASCORBIC ACID 500 MG TABLET PO SCH (08:13)
[2023-07-07] MEDS: ASPIRIN 81 MG CHEWABLE TABLET PO SCH (08:13)
[2023-07-07] MEDS: ATORVASTATIN CALCIUM 10 MG TABLET PO SCH (08:13)
[2023-07-07] MEDS: MULTIVITAMINS, THERAPEUTIC TABLET PO SCH (08:13)
[2023-07-07] MEDS: DIVALPROEX SODIUM 500 MG DR TABLET PO SCH ×2 (08:15→16:57)
[2023-07-07 11:46] LABS: GLUCOMETER DEV NAME(LOC) 3EX.2; GLUCOSE,POINT OF CARE 136 MG/DL (70-110)
[2023-07-07 17:11] LABS: GLUCOMETER DEV NAME(LOC) 3EX.2; GLUCOSE,POINT OF CARE 310 MG/DL (70-110)
[2023-07-07 20:31] LABS: GLUCOMETER DEV NAME(LOC) 3EX.2; GLUCOSE,POINT OF CARE 263 MG/DL (70-110)
[2023-07-07] MEDS: BENZTROPINE MESYLATE 2 MG TABLET PO SCH (20:31)
[2023-07-07] MEDS: MELATONIN 5 MG TABLET PO SCH (20:31)
[2023-07-07] MEDS: INSULIN GLARGINE,HUM.REC.ANLOG 100 UNITS/ML SQ SCH (21:07)
[2023-07-07 21:26] VITALS: RESP 18
[2023-07-08] MEDS: DiphenhydrAMINE HCL 25 MG CAPSULE PO PRN (06:01)
[2023-07-08] MEDS: GlipiZIDE 10 MG TABLET PO SCH (06:01)
[2023-07-08 06:11] LABS: GLUCOMETER DEV NAME(LOC) 3EX.2; GLUCOSE,POINT OF CARE 102 MG/DL (70-110)
[2023-07-08] MEDS: ATORVASTATIN CALCIUM 10 MG TABLET PO SCH (07:55)
[2023-07-08] MEDS: RisperiDONE 3 MG TABLET PO SCH ×2 (07:56→16:43)
[2023-07-08] MEDS: ASPIRIN 81 MG CHEWABLE TABLET PO SCH (07:56)
[2023-07-08] MEDS: MULTIVITAMINS, THERAPEUTIC TABLET PO SCH (07:56)
[2023-07-08] MEDS: OMEGA-3/DHA/EPA/FISH OIL 1,000 MG CAPSULE PO SCH (07:56)
[2023-07-08] MEDS: ASCORBIC ACID 500 MG TABLET PO SCH (07:57)
[2023-07-08] MEDS: DIVALPROEX SODIUM 500 MG DR TABLET PO SCH ×2 (07:57→16:42)
[2023-07-08 08:26] VITALS: BP 115/60; PULSE 75; RESP 18; TEMP 97.1; O2SAT 99
[2023-07-08] MEDS: INSULIN LISPRO 100 UNITS/ML SQ PRN ×3 (11:22→21:12)
[2023-07-08 11:36] LABS: GLUCOMETER DEV NAME(LOC) 3EX.2; GLUCOSE,POINT OF CARE 223 MG/DL (70-110)
[2023-07-08 17:06] LABS: GLUCOMETER DEV NAME(LOC) 3EX.2; GLUCOSE,POINT OF CARE 271 MG/DL (70-110)
[2023-07-08 20:26] LABS: GLUCOMETER DEV NAME(LOC) 3EX.2; GLUCOSE,POINT OF CARE 214 MG/DL (70-110)
[2023-07-08] MEDS: MELATONIN 5 MG TABLET PO SCH (21:09)
[2023-07-08] MEDS: BENZTROPINE MESYLATE 2 MG TABLET PO SCH (21:10)
[2023-07-08 21:11] VITALS: BP 120/62; PULSE 88; RESP 18; TEMP 98.5; O2SAT 98
[2023-07-08] MEDS: INSULIN GLARGINE,HUM.REC.ANLOG 100 UNITS/ML SQ SCH (21:11)
[2023-07-09 06:36] LABS: GLUCOMETER DEV NAME(LOC) 3EX.2; GLUCOSE,POINT OF CARE 124 MG/DL (70-110)
[2023-07-09] MEDS: GlipiZIDE 10 MG TABLET PO SCH (06:46)
[2023-07-09] MEDS: INSULIN LISPRO 100 UNITS/ML SQ PRN ×4 (06:54→21:07)
[2023-07-09] MEDS: ATORVASTATIN CALCIUM 10 MG TABLET PO SCH (08:04)
[2023-07-09] MEDS: ASPIRIN 81 MG CHEWABLE TABLET PO SCH (08:06)
[2023-07-09] MEDS: MULTIVITAMINS, THERAPEUTIC TABLET PO SCH (08:06)
[2023-07-09] MEDS: ASCORBIC ACID 500 MG TABLET PO SCH (08:06)
[2023-07-09] MEDS: RisperiDONE 3 MG TABLET PO SCH ×2 (08:06→16:45)
[2023-07-09] MEDS: DIVALPROEX SODIUM 500 MG DR TABLET PO SCH ×2 (08:06→16:45)
[2023-07-09] MEDS: OMEGA-3/DHA/EPA/FISH OIL 1,000 MG CAPSULE PO SCH (08:06)
[2023-07-09 08:09] VITALS: BP 112/60; PULSE 72; RESP 16; TEMP 97.6; O2SAT 99
[2023-07-09 11:36] LABS: GLUCOMETER DEV NAME(LOC) 3EX.2; GLUCOSE,POINT OF CARE 226 MG/DL (70-110)
[2023-07-09 17:00] LABS: GLUCOMETER DEV NAME(LOC) 3EX.2; GLUCOSE,POINT OF CARE 327 MG/DL (70-110)
[2023-07-09 20:31] VITALS: BP 137/65; PULSE 79; RESP 18; TEMP 97.6; O2SAT 98
[2023-07-09 20:36] LABS: GLUCOMETER DEV NAME(LOC) 3EX.2; GLUCOSE,POINT OF CARE 313 MG/DL (70-110)
[2023-07-09] MEDS: MELATONIN 5 MG TABLET PO SCH (21:05)
[2023-07-09] MEDS: BENZTROPINE MESYLATE 2 MG TABLET PO SCH (21:05)
[2023-07-09] MEDS: INSULIN GLARGINE,HUM.REC.ANLOG 100 UNITS/ML SQ SCH (21:06)
[2023-07-10 06:31] LABS: GLUCOMETER DEV NAME(LOC) 3EX.2; GLUCOSE,POINT OF CARE 112 MG/DL (70-110)
[2023-07-10] MEDS: GlipiZIDE 10 MG TABLET PO SCH (06:39)
[2023-07-10] MEDS: INSULIN LISPRO 100 UNITS/ML SQ PRN ×4 (06:40→21:06)
[2023-07-10] MEDS: MULTIVITAMINS, THERAPEUTIC TABLET PO SCH (08:06)
[2023-07-10] MEDS: ASCORBIC ACID 500 MG TABLET PO SCH (08:06)
[2023-07-10] MEDS: ASPIRIN 81 MG CHEWABLE TABLET PO SCH (08:06)
[2023-07-10] MEDS: DIVALPROEX SODIUM 500 MG DR TABLET PO SCH ×2 (08:06→16:34)
[2023-07-10] MEDS: RisperiDONE 3 MG TABLET PO SCH ×2 (08:06→16:35)
[2023-07-10] MEDS: ATORVASTATIN CALCIUM 10 MG TABLET PO SCH (08:06)
[2023-07-10] MEDS: OMEGA-3/DHA/EPA/FISH OIL 1,000 MG CAPSULE PO SCH (08:06)
[2023-07-10] MEDS: ALBUTEROL SULFATE HFA 90 MCG/PUFF 8 GM INHALER IH PRN (08:08)
[2023-07-10 08:28] VITALS: BP 111/57; PULSE 72; RESP 18; TEMP 97.6; O2SAT 97
[2023-07-10] MEDS: DiphenhydrAMINE HCL 25 MG CAPSULE PO PRN (09:22)
[2023-07-10] MEDS: BENZOCAINE/MENTHOL LOZENGE PO PRN (09:22)
[2023-07-10 16:52] LABS: GLUCOMETER DEV NAME(LOC) 3EX.2; GLUCOSE,POINT OF CARE 256 MG/DL (70-110)
[2023-07-10 16:52] LABS: GLUCOMETER DEV NAME(LOC) 3EX.2; GLUCOSE,POINT OF CARE 271 MG/DL (70-110)
[2023-07-10 20:26] LABS: GLUCOMETER DEV NAME(LOC) 3EX.2; GLUCOSE,POINT OF CARE 275 MG/DL (70-110)
[2023-07-10] MEDS: MELATONIN 5 MG TABLET PO SCH (21:05)
[2023-07-10] MEDS: BENZTROPINE MESYLATE 2 MG TABLET PO SCH (21:05)
[2023-07-10] MEDS: INSULIN GLARGINE,HUM.REC.ANLOG 100 UNITS/ML SQ SCH (21:06)
[2023-07-10 21:44] VITALS: BP 110/64; PULSE 70; RESP 18; TEMP 97.4
[2023-07-11 06:02] LABS: GLUCOMETER DEV NAME(LOC) 3EX.2; GLUCOSE,POINT OF CARE 129 MG/DL (70-110)
[2023-07-11] MEDS: GlipiZIDE 10 MG TABLET PO SCH (06:40)
[2023-07-11] MEDS: INSULIN LISPRO 100 UNITS/ML SQ PRN ×4 (06:41→20:53)
[2023-07-11 08:32] VITALS: BP 125/58; PULSE 66; RESP 18; TEMP 97.6; O2SAT 100
[2023-07-11] MEDS: ASPIRIN 81 MG CHEWABLE TABLET PO SCH (08:34)
[2023-07-11] MEDS: RisperiDONE 3 MG TABLET PO SCH ×2 (08:34→16:51)
[2023-07-11] MEDS: OMEGA-3/DHA/EPA/FISH OIL 1,000 MG CAPSULE PO SCH (08:34)
[2023-07-11] MEDS: ASCORBIC ACID 500 MG TABLET PO SCH (08:34)
[2023-07-11] MEDS: MULTIVITAMINS, THERAPEUTIC TABLET PO SCH (08:34)
[2023-07-11] MEDS: ATORVASTATIN CALCIUM 10 MG TABLET PO SCH (08:35)
[2023-07-11] MEDS: DIVALPROEX SODIUM 500 MG DR TABLET PO SCH ×2 (08:36→16:51)
[2023-07-11 11:57] LABS: GLUCOMETER DEV NAME(LOC) 3EX.2; GLUCOSE,POINT OF CARE 248 MG/DL (70-110)
[2023-07-11 17:06] LABS: GLUCOMETER DEV NAME(LOC) 3EX.2; GLUCOSE,POINT OF CARE 188 MG/DL (70-110)
[2023-07-11 20:16] LABS: GLUCOMETER DEV NAME(LOC) 3EX.2; GLUCOSE,POINT OF CARE 131 MG/DL (70-110)
[2023-07-11] MEDS: MELATONIN 5 MG TABLET PO SCH (20:21)
[2023-07-11] MEDS: BENZTROPINE MESYLATE 2 MG TABLET PO SCH (20:21)
[2023-07-11] MEDS: INSULIN GLARGINE,HUM.REC.ANLOG 100 UNITS/ML SQ SCH (20:54)
[2023-07-11 21:06] VITALS: BP 125/60; PULSE 77; RESP 18; TEMP 97.7; O2SAT 98
[2023-07-12 06:26] LABS: GLUCOMETER DEV NAME(LOC) 3EX.2; GLUCOSE,POINT OF CARE 92 MG/DL (70-110)
[2023-07-12] MEDS: GlipiZIDE 10 MG TABLET PO SCH (06:32)
[2023-07-12 08:00] VITALS: BP 114/58; PULSE 82; RESP 17; TEMP 98; O2SAT 98
[2023-07-12] MEDS: OMEGA-3/DHA/EPA/FISH OIL 1,000 MG CAPSULE PO SCH (08:20)
[2023-07-12] MEDS: ASCORBIC ACID 500 MG TABLET PO SCH (08:20)
[2023-07-12] MEDS: MULTIVITAMINS, THERAPEUTIC TABLET PO SCH (08:20)
[2023-07-12] MEDS: ASPIRIN 81 MG CHEWABLE TABLET PO SCH (08:20)
[2023-07-12] MEDS: DiphenhydrAMINE HCL 25 MG CAPSULE PO PRN (08:20)
[2023-07-12] MEDS: ALBUTEROL SULFATE HFA 90 MCG/PUFF 8 GM INHALER IH PRN (08:20)
[2023-07-12] MEDS: RisperiDONE 3 MG TABLET PO SCH ×2 (08:20→16:30)
[2023-07-12] MEDS: ATORVASTATIN CALCIUM 10 MG TABLET PO SCH (08:20)
[2023-07-12] MEDS: DIVALPROEX SODIUM 500 MG DR TABLET PO SCH ×2 (08:21→16:32)
[2023-07-12] MEDS: INSULIN LISPRO 100 UNITS/ML SQ PRN ×2 (11:27→20:54)
[2023-07-12 11:36] LABS: GLUCOMETER DEV NAME(LOC) 3EX.2; GLUCOSE,POINT OF CARE 173 MG/DL (70-110)
[2023-07-12 17:00] LABS: GLUCOMETER DEV NAME(LOC) 3EX.2; GLUCOSE,POINT OF CARE 419 MG/DL (70-110)
[2023-07-12] MEDS ORDERED: INSULIN LISPRO 100 UNITS/ML SQ ONE (17:15)
[2023-07-12 18:51] LABS: GLUCOMETER DEV NAME(LOC) 3EX.2; GLUCOSE,POINT OF CARE 282 MG/DL (70-110)
[2023-07-12] MEDS: BENZTROPINE MESYLATE 2 MG TABLET PO SCH (20:19)
[2023-07-12] MEDS: MELATONIN 5 MG TABLET PO SCH (20:19)
[2023-07-12 20:21] LABS: GLUCOMETER DEV NAME(LOC) 3EX.2; GLUCOSE,POINT OF CARE 139 MG/DL (70-110)
[2023-07-12] MEDS: INSULIN GLARGINE,HUM.REC.ANLOG 100 UNITS/ML SQ SCH (20:53)
[2023-07-12 21:07] VITALS: BP 115/60; PULSE 80; RESP 18; TEMP 98; O2SAT 98
[2023-07-13 06:16] LABS: GLUCOMETER DEV NAME(LOC) 3EX.2; GLUCOSE,POINT OF CARE 90 MG/DL (70-110)
[2023-07-13] MEDS: GlipiZIDE 10 MG TABLET PO SCH (06:38)
[2023-07-13] MEDS: ASCORBIC ACID 500 MG TABLET PO SCH (08:47)
[2023-07-13] MEDS: ASPIRIN 81 MG CHEWABLE TABLET PO SCH (08:48)
[2023-07-13] MEDS: OMEGA-3/DHA/EPA/FISH OIL 1,000 MG CAPSULE PO SCH (08:48)
[2023-07-13] MEDS: ATORVASTATIN CALCIUM 10 MG TABLET PO SCH (08:48)
[2023-07-13] MEDS: RisperiDONE 3 MG TABLET PO SCH ×2 (08:48→16:52)
[2023-07-13] MEDS: MULTIVITAMINS, THERAPEUTIC TABLET PO SCH (08:48)
[2023-07-13] MEDS: DIVALPROEX SODIUM 500 MG DR TABLET PO SCH ×2 (09:00→16:52)
[2023-07-13] MEDS: INSULIN LISPRO 100 UNITS/ML SQ PRN ×3 (11:33→21:18)
[2023-07-13 11:47] LABS: GLUCOMETER DEV NAME(LOC) 3EX.2; GLUCOSE,POINT OF CARE 200 MG/DL (70-110)
[2023-07-13 12:30] VITALS: BP 109/54; PULSE 68; RESP 18; O2SAT 97
[2023-07-13 16:46] LABS: GLUCOMETER DEV NAME(LOC) 3EX.2; GLUCOSE,POINT OF CARE 296 MG/DL (70-110)
[2023-07-13] MEDS: BENZOCAINE/MENTHOL LOZENGE PO PRN (20:43)
[2023-07-13] MEDS: ALBUTEROL SULFATE HFA 90 MCG/PUFF 8 GM INHALER IH PRN (20:44)
[2023-07-13 20:50] LABS: GLUCOMETER DEV NAME(LOC) 3EX.2; GLUCOSE,POINT OF CARE 298 MG/DL (70-110)
[2023-07-13] MEDS: MELATONIN 5 MG TABLET PO SCH (21:06)
[2023-07-13] MEDS: BENZTROPINE MESYLATE 2 MG TABLET PO SCH (21:06)
[2023-07-13] MEDS: INSULIN GLARGINE,HUM.REC.ANLOG 100 UNITS/ML SQ SCH (21:13)
[2023-07-13 22:28] VITALS: BP 110/60; PULSE 70; RESP 18; TEMP 97.9; O2SAT 98
[2023-07-14 06:51] LABS: GLUCOMETER DEV NAME(LOC) 3EX.2; GLUCOSE,POINT OF CARE 167 MG/DL (70-110)
[2023-07-14] MEDS: GlipiZIDE 10 MG TABLET PO SCH (06:52)
[2023-07-14] MEDS: INSULIN LISPRO 100 UNITS/ML SQ PRN ×4 (07:03→21:05)
[2023-07-14 08:00] VITALS: BP 113/54; PULSE 71; RESP 18; TEMP 97.1; O2SAT 98
[2023-07-14] MEDS: DIVALPROEX SODIUM 500 MG DR TABLET PO SCH ×2 (09:00→15:45)
[2023-07-14] MEDS: ATORVASTATIN CALCIUM 10 MG TABLET PO SCH (09:02)
[2023-07-14] MEDS: ALBUTEROL SULFATE HFA 90 MCG/PUFF 8 GM INHALER IH PRN (09:02)
[2023-07-14] MEDS: DiphenhydrAMINE HCL 25 MG CAPSULE PO PRN (09:02)
[2023-07-14] MEDS: MULTIVITAMINS, THERAPEUTIC TABLET PO SCH (09:02)
[2023-07-14] MEDS: RisperiDONE 3 MG TABLET PO SCH ×2 (09:03→16:16)
[2023-07-14] MEDS: ASPIRIN 81 MG CHEWABLE TABLET PO SCH (09:03)
[2023-07-14] MEDS: OMEGA-3/DHA/EPA/FISH OIL 1,000 MG CAPSULE PO SCH (09:03)
[2023-07-14] MEDS: ASCORBIC ACID 500 MG TABLET PO SCH (09:03)
[2023-07-14 11:51] LABS: GLUCOMETER DEV NAME(LOC) 3EX.2; GLUCOSE,POINT OF CARE 173 MG/DL (70-110)
[2023-07-14 16:46] LABS: GLUCOMETER DEV NAME(LOC) 3EX.2; GLUCOSE,POINT OF CARE 370 MG/DL (70-110)
[2023-07-14] MEDS: BENZOCAINE/MENTHOL LOZENGE PO PRN (17:52)
[2023-07-14 21:01] LABS: GLUCOMETER DEV NAME(LOC) 3EX.2; GLUCOSE,POINT OF CARE 151 MG/DL (70-110)
[2023-07-14] MEDS: INSULIN GLARGINE,HUM.REC.ANLOG 100 UNITS/ML SQ SCH (21:05)
[2023-07-14] MEDS: MELATONIN 5 MG TABLET PO SCH (21:05)
[2023-07-14] MEDS: BENZTROPINE MESYLATE 2 MG TABLET PO SCH (21:05)
[2023-07-14 21:36] VITALS: RESP 18
[2023-07-15] MEDS: GlipiZIDE 10 MG TABLET PO SCH (06:11)
[2023-07-15] MEDS: MULTIVITAMINS, THERAPEUTIC TABLET PO SCH (08:57)
[2023-07-15] MEDS: ASPIRIN 81 MG CHEWABLE TABLET PO SCH (08:58)
[2023-07-15] MEDS: RisperiDONE 3 MG TABLET PO SCH ×2 (08:58→16:15)
[2023-07-15] MEDS: ASCORBIC ACID 500 MG TABLET PO SCH (08:58)
[2023-07-15] MEDS: ATORVASTATIN CALCIUM 10 MG TABLET PO SCH (08:58)
[2023-07-15] MEDS: OMEGA-3/DHA/EPA/FISH OIL 1,000 MG CAPSULE PO SCH (08:58)
[2023-07-15] MEDS: DIVALPROEX SODIUM 500 MG DR TABLET PO SCH ×2 (09:00→17:00)
[2023-07-15] MEDS ORDERED: PETROLATUM,WHITE 28 GM JELLY TP PRN (11:00)
[2023-07-15 11:36] LABS: GLUCOMETER DEV NAME(LOC) 3EX.2; GLUCOSE,POINT OF CARE 105 MG/DL (70-110)
[2023-07-15] MEDS: INSULIN LISPRO 100 UNITS/ML SQ PRN ×3 (11:37→21:37)
[2023-07-15 14:24] VITALS: BP 109/60; PULSE 62; RESP 18; TEMP 96.8; O2SAT 95
[2023-07-15 17:32] LABS: GLUCOMETER DEV NAME(LOC) 3EX.2; GLUCOSE,POINT OF CARE 356 MG/DL (70-110)
[2023-07-15 21:01] VITALS: BP 114/72; PULSE 72; RESP 18; TEMP 98; O2SAT 97
[2023-07-15] MEDS: BENZTROPINE MESYLATE 2 MG TABLET PO SCH (21:26)
[2023-07-15] MEDS: MELATONIN 5 MG TABLET PO SCH (21:26)
[2023-07-15] MEDS: INSULIN GLARGINE,HUM.REC.ANLOG 100 UNITS/ML SQ SCH (21:35)
[2023-07-15 21:56] LABS: GLUCOMETER DEV NAME(LOC) 3EX.2; GLUCOSE,POINT OF CARE 202 MG/DL (70-110)
[2023-07-16] MEDS: INSULIN LISPRO 100 UNITS/ML SQ PRN ×4 (06:39→21:10)
[2023-07-16] MEDS: GlipiZIDE 10 MG TABLET PO SCH (06:41)
[2023-07-16 06:47] LABS: GLUCOMETER DEV NAME(LOC) 3EX.2; GLUCOSE,POINT OF CARE 85 MG/DL (70-110)
[2023-07-16] MEDS: ALBUTEROL SULFATE HFA 90 MCG/PUFF 8 GM INHALER IH PRN (07:04)
[2023-07-16] MEDS: BENZOCAINE/MENTHOL LOZENGE PO PRN (07:04)
[2023-07-16] MEDS: OMEGA-3/DHA/EPA/FISH OIL 1,000 MG CAPSULE PO SCH (08:35)
[2023-07-16] MEDS: ASPIRIN 81 MG CHEWABLE TABLET PO SCH (08:35)
[2023-07-16] MEDS: DiphenhydrAMINE HCL 25 MG CAPSULE PO PRN (08:35)
[2023-07-16] MEDS: DIVALPROEX SODIUM 500 MG DR TABLET PO SCH ×2 (08:35→17:00)
[2023-07-16] MEDS: MULTIVITAMINS, THERAPEUTIC TABLET PO SCH (08:35)
[2023-07-16] MEDS: ATORVASTATIN CALCIUM 10 MG TABLET PO SCH (08:35)
[2023-07-16] MEDS: RisperiDONE 3 MG TABLET PO SCH ×2 (08:35→17:31)
[2023-07-16] MEDS: ASCORBIC ACID 500 MG TABLET PO SCH (08:35)
[2023-07-16 08:53] VITALS: BP 119/54; PULSE 79; RESP 18; TEMP 98.1; O2SAT 99
[2023-07-16 12:01] LABS: GLUCOMETER DEV NAME(LOC) 3EX.2; GLUCOSE,POINT OF CARE 222 MG/DL (70-110)
[2023-07-16 17:46] LABS: GLUCOMETER DEV NAME(LOC) 3EX.2; GLUCOSE,POINT OF CARE 269 MG/DL (70-110)
[2023-07-16] MEDS: MELATONIN 5 MG TABLET PO SCH (20:29)
[2023-07-16] MEDS: BENZTROPINE MESYLATE 2 MG TABLET PO SCH (20:29)
[2023-07-16 20:31] LABS: GLUCOMETER DEV NAME(LOC) 3EX.2; GLUCOSE,POINT OF CARE 338 MG/DL (70-110)
[2023-07-16 20:33] VITALS: RESP 18
[2023-07-16] MEDS: INSULIN GLARGINE,HUM.REC.ANLOG 100 UNITS/ML SQ SCH (21:11)
[2023-07-17 06:27] LABS: GLUCOMETER DEV NAME(LOC) 3EX.2; GLUCOSE,POINT OF CARE 97 MG/DL (70-110)
[2023-07-17 06:27] LABS: GLUCOMETER DEV NAME(LOC) 3EX.2; GLUCOSE,POINT OF CARE 69 MG/DL (70-110)
[2023-07-17] MEDS: GlipiZIDE 10 MG TABLET PO SCH (06:41)
[2023-07-17] MEDS: ATORVASTATIN CALCIUM 10 MG TABLET PO SCH (07:57)
[2023-07-17] MEDS: ASPIRIN 81 MG CHEWABLE TABLET PO SCH (07:58)
[2023-07-17] MEDS: OMEGA-3/DHA/EPA/FISH OIL 1,000 MG CAPSULE PO SCH (07:58)
[2023-07-17] MEDS: ASCORBIC ACID 500 MG TABLET PO SCH (07:59)
[2023-07-17] MEDS: RisperiDONE 3 MG TABLET PO SCH ×2 (07:59→16:46)
[2023-07-17] MEDS: DIVALPROEX SODIUM 500 MG DR TABLET PO SCH ×2 (07:59→16:45)
[2023-07-17] MEDS: MULTIVITAMINS, THERAPEUTIC TABLET PO SCH (07:59)
[2023-07-17 08:24] VITALS: BP 133/73; PULSE 91; RESP 17; TEMP 97.6; O2SAT 99
[2023-07-17] MEDS: INSULIN LISPRO 100 UNITS/ML SQ PRN ×3 (11:20→21:10)
[2023-07-17 11:31] LABS: GLUCOMETER DEV NAME(LOC) 3EX.2; GLUCOSE,POINT OF CARE 200 MG/DL (70-110)
[2023-07-17 17:21] LABS: GLUCOMETER DEV NAME(LOC) 3EX.2; GLUCOSE,POINT OF CARE 179 MG/DL (70-110)
[2023-07-17 21:06] LABS: GLUCOMETER DEV NAME(LOC) 3EX.2; GLUCOSE,POINT OF CARE 296 MG/DL (70-110)
[2023-07-17] MEDS: BENZTROPINE MESYLATE 2 MG TABLET PO SCH (21:08)
[2023-07-17] MEDS: MELATONIN 5 MG TABLET PO SCH (21:08)
[2023-07-17] MEDS: INSULIN GLARGINE,HUM.REC.ANLOG 100 UNITS/ML SQ SCH (21:09)
[2023-07-17 22:00] VITALS: BP 114/60; PULSE 73; RESP 18; TEMP 97.8; O2SAT 99
[2023-07-18 06:36] LABS: GLUCOMETER DEV NAME(LOC) 3EX.2; GLUCOSE,POINT OF CARE 137 MG/DL (70-110)
[2023-07-18] MEDS: INSULIN LISPRO 100 UNITS/ML SQ PRN ×4 (06:44→20:53)
[2023-07-18] MEDS: GlipiZIDE 10 MG TABLET PO SCH (06:47)
[2023-07-18] MEDS: ALBUTEROL SULFATE HFA 90 MCG/PUFF 8 GM INHALER IH PRN (06:51)
[2023-07-18] MEDS: ASCORBIC ACID 500 MG TABLET PO SCH (07:48)
[2023-07-18] MEDS: RisperiDONE 3 MG TABLET PO SCH ×2 (07:48→16:44)
[2023-07-18] MEDS: OMEGA-3/DHA/EPA/FISH OIL 1,000 MG CAPSULE PO SCH (07:48)
[2023-07-18] MEDS: ASPIRIN 81 MG CHEWABLE TABLET PO SCH (07:48)
[2023-07-18] MEDS: ATORVASTATIN CALCIUM 10 MG TABLET PO SCH (07:48)
[2023-07-18] MEDS: MULTIVITAMINS, THERAPEUTIC TABLET PO SCH (07:49)
[2023-07-18] MEDS: DIVALPROEX SODIUM 500 MG DR TABLET PO SCH ×2 (07:49→16:44)
[2023-07-18 08:37] VITALS: BP 112/47; PULSE 65; RESP 18; TEMP 98; O2SAT 98
[2023-07-18 11:26] LABS: GLUCOMETER DEV NAME(LOC) 3EX.2; GLUCOSE,POINT OF CARE 244 MG/DL (70-110)
[2023-07-18 17:01] LABS: GLUCOMETER DEV NAME(LOC) 3EX.2; GLUCOSE,POINT OF CARE 244 MG/DL (70-110)
[2023-07-18 20:31] LABS: GLUCOMETER DEV NAME(LOC) 3EX.2; GLUCOSE,POINT OF CARE 241 MG/DL (70-110)
[2023-07-18] MEDS: MELATONIN 5 MG TABLET PO SCH (20:49)
[2023-07-18] MEDS: BENZTROPINE MESYLATE 2 MG TABLET PO SCH (20:49)
[2023-07-18] MEDS: INSULIN GLARGINE,HUM.REC.ANLOG 100 UNITS/ML SQ SCH (20:50)
[2023-07-19 06:21] LABS: GLUCOMETER DEV NAME(LOC) 3EX.2; GLUCOSE,POINT OF CARE 146 MG/DL (70-110)
[2023-07-19] MEDS: GlipiZIDE 10 MG TABLET PO SCH (06:32)
[2023-07-19] MEDS: INSULIN LISPRO 100 UNITS/ML SQ PRN ×4 (06:40→21:27)
[2023-07-19 09:00] VITALS: BP 106/60; PULSE 84; RESP 18; TEMP 98
[2023-07-19] MEDS: DIVALPROEX SODIUM 500 MG DR TABLET PO SCH ×3 (09:00→16:36)
[2023-07-19] MEDS: MULTIVITAMINS, THERAPEUTIC TABLET PO SCH (09:27)
[2023-07-19] MEDS: RisperiDONE 3 MG TABLET PO SCH ×2 (09:27→17:32)
[2023-07-19] MEDS: ASPIRIN 81 MG CHEWABLE TABLET PO SCH (09:27)
[2023-07-19] MEDS: ASCORBIC ACID 500 MG TABLET PO SCH (09:28)
[2023-07-19] MEDS: OMEGA-3/DHA/EPA/FISH OIL 1,000 MG CAPSULE PO SCH (09:29)
[2023-07-19] MEDS: ALBUTEROL SULFATE HFA 90 MCG/PUFF 8 GM INHALER IH PRN (09:29)
[2023-07-19] MEDS: ATORVASTATIN CALCIUM 10 MG TABLET PO SCH (09:30)
[2023-07-19 11:56] LABS: GLUCOMETER DEV NAME(LOC) 3EX.2; GLUCOSE,POINT OF CARE 112 MG/DL (70-110)
[2023-07-19 16:46] LABS: GLUCOMETER DEV NAME(LOC) 3EX.2; GLUCOSE,POINT OF CARE 335 MG/DL (70-110)
[2023-07-19] MEDS: BENZTROPINE MESYLATE 2 MG TABLET PO SCH (21:21)
[2023-07-19] MEDS: MELATONIN 5 MG TABLET PO SCH (21:21)
[2023-07-19] MEDS: INSULIN GLARGINE,HUM.REC.ANLOG 100 UNITS/ML SQ SCH (21:25)
[2023-07-19 21:51] LABS: GLUCOMETER DEV NAME(LOC) 3EX.2; GLUCOSE,POINT OF CARE 251 MG/DL (70-110)
[2023-07-20] MEDS: GlipiZIDE 10 MG TABLET PO SCH (06:56)
[2023-07-20] MEDS: INSULIN LISPRO 100 UNITS/ML SQ PRN ×4 (06:59→21:31)
[2023-07-20 07:12] LABS: GLUCOMETER DEV NAME(LOC) 3EX.2; GLUCOSE,POINT OF CARE 123 MG/DL (70-110)
[2023-07-20] MEDS: DIVALPROEX SODIUM 500 MG DR TABLET PO SCH ×2 (09:00→16:42)
[2023-07-20] MEDS: RisperiDONE 3 MG TABLET PO SCH ×2 (09:04→16:44)
[2023-07-20] MEDS: ASCORBIC ACID 500 MG TABLET PO SCH (09:04)
[2023-07-20] MEDS: OMEGA-3/DHA/EPA/FISH OIL 1,000 MG CAPSULE PO SCH (09:04)
[2023-07-20] MEDS: ASPIRIN 81 MG CHEWABLE TABLET PO SCH (09:04)
[2023-07-20] MEDS: BENZOCAINE/MENTHOL LOZENGE PO PRN (09:05)
[2023-07-20] MEDS: ALBUTEROL SULFATE HFA 90 MCG/PUFF 8 GM INHALER IH PRN (09:05)
[2023-07-20] MEDS: ATORVASTATIN CALCIUM 10 MG TABLET PO SCH (09:05)
[2023-07-20] MEDS: MULTIVITAMINS, THERAPEUTIC TABLET PO SCH (09:07)
[2023-07-20 10:21] VITALS: BP 122/53; PULSE 76; RESP 18; O2SAT 98
[2023-07-20 12:06] LABS: GLUCOMETER DEV NAME(LOC) 3EX.2; GLUCOSE,POINT OF CARE 188 MG/DL (70-110)
[2023-07-20 21:00] LABS: GLUCOMETER DEV NAME(LOC) 3EX.2; GLUCOSE,POINT OF CARE 227 MG/DL (70-110)
[2023-07-20 21:00] LABS: GLUCOMETER DEV NAME(LOC) 3EX.2; GLUCOSE,POINT OF CARE 185 MG/DL (70-110)
[2023-07-20] MEDS: BENZTROPINE MESYLATE 2 MG TABLET PO SCH (21:02)
[2023-07-20] MEDS: MELATONIN 5 MG TABLET PO SCH (21:02)
[2023-07-20] MEDS: INSULIN GLARGINE,HUM.REC.ANLOG 100 UNITS/ML SQ SCH (21:30)
[2023-07-20 21:40] VITALS: BP 118/69; PULSE 89; RESP 18; TEMP 98; O2SAT 98
[2023-07-21] MEDS: DiphenhydrAMINE HCL 25 MG CAPSULE PO PRN (05:59)
[2023-07-21] MEDS: ALBUTEROL SULFATE HFA 90 MCG/PUFF 8 GM INHALER IH PRN ×3 (05:59→21:16)
[2023-07-21] MEDS: BENZOCAINE/MENTHOL LOZENGE PO PRN ×3 (06:00→21:17)
[2023-07-21 06:11] LABS: GLUCOMETER DEV NAME(LOC) 3EX.2; GLUCOSE,POINT OF CARE 141 MG/DL (70-110)
[2023-07-21] MEDS: GlipiZIDE 10 MG TABLET PO SCH (06:56)
[2023-07-21] MEDS: INSULIN LISPRO 100 UNITS/ML SQ PRN ×4 (07:07→21:21)
[2023-07-21] MEDS: RisperiDONE 3 MG TABLET PO SCH ×2 (08:24→17:32)
[2023-07-21] MEDS: ASPIRIN 81 MG CHEWABLE TABLET PO SCH (08:24)
[2023-07-21] MEDS: OMEGA-3/DHA/EPA/FISH OIL 1,000 MG CAPSULE PO SCH (08:24)
[2023-07-21] MEDS: ASCORBIC ACID 500 MG TABLET PO SCH (08:24)
[2023-07-21] MEDS: MULTIVITAMINS, THERAPEUTIC TABLET PO SCH (08:24)
[2023-07-21] MEDS: ATORVASTATIN CALCIUM 10 MG TABLET PO SCH (08:25)
[2023-07-21] MEDS: DIVALPROEX SODIUM 500 MG DR TABLET PO SCH ×2 (08:25→17:00)
[2023-07-21 08:34] VITALS: BP 103/59; PULSE 76; RESP 17; TEMP 97.8; O2SAT 97
[2023-07-21 11:15] LABS: GLUCOMETER DEV NAME(LOC) 3EX.2; GLUCOSE,POINT OF CARE 186 MG/DL (70-110)
[2023-07-21 16:51] LABS: GLUCOMETER DEV NAME(LOC) 3EX.2; GLUCOSE,POINT OF CARE 232 MG/DL (70-110)
[2023-07-21 20:12] VITALS: BP 131/90; PULSE 75; RESP 18; TEMP 97.8; O2SAT 98
[2023-07-21 20:46] LABS: GLUCOMETER DEV NAME(LOC) 3EX.2; GLUCOSE,POINT OF CARE 202 MG/DL (70-110)
[2023-07-21] MEDS: BENZTROPINE MESYLATE 2 MG TABLET PO SCH (20:59)
[2023-07-21] MEDS: MELATONIN 5 MG TABLET PO SCH (20:59)
[2023-07-21] MEDS: LORazepam 2 MG TABLET PO PRN (21:16)
[2023-07-21] MEDS: INSULIN GLARGINE,HUM.REC.ANLOG 100 UNITS/ML SQ SCH (21:20)
[2023-07-22] MEDS: BENZOCAINE/MENTHOL LOZENGE PO PRN (06:17)
[2023-07-22] MEDS: DiphenhydrAMINE HCL 25 MG CAPSULE PO PRN (06:17)
[2023-07-22 06:22] LABS: GLUCOMETER DEV NAME(LOC) 3EX.2; GLUCOSE,POINT OF CARE 123 MG/DL (70-110)
[2023-07-22] MEDS: GlipiZIDE 10 MG TABLET PO SCH (06:52)
[2023-07-22] MEDS: INSULIN LISPRO 100 UNITS/ML SQ PRN (07:02)
[2023-07-22] MEDS: DIVALPROEX SODIUM 500 MG DR TABLET PO SCH ×2 (07:57→16:13)
[2023-07-22] MEDS: ASPIRIN 81 MG CHEWABLE TABLET PO SCH (07:57)
[2023-07-22] MEDS: ATORVASTATIN CALCIUM 10 MG TABLET PO SCH (07:57)
[2023-07-22] MEDS: RisperiDONE 3 MG TABLET PO SCH ×2 (07:57→16:13)
[2023-07-22] MEDS: MULTIVITAMINS, THERAPEUTIC TABLET PO SCH (07:57)
[2023-07-22] MEDS: OMEGA-3/DHA/EPA/FISH OIL 1,000 MG CAPSULE PO SCH (07:57)
[2023-07-22] MEDS: ASCORBIC ACID 500 MG TABLET PO SCH (07:58)
[2023-07-22 08:53] VITALS: BP 118/56; PULSE 88; RESP 18; TEMP 98; O2SAT 96
[2023-07-22 11:32] LABS: GLUCOMETER DEV NAME(LOC) 3EX.2; GLUCOSE,POINT OF CARE 72 MG/DL (70-110)
[2023-07-22] MEDS: LORazepam 2 MG TABLET PO PRN (12:14)
[2023-07-22] MEDS ORDERED: BENZ2TAB71 PO (12:27)
[2023-07-22] MEDS ORDERED: ATOR10TA PO (12:27)
[2023-07-22] MEDS ORDERED: DIVA-112 PO (12:27)
[2023-07-22] MEDS ORDERED: GLIP10TA10 PO (12:27)
[2023-07-22] MEDS ORDERED: ASCO500 PO (12:27)
[2023-07-22] MEDS ORDERED: MELA5TAB40 PO (12:27)
[2023-07-22] MEDS ORDERED: RISP3TAB63 PO (12:27)
[2023-07-22] MEDS ORDERED: OMEG-135 PO (12:27)
[2023-07-22] MEDS ORDERED: MULT-1239 PO (12:27)
[2023-07-22] MEDS ORDERED: ASPI-1450 PO (12:27)
[2023-07-22 14:49] LABS: COVID AG,FIA SOURCE NASAL SWAB
[2023-07-22 15:09] LABS: SARS-COV2 (COVID) ANTIGEN,FIA Negative (Negative)
== END 2023-07-22 16:30 | DRG 750 ==
LOC: 3EC 11:45 → 3EI 03-27 11:54 → 3EC 03-27 16:14
PROVIDERS: ADMIT Psychiatry & Neurology Psychiatry; ATTEND Psychiatry & Neurology Psychiatry
PROC: GZHZZZZ Group Psychotherapy (ICD-10-PCS; principal; 2023-03-12)
DX: F25.0 Schizoaffective disorder, bipolar type (principal); E11.8 Type 2 diabetes mellitus with unspecified complications; E78.5 Hyperlipidemia, unspecified; F41.9 Anxiety disorder, unspecified; I10 Essential (primary) hypertension; M19.90 Unspecified osteoarthritis, unspecified site; G47.00 Insomnia, unspecified; F10.10 Alcohol abuse, uncomplicated; K59.00 Constipation, unspecified; Z20.822 Contact with and (suspected) exposure to COVID-19; F19.10 Other psychoactive substance abuse, uncomplicated; Z72.0 Tobacco use; Z88.8 Allergy status to other drugs, medicaments and biological substances; Z79.4 Long term (current) use of insulin; Z79.899 Other long term (current) drug therapy
CPT/HCPCS: 80053; 80061; 80307; 81003; 82962; 83036; 83735; 84100; 84443; 85025; 87081; 90686; J1200; J1630; J1815; J2060; J3535; Q9967